=== PATIENT | female | born 1935 | race Caucasian/White ===

== ENCOUNTER 2017-09-09 07:21 | Day surgery (SDC) | payer MEDICARE, OTHER, SELFPAY ==
[2017-09-09 07:50] VITALS: BP 144/60; PULSE 67; RESP 18; TEMP 36; O2SAT 98; BMI 23.3
--- NOTE | 2017-09-09 09:18 | PCM.OPRPT ---
Problem List (1) Family hx of colon cancer Status: Acute Report of Operation Date of Procedure: 09/09/17 Pre-Operative Diagnosis: Family history of colon cancer Post-Operative Diagnosis: Extensive sigmoid and descending diverticulosis. Extraordinarily tortuous colon Surgery/Procedure Performed:: Colonoscopy Description of Surgical Findings:: .Informed consent was obtained. 82-year-old female was taken to the endoscopy suite. She was placed in a left lateral decubitus position. Throughout the procedure 100 mg of Demerol 3 mg of Versed were given as intravenous sedation. Digital rectal exam performed demonstrating external hemorrhoids soft nonthrombosed. Normal anal tone. No mass lesions. Flexible colonoscope inserted the rectum advanced through a very tortuous sigmoid colon. The scope was then slowly advanced through the transverse colon. The patient had to be placed supine in order to get the scope to go to the cecum. Transabdominal pressure was utilized. The cecum ileocecal valve area was achieved. Bowel prep was good with some liquid stool located throughout the colon. The scope was carefully withdrawn from the cecum ascending colon transverse colon descending colon and sigmoid colon. Laxity and tortuosity noted throughout. Extensive sigmoid and descending diverticulosis. The scope was retroflexed within the rectum the anorectal verge inspected hemorrhoidal changes noted. Excess fluid and air was aspirated free the procedure was completed with the patient tolerating it well. Impression Sigmoid and descending colon diverticulosis. Tortuous elongated colon. Patient is age 82. Next screening colonoscopy could be considered at age 87 pending her general health at that time. Medications were given at 0852. Scope inserted at 0853. The cecum was reached at 0909. This procedure was completed at 0916. Cc: Dr. Abbi Palafox M.D., F.A.C.S. Type of Anesthesia:: IV Sedation
[2017-09-09 09:23] VITALS: BP 114/42; BP 144/60; PULSE 66; RESP 18; TEMP 36.1; O2SAT 100
[2017-09-09 09:28] VITALS: BP 112/42; BP 144/60; PULSE 61; RESP 18; O2SAT 100
[2017-09-09 09:34] VITALS: BP 118/40; BP 144/60; PULSE 57; RESP 18; TEMP 36.6; O2SAT 99
[2017-09-09 09:49] VITALS: BP 144/60
== END 2017-09-09 10:33 | disposition home or self-care (01) ==
LOC: EN 07:22 → AC 07:25
PROVIDERS: Family Provider Internal Medicine; PCP Internal Medicine; Visit Provider Surgery
PROC: 0DJD8ZZ Inspection of Lower Intestinal Tract, Via Natural or Artificial Opening Endoscopic (ICD-10-PCS; CPT 45378; principal; 2017-09-09 08:40)
DX: K57.30 Diverticulosis of large intestine without perforation or abscess without bleeding (principal); K56.2 Volvulus; K64.4 Residual hemorrhoidal skin tags; D12.6 Benign neoplasm of colon, unspecified; Z80.0 Family history of malignant neoplasm of digestive organs; K21.9 Gastro-esophageal reflux disease without esophagitis; I10 Essential (primary) hypertension; E78.00 Pure hypercholesterolemia, unspecified; M17.0 Bilateral primary osteoarthritis of knee; Z79.82 Long term (current) use of aspirin; Z79.899 Other long term (current) drug therapy
CPT/HCPCS: 45378; 99152; 99153; J7120

== ENCOUNTER 2018-03-14 21:12 | Emergency (ER) | payer MEDICARE, OTHER, SELFPAY ==
[2018-03-14 21:13] VITALS: BP 192/86; PULSE 81; RESP 16; TEMP 36.9; O2SAT 99; BMI 23.5
--- NOTE | 2018-03-14 22:23 | ED.VISSUMM ---
- ER Visit Summary Date of Service: 03/14/18 Chief Complaint: Facial laceration History of Present Illness: The patient is a 82 F who was at the [place] airport today when she hit her toe on her luggage and she fell to the ground. After she got to the ground the post that holds the security line fell and struck her in the face just lateral to the right eye. No loss of conscious. That happened 7 hours prior to examination. No nausea vomiting. No headache. She otherwise appear well. Tetanus is up-to-date. Physical Examination: Afebrile vital signs are stable Gen: Well-nourished well-developed Head: Normocephalic is a horizontally orientated linear laceration just lateral to the right periorbital tissue. Edges are well approximated. There is no active bleeding. Neurovascularly intact. Able to wrinkle forehead. Eyes: Perrl EOMI ENT: TMs clear no rhinorrhea moist mucous membranes Neck: Supple no lymphadenopathy no JVD nontender CVS: Regular rate rhythm no murmurs normal S1-S2 Respiratory: No distress clear to auscultation bilaterally chest nontender Abdomen: Soft nontender nondistended normal bowel sounds no masses Back: Nontender Extremity: Nontender no edema Skin: Normal color no rash Neuro: alert orientated ?3 CN II-XII intact normal strength sensation reflexes gait cerebellar Psych: Normal affect normal mood Emergency Department Course and Treatment: Wound was locally anesthetized using 1% lidocaine. It was washed with Shur-Clens and explored. It was closed using 2 simple interrupted 5-0 repeat stitches. Wound care discussed with patient. We discussed whether or not a CT is warranted and I do not feel it is strongly that it is in the patient does not either. She will return if worsening or concerns. Impression: 1. 1 cm right facial laceration with repair This note was generated with [employer] dictation software. It may contain incorrect words, spelling, and punctuation that were not noted in review of the chart prior to signing ED Disposition - Plan for ED Patient: Disposition: Home or Assisted Living Chief Complaint: Laceration Instructions: ED Laceration Facial Sutr Tape Referrals: Abbi Cruz MD [Primary Care Provider] - As Needed
[2018-03-14 22:33] VITALS: RESP 18
--- OUTSIDE RECORDS SUMMARY | 2018-05-10 10:32 | XMS RPT_ITS ---
:1935 Author Organization OH[facility] Care Team Providers Name Role Phone KENA SIERRA Attending Unavailable KENA SIERRA Referring Unavailable TALAMPAS, MICHELLE Jj Referring Unavailable TALAMPAS, MICHELLE D Attending Unavailable ADIE OLEARY (IT DISASTER RECOVERY MANAGER) Attending Unavailable AIDE OLEARY (IT DISASTER RECOVERY MANAGER) Attending Unavailable TALAMPAS, MICHELLE D Referring Unavailable TALAMPAS, MICHELLE D Attending Unavailable Kris Palafox Attending Unavailable Kris Palafox Attending Unavailable Vivienne Kris Referring Unavailable Talampas, Michelle Primary Care Unavailable Kris Palafox Attending Unavailable Vivienne Kris Referring Unavailable Talampas, Michelle Primary Care Unavailable Vivienne Kris Consulting Unavailable Talampas, Michelle Primary Care Unavailable Brown Wilson Attending Unavailable PROBLEMS PROBLEMS DATE TYPE CONDITION / CODE ATTENDING STATUS SOURCE 03/16/2018 Unknown S01.81XA - Brown Wilson Active [facility] Laceration without Community foreign body of Hospital other part of head, Repository initial encounter / S01.81XA(ICD-10) 08/27/2017 Unknown Z80.0 - Family Kris Palafox Active [facility] history of malignant Community neoplasm of Hospital digestive organs / Repository Z80.0(ICD-10) 08/27/2017 Unknown D12.6 - Benign CebuKris phelan Active [facility] neoplasm of colon, Community unspecified / Hospital D12.6(ICD-10) Repository 09/26/2015 Active Essential (primary) NA Active [facility] hypertension / Clinic Main I10(ICD-10) [place] Repository 05/02/2017 Active Mixed hyperlipidemia NA Active [facility] / E78.2(ICD-10) Clinic Main [place] Repository 05/02/2017 Active 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 [facility] (current) drug Clinic Main therapy / [place] Z79.899(ICD-10) Repository 04/28/2017 Active Encounter for NA Active [facility] screening mammogram [facility] Main for malignant [place] neoplasm of breast / Repository Z12.31(ICD-10) 04/28/2017 Active Unknown / [place] Active [facility] UNK(Unknown) [facility]IZ[facility], Clinic Main KENA [place] Repository PROCEDURES PROCEDURES No Procedure Records FoundRESULTS RESULTS EMERGENCY DEPARTMENT Observed: 03/16/2018 Status: F Source: [place] SUMMARY 8:16 AM [facility] REPOSITORY [facility] Medical Records Department [address] [place] [address] Emergency Department Summary 03/14/18 2223 MR#: [id number] Acct: [id number] Name: JERALD VERMA Rep #: [id number] : 1935 82 From: Brown Wilson DO PCP: Michelle Cruz MD Status: DEP ER - ER Visit Summary Date of Service: 03/14/18 Chief Complaint: Facial laceration History of Present Illness: The patient is a 82 F who was [place] the [place] today when she hit her toe on her luggage and she fell to the ground. After she got to the ground the post that holds the security line fell and struck her in the face just lateral to the right eye. No loss of conscious. That happened 7 hours prior to examination. No nausea vomiting. No headache. She otherwise appear well. Tetanus is up-to-date. Physical Examination: Afebrile vital signs are stable Gen: Well-nourished well-developed Head: Normocephalic is a horizontally orientated linear laceration just lateral to the right periorbital tissue. Edges are well approximated. There is no active bleeding. Neurovascularly intact. Able to wrinkle forehead. Eyes: Perrl EOMI ENT: TMs clear no rhinorrhea moist mucous membranes Neck: Supple no lymphadenopathy no JVD nontender CVS: Regular rate rhythm no murmurs normal S1-S2 Respiratory: No distress clear to auscultation bilaterally chest nontender Abdomen: Soft nontender nondistended normal bowel sounds no masses Back: Nontender Extremity: Nontender no edema Skin: Normal color no rash Neuro: alert orientated 3 CN II-XII intact normal strength sensation reflexes gait cerebellar Psych: Normal affect normal mood Emergency Department Course and Treatment: Wound was locally anesthetized using 1% lidocaine. It was washed with Shur-Clens and explored. It was closed using 2 simple interrupted 5-0 repeat stitches. Wound care discussed with patient. We discussed whether or not a CT is warranted and I do not feel it is strongly that it is in the patient does not either. She will return if worsening or concerns. Impression: 1. 1 cm right facial laceration with repair This note was generated with Storytree dictation software. It may contain incorrect words, spelling, and punctuation that were not noted in review of the chart prior to signing ED Disposition - Plan for ED Patient: Disposition: Home or Assisted Living Chief Complaint: Laceration Instructions: ED Laceration Facial Sutr Tape Referrals: Michelle Cruz MD [Primary Care Provider] - As Needed What to do if you have Problems For any increased pain, shortness of breath, bleeding, nausea or vomiting, chest pain, or any unexpected problems, contact your Primary Care Provider. Call [facility] ([phone]) or report to the closest Emergency Room. Call 911 if necessary. 03/16/18 0816 <Electronically signed by Brown Wilson DO> Date Brown Wilson DO Cosigner Signature (If Indicated): Date CC: Michelle Cruz MD PROGRESS Observed: 11/11/2017 Status: COMPLETED Source: [place] 9:15 AM [facility] REPOSITORY HNO ID: [id number] Author: Michelle Cruz Service: (none) Author Type: Physician Type: Progress Notes Filed: 11/30/2017 3:21 AM Note Text: Patient presents with: Recheck: 6 month follow up SUBJECTIVE: Jerald Verma is a 82 year old year old lady here today for 6 month follow up appointment for review of medical conditions. 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 Complicated issues with getting things taken care of. Started with back pain yesterday. Picked up box while leaning forward. Better today. Aleve yesterday. PAST MEDICAL HISTORY Diagnosis Date - Benign microscopic hematuria Follows with Dr. Lee - Benign neoplasm of colon - Carpal tunnel syndrome 11/01/2006 - Disorder of bone and cartilage, unspecified - Diverticulitis of colon (without mention of hemorrhage)(562.11) - Diverticulosis of colon (without mention of hemorrhage) - Esophageal reflux - Essential hypertension, benign - Family history of malignant neoplasm of gastrointestinal tract - Foot injury torn tendon right great toe (lateral) causing medial toe deviation - Osteoarthrosis, unspecified whether generalized or localized, unspecified site - Painful tongue Tongu sensitivity--evaluated by ENT (Kami) and dentist - Pure hypercholesterolemia - Tinnitus Current Outpatient Prescriptions: hydroCHLOROthiazide (HYDRODIURIL, ESIDRIX) 25 mg tablet Take 0.5 tablets by mouth once daily. simvastatin (ZOCOR) 20 mg tablet Take 1 tablet by mouth daily at bedtime. lisinopril (ZESTRIL, PRINIVIL) 10 mg tablet Take 1 tablet by mouth once daily. budesonide (RHINOCORT AQUA) 32 mcg/actuation nasal spray Use 1-2 Sprays in each nostril once daily. as needed metoprolol succinate ER (TOPROL XL) 50 mg 24 hr tablet Take 1 tablet by mouth once daily. calcium carbonate 600 mg-cholecalciferol 200 units 600 mg(1,500mg) -200 unit tab Take 1 tablet by mouth twice daily. Cholecalciferol, Vitamin D3, 2,000 unit cap Take 1 tablet by mouth once daily. (after finished the 1000 IU capsules taking 2 daily) naproxen sodium (ALEVE) 220 mg tablet Take 1 tablet by mouth once daily as needed. (rarely takes; knows not to take if is going to try nabumetone) Aspirin 81 mg tab Take 1 tablet by mouth once daily. Take with food. desonide 0.05 % ointment Apply to affected rash area selectively (eg., right corner of the mouth) as directed and tolerated two to four times per day until cleared up and then can stop or taper off as able. AVOID eyes//eyelids. TYLENOL EXTRA STRENGTH 500 MG ORAL TAB as necessary TUMS ULTRA 1,000 MG ORAL CHEW as necessary CENTRUM SILVER ORAL TAB Take one(1) tablet daily. VITAMIN C 500 MG ORAL TAB Take one(1) tablet daily. ALLERGY RELIEF, LORATADINE, 10 mg tablet Take 1 tablet by mouth once daily. (Patient not taking: Reported on 11/11/2017 ) No current facility-administered medications for this visit. OBJECTIVE: BP 150/60 Pulse 64 Resp 12 Wt 62.6 kg (138 lb) BMI 23.50 kg/m? Patient is alert, oriented times 3, no apparent distress, affect is bright, reactive. Last 5 Encounter BP Readings: Date: BP: 11/11/2017 150/60 08/22/2017 130/78 07/21/2017 144/64 05/09/2017 142/68 04/28/2017 138/68 Last 5 Encounter Wt Readings: Date: Wt: 11/11/2017 62.6 kg (138 lb) 08/22/2017 63 kg (139 lb) 07/21/2017 62.1 kg (137 lb) 05/09/2017 62.6 kg (138 lb) 04/28/2017 63 kg (139 lb) 11/11/17 0836 11/11/17 0930 BP: 150/60 136/60 Pulse: 64 Resp: 12 Weight: 62.6 kg (138 lb) Heart: Regular rate, rhythm, no murmurs, gallops, rubs. Lungs: Clear to auscultation, bilaterally, breathing non labored. Ext: No cyanosis, clubbing, or edema. Back: left SI area tenderness. Neuro: no gross focal deficits Component Latest Ref Rng AND Units 10/06/2016 11/23/2016 05/02/2017 11/05/2017 Protein, Total 6.3 - 8.0 g/dL 6.9 6.7 6.7 6.3 Albumin 3.9 - 4.9 g/dL 3.7 (L) 3.9 3.9 3.9 Calcium 8.5 - 10.2 mg/dL 9.6 10.1 9.8 9.0 Bilirubin, Total 0.2 - 1.3 mg/dL 0.4 0.4 0.4 0.4 Alkaline Phosphatase 32 - 117 U/L 102 60 56 55 AST 13 - 35 U/L 44 (H) 22 20 23 Glucose 74 - 99 mg/dL 73 (L) 75 66 (L) 83 BUN 7 - 21 mg/dL 23 (H) 20 22 (H) 18 Creatinine 0.58 - 0.96 mg/dL 0.77 0.72 0.76 0.68 Sodium 136 - 144 mmol/L 141 141 142 141 Potassium 3.7 - 5.1 mmol/L 4.6 4.9 4.1 4.0 Chloride 97 - 105 mmol/L 100 101 99 101 CO2 22 - 30 mmol/L 28 25 31 (H) 28 Anion Gap 9 - 18 mmol/L 13 15 12 12 ALT 7 - 38 U/L 64 (H) 17 16 17 eGFR- >60 >60 >60 >60 eGFR-All Other Races . >60 >60 >60 >60 WBC 3.70 - 11.00 k/uL 8.50 4.74 4.05 RBC 3.90 - 5.20 m/uL 3.75 (L) 3.83 (L) 3.85 (L) Hemoglobin 11.5 - 15.5 g/dL 12.9 12.9 13.2 Hematocrit 36.0 - 46.0 % 40.2 40.3 40.7 MCV 80.0 - 100.0 fL 107.2 (H) 105.2 (H) 105.7 (H) MCH 26.0 - 34.0 pG 34.4 (H) 33.7 34.3 (H) MCHC 30.5 - 36.0 g/dL 32.1 32.0 32.4 RDW-CV 11.5 - 15.0 % 12.6 12.7 12.2 Platelet Count 150 - 400 k/uL 363 346 320 MPV 9.0 - 12.7 fL 9.4 9.4 9.3 Absolute nRBC <0.01 k/uL 0.00 <0.01 <0.01 Cholesterol, Total <200 mg/dL 162 Triglyceride <150 mg/dL 57 HDL Cholesterol >39 mg/dL 82 LDL Cholesterol <100 mg/dL 69 Non HDL Cholesterol <130 mg/dL 80 Fasting Time hrs 0 VLDL Cholesterol <30 mg/dL 11 TC:HDL Ratio <5.10 1.98 LDL:HDL Ratio <2.54 0.84 ASSESSMENT AND PLAN: Encounter Diagnosis ICD-10-CM 1. Hypertension goal BP (blood pressure) < 140/90 I10 hydroCHLOROthiazide (HYDRODIURIL, ESIDRIX) 25 mg tablet URINALYSIS WITH MICROSCOPIC COMP METABOLIC PANEL CBC 2. Back strain, initial encounter S39.012A LS spine on left side 3. Mixed hyperlipidemia E78.2 LIPID PANEL BASIC 4. Gastroesophageal reflux disease without esophagitis K21.9 5. Numbness of right foot R20.0 ball of foot, sometime to ankle--since surgery with toe sleeve 6. Encounter for long-term current use of medication Z79.899 COMP METABOLIC PANEL CBC MAGNESIUM BLD Above issues addressed with patient. Patient involved in shared decision making for management of her medical issues. History and medications reviewed. Epic updated as needed Refills taken care of and meds adjusted as indicated after reviewed history, exam and labs. Health Maintenance reviewed. Updated record and/or ordered tests as recorded. Further evaluation and treatment as indicated. Encouraged on efforts at healthy diet and regular exercise and adequate sleep. The majority of the visit was spent counseling and/or coordinating care for the patient. Zxdb-jt-ouuc time was at least 25 minutes. Michelle Curz MD CNOV Observed: 11/11/2017 Status: COMPLETED Source: [place] 8:20 AM [facility] Visit (INTMWS) JERALD VERMA ([id number]) 1935 F Date Time Provider Department 11/11/17 8:20 AM MICHELLE CRUZ During your visit today, we recorded the following information about you: Pulse Respiration Blood pressure Weight 64/minute 12/minute 136/60 62.6 kg Michelle Cruz MD 11/30/2017 3:21 AM Signed Patient presents with: Recheck: 6 month follow up SUBJECTIVE: Jerald Verma is a 82 year old year old lady here today for 6 month follow up appointment for review of medical conditions. Back hurting after working on cleaning up basement for the [employer]. Complicated issues with getting things taken care of. Started with back pain yesterday. Picked up box while leaning forward. Better today. Aleve yesterday. PAST MEDICAL HISTORY Diagnosis Date - Benign microscopic hematuria Follows with Dr. Lee - Benign neoplasm of colon - Carpal tunnel syndrome 11/01/2006 - Disorder of bone and cartilage, unspecified - Diverticulitis of colon (without mention of hemorrhage)(562.11) - Diverticulosis of colon (without mention of hemorrhage) - Esophageal reflux - Essential hypertension, benign - Family history of malignant neoplasm of gastrointestinal tract - Foot injury torn tendon right great toe (lateral) causing medial toe deviation - Osteoarthrosis, unspecified whether generalized or localized, unspecified site - Painful tongue Tongu sensitivity--evaluated by ENT (Kami) and dentist - Pure hypercholesterolemia - Tinnitus Current Outpatient Prescriptions: hydroCHLOROthiazide (HYDRODIURIL, ESIDRIX) 25 mg tablet Take 0.5 tablets by mouth once daily. simvastatin (ZOCOR) 20 mg tablet Take 1 tablet by mouth daily at bedtime. lisinopril (ZESTRIL, PRINIVIL) 10 mg tablet Take 1 tablet by mouth once daily. budesonide (RHINOCORT AQUA) 32 mcg/actuation nasal spray Use 1-2 Sprays in each nostril once daily. as needed metoprolol succinate ER (TOPROL XL) 50 mg 24 hr tablet Take 1 tablet by mouth once daily. calcium carbonate 600 mg-cholecalciferol 200 units 600 mg(1,500mg) -200 unit tab Take 1 tablet by mouth twice daily. Cholecalciferol, Vitamin D3, 2,000 unit cap Take 1 tablet by mouth once daily. (after finished the 1000 IU capsules taking 2 daily) naproxen sodium (ALEVE) 220 mg tablet Take 1 tablet by mouth once daily as needed. (rarely takes; knows not to take if is going to try nabumetone) Aspirin 81 mg tab Take 1 tablet by mouth once daily. Take with food. desonide 0.05 % ointment Apply to affected rash area selectively (eg., right corner of the mouth) as directed and tolerated two to four times per day until cleared up and then can stop or taper off as able. AVOID eyes//eyelids. TYLENOL EXTRA STRENGTH 500 MG ORAL TAB as necessary TUMS ULTRA 1,000 MG ORAL CHEW as necessary CENTRUM SILVER ORAL TAB Take one(1) tablet daily. VITAMIN C 500 MG ORAL TAB Take one(1) tablet daily. ALLERGY RELIEF, LORATADINE, 10 mg tablet Take 1 tablet by mouth once daily. (Patient not taking: Reported on 11/11/2017 ) No current facility-administered medications for this visit. OBJECTIVE: BP 150/60 Pulse 64 Resp 12 Wt 62.6 kg (138 lb) BMI 23.50 kg/m? Patient is alert, oriented times 3, no apparent distress, affect is bright, reactive. Last 5 Encounter BP Readings: Date: BP: 11/11/2017 150/60 08/22/2017 130/78 07/21/2017 144/64 05/09/2017 142/68 04/28/2017 138/68 Last 5 Encounter Wt Readings: Date: Wt: 11/11/2017 62.6 kg (138 lb) 08/22/2017 63 kg (139 lb) 07/21/2017 62.1 kg (137 lb) 05/09/2017 62.6 kg (138 lb) 04/28/2017 63 kg (139 lb) 11/11/17 0836 11/11/17 0930 BP: 150/60 136/60 Pulse: 64 Resp: 12 Weight: 62.6 kg (138 lb) Heart: Regular rate, rhythm, no murmurs, gallops, rubs. Lungs: Clear to auscultation, bilaterally, breathing non labored. Ext: No cyanosis, clubbing, or edema. Back: left SI area tenderness. Neuro: no gross focal deficits Component Latest Ref Rng AND Units 10/06/2016 11/23/2016 05/02/2017 11/05/2017 Protein, Total 6.3 - 8.0 g/dL 6.9 6.7 6.7 6.3 Albumin 3.9 - 4.9 g/dL 3.7 (L) 3.9 3.9 3.9 Calcium 8.5 - 10.2 mg/dL 9.6 10.1 9.8 9.0 Bilirubin, Total 0.2 - 1.3 mg/dL 0.4 0.4 0.4 0.4 Alkaline Phosphatase 32 - 117 U/L 102 60 56 55 AST 13 - 35 U/L 44 (H) 22 20 23 Glucose 74 - 99 mg/dL 73 (L) 75 66 (L) 83 BUN 7 - 21 mg/dL 23 (H) 20 22 (H) 18 Creatinine 0.58 - 0.96 mg/dL 0.77 0.72 0.76 0.68 Sodium 136 - 144 mmol/L 141 141 142 141 Potassium 3.7 - 5.1 mmol/L 4.6 4.9 4.1 4.0 Chloride 97 - 105 mmol/L 100 101 99 101 CO2 22 - 30 mmol/L 28 25 31 (H) 28 Anion Gap 9 - 18 mmol/L 13 15 12 12 ALT 7 - 38 U/L 64 (H) 17 16 17 eGFR- >60 >60 >60 >60 eGFR-All Other Races . >60 >60 >60 >60 WBC 3.70 - 11.00 k/uL 8.50 4.74 4.05 RBC 3.90 - 5.20 m/uL 3.75 (L) 3.83 (L) 3.85 (L) Hemoglobin 11.5 - 15.5 g/dL 12.9 12.9 13.2 Hematocrit 36.0 - 46.0 % 40.2 40.3 40.7 MCV 80.0 - 100.0 fL 107.2 (H) 105.2 (H) 105.7 (H) MCH 26.0 - 34.0 pG 34.4 (H) 33.7 34.3 (H) MCHC 30.5 - 36.0 g/dL 32.1 32.0 32.4 RDW-CV 11.5 - 15.0 % 12.6 12.7 12.2 Platelet Count 150 - 400 k/uL 363 346 320 MPV 9.0 - 12.7 fL 9.4 9.4 9.3 Absolute nRBC <0.01 k/uL 0.00 <0.01 <0.01 Cholesterol, Total <200 mg/dL 162 Triglyceride <150 mg/dL 57 HDL Cholesterol >39 mg/dL 82 LDL Cholesterol <100 mg/dL 69 Non HDL Cholesterol <130 mg/dL 80 Fasting Time hrs 0 VLDL Cholesterol <30 mg/dL 11 TC:HDL Ratio <5.10 1.98 LDL:HDL Ratio <2.54 0.84 ASSESSMENT AND PLAN: Encounter Diagnosis ICD-10-CM 1. Hypertension goal BP (blood pressure) < 140/90 I10 hydroCHLOROthiazide (HYDRODIURIL, ESIDRIX) 25 mg tablet URINALYSIS WITH MICROSCOPIC COMP METABOLIC PANEL CBC 2. Back strain, initial encounter S39.012A LS spine on left side 3. Mixed hyperlipidemia E78.2 LIPID PANEL BASIC 4. Gastroesophageal reflux disease without esophagitis K21.9 5. Numbness of right foot R20.0 ball of foot, sometime to ankle--since surgery with toe sleeve 6. Encounter for long-term current use of medication Z79.899 COMP METABOLIC PANEL CBC MAGNESIUM BLD Above issues addressed with patient. Patient involved in shared decision making for management of her medical issues. History and medications reviewed. Epic updated as needed Refills taken care of and meds adjusted as indicated after reviewed history, exam and labs. Health Maintenance reviewed. Updated record and/or ordered tests as recorded. Further evaluation and treatment as indicated. Encouraged on efforts at healthy diet and regular exercise and adequate sleep. The majority of the visit was spent counseling and/or coordinating care for the patient. Njaf-be-yzdx time was at least 25 minutes. Michelle Cruz MD Referring Provider: SELF [200] Allergies As of Date: 11/11/2017 Noted Allergy Reaction AMOXICILLIN 12/31/2004 6 - Diarrhea KETEK (TELITHROMYCIN) 12/31/2004 6 - Diarrhea NEOMYCIN 04/24/2010 2 - Rash Comments: Reaction on arm when treated with neosporin and bandaid; resolved after stopped Neosporin and used bacitracin instead Date Reviewed: 11/11/2017 Reviewed by: Edyta Garcia LPN - Fully Assessed Reason for Visit: Recheck [92] Cmt: 6 month follow up Primary Visit Diagnosis:Hypertension goal BP (blood pressure) < 140/90 [I10] Other Visit Diagnoses:Back strain, initial encounter [S39.012A] Comment:LS spine on left side Mixed hyperlipidemia [E78.2] Gastroesophageal reflux disease without esophagitis [K21.9] Numbness of right foot [R20.0] Comment:ball of foot, sometime to ankle--since surgery with toe sleeve Encounter for long-term current use of medication [Z98.244] Order(s):hydroCHLOROthiazide (HYDRODIURIL, ESIDRIX) 25 mg tabletTake 0.5 tablets by mouth once daily.Disp: 45 tabletRfl: 3 URINALYSIS WITH MICROSCOPIC [SQUAWMIC] Order #: [id number] FUTURE COMP METABOLIC PANEL [SQCMP] Order #: [id number] FUTURE CBC [SQCBC] Order #: [id number] FUTURE LIPID PANEL BASIC [SQLIPB] Order #: [id number] FUTURE MAGNESIUM BLD [SQMG1] Order #: [id number] FUTURE Prescriptions as of 11/11/2017 Sig: HYDROCHLOROTHIAZIDE 25 MG TAB* Take 0.5 tablets by mouth onc* SIMVASTATIN 20 MG TABLET Take 1 tablet by mouth daily * LISINOPRIL 10 MG TABLET Take 1 tablet by mouth once d* BUDESONIDE 32 MCG/ACTUATION N* Use 1-2 Sprays in each nostri* METOPROLOL SUCCINATE ER 50 MG* Take 1 tablet by mouth once d* CALCIUM CARBONATE 600 MG (1,5* Take 1 tablet by mouth twice * CHOLECALCIFEROL (VITAMIN D3) * Take 1 tablet by mouth once d* NAPROXEN SODIUM 220 MG TABLET Take 1 tablet by mouth once d* ASPIRIN 81 MG TABLET Take 1 tablet by mouth once d* DESONIDE 0.05 % TOPICAL OINTM* Apply to affected rash area s* TYLENOL EXTRA STRENGTH 500 MG* as necessary TUMS ULTRA 400 MG CALCIUM (1,* as necessary CENTRUM SILVER TABLET Take one(1) tablet daily. VITAMIN C 500 MG TABLET Take one(1) tablet daily. ALLERGY RELIEF (LORATADINE) 1* Take 1 tablet by mouth once d* Patient not taking: Reported on 11/11/2017 Problem List As Of Date 11/11/2017 Noted Resolved ESOPHAGEAL REFLUX [K21.9] PERS HX COLONIC POLYPS [Z86.010] INVALID FOR* More... 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 Bladder wall thickening [N32.89] INVALID FOR* Contact dermatitis and other eczema, corners of*INVALID FOR*02/05/2014 More... 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 Ocular migraine [G43.109] INVALID FOR* Prescriptions ordered this encounter Disp Refills Start End HYDROCHLOROTHIAZIDE 25 MG TABLET 45 t* 3 11/11/2017 Cmt: Please put on file; patient will request when needs Route: ORAL Sig: Take 0.5 tablets by mouth once daily. Medications Discontinued During This Encounter hydroCHLOROthiazide (HYDRODIURIL, ES* 45 t* 3 10/13/2016 11/11/2017 Cmt: Put on file--does not need yet Route: ORAL Sig: Take 0.5 tablets by mouth once daily. Disc: Reason for discontinue is not on file. nabumetone (RELAFEN) 750 mg tablet 06/30/2015 11/11/2017 Class: Med Update Route: ORAL Sig: Take 1 tablet by mouth twice daily as needed. (has not needed to take yet) Disc: Reason for discontinue is not on file. Disposition: Return in about 6 months (around 05/14/2018) for 6 months follow up, With labs prior. Follow-up and Disposition History Recorded Encounter Status:Closed by MICHELLE CRUZ MD on 11/30/17 CBC Collected: 11/05/2017 Status: F Source: [place] 11:09 AM [facility] [place] REPOSITORY TYPE CODE TESTS RESULT OUT OF REFERENCE UNITS RANGE LAB WBC 3.70-11.00 k/uL WBC 4.05 LAB RBC 3.90-5.20 m/uL Low RBC 3.85 LAB HGB 11.5-15.5 g/dL Hemoglobin 13.2 LAB HCT 36.0-46.0 % Hematocrit 40.7 LAB MCV 80.0-100.0 fL MCV High 105.7 LAB MCH 26.0-34.0 pG MCH High 34.3 LAB MCHC 30.5-36.0 g/dL MCHC 32.4 LAB RDWCV 11.5-15.0 % RDW-CV 12.2 LAB PLTCT 150-400 k/uL Platelet Count 320 LAB MPV 9.0-12.7 fL MPV 9.3 LAB ABSNUC <0.01 k/uL Absolute nRBC <0.01 Performed By: #### CBC, CMP #### [facility] [address] [place], [place] [address] COMP METABOLIC PANEL Collected: 11/05/2017 Status: F Source: [place] 11:09 AM [facility] REPOSITORY TYPE CODE TESTS RESULT OUT OF REFERENCE UNITS RANGE LAB TP 6.3-8.0 g/dL Protein, Total 6.3 LAB ALB 3.9-4.9 g/dL Albumin 3.9 LAB CA 8.5-10.2 mg/dL Calcium, Total 9.0 LAB TBIL 0.2-1.3 mg/dL Bilirubin, Total 0.4 LAB ALKP 32-117 U/L Alkaline Phosphatase 55 LAB AST 13-35 U/L AST 23 LAB GLU 74-99 mg/dL Glucose 83 Result Comment: The [place] [employer] (ADA) provides guidance for cutoff values for fasting glucose and random glucose. The ADA defines fasting as no caloric intake for at least 8 hours. Fas ting plasma glucose results between 100 to 125 mg/dL indicate increased risk for diabetes (prediabetes). Fasting plasma glucose results greater than or equal to 126 mg/dL meet the criteria for diagnosis of diabetes. In the absence of unequivocal hyperglycemia, results should be confirmed by repeat testing. In a patient with classic symptoms of hyperglycemia or hyperglycemic crisis, random plasma glucose results greater than or equal to 200 mg/dL meet the criteria for diagnosis of diabetes. Reference: Standards of Medical Care in Diabetes 2016, [place] [employer]. Diabetes Care. 2016.39(Suppl 1). LAB BUN 7-21 mg/dL BUN 18 LAB CRET 0.58-0.96 mg/dL Creatinine 0.68 LAB NA 136-144 mmol/L Sodium 141 LAB K 3.7-5.1 mmol/L Potassium 4.0 LAB CL 97-105 mmol/L Chloride 101 LAB CO2 22-30 mmol/L CO2 28 LAB AGAP 9-18 mmol/L Anion Gap 12 LAB ALT 7-38 U/L ALT 17 LAB GFRAA eGFR- Amer. >60 LAB GFRNAA . eGFR-All Other Races >60 Result Comment: eGFR (Estimated GFR) Units of measure: mL/min/1.73 meters squared eGFR is derived from the reexpressed MDRD Study equation using the following parameters: serum creatinine, age, gender and race. The creatinine assay has been calibrated to be traceable to IDMS. An eGFR <60 mL/min/1.73m2 for >3 months is consistent with chronic kidney disease. Refer to KDOQI guidelines for clinical interpretation. In patients with unstable renal function, e.g. those with acute kidney injury, the eGFR may not accurately reflect actual GFR. Performed By: #### CBC, CMP #### [facility] [address] [place], [place] [address] OPERATIVE REPORT Observed: 09/09/2017 Status: F Source: [place] 9:22 AM [facility] REPOSITORY [facility] Medical Records Department [address] [place] [address] Operative Report 09/09/17917 MR#: [id number] Acct: [id number] Name: JERALD VERMA Rep #: [id number] : 1935 82 From: Kris Palafox MD PCP: Michelle Cruz MD Status: [place] [facility] [place] Location: [place] [address] Problem List (1) Family hx of colon cancer Status: Acute Report of Operation Date of Procedure: 09/09/17 Pre-Operative Diagnosis: Family history of colon cancer Post-Operative Diagnosis: Extensive sigmoid and descending diverticulosis. Extraordinarily tortuous colon Surgery/Procedure Performed:: Colonoscopy Description of Surgical Findings:: .Informed consent was obtained. 82-year-old female was taken to the endoscopy suite. She was placed in a left lateral decubitus position. Throughout the procedure 100 mg of Demerol 3 mg of Versed were given as intravenous sedation. Digital rectal exam performed demonstrating external hemorrhoids soft nonthrombosed. Normal anal tone. No mass lesions. Flexible colonoscope inserted the rectum advanced through a very tortuous sigmoid colon. The scope was then slowly advanced through the transverse colon. The patient had to be placed supine in order to get the scope to go to the cecum. Transabdominal pressure was utilized. The cecum ileocecal valve area was achieved. Bowel prep was good with some liquid stool located throughout the colon. The scope was carefully withdrawn from the cecum ascending colon transverse colon descending colon and sigmoid colon. Laxity and tortuosity noted throughout. Extensive sigmoid and descending diverticulosis. The scope was retroflexed within the rectum the anorectal verge inspected hemorrhoidal changes noted. Excess fluid and air was aspirated free the procedure was completed with the patient tolerating it well. Impression Sigmoid and descending colon diverticulosis. Tortuous elongated colon. Patient is age 82. Next screening colonoscopy could be considered at age 87 pending her general health at that time. Medications were given at 0852. Scope inserted at 0853. The cecum was reached at 0909. This procedure was completed at 0916. Cc: Dr. Michelle Palafox M.D., F.A.C.S. Type of Anesthesia:: IV Sedation 09/09/17 09 <Electronically signed by Kris Palafox MD> Date Kris Palafox MD CC: Michelle Cruz MD; Kris Palafox MD Signed PROGRESS Observed: 08/22/2017 Status: COMPLETED Source: [place] 9:02 AM [facility] HNO ID: [id number] Author: Aide Oleary (Plan Checker) Service: (none) Author Type: Nurse Specialist Type: Progress Notes Filed: 08/22/2017 10:18 AM Note Text: OUTPATIENT VISIT DATE August 22, 2017 OUTPATIENT VISIT TYPE ESTABLISHED PRIMARY CARE PHYSICIAN: Michelle Cruz CHIEF COMPLAINT: Patient presents with: Recheck: URU july 21 given claritin still cough yellow sputum /wheezing on and off History of Present Illness: Jerald Verma is a 82 year old female who was last seen 07/21/2017 in . She has been seen in the past for ACTIVE PROBLEM LIST Esophageal Reflux Personal History of Colonic Polyps Hypertension Goal Bp (Blood Pressure) < 140/90 Disorder of Bone and Cartilage Hyperlipidemia Chronic Rhinitis FAMILY HX COLON CANCER Generalized Osteoarthrosis, Unspecified Site Hematuria Bladder Wall Thickening Painful Tongue Ocular Migraine Presents today for follow up, reports productive cough at times, overall improved. She reports using Rhinocort and loratadine as advised. Did feel improvement with nasal congestion and headache resolving with this. Did continue to note productive cough intermittently so took azithromycin on August 12, 2017. She finished this on August 16. Today she notes just small amounts of yellow tinged sputum at times. Notices wheezing when breathing at times. No shortness of breath on exertion. Currently no sore throat, facial pain/pressure, swollen glands, headache, body aches, ear pain,, rash, fatigue, fever. Reports stopping loratadine in the last few days. Afebrile, nasal drainage and ear fullness off of loratadine. The ROS is otherwise negative. Also reports breast fullness sensation. No pain or abnormality. Has had generalized weight gain ~5 lbs recently. Trying to limit salty foods, but does consume some. The patient's pmh, medications, allergies, and past visits are reviewed. PHYSICAL EXAM: BP 130/78 Pulse 72 Temp 36.6 ?C (97.8 ?F) Resp 16 Wt 63 kg (139 lb) SpO2 98% BMI 23.67 kg/m? General appearance: healthy, alert, cooperative, pleasant Head: Normocephalic Eyes: conjunctiva/corneas normal Ears: R TM - clear with good landmarks, L TM - clear with good landmarks Nose: clear Oropharynx: moist without lesions Neck: supple and no adenopathy Heart: regular rate and rhythm, without murmur Lungs: clear to auscultation, without rales or wheeze, good air exchange Chest: No abnormalities on palpation of breasts, no lesions, tenderness, skin changes No recent hospital or ED visits. No new medical problems or medications. Able to obtain medications. No problems with taking medications or note side effects. PAST MEDICAL HISTORY Diagnosis Date - Benign microscopic hematuria Follows with Dr. Lee - Benign neoplasm of colon - Carpal tunnel syndrome 11/01/2006 - Disorder of bone and cartilage, unspecified - Diverticulitis of colon (without mention of hemorrhage)(562.11) - Diverticulosis of colon (without mention of hemorrhage) - Esophageal reflux - Essential hypertension, benign - Family history of malignant neoplasm of gastrointestinal tract - Foot injury torn tendon right great toe (lateral) causing medial toe deviation - Osteoarthrosis, unspecified whether generalized or localized, unspecified site - Painful tongue Tongu sensitivity--evaluated by ENT (Kami) and dentist - Pure hypercholesterolemia - Tinnitus PAST SURGICAL HISTORY Procedure Laterality Date - COLONOSCOP W/ OR W/O [facility] SPEC , , 09/16, 08/18 Colonoscopy - COLONOSCOP W/ OR W/O [facility] SPEC 10/12/07 - COLONOSCOP W/ OR W/O [facility] SPEC 10/16/2012 Colonoscopy - LIGATE FALLOPIAN TUBE 12/11/1975 - PAST SURGICAL HISTORY OF 1995 LEFT FOOT SURGERY, ORIF (plate and 6 screws) - PAST SURGICAL HISTORY OF 05/26/12 surgery right ankle (2 screw and 4 katrin) - PAST SURGICAL HISTORY OF 04/30/2012 right foot great toe - PAST SURGICAL HISTORY OF 03/28/2017 basil cell skin graft off nose - REMOVE TONSILS/ADENOIDS,<12 Y/O FAMILY HISTORY Problem Relation Age of Onset - Colon Cancer Father FROM THIS. - Hypertension Mother - Heart Mother CONGESTIVE HEART FAILURE Social History Substance Use Topics - Smoking status: Never Smoker - Smokeless tobacco: Never Used - Alcohol use Yes Comment: occasional ALLERGIES: ALLERGIES Allergen Reactions - Amoxicillin Diarrhea - Ketek [Telithromyci* Diarrhea - Neomycin Rash Reaction on arm when treated with neosporin and bandaid; resolved after stopped Neosporin and used bacitracin instead MEDICATIONS simvastatin (ZOCOR) 20 mg tablet Take 1 tablet by mouth daily at bedtime. lisinopril (ZESTRIL, PRINIVIL) 10 mg tablet Take 1 tablet by mouth once daily. budesonide (RHINOCORT AQUA) 32 mcg/actuation nasal spray Use 1-2 Sprays in each nostril once daily. as needed metoprolol succinate ER (TOPROL XL) 50 mg 24 hr tablet Take 1 tablet by mouth once daily. hydroCHLOROthiazide (HYDRODIURIL, ESIDRIX) 25 mg tablet Take 0.5 tablets by mouth once daily. calcium carbonate 600 mg-cholecalciferol 200 units 600 mg(1,500mg) -200 unit tab Take 1 tablet by mouth twice daily. Cholecalciferol, Vitamin D3, 2,000 unit cap Take 1 tablet by mouth once daily. (after finished the 1000 IU capsules taking 2 daily) nabumetone (RELAFEN) 750 mg tablet Take 1 tablet by mouth twice daily as needed. (has not needed to take yet) naproxen sodium (ALEVE) 220 mg tablet Take 1 tablet by mouth once daily as needed. (rarely takes; knows not to take if is going to try nabumetone) Aspirin 81 mg tab Take 1 tablet by mouth once daily. Take with food. desonide 0.05 % ointment Apply to affected rash area selectively (eg., right corner of the mouth) as directed and tolerated two to four times per day until cleared up and then can stop or taper off as able. AVOID eyes//eyelids. TYLENOL EXTRA STRENGTH 500 MG ORAL TAB as necessary TUMS ULTRA 1,000 MG ORAL CHEW as necessary CENTRUM SILVER ORAL TAB Take one(1) tablet daily. VITAMIN C 500 MG ORAL TAB Take one(1) tablet daily. loratadine (CLARITIN) 10 mg tablet Take 1 tablet by mouth once daily. I personally interviewed, confirmed and edited the above information if obtained by others. TESTING: Glucose (mg/dL) Date Value 05/02/2017 66 Potassium (mmol/L) Date Value 05/02/2017 4.1 Sodium (mmol/L) Date Value 05/02/2017 142 Chloride (mmol/L) Date Value 05/02/2017 99 CO2 (mmol/L) Date Value 05/02/2017 31 Creatinine (mg/dL) Date Value 05/02/2017 0.76 BUN (mg/dL) Date Value 05/02/2017 22 Anion Gap (mmol/L) Date Value 05/02/2017 12 Calcium (mg/dL) Date Value 05/02/2017 9.8 Glucose (mg/dL) Date Value 05/02/2017 66 Potassium (mmol/L) Date Value 05/02/2017 4.1 Sodium (mmol/L) Date Value 05/02/2017 142 Chloride (mmol/L) Date Value 05/02/2017 99 CO2 (mmol/L) Date Value 05/02/2017 31 Creatinine (mg/dL) Date Value 05/02/2017 0.76 BUN (mg/dL) Date Value 05/02/2017 22 Anion Gap (mmol/L) Date Value 05/02/2017 12 Calcium (mg/dL) Date Value 05/02/2017 9.8 Protein, Total (g/dL) Date Value 05/02/2017 6.7 Albumin (g/dL) Date Value 05/02/2017 3.9 Bilirubin, Total (mg/dL) Date Value 05/02/2017 0.4 Alkaline Phosphatase (U/L) Date Value 05/02/2017 56 AST (U/L) Date Value 05/02/2017 20 ALT (U/L) Date Value 05/02/2017 16 Hemoglobin (g/dL) Date Value 05/02/2017 12.9 Hematocrit (%) Date Value 05/02/2017 40.3 WBC (k/uL) Date Value 05/02/2017 4.74 Cholesterol, Total (mg/dL) Date Value 05/02/2017 162 HDL Cholesterol (mg/dL) Date Value 05/02/2017 82 LDL Cholesterol (mg/dL) Date Value 05/02/2017 69 Triglyceride (mg/dL) Date Value 05/02/2017 57 No results found for: HBA1C Ejection Fraction: No results found IMPRESSION: Ms. Verma is a 82 year old woman presents for follow up or upper respiratory symptoms. After my examination and review of data, I make the following recommendations. PLAN AND RECOMMENDATIONS: 1. Cough - ICD9: 786.2, ICD10: R05 (primary diagnosis) 2. PND (post-nasal drip) - ICD9: 784.91, ICD10: R09.82 Resume allergy treatments previously prescribed. Continue with loratidine and rhinocort 3. Fullness of breast - ICD9: 611.89, ICD10: N64.89 Avoiding caffeine, recommend she cut sodium intake. Declines mammogram today. Advised to go to ER if develops chest pain, shortness of breath, or severe worsening of symptoms. Discussed risks, benefits, alternatives, and potential side effects of medications. Ms. Verma expressed understanding and agreed with the plan. Aide Oleary APRN.IT DISASTER RECOVERY MANAGER CNOV Observed: 08/22/2017 Status: COMPLETED Source: [place] 9:00 AM [facility] Office Visit (INTMWS) JERALD VERMA ([id number]) 1935 F Date Time Provider Department 08/22/17 9:00 AM AIDE OLEARY ([facility]) INTMWS During your visit today, we recorded the following information about you: Temperature Pulse Respiration Blood pressure 97.8 degrees 72/minute 16/minute 130/78 Weight 63 kg Aide Oleary (Plan Checker) 08/22/2017 10:18 AM Signed OUTPATIENT VISIT DATE August 22, 2017 OUTPATIENT VISIT TYPE ESTABLISHED PRIMARY CARE PHYSICIAN: Michelle Cruz CHIEF COMPLAINT: Patient presents with: Recheck: URU july 21 given claritin still cough yellow sputum /wheezing on and off History of Present Illness: Jerald Verma is a 82 year old female who was last seen 07/21/2017 in . She has been seen in the past for ACTIVE PROBLEM LIST Esophageal Reflux Personal History of Colonic Polyps Hypertension Goal Bp (Blood Pressure) < 140/90 Disorder of Bone and Cartilage Hyperlipidemia Chronic Rhinitis FAMILY HX COLON CANCER Generalized Osteoarthrosis, Unspecified Site Hematuria Bladder Wall Thickening Painful Tongue Ocular Migraine Presents today for follow up, reports productive cough at times, overall improved. She reports using Rhinocort and loratadine as advised. Did feel improvement with nasal congestion and headache resolving with this. Did continue to note productive cough intermittently so took azithromycin on August 12, 2017. She finished this on August 16. Today she notes just small amounts of yellow tinged sputum at times. Notices wheezing when breathing at times. No shortness of breath on exertion. Currently no sore throat, facial pain/pressure, swollen glands, headache, body aches, ear pain,, rash, fatigue, fever. Reports stopping loratadine in the last few days. Afebrile, nasal drainage and ear fullness off of loratadine. The ROS is otherwise negative. Also reports breast fullness sensation. No pain or abnormality. Has had generalized weight gain ~5 lbs recently. Trying to limit salty foods, but does consume some. The patient's pmh, medications, allergies, and past visits are reviewed. PHYSICAL EXAM: BP 130/78 Pulse 72 Temp 36.6 ?C (97.8 ?F) Resp 16 Wt 63 kg (139 lb) SpO2 98% BMI 23.67 kg/m? General appearance: healthy, alert, cooperative, pleasant Head: Normocephalic Eyes: conjunctiva/corneas normal Ears: R TM - clear with good landmarks, L TM - clear with good landmarks Nose: clear Oropharynx: moist without lesions Neck: supple and no adenopathy Heart: regular rate and rhythm, without murmur Lungs: clear to auscultation, without rales or wheeze, good air exchange Chest: No abnormalities on palpation of breasts, no lesions, tenderness, skin changes No recent hospital or ED visits. No new medical problems or medications. Able to obtain medications. No problems with taking medications or note side effects. PAST MEDICAL HISTORY Diagnosis Date - Benign microscopic hematuria Follows with Dr. Lee - Benign neoplasm of colon - Carpal tunnel syndrome 11/01/2006 - Disorder of bone and cartilage, unspecified - Diverticulitis of colon (without mention of hemorrhage)(562.11) - Diverticulosis of colon (without mention of hemorrhage) - Esophageal reflux - Essential hypertension, benign - Family history of malignant neoplasm of gastrointestinal tract - Foot injury torn tendon right great toe (lateral) causing medial toe deviation - Osteoarthrosis, unspecified whether generalized or localized, unspecified site - Painful tongue Tongu sensitivity--evaluated by ENT (Kami) and dentist - Pure hypercholesterolemia - Tinnitus PAST SURGICAL HISTORY Procedure Laterality Date - COLONOSCOP W/ OR W/O [facility] SPEC , , 09/16, 08/18 Colonoscopy - COLONOSCOP W/ OR W/O [facility] SPEC 10/12/07 - COLONOSCOP W/ OR W/O [facility] SPEC 10/16/2012 Colonoscopy - LIGATE FALLOPIAN TUBE 12/11/1975 - PAST SURGICAL HISTORY OF 1995 LEFT FOOT SURGERY, ORIF (plate and 6 screws) - PAST SURGICAL HISTORY OF 05/26/12 surgery right ankle (2 screw and 4 katrin) - PAST SURGICAL HISTORY OF 04/30/2012 right foot great toe - PAST SURGICAL HISTORY OF 03/28/2017 basil cell skin graft off nose - REMOVE TONSILS/ADENOIDS,<12 Y/O FAMILY HISTORY Problem Relation Age of Onset - Colon Cancer Father FROM THIS. - Hypertension Mother - Heart Mother CONGESTIVE HEART FAILURE Social History Substance Use Topics - Smoking status: Never Smoker - Smokeless tobacco: Never Used - Alcohol use Yes Comment: occasional ALLERGIES: ALLERGIES Allergen Reactions - Amoxicillin Diarrhea - Ketek [Telithromyci* Diarrhea - Neomycin Rash Reaction on arm when treated with neosporin and bandaid; resolved after stopped Neosporin and used bacitracin instead MEDICATIONS simvastatin (ZOCOR) 20 mg tablet Take 1 tablet by mouth daily at bedtime. lisinopril (ZESTRIL, PRINIVIL) 10 mg tablet Take 1 tablet by mouth once daily. budesonide (RHINOCORT AQUA) 32 mcg/actuation nasal spray Use 1-2 Sprays in each nostril once daily. as needed metoprolol succinate ER (TOPROL XL) 50 mg 24 hr tablet Take 1 tablet by mouth once daily. hydroCHLOROthiazide (HYDRODIURIL, ESIDRIX) 25 mg tablet Take 0.5 tablets by mouth once daily. calcium carbonate 600 mg-cholecalciferol 200 units 600 mg(1,500mg) -200 unit tab Take 1 tablet by mouth twice daily. Cholecalciferol, Vitamin D3, 2,000 unit cap Take 1 tablet by mouth once daily. (after finished the 1000 IU capsules taking 2 daily) nabumetone (RELAFEN) 750 mg tablet Take 1 tablet by mouth twice daily as needed. (has not needed to take yet) naproxen sodium (ALEVE) 220 mg tablet Take 1 tablet by mouth once daily as needed. (rarely takes; knows not to take if is going to try nabumetone) Aspirin 81 mg tab Take 1 tablet by mouth once daily. Take with food. desonide 0.05 % ointment Apply to affected rash area selectively (eg., right corner of the mouth) as directed and tolerated two to four times per day until cleared up and then can stop or taper off as able. AVOID eyes//eyelids. TYLENOL EXTRA STRENGTH 500 MG ORAL TAB as necessary TUMS ULTRA 1,000 MG ORAL CHEW as necessary CENTRUM SILVER ORAL TAB Take one(1) tablet daily. VITAMIN C 500 MG ORAL TAB Take one(1) tablet daily. loratadine (CLARITIN) 10 mg tablet Take 1 tablet by mouth once daily. I personally interviewed, confirmed and edited the above information if obtained by others. TESTING: Glucose (mg/dL) Date Value 05/02/2017 66 Potassium (mmol/L) Date Value 05/02/2017 4.1 Sodium (mmol/L) Date Value 05/02/2017 142 Chloride (mmol/L) Date Value 05/02/2017 99 CO2 (mmol/L) Date Value 05/02/2017 31 Creatinine (mg/dL) Date Value 05/02/2017 0.76 BUN (mg/dL) Date Value 05/02/2017 22 Anion Gap (mmol/L) Date Value 05/02/2017 12 Calcium (mg/dL) Date Value 05/02/2017 9.8 Glucose (mg/dL) Date Value 05/02/2017 66 Potassium (mmol/L) Date Value 05/02/2017 4.1 Sodium (mmol/L) Date Value 05/02/2017 142 Chloride (mmol/L) Date Value 05/02/2017 99 CO2 (mmol/L) Date Value 05/02/2017 31 Creatinine (mg/dL) Date Value 05/02/2017 0.76 BUN (mg/dL) Date Value 05/02/2017 22 Anion Gap (mmol/L) Date Value 05/02/2017 12 Calcium (mg/dL) Date Value 05/02/2017 9.8 Protein, Total (g/dL) Date Value 05/02/2017 6.7 Albumin (g/dL) Date Value 05/02/2017 3.9 Bilirubin, Total (mg/dL) Date Value 05/02/2017 0.4 Alkaline Phosphatase (U/L) Date Value 05/02/2017 56 AST (U/L) Date Value 05/02/2017 20 ALT (U/L) Date Value 05/02/2017 16 Hemoglobin (g/dL) Date Value 05/02/2017 12.9 Hematocrit (%) Date Value 05/02/2017 40.3 WBC (k/uL) Date Value 05/02/2017 4.74 Cholesterol, Total (mg/dL) Date Value 05/02/2017 162 HDL Cholesterol (mg/dL) Date Value 05/02/2017 82 LDL Cholesterol (mg/dL) Date Value 05/02/2017 69 Triglyceride (mg/dL) Date Value 05/02/2017 57 No results found for: HBA1C Ejection Fraction: No results found IMPRESSION: Ms. Verma is a 82 year old woman presents for follow up or upper respiratory symptoms. After my examination and review of data, I make the following recommendations. PLAN AND RECOMMENDATIONS: 1. Cough - ICD9: 786.2, ICD10: R05 (primary diagnosis) 2. PND (post-nasal drip) - ICD9: 784.91, ICD10: R09.82 Resume allergy treatments previously prescribed. Continue with loratidine and rhinocort 3. Fullness of breast - ICD9: 611.89, ICD10: N64.89 Avoiding caffeine, recommend she cut sodium intake. Declines mammogram today. Advised to go to ER if develops chest pain, shortness of breath, or severe worsening of symptoms. Discussed risks, benefits, alternatives, and potential side effects of medications. Ms. Verma expressed understanding and agreed with the plan. Aide Oleary APRN.IT DISASTER RECOVERY MANAGER Aide Oleary (Plan Checker) 08/22/2017 10:18 AM Addendum Mammogram if concerns Referring Provider: SELF [200] Allergies As of Date: 08/22/2017 Noted Allergy Reaction AMOXICILLIN 12/31/2004 6 - Diarrhea KETEK (TELITHROMYCIN) 12/31/2004 6 - Diarrhea NEOMYCIN 04/24/2010 2 - Rash Comments: Reaction on arm when treated with neosporin and bandaid; resolved after stopped Neosporin and used bacitracin instead Date Reviewed: 08/22/2017 Reviewed by: Karon Pérez (Damion), DAMION - Fully Assessed Reason for Visit: Recheck [92] Cmt: URU july 21 given claritin still cough yellow sputum /wheezing on and off Reason For Visit History Recorded Primary Visit Diagnosis:Cough [R05] Other Visit Diagnoses:PND (post-nasal drip) [R09.82] Fullness of breast [N64.89] Order(s):[facility] [[id number]] Order #: [id number] FUTURE Prescriptions as of 08/22/2017 Sig: SIMVASTATIN 20 MG TABLET Take 1 tablet by mouth daily * LISINOPRIL 10 MG TABLET Take 1 tablet by mouth once d* BUDESONIDE 32 MCG/ACTUATION N* Use 1-2 Sprays in each nostri* METOPROLOL SUCCINATE ER 50 MG* Take 1 tablet by mouth once d* HYDROCHLOROTHIAZIDE 25 MG TAB* Take 0.5 tablets by mouth onc* CALCIUM CARBONATE 600 MG (1,5* Take 1 tablet by mouth twice * CHOLECALCIFEROL (VITAMIN D3) * Take 1 tablet by mouth once d* NABUMETONE 750 MG TABLET Take 1 tablet by mouth twice * NAPROXEN SODIUM 220 MG TABLET Take 1 tablet by mouth once d* ASPIRIN 81 MG TABLET Take 1 tablet by mouth once d* DESONIDE 0.05 % TOPICAL OINTM* Apply to affected rash area s* TYLENOL EXTRA STRENGTH 500 MG* as necessary TUMS ULTRA 400 MG CALCIUM (1,* as necessary CENTRUM SILVER TABLET Take one(1) tablet daily. VITAMIN C 500 MG TABLET Take one(1) tablet daily. LORATADINE 10 MG TABLET Take 1 tablet by mouth once d* Problem List As Of Date 08/22/2017 Noted Resolved ESOPHAGEAL REFLUX [K21.9] PERS HX COLONIC POLYPS [Z86.010] INVALID FOR* More... 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 Bladder wall thickening [N32.89] INVALID FOR* Contact dermatitis and other eczema, corners of*INVALID FOR*02/05/2014 More... 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 Ocular migraine [G43.109] INVALID FOR* Other instructions from your clinician: Mammogram if concerns Encounter Status:Closed by AIDE SMITH on 08/22/17 SURGERY VISIT REPORT Observed: 08/18/2017 Status: F Source: [place] 9:08 AM [facility] [address] [place] [address] [address] [place] [address] OFFICE VISIT Date of Service: 08/18/17 MR#: [id number] Acct: [id number] Name: JERALD VERMA Rep #: [id number] : 1935 Provider: Kris Palafox MD Age/Sex: 82/F Location: [facility] Status: Signed Intake Vital Signs08/18/17 Height 5 ft 4 in 08/18/17 Weight: 140 lb Intake Visit Reasons: Schedule Cscope Solution Director Required: No Is patient in pain?: No Allergies amoxicillin Allergy (Mild, Verified 08/18/17 08:49) GI Upset neomycin Allergy (Mild, Verified 08/18/17 08:49) Rash telithromycin [From Ketek] Allergy (Mild, Verified 08/18/17 08:49) GI Upset Medications acetaminophen 500 mg capsule PO 08/18/17 [History Confirmed 08/18/17] ascorbic acid (vitamin C) 500 mg capsule PO 08/18/17 [History Confirmed 08/18/17] aspirin 81 mg tablet,delayed release 81 mg PO QDAY 08/18/17 [History Confirmed 08/18/17] budesonide 32 mcg/actuation nasal spray INTRANASAL 08/18/17 [History Confirmed 08/18/17] calcium carbonate 300 mg (750 mg) chewable tablet 300 mg PO QDAY tab 08/18/17 [History Confirmed 08/18/17] calcium carbonate 600 mg(1,500 mg)-vitamin D3 800 unit chewable tablet PO 08/18/17 [History Confirmed 08/18/17] desonide 0.05 % topical ointment TOPICAL 08/18/17 [History Confirmed 08/18/17] hydrochlorothiazide 25 mg tablet 12.5 mg PO QDAY tab 08/18/17 [History Confirmed 08/18/17] lisinopril 10 mg tablet 10 mg PO QDAY 08/18/17 [History Confirmed 08/18/17] metoprolol succinate ER 50 mg tablet,extended release 24 hr 50 mg PO QDAY 08/18/17 [History Confirmed 08/18/17] multivitamin tablet 1 tab PO QDAY 08/18/17 [History Confirmed 08/18/17] nabumetone 750 mg tablet PO 08/18/17 [History Confirmed 08/18/17] ranitidine 75 mg tablet 75 mg PO QD-BID PRN 08/18/17 [History Confirmed 08/18/17] simvastatin 20 mg tablet 20 mg PO QPM 08/18/17 [History Confirmed 08/18/17] PFSH Medical History Pure hypercholesterolemia (Acute) Painful tongue (Acute) Osteoarthritis (Acute) Family hx of colon cancer (Acute) Hypertension (Chronic) Esophageal reflux (Acute) Diverticulosis of colon (Acute) Diverticulitis of colon (Acute) Disorder of bone and cartilage, unspecified (Acute) Carpal tunnel syndrome (Acute) Benign neoplasm of colon (Acute) Benign microscopic hematuria (Acute) Surgical History S/P surgical manipulation of ankle joint (Acute) Family History Father Colon cancer Cancer Skin cancer Mother Hypertension Social History Smoking Status: Never smoker second hand exposure: No alcohol intake: never substance use type: does not use caffeine: No what type of physical activity do you participate in: walking, aerobics frequency: 1-2 times per week seatbelt use: always HPI HPI HPI: JERALD VERMA, is a 82 F who presents to the office today for surgical consultation regarding a family history of colon cancer in her father who was in his late 60s as well as a remote personal history of colon polyps. Patient is enjoying an extraordinarily high quality of life. At age 82 she is very active. She denies bright red blood per rectum or melena. No abdominal pain. No change of bowel habits. No unexpected weight loss. Her most recent colonoscopy was performed by Dr. Sebastien Parra. That was performed on October 16, 2012. Diverticulosis was identified. She well tolerated that with mod anesthesia. Her most recent laboratory of May 02, 2017 demonstrates a stable hemoglobin of 12.9 and hematocrit 40.3. Otherwise she is enjoying good health. 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 ROS General General: Yes weight change; no appetite, fatigue, colon cancer, breast cancer or weakness HEENT HEENT: No difficulty swallowing, eye injury, eye surgery, swollen glands or hoarseness Endo Endocrine: No thyroid disease, diabetes mellitus, thyroid cancer, Hair loss, heat intolerance or cold intolerance Skin Skin: No rash or changing moles Breast Breast: No left breast lump, right breast lump, nipple discharge, breast pain, abnormal mammogram, abnormal US or breast enlargement Musc Musculoskeletal: Yes arthritis; no back problems, rheumatoid arthritis, gout or joint pain Cardio Cardiovascular: Yes high blood pressure; no murmur, pacemaker, heart disease, atrial fibrillation, heart attack, heart stent, palpitations, shortness of breat with exertion or chest pain Psych Psychiatric: No depression, anxiety or hearing voices Resp Respiratory: No shortness of breath, No sleep apnea, No cough, No COPD, No asthma, No emphysema, No wheezing Gastro Gastrointestinal: No abdominal pain, No nausea or vomiting, No diarrhea, Yes constipation, No blood in stool, No acid reflux, Yes hemorrhoids, No ulcers, No gallbladder problem, No black,tarry stools Lew Hematologic: No blood thinners, No blood disorders, No bleeding, No anemia, No blood clots Neuro Neurologic: No system reviewed and no additional complaints, except as docu, No as per HPI, No abnormal walking, No abnormal hearing, No abnormal movements, No abnormal speech, No behavioral changes, No burning sensations, No confusion, No seizure-like activity, No unsteadiness, No dizziness, No localized weakness, No frequent falls, No headache(s), No lack of coordination, No loss of vision, No memory loss, No numbness, No other visual disturbances, No radiating pain, No restless legs, No sensory deficit, No fainting, No tingling, No tremor(s), No weakness, No other Exam Const General: cooperative, healthy appearing, comfortable, well developed Nutritional Appearance: overweight Orientation: alert, awake, oriented x3 HENMT Head: normal to inspection Eyes General: appearance normal, both eyes and all related structures Neck Neck: normal visual inspection Chest Chest palpation AND inspection: normal inspection of the chest Breast Palpation: No nipple discharge Resp Effort AND Inspection: normal respiratory effort Auscultation: clear to auscultation bilaterally Cardio Rate: regular rate Rhythm: regular rhythm Heart Sounds: no murmurs GI Palpation: soft, no hepatosplenomegaly Auscultation: normal bowel sounds Musc Cervical Spine: normal cervical lordosis Skin General: no rashes or lesions noted Neuro Cranial Nerves: CN's II-XI intact bilaterally Extrem General: no clubbing, cyanosis or edema Psych Affect: normal affect Assessment AND Plan Problems 1. Family hx of colon cancer Z80.0 2. Benign neoplasm of colon, unspecified part of colon D12.6 Plan Based upon the family history of colon cancer in her father and a personal history of colon polyp I recommended the patient a colonoscopy with possible biopsy or polypectomy is indicated. She is aware of the technique, benefits, risks, alternatives. She has had an opportunity to ask and have questions answered. She is otherwise enjoying a very high quality of life. I very much appreciate the opportunity of assisting with her surgical care. Cc: Dr. Nancy Palafox M.D., F.A.C.S. Coding Level of Care Code Off vis,new,level 2 Diagnoses Family hx of colon cancer Z80.0 Benign neoplasm of colon, unspecified part of colon D12.6 Colon location: unspecified part of colon 08/18/17 0908 <Electronically signed by Kris Palafox MD> Date Kris Palafox MD Cosigner Signature: Date (if applicable) CC: Michelle Cruz MD GROUP A STREP BY Collected: 07/21/2017 Status: F Source: [facility] 11[facility] TYPE CODE TESTS RESULT OUT OF REFERENCE UNITS RANGE LAB GASSRC Throat Swab GAS Specimen Source LAB PCRGAS Negative for Group A Strep Group A PCR Streptococcus by PCR. Result Comment: This test was developed and its performance characteristics determined by [facility] [place] [facility] It has not been cleared or approved by the FDA. -[facility] is regulated under CLIA as qualified to perform high-complexity testing. This test is used for clinical purposes. It should not be regarded as inv estigational or for research. Performed By: #### GASPCR #### [facility] [address] [place], [place] [address] CNOV Observed: 07/21/2017 Status: COMPLETED Source: [place] 11:00 AM [facility] Office Visit (INTMWS) JERALD VERMA ([id number]) 1935 F Date Time Provider Department 07/21/17 11:00 AM AIDE OLEARY (ALVIN) INTMWS During your visit today, we recorded the following information about you: Temperature Pulse Respiration Blood pressure 97.4 degrees 71/minute 16/minute 144/64 Weight 62.1 kg Aide Oleary APRN.CNS 07/26/2017 3:29 PM Signed OUTPATIENT VISIT DATE July 21, 2017 OUTPATIENT VISIT TYPE ESTABLISHED PRIMARY CARE PHYSICIAN: Michelle Cruz MD CHIEF COMPLAINT: Patient presents with: Sore Throat: cough History of Present Illness: Jerald Verma is a 82 year old female who was last seen 04/2017 by Michelle Cruz MD. She has been seen in the past for ACTIVE PROBLEM LIST Esophageal Reflux Personal History of Colonic Polyps Hypertension Goal Bp (Blood Pressure) ANDlt; 140/90 Disorder of Bone and Cartilage Hyperlipidemia Chronic Rhinitis FAMILY HX COLON CANCER Generalized Osteoarthrosis, Unspecified Site Hematuria Bladder Wall Thickening Painful Tongue Ocular Migraine Since the last visit, she states thatshe hs had a sore throat,cough and white patches in throat. The ROS is otherwise negative. The patient's pmh, medications, allergies, and past visits are reviewed. PHYSICAL EXAM: BP 144/64 (BP Site: Left Arm, BP Position: Sitting, BP Cuff Size: Regular Adult) Pulse 71 Temp 36.3 ?C (97.4 ?F) (Tympanic) Resp 16 Wt 62.1 kg (137 lb) SpO2 99% BMI 23.33 kg/m2 General appearance: alert, cooperative, pleasant Head: Normocephalic Eyes: conjunctiva/corneas normal, EOMI Ears: R TM - clear with good landmarks, L TM - clear with good landmarks Nose: clear Oropharynx: moist without lesions, mild erythema oropharynx teeth in good repair Neck: supple and no adenopathy Heart: regular rate and rhythm, without murmur Lungs: clear to auscultation, without rales or wheeze, good air exchange No recent hospital or ED visits. No new medical problems or medications. Able to obtain medications. No problems with taking medications or note side effects. PAST MEDICAL HISTORY Diagnosis Date - Benign microscopic hematuria Follows with Dr. Lee - Benign neoplasm of colon - Carpal tunnel syndrome 11/01/2006 - Disorder of bone and cartilage, unspecified - Diverticulitis of colon (without mention of hemorrhage)(562.11) - Diverticulosis of colon (without mention of hemorrhage) - Esophageal reflux - Essential hypertension, benign - Family history of malignant neoplasm of gastrointestinal tract - Foot injury torn tendon right great toe (lateral) causing medial toe deviation - Osteoarthrosis, unspecified whether generalized or localized, unspecified site - Painful tongue Tongu sensitivity--evaluated by ENT (Kami) and dentist - Pure hypercholesterolemia - Tinnitus PAST SURGICAL HISTORY Procedure Laterality Date - COLONOSCOP W/ OR W/O [facility] SPEC , , 09/16, 08/18 Colonoscopy - COLONOSCOP W/ OR W/O [facility] SPEC 10/12/07 - COLONOSCOP W/ OR W/O [facility] SPEC 10/16/2012 Colonoscopy - LIGATE FALLOPIAN TUBE 12/11/1975 - PAST SURGICAL HISTORY OF 1995 LEFT FOOT SURGERY, ORIF (plate and 6 screws) - PAST SURGICAL HISTORY OF 05/26/12 surgery right ankle (2 screw and 4 katrin) - PAST SURGICAL HISTORY OF 04/30/2012 right foot great toe - PAST SURGICAL HISTORY OF 03/28/2017 basil cell skin graft off nose - REMOVE TONSILS/ADENOIDS,ANDlt;14 Y/O FAMILY HISTORY Problem Relation Age of Onset - Colon Cancer Father FROM THIS. - Hypertension Mother - Heart Mother CONGESTIVE HEART FAILURE Social History Substance Use Topics - Smoking status: Never Smoker - Smokeless tobacco: Never Used - Alcohol use Yes Comment: occasional ALLERGIES: ALLERGIES Allergen Reactions - Amoxicillin Diarrhea - Ketek [Telithromyci* Diarrhea - Neomycin Rash Reaction on arm when treated with neosporin and bandaid; resolved after stopped Neosporin and used bacitracin instead MEDICATIONS simvastatin (ZOCOR) 20 mg tablet Take 1 tablet by mouth daily at bedtime. lisinopril (ZESTRIL, PRINIVIL) 10 mg tablet Take 1 tablet by mouth once daily. budesonide (RHINOCORT AQUA) 32 mcg/actuation nasal spray Use 1-2 Sprays in each nostril once daily. as needed metoprolol succinate ER (TOPROL XL) 50 mg 24 hr tablet Take 1 tablet by mouth once daily. hydroCHLOROthiazide (HYDRODIURIL, ESIDRIX) 25 mg tablet Take 0.5 tablets by mouth once daily. calcium carbonate 600 mg-cholecalciferol 200 units 600 mg(1,500mg) -200 unit tab Take 1 tablet by mouth twice daily. Cholecalciferol, Vitamin D3, 2,000 unit cap Take 1 tablet by mouth once daily. (after finished the 1000 IU capsules taking 2 daily) nabumetone (RELAFEN) 750 mg tablet Take 1 tablet by mouth twice daily as needed. (has not needed to take yet) naproxen sodium (ALEVE) 220 mg tablet Take 1 tablet by mouth once daily as needed. (rarely takes; knows not to take if is going to try nabumetone) Aspirin 81 mg tab Take 1 tablet by mouth once daily. Take with food. desonide 0.05 % ointment Apply to affected rash area selectively (eg., right corner of the mouth) as directed and tolerated two to four times per day until cleared up and then can stop or taper off as able. AVOID eyes//eyelids. TYLENOL EXTRA STRENGTH 500 MG ORAL TAB as necessary TUMS ULTRA 1,000 MG ORAL CHEW as necessary CENTRUM SILVER ORAL TAB Take one(1) tablet daily. VITAMIN C 500 MG ORAL TAB Take one(1) tablet daily. I personally interviewed, confirmed and edited the above information if obtained by others. TESTING: Glucose (mg/dL) Date Value 05/02/2017 66 Potassium (mmol/L) Date Value 05/02/2017 4.1 Sodium (mmol/L) Date Value 05/02/2017 142 Chloride (mmol/L) Date Value 05/02/2017 99 CO2 (mmol/L) Date Value 05/02/2017 31 Creatinine (mg/dL) Date Value 05/02/2017 0.76 BUN (mg/dL) Date Value 05/02/2017 22 Anion Gap (mmol/L) Date Value 05/02/2017 12 Calcium (mg/dL) Date Value 05/02/2017 9.8 Glucose (mg/dL) Date Value 05/02/2017 66 Potassium (mmol/L) Date Value 05/02/2017 4.1 Sodium (mmol/L) Date Value 05/02/2017 142 Chloride (mmol/L) Date Value 05/02/2017 99 CO2 (mmol/L) Date Value 05/02/2017 31 Creatinine (mg/dL) Date Value 05/02/2017 0.76 BUN (mg/dL) Date Value 05/02/2017 22 Anion Gap (mmol/L) Date Value 05/02/2017 12 Calcium (mg/dL) Date Value 05/02/2017 9.8 Protein, Total (g/dL) Date Value 05/02/2017 6.7 Albumin (g/dL) Date Value 05/02/2017 3.9 Bilirubin, Total (mg/dL) Date Value 05/02/2017 0.4 Alkaline Phosphatase (U/L) Date Value 05/02/2017 56 AST (U/L) Date Value 05/02/2017 20 ALT (U/L) Date Value 05/02/2017 16 Hemoglobin (g/dL) Date Value 05/02/2017 12.9 Hematocrit (%) Date Value 05/02/2017 40.3 WBC (k/uL) Date Value 05/02/2017 4.74 Cholesterol, Total (mg/dL) Date Value 05/02/2017 162 HDL Cholesterol (mg/dL) Date Value 05/02/2017 82 LDL Cholesterol (mg/dL) Date Value 05/02/2017 69 Triglyceride (mg/dL) Date Value 05/02/2017 57 No results found for: HBA1C Ejection Fraction: No results found IMPRESSION: Ms. Verma is a 82 year old woman presents with URI symptoms. After my examination and review of data, I make the following recommendations. PLAN AND RECOMMENDATIONS: 1. Sore throat - ICD9: 462, ICD10: J02.9 - RAPID STREP TEST B/O - GROUP A STREPTOCOCCUS BY PCR - LORATADINE 10 MG TABLET - AZITHROMYCIN 250 MG TABLET Advised to go to ER if develops chest pain, shortness of breath, or severe worsening of symptoms. Discussed risks, benefits, alternatives, and potential side effects of medications. Ms. Verma expressed understanding and agreed with the plan. Aide Oleary APRN.IT DISASTER RECOVERY MANAGER Referring Provider: SELF [200] Allergies As of Date: 07/21/2017 Noted Allergy Reaction AMOXICILLIN 12/31/2004 6 - Diarrhea KETEK (TELITHROMYCIN) 12/31/2004 6 - Diarrhea NEOMYCIN 04/24/2010 2 - Rash Comments: Reaction on arm when treated with neosporin and bandaid; resolved after stopped Neosporin and used bacitracin instead Date Reviewed: 07/21/2017 Reviewed by: Aleksandra Torres Ma - Fully Assessed Reason for Visit: Sore Throat [200] Cmt: cough Primary Visit Diagnosis:Sore throat [J02.9] Order(s):RAPID STREP TEST B/O [[id number]] Order #: [id number] GROUP A STREPTOCOCCUS BY PCR [SQGASPCR] Order #: [id number]. #:[id number] loratadine (CLARITIN) 10 mg tabletTake 1 tablet by mouth once daily.Disp: 30 tabletRfl: 2 azithromycin (ZITHROMAX Z-TITO) 250 mg tabletTake 2 tablets day one, then, 1 tablet daily until gone.Disp: 1 PackageRfl: 0 Prescriptions as of 07/21/2017 Sig: SIMVASTATIN 20 MG TABLET Take 1 tablet by mouth daily * LISINOPRIL 10 MG TABLET Take 1 tablet by mouth once d* BUDESONIDE 32 MCG/ACTUATION N* Use 1-2 Sprays in each nostri* METOPROLOL SUCCINATE ER 50 MG* Take 1 tablet by mouth once d* HYDROCHLOROTHIAZIDE 25 MG TAB* Take 0.5 tablets by mouth onc* CALCIUM CARBONATE 600 MG (1,5* Take 1 tablet by mouth twice * CHOLECALCIFEROL (VITAMIN D3) * Take 1 tablet by mouth once d* NABUMETONE 750 MG TABLET Take 1 tablet by mouth twice * NAPROXEN SODIUM 220 MG TABLET Take 1 tablet by mouth once d* ASPIRIN 81 MG TABLET Take 1 tablet by mouth once d* DESONIDE 0.05 % TOPICAL OINTM* Apply to affected rash area s* TYLENOL EXTRA STRENGTH 500 MG* as necessary TUMS ULTRA 400 MG CALCIUM (1,* as necessary CENTRUM SILVER TABLET Take one(1) tablet daily. VITAMIN C 500 MG TABLET Take one(1) tablet daily. LORATADINE 10 MG TABLET Take 1 tablet by mouth once d* AZITHROMYCIN 250 MG TABLET Take 2 tablets day one, then,* Problem List As Of Date 07/21/2017 Noted Resolved ESOPHAGEAL REFLUX [K21.9] PERS HX COLONIC POLYPS [Z86.010] INVALID FOR* More... 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 Bladder wall thickening [N32.89] INVALID FOR* Contact dermatitis and other eczema, corners of*INVALID FOR*02/05/2014 More... 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 Ocular migraine [G43.109] INVALID FOR* Prescriptions ordered this encounter Disp Refills Start End LORATADINE 10 MG TABLET 30 t* 2 07/21/2017 Route: ORAL Sig: Take 1 tablet by mouth once daily. AZITHROMYCIN 250 MG TABLET 1 Pa* 0 07/21/2017 07/26/2017 Class: Print RX Sig: Take 2 tablets day one, then, 1 tablet daily until gone. Encounter Status:Closed by AIDE SMITH on 07/26/17 PROGRESS Observed: 07/21/2017 Status: COMPLETED Source: [facility] 9:58 AM [facility] HNO ID: [id number] Author: Aide Oleary (Cns) Service: (none) Author Type: Nurse Specialist Type: Progress Notes Filed: 07/26/2017 3:29 PM Note Text: OUTPATIENT VISIT DATE July 21, 2017 OUTPATIENT VISIT TYPE ESTABLISHED PRIMARY CARE PHYSICIAN: Michelle Curz MD CHIEF COMPLAINT: Patient presents with: Sore Throat: cough History of Present Illness: Jerald Verma is a 82 year old female who was last seen 04/2017 by Michelle Cruz MD. She has been seen in the past for ACTIVE PROBLEM LIST Esophageal Reflux Personal History of Colonic Polyps Hypertension Goal Bp (Blood Pressure) < 140/90 Disorder of Bone and Cartilage Hyperlipidemia Chronic Rhinitis FAMILY HX COLON CANCER Generalized Osteoarthrosis, Unspecified Site Hematuria Bladder Wall Thickening Painful Tongue Ocular Migraine Since the last visit, she states thatshe hs had a sore throat,cough and white patches in throat. The ROS is otherwise negative. The patient's pmh, medications, allergies, and past visits are reviewed. PHYSICAL EXAM: BP 144/64 (BP Site: Left Arm, BP Position: Sitting, BP Cuff Size: Regular Adult) Pulse 71 Temp 36.3 ?C (97.4 ?F) (Tympanic) Resp 16 Wt 62.1 kg (137 lb) SpO2 99% BMI 23.33 kg/m2 General appearance: alert, cooperative, pleasant Head: Normocephalic Eyes: conjunctiva/corneas normal, EOMI Ears: R TM - clear with good landmarks, L TM - clear with good landmarks Nose: clear Oropharynx: moist without lesions, mild erythema oropharynx teeth in good repair Neck: supple and no adenopathy Heart: regular rate and rhythm, without murmur Lungs: clear to auscultation, without rales or wheeze, good air exchange No recent hospital or ED visits. No new medical problems or medications. Able to obtain medications. No problems with taking medications or note side effects. PAST MEDICAL HISTORY Diagnosis Date - Benign microscopic hematuria Follows with Dr. Lee - Benign neoplasm of colon - Carpal tunnel syndrome 11/01/2006 - Disorder of bone and cartilage, unspecified - Diverticulitis of colon (without mention of hemorrhage)(562.11) - Diverticulosis of colon (without mention of hemorrhage) - Esophageal reflux - Essential hypertension, benign - Family history of malignant neoplasm of gastrointestinal tract - Foot injury torn tendon right great toe (lateral) causing medial toe deviation - Osteoarthrosis, unspecified whether generalized or localized, unspecified site - Painful tongue Tongu sensitivity--evaluated by ENT (Kami) and dentist - Pure hypercholesterolemia - Tinnitus PAST SURGICAL HISTORY Procedure Laterality Date - COLONOSCOP W/ OR W/O [facility] SPEC , , 09/16, 08/18 Colonoscopy - COLONOSCOP W/ OR W/O [facility] SPEC 10/12/07 - COLONOSCOP W/ OR W/O [facility] SPEC 10/16/2012 Colonoscopy - LIGATE FALLOPIAN TUBE 12/11/1975 - PAST SURGICAL HISTORY OF 1995 LEFT FOOT SURGERY, ORIF (plate and 6 screws) - PAST SURGICAL HISTORY OF 05/26/12 surgery right ankle (2 screw and 4 katrin) - PAST SURGICAL HISTORY OF 04/30/2012 right foot great toe - PAST SURGICAL HISTORY OF 03/28/2017 basil cell skin graft off nose - REMOVE TONSILS/ADENOIDS,<12 Y/O FAMILY HISTORY Problem Relation Age of Onset - Colon Cancer Father FROM THIS. - Hypertension Mother - Heart Mother CONGESTIVE HEART FAILURE Social History Substance Use Topics - Smoking status: Never Smoker - Smokeless tobacco: Never Used - Alcohol use Yes Comment: occasional ALLERGIES: ALLERGIES Allergen Reactions - Amoxicillin Diarrhea - Ketek [Telithromyci* Diarrhea - Neomycin Rash Reaction on arm when treated with neosporin and bandaid; resolved after stopped Neosporin and used bacitracin instead MEDICATIONS simvastatin (ZOCOR) 20 mg tablet Take 1 tablet by mouth daily at bedtime. lisinopril (ZESTRIL, PRINIVIL) 10 mg tablet Take 1 tablet by mouth once daily. budesonide (RHINOCORT AQUA) 32 mcg/actuation nasal spray Use 1-2 Sprays in each nostril once daily. as needed metoprolol succinate ER (TOPROL XL) 50 mg 24 hr tablet Take 1 tablet by mouth once daily. hydroCHLOROthiazide (HYDRODIURIL, ESIDRIX) 25 mg tablet Take 0.5 tablets by mouth once daily. calcium carbonate 600 mg-cholecalciferol 200 units 600 mg(1,500mg) -200 unit tab Take 1 tablet by mouth twice daily. Cholecalciferol, Vitamin D3, 2,000 unit cap Take 1 tablet by mouth once daily. (after finished the 1000 IU capsules taking 2 daily) nabumetone (RELAFEN) 750 mg tablet Take 1 tablet by mouth twice daily as needed. (has not needed to take yet) naproxen sodium (ALEVE) 220 mg tablet Take 1 tablet by mouth once daily as needed. (rarely takes; knows not to take if is going to try nabumetone) Aspirin 81 mg tab Take 1 tablet by mouth once daily. Take with food. desonide 0.05 % ointment Apply to affected rash area selectively (eg., right corner of the mouth) as directed and tolerated two to four times per day until cleared up and then can stop or taper off as able. AVOID eyes//eyelids. TYLENOL EXTRA STRENGTH 500 MG ORAL TAB as necessary TUMS ULTRA 1,000 MG ORAL CHEW as necessary CENTRUM SILVER ORAL TAB Take one(1) tablet daily. VITAMIN C 500 MG ORAL TAB Take one(1) tablet daily. I personally interviewed, confirmed and edited the above information if obtained by others. TESTING: Glucose (mg/dL) Date Value 05/02/2017 66 Potassium (mmol/L) Date Value 05/02/2017 4.1 Sodium (mmol/L) Date Value 05/02/2017 142 Chloride (mmol/L) Date Value 05/02/2017 99 CO2 (mmol/L) Date Value 05/02/2017 31 Creatinine (mg/dL) Date Value 05/02/2017 0.76 BUN (mg/dL) Date Value 05/02/2017 22 Anion Gap (mmol/L) Date Value 05/02/2017 12 Calcium (mg/dL) Date Value 05/02/2017 9.8 Glucose (mg/dL) Date Value 05/02/2017 66 Potassium (mmol/L) Date Value 05/02/2017 4.1 Sodium (mmol/L) Date Value 05/02/2017 142 Chloride (mmol/L) Date Value 05/02/2017 99 CO2 (mmol/L) Date Value 05/02/2017 31 Creatinine (mg/dL) Date Value 05/02/2017 0.76 BUN (mg/dL) Date Value 05/02/2017 22 Anion Gap (mmol/L) Date Value 05/02/2017 12 Calcium (mg/dL) Date Value 05/02/2017 9.8 Protein, Total (g/dL) Date Value 05/02/2017 6.7 Albumin (g/dL) Date Value 05/02/2017 3.9 Bilirubin, Total (mg/dL) Date Value 05/02/2017 0.4 Alkaline Phosphatase (U/L) Date Value 05/02/2017 56 AST (U/L) Date Value 05/02/2017 20 ALT (U/L) Date Value 05/02/2017 16 Hemoglobin (g/dL) Date Value 05/02/2017 12.9 Hematocrit (%) Date Value 05/02/2017 40.3 WBC (k/uL) Date Value 05/02/2017 4.74 Cholesterol, Total (mg/dL) Date Value 05/02/2017 162 HDL Cholesterol (mg/dL) Date Value 05/02/2017 82 LDL Cholesterol (mg/dL) Date Value 05/02/2017 69 Triglyceride (mg/dL) Date Value 05/02/2017 57 No results found for: HBA1C Ejection Fraction: No results found IMPRESSION: Ms. Verma is a 82 year old woman presents with URI symptoms. After my examination and review of data, I make the following recommendations. PLAN AND RECOMMENDATIONS: 1. Sore throat - ICD9: 462, ICD10: J02.9 - RAPID STREP TEST B/O - GROUP A STREPTOCOCCUS BY PCR - LORATADINE 10 MG TABLET - AZITHROMYCIN 250 MG TABLET Advised to go to ER if develops chest pain, shortness of breath, or severe worsening of symptoms. Discussed risks, benefits, alternatives, and potential side effects of medications. Ms. Verma expressed understanding and agreed with the plan. Aide Oleary APRN.IT DISASTER RECOVERY MANAGER PROGRESS Observed: 05/09/2017 Status: COMPLETED Source: [place] 9:22 AM [facility] [place] REPOSITORY O ID: [id number] Author: Michelle Curz Service: (none) Author Type: Physician Type: Progress Notes Filed: 05/25/2017 7:44 PM Note Text: Patient presents with: Recheck SUBJECTIVE: Jerald Verma is a 82 year old year old lady here today for 6 month follow up appointment for review of medical conditions. 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 Still an area of irritation noted--has follow up with surgeon. Since 2012 sleeve on big toe placed, tissue paper feel in ball of foot. Now whole foot. has feeling. No loss of feeling. Been a while since saw special education superintendent. Sometimes gets shudder episode in middle of the night when has nocturia. Trigger finger right middle finger more often. Noted some knitting more but not that often. Saw DYEING MACHINE FEEDER 2 weeks ago. PAST MEDICAL HISTORY Diagnosis Date - Benign microscopic hematuria Follows with Dr. Lee - Benign neoplasm of colon - Carpal tunnel syndrome 11/01/2006 - Disorder of bone and cartilage, unspecified - Diverticulitis of colon (without mention of hemorrhage)(562.11) - Diverticulosis of colon (without mention of hemorrhage) - Esophageal reflux - Essential hypertension, benign - Family history of malignant neoplasm of gastrointestinal tract - Foot injury torn tendon right great toe (lateral) causing medial toe deviation - Osteoarthrosis, unspecified whether generalized or localized, unspecified site - Painful tongue Tongu sensitivity--evaluated by ENT (Kami) and dentist - Pure hypercholesterolemia - Tinnitus Current Outpatient Prescriptions: budesonide (RHINOCORT AQUA) 32 mcg/actuation nasal spray Use 1-2 Sprays in each nostril once daily. as needed metoprolol succinate ER (TOPROL XL) 50 mg 24 hr tablet Take 1 tablet by mouth once daily. hydroCHLOROthiazide (HYDRODIURIL, ESIDRIX) 25 mg tablet Take 0.5 tablets by mouth once daily. lisinopril (ZESTRIL, PRINIVIL) 10 mg tablet Take 1 tablet by mouth once daily. simvastatin (ZOCOR) 20 mg tablet Take 1 tablet by mouth daily at bedtime. calcium carbonate 600 mg-cholecalciferol 200 units 600 mg(1,500mg) -200 unit tab Take 1 tablet by mouth twice daily. Cholecalciferol, Vitamin D3, 2,000 unit cap Take 1 tablet by mouth once daily. (after finished the 1000 IU capsules taking 2 daily) nabumetone (RELAFEN) 750 mg tablet Take 1 tablet by mouth twice daily as needed. (has not needed to take yet) naproxen sodium (ALEVE) 220 mg tablet Take 1 tablet by mouth once daily as needed. (rarely takes; knows not to take if is going to try nabumetone) Aspirin 81 mg tab Take 1 tablet by mouth once daily. Take with food. desonide 0.05 % ointment Apply to affected rash area selectively (eg., right corner of the mouth) as directed and tolerated two to four times per day until cleared up and then can stop or taper off as able. AVOID eyes//eyelids. TYLENOL EXTRA STRENGTH 500 MG ORAL TAB as necessary TUMS ULTRA 1,000 MG ORAL CHEW as necessary CENTRUM SILVER ORAL TAB Take one(1) tablet daily. VITAMIN C 500 MG ORAL TAB Take one(1) tablet daily. No current facility-administered medications for this visit. OBJECTIVE: BP 142/68 Pulse 78 Resp 16 Wt 62.6 kg (138 lb) BMI 23.5 kg/m2 Patient is alert, oriented times 3, no apparent distress, affect is bright, reactive. Last 5 Encounter BP Readings: Date: BP: 05/09/2017 142/68 04/28/2017 138/68 03/01/2017 138/72 10/13/2016 144/70 04/27/2016 134/70 Last 5 Encounter Wt Readings: Date: Wt: 05/09/2017 62.6 kg (138 lb) 04/28/2017 63 kg (139 lb) 03/01/2017 61.2 kg (135 lb) 10/13/2016 60.8 kg (134 lb) 04/27/2016 60.3 kg (133 lb) Heart: Regular rate, rhythm, no murmurs, gallops, rubs. Lungs: Clear to auscultation, bilaterally, breathing non labored. Ext: No cyanosis, clubbing, or edema. Component Latest Ref Rng AND Units 06/24/2015 09/23/2015 04/21/2016 10/06/2016 11/23/2016 05/02/2017 WBC 3.70 - 11.00 k/uL 4.20 4.57 8.50 4.74 RBC 3.90 - 5.20 m/uL 3.73 (L) 3.95 3.75 (L) 3.83 (L) Hemoglobin 11.5 - 15.5 g/dL 12.9 13.3 12.9 12.9 Hematocrit 36.0 - 46.0 % 39.2 41.9 40.2 40.3 MCV 80.0 - 100.0 fL 105.1 (H) 106.1 (H) 107.2 (H) 105.2 (H) MCH 26.0 - 34.0 pG 34.6 (H) 33.7 34.4 (H) 33.7 MCHC 30.5 - 36.0 g/dL 32.9 31.7 32.1 32.0 RDW-CV 11.5 - 15.0 % 13.1 12.8 12.6 12.7 Platelet Count 150 - 400 k/uL 347 343 363 346 MPV 9.0 - 12.7 fL 9.1 9.2 9.4 9.4 Neut% % 56.8 Abs Neut (ANC) 1.45 - 7.50 k/uL 2.60 Lymph% % 32.2 Abs Lymph 1.00 - 4.00 k/uL 1.47 Warrick% % 9.2 Abs Warrick 0.00 - 0.86 k/uL 0.42 Eosin% % 1.1 Abs Eosin 0.00 - 0.45 k/uL 0.05 Baso% % 0.7 Abs Baso 0.00 - 0.10 k/uL 0.03 Diff Type Auto Diff Protein, Total 6.3 - 8.0 g/dL 6.9 6.7 6.7 Albumin 3.9 - 4.9 g/dL 3.7 (L) 3.9 3.9 Calcium 8.5 - 10.2 mg/dL 9.2 9.2 9.6 10.1 9.8 Bilirubin, Total 0.2 - 1.3 mg/dL 0.4 0.4 0.4 Alkaline Phosphatase 32 - 117 U/L 102 60 56 AST 13 - 35 U/L 44 (H) 22 20 Glucose 74 - 99 mg/dL 59 (L) 80 73 (L) 75 66 (L) BUN 7 - 21 mg/dL 22 19 23 (H) 20 22 (H) Creatinine 0.58 - 0.96 mg/dL 0.62 (L) 0.71 0.77 0.72 0.76 Sodium 136 - 144 mmol/L 142 138 141 141 142 Potassium 3.7 - 5.1 mmol/L 5.0 4.0 4.6 4.9 4.1 Chloride 97 - 105 mmol/L 104 98 100 101 99 CO2 22 - 30 mmol/L 24 27 28 25 31 (H) Anion Gap 9 - 18 mmol/L 14 13 13 15 12 ALT 7 - 38 U/L 64 (H) 17 16 eGFR- >60 >60 >60 >60 >60 eGFR-All Other Races . >60 >60 >60 >60 >60 Absolute nRBC <0.01 k/uL 0.00 <0.01 Triglyceride <150 mg/dL 49 57 Cholesterol, Total <200 mg/dL 170 162 HDL Cholesterol >39 mg/dL 86 82 VLDL Cholesterol <30 mg/dL 10 11 LDL Cholesterol <100 mg/dL 74 69 Fasting Time hrs 14 0 TC:HDL Ratio <5.10 1.98 1.98 LDL:HDL Ratio <2.54 0.86 0.84 Non HDL Cholesterol <130 mg/dL 84 (L) 80 Vitamin B12 211 - 946 pg/mL 414 Folate >4.7 ng/mL >20.0 ASSESSMENT AND PLAN: Encounter Diagnosis ICD-10-CM 1. Hypertension goal BP (blood pressure) < 140/90 I10 2. Mixed hyperlipidemia E78.2 3. Trigger middle finger of right hand M65.331 4. Abnormal sensation of lower extremity--foot R20.[address] Palafox for colonoscopy through [facility]. Above issues addressed with patient. Patient involved in shared decision making for management of her medical issues. History and medications reviewed. Epic updated as needed Refills taken care of and meds adjusted as indicated after reviewed history, exam and labs. Further evaluation and treatment as indicated. Health Maintenance reviewed. Updated record and/or ordered tests as recorded. Encouraged on efforts at healthy diet and regular exercise and adequate sleep. The majority of the visit was spent counseling and/or coordinating care for the patient. Qvxs-of-syfz time was at least 25 minutes. Michelle Cruz MD CBC Collected: 05/02/2017 Status: F Source: [place] 10:52 AM [facility] RE[facility] TYPE CODE TESTS RESULT OUT OF REFERENCE UNITS RANGE LAB WBC 3.70-11.00 k/uL WBC 4.74 LAB RBC 3.90-5.20 m/uL Low RBC 3.83 LAB HGB 11.5-15.5 g/dL Hemoglobin 12.9 LAB HCT 36.0-46.0 % Hematocrit 40.3 LAB MCV 80.0-100.0 fL MCV High 105.2 LAB MCH 26.0-34.0 pG MCH 33.7 LAB MCHC 30.5-36.0 g/dL MCHC 32.0 LAB RDWCV 11.5-15.0 % RDW-CV 12.7 LAB PLTCT 150-400 k/uL Platelet Count 346 LAB MPV 9.0-12.7 fL MPV 9.4 LAB ABSNUC <0.01 k/uL Absolute nRBC <0.01 Performed By: #### CBC, CMP, LIPB #### [facility] [address] [place], [place] [address] COMP METABOLIC PANEL Collected: 05/02/2017 Status: F Source: [place] 10:52 AM [facility] REPOSITORY TYPE CODE TESTS RESULT OUT OF REFERENCE UNITS RANGE LAB TP 6.3-8.0 g/dL Protein, Total 6.7 LAB ALB 3.9-4.9 g/dL Albumin 3.9 LAB CA 8.5-10.2 mg/dL Calcium, Total 9.8 LAB TBIL 0.2-1.3 mg/dL Bilirubin, Total 0.4 LAB ALKP 32-117 U/L Alkaline Phosphatase 56 LAB AST 13-35 U/L AST 20 LAB GLU 74-99 mg/dL Low Glucose 66 Result Comment: The [place] Diabetes Association (ADA) provides guidance for cutoff values for fasting glucose and random glucose. The ADA defines fasting as no caloric intake for at least 8 hours. Fas ting plasma glucose results between 100 to 125 mg/dL indicate increased risk for diabetes (prediabetes). Fasting plasma glucose results greater than or equal to 126 mg/dL meet the criteria for diagnosis of diabetes. In the absence of unequivocal hyperglycemia, results should be confirmed by repeat testing. In a patient with classic symptoms of hyperglycemia or hyperglycemic crisis, random plasma glucose results greater than or equal to 200 mg/dL meet the criteria for diagnosis of diabetes. Reference: Standards of Medical Care in Diabetes 2016, [place] [employer] Association. Diabetes Care. 2016.39(Suppl 1). LAB BUN 7-21 mg/dL BUN High 22 LAB CRET 0.58-0.96 mg/dL Creatinine 0.76 LAB NA 136-144 mmol/L Sodium 142 LAB K 3.7-5.1 mmol/L Potassium 4.1 LAB CL 97-105 mmol/L Chloride 99 LAB CO2 22-30 mmol/L CO2 High 31 LAB AGAP 9-18 mmol/L Anion Gap 12 LAB ALT 7-38 U/L ALT 16 LAB GFRAA eGFR- Amer. >60 LAB GFRNAA . eGFR-All Other Races >60 Result Comment: eGFR (Estimated GFR) Units of measure: mL/min/1.73 meters squared eGFR is derived from the reexpressed MDRD Study equation using the following parameters: serum creatinine, age, gender and race. The creatinine assay has been calibrated to be traceable to IDMS. An eGFR <60 mL/min/1.73m2 for >3 months is consistent with chronic kidney disease. Refer to KDOQI guidelines for clinical interpretation. In patients with unstable renal function, e.g. those with acute kidney injury, the eGFR may not accurately reflect actual GFR. Performed By: #### CBC, CMP, LIPB #### [facility] [address] [place], [place] [address] LIPID PANEL, BASIC Collected: 05/02/2017 Status: F Source: [place] 10:52 AM [facility] REPOSITORY TYPE CODE TESTS RESULT OUT OF REFERENCE UNITS RANGE LAB CHOL <200 mg/dL Cholesterol 162 Result Comment: <200 mg/dL, Desirable 200-239 mg/dL, Borderline high >239 mg/dL, High LAB TRIGLY <150 mg/dL Triglyceride 57 Result Comment: <150 mg/dL, Normal 150-199 mg/dL, Borderline high 200-499 mg/dL, High >499 mg/dL, Very high LAB HDL >39 mg/dL HDL-Cholesterol 82 Result Comment: 40-59 mg/dL, Acceptable >59 mg/dL, High: Negative risk factor for coronary heart disease <40 mg/dL, Low: Positive risk factor for coronary heart disease LAB LDL <100 mg/dL LDL-Cholesterol 69 Result Comment: <100 mg/dL, Optimal 100-129 mg/dL, Near optimal/above optimal 130-159 mg/dL, Borderline high 160-189 mg/dL, High >189 mg/dL, Very high Secondary prevention optimal LDL Cholesterol levels are recommended to be < 70 mg/dL LAB NONHDL <130 mg/dL Non HDL Cholesterol 80 Result Comment: <130 mg/dL, Optimal 130-159 mg/dL, Near optimal/above optimal 160-189 mg/dL, Borderline high 190-219 mg/dL, High >219 mg/dL, Very high Secondary prevention optimal non HDL Cholesterol levels are recommended to be < 100 mg/dL LAB FT hrs Fasting Time 0 LAB VLDL <30 mg/dL VLDL Cholesterol 11 LAB TCHDL <5.10 TC:HDL Ratio 1.98 LAB LDLHDL <2.54 LDL:HDL Ratio 0.84 Result Comment: Reference: 1. National Cholesterol Education Program ATP III Guideline At-A-Glance Quick Desk Reference: National Heart, Lung, and Blood [place]. National Institutes of Health. 2001: NIH Publication No. 01-3305. 2. An International Atherosclerosis Society position paper: global recommendations for the management of dyslipidemia: executive summary, Atherosclerosis. 2014: 232(2):410-413. Performed By: #### CBC, CMP, LIPB #### [facility] [address] [place], [place] [address] CNCO Observed: 04/28/2017 Status: COMPLETED Source: [place] 11[facility] HNO ID: [id number] Author: Mammography Coordinator Service: (none) Author Type: Physician Type: Letter Filed: 05/02/2017 11:31 PM Note Text: April 28, 2017 PID: [id number] Jerald Verma [address] [place] [address] Dear Ms. Verma, We are pleased to inform you that the results of your recent breast imaging exam on 04/28/2017 are normal. Early detection of cancer is very important. We also understand recommendations regarding breast cancer screening are controversial. Please discuss with your primary care provider which strategy is best for you and whether a mammogram is right for you. Your imaging studies and report will be kept on file at [facility] as part of your permanent medical record and are available for your continuing care. Thank you for allowing us to help in meeting your health care needs. Sincerely, Dr. Celis Interpreting Radiologist [facility] (Normal over 40) [facility] SCREENING Observed: 04/28/2017 Status: F Source: [place] 10:37 AM [facility] [place] REPOSITORY * * *Final Report* * * DATE OF EXAM: Apr 28 2017 10:37AM PRASAN[facility] [id number] - [facility] SCREENING / PROCEDURE REASON: Encounter for screening mammogram for malignant neoplasm of breast * * * * Physician Interpretation * * * * RESULT: #[id number] - [facility] SCREENING BILATERAL DIGITAL SCREENING MAMMOGRAM WITH CAD: 04/28/2017 HISTORY: Screening Mammogram - patient reports NO breast symptoms /priors available for comparison. RESULT: TECHNIQUE: The study was acquired using full field digital technology and interpreted from soft copy. Current study was also evaluated with a Computer Aided Detection (CAD). Comparison is made to exams dated: 04/27/2016 mammogram, 03/31/2015 mammogram, and 03/25/2014 mammogram - [facility]. There are scattered fibroglandular elements in both breasts. No significant masses, calcifications, or other findings are seen in either breast. There has been no significant interval change. IMPRESSION: NEGATIVE There is no mammographic evidence of malignancy.A 1 year screening mammogram is recommended. Norris simpson/kareem:04/28/2017 11:05:51 Student Ministries Director: Alejandra SHAH(Mony)(Marco), [facility] letter sent: Normal over 40 Mammogram BI-RADS: 1 Negative Hydraulic Repairer: Kareem Transcribe Date/Time: Apr 28 2017 9:58A Dictated by: NORRIS CELIS MD This examination was interpreted and the report reviewed and electronically signed by: NORRIS CELIS MD on Apr 28 2017 11:05AM EST [id number] PROGRESS Observed: 04/28/2017 Status: COMPLETED Source: [place] 9:56 AM [facility] HNO ID: [id number] Author: Marium Shah Service: (none) Author Type: (none) Type: Progress Notes Filed: 04/28/2017 9:56 AM Note Text: Radiology Service Progress Note PATIENT NAME: Jerald Verma DATE OF SERVICE: April 28, 2017 TIME: 9:56 AM PATIENT IDENTITY VERIFICATION COMPLETED USING TWO (2) METHODS: Patient confirmed name verbally and Date of . PATIENT GENDER DATA: Female. status: : No status: NO. PATIENT RELEVANT IMPLANT DATA REVIEWED: Not Applicable RADIOLOGY DEPARTMENT: [facility] DATA: Not applicable SIGNED BY: Marium Shah April 28, 2017 9:56 AM PROGRESS Observed: 04/28/2017 Status: COMPLETED Source: [place] 9:06 AM [facility] [place] REPOSITORY HNO ID: [id number] Author: Kena Rizzo Service: (none) Author Type: Physician Type: Progress Notes Filed: 04/28/2017 9:58 AM Note Text: Jerald Verma is a 82 year old who presents for her annual gynecologic exam without complaints. Lost to pancreatic cancer July 2015. Two children one in [place] one in [place]. 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 History of abnormal pap: No Last mammogram: 2016 normal History of abnormal mammogram: No Sexually active: No History of STDS: None Patient concerns for STD exposure: No. Hot flashes: No Night sweats: No Vaginal dryness: No Exercise: routine Diet: Balanced Obstetric History T2 L2 SAB0 TAB0 Ectopic0 Multiple0 Live Births0 Comment: May have had a miscarriage before her firstborn. PAST MEDICAL HISTORY Diagnosis Date - Benign microscopic hematuria Follows with Dr. Lee - Benign neoplasm of colon - Carpal tunnel syndrome 11/01/2006 - Disorder of bone and cartilage, unspecified - Diverticulitis of colon (without mention of hemorrhage)(562.11) - Diverticulosis of colon (without mention of hemorrhage) - Esophageal reflux - Essential hypertension, benign - Family history of malignant neoplasm of gastrointestinal tract - Foot injury torn tendon right great toe (lateral) causing medial toe deviation - Osteoarthrosis, unspecified whether generalized or localized, unspecified site - Painful tongue Tongu sensitivity--evaluated by ENT (Kami) and dentist - Pure hypercholesterolemia - Tinnitus PAST SURGICAL HISTORY Procedure Laterality Date - COLONOSCOP W/ OR W/O [facility] SPEC , , 09/16, 08/18 Colonoscopy - COLONOSCOP W/ OR W/O [facility] SPEC 10/12/07 - COLONOSCOP W/ OR W/O [facility] SPEC 10/16/2012 Colonoscopy - LIGATE FALLOPIAN TUBE 12/11/1975 - PAST SURGICAL HISTORY OF 1995 LEFT FOOT SURGERY, ORIF (plate and 6 screws) - PAST SURGICAL HISTORY OF 05/26/12 surgery right ankle (2 screw and 4 katrin) - PAST SURGICAL HISTORY OF 04/30/2012 right foot great toe - PAST SURGICAL HISTORY OF 03/28/2017 basil cell skin graft off nose - REMOVE TONSILS/ADENOIDS,<12 Y/O FAMILY HISTORY Problem Relation Age of Onset - Colon Cancer Father FROM THIS. - Hypertension Mother - Heart Mother CONGESTIVE HEART FAILURE SOCIAL HISTORY Social History Substance Use Topics - Smoking status: Never Smoker - Smokeless tobacco: Never Used - Alcohol use Yes Comment: occasional REVIEW OF SYSTEMS Abdomen: No bloating, early satiety, indigestion, or increased flatulence. + constipation- normal for patient Bladder: No dysuria. Some urgency and leaking at times. Breast: No breast lumps, nipple d/c, overlying skin changes, redness or skin retraction Allergies and current medication updated:Yes EXAM: Ht 5' 4.25 (1.63m) Wt 139 lb (63.1kg) BMI 23.67 kg/(m2). GENERAL: pleasant, female in no apparent distress HEENT: Normocephalic, atraumatic, mucus membranes moist and no lesions NECK: Supple, full range of motion, no adenopathy and thyroid normal DERMATOLOGY: Normal, without lesions, non-icteric and non-hirsute BREAST: soft, non-tender, symmetric, no dominant mass, normal nipple-areolar complex, no lymphadenopathy and no nipple discharge ABDOMEN: soft, non-tender and no masses PELVIC: external genitalia normal, normal Bartholin's glands, urethra, [place] Ple[place]'s glands, no vulvar lesions, no cervical lesions, 1st degree uterine prolapse. Grade 1 cystocele. physiologic discharge present, normal appearing perineal body and perianal region, atrophic changes BIMANUAL: uterus normal size, shape and consistency, no adnexal masses and non-tender RECTOVAGINAL: rectovaginal exam negative for any masses or nodularity. NEURO: alert and oriented x3,exam grossly non-focal EXTREMITIES: normal ASSESSMENT/PLAN: 1) Health maintenance: Pap/HPV screening no longer needed Mammogram ordered Nutrition, exercise and routine health maintenance exams reviewed. Calcium/Vitamin D supplementation information provided. Colon cancer screening: patient to discuss with PCP BMD: up to date- will repeat 2018. 2) Follow up one year or sooner as needed Kena Bowman MD CNOV Observed: 04/28/2017 Status: COMPLETED Source: [place] 9[facility] AM [facility] Office Visit (WOOB) JERALD VERMA ([id number]) 1935 F Date Time Provider Department 04/28/17 9:00 AM KENA SIERRA During your visit today, we recorded the following information about you: Blood pressure Weight Height 138/68 63 kg 1.632 m Kena Bowman MD 04/28/2017 9:58 AM Signed Jerald Verma is a 82 year old who presents for her annual gynecologic exam without complaints. Lost to pancreatic cancer July 2015. Two children one in [place] one in [place]. 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 History of abnormal pap: No Last mammogram: 2016 normal History of abnormal mammogram: No Sexually active: No History of STDS: None Patient concerns for STD exposure: No. Hot flashes: No Night sweats: No Vaginal dryness: No Exercise: routine Diet: Balanced Obstetric History T2 L2 SAB0 TAB0 Ectopic0 Multiple0 Live Births0 Comment: May have had a miscarriage before her firstborn. PAST MEDICAL HISTORY Diagnosis Date - Benign microscopic hematuria Follows with Dr. Lee - Benign neoplasm of colon - Carpal tunnel syndrome 11/01/2006 - Disorder of bone and cartilage, unspecified - Diverticulitis of colon (without mention of hemorrhage)(562.11) - Diverticulosis of colon (without mention of hemorrhage) - Esophageal reflux - Essential hypertension, benign - Family history of malignant neoplasm of gastrointestinal tract - Foot injury torn tendon right great toe (lateral) causing medial toe deviation - Osteoarthrosis, unspecified whether generalized or localized, unspecified site - Painful tongue Tongu sensitivity--evaluated by ENT (Kami) and dentist - Pure hypercholesterolemia - Tinnitus PAST SURGICAL HISTORY Procedure Laterality Date - COLONOSCOP W/ OR W/O [facility] SPEC , , 09/16, 08/18 Colonoscopy - COLONOSCOP W/ OR W/O [facility] SPEC 10/12/07 - COLONOSCOP W/ OR W/O [facility] SPEC 10/16/2012 Colonoscopy - LIGATE FALLOPIAN TUBE 12/11/1975 - PAST SURGICAL HISTORY OF 1995 LEFT FOOT SURGERY, ORIF (plate and 6 screws) - PAST SURGICAL HISTORY OF 05/26/12 surgery right ankle (2 screw and 4 katrin) - PAST SURGICAL HISTORY OF 04/30/2012 right foot great toe - PAST SURGICAL HISTORY OF 03/28/2017 basil cell skin graft off nose - REMOVE TONSILS/ADENOIDS,ANDlt;14 Y/O FAMILY HISTORY Problem Relation Age of Onset - Colon Cancer Father FROM THIS. - Hypertension Mother - Heart Mother CONGESTIVE HEART FAILURE SOCIAL HISTORY Social History Substance Use Topics - Smoking status: Never Smoker - Smokeless tobacco: Never Used - Alcohol use Yes Comment: occasional REVIEW OF SYSTEMS Abdomen: No bloating, early satiety, indigestion, or increased flatulence. + constipation- normal for patient Bladder: No dysuria. Some urgency and leaking at times. Breast: No breast lumps, nipple d/c, overlying skin changes, redness or skin retraction Allergies and current medication updated:Yes EXAM: Ht 5' 4.25ANDquot; (1.63m) Wt 139 lb (63.1kg) BMI 23.67 kg/(m2). GENERAL: pleasant, female in no apparent distress HEENT: Normocephalic, atraumatic, mucus membranes moist and no lesions NECK: Supple, full range of motion, no adenopathy and thyroid normal DERMATOLOGY: Normal, without lesions, non-icteric and non-hirsute BREAST: soft, non-tender, symmetric, no dominant mass, normal nipple-areolar complex, no lymphadenopathy and no nipple discharge ABDOMEN: soft, non-tender and no masses PELVIC: external genitalia normal, normal Bartholin's glands, urethra, Se[place] Pleasant's glands, no vulvar lesions, no cervical lesions, 1st degree uterine prolapse. Grade 1 cystocele. physiologic discharge present, normal appearing perineal body and perianal region, atrophic changes BIMANUAL: uterus normal size, shape and consistency, no adnexal masses and non-tender RECTOVAGINAL: rectovaginal exam negative for any masses or nodularity. NEURO: alert and oriented x3,exam grossly non-focal EXTREMITIES: normal ASSESSMENT/PLAN: 1) Health maintenance: Pap/HPV screening no longer needed Mammogram ordered Nutrition, exercise and routine health maintenance exams reviewed. Calcium/Vitamin D supplementation information provided. Colon cancer screening: patient to discuss with PCP BMD: up to date- will repeat 2018. 2) Follow up one year or sooner as needed Kena Bowman MD Referring Provider: SELF [200] Allergies As of Date: 04/28/2017 Noted Allergy Reaction AMOXICILLIN 12/31/2004 6 - Diarrhea KETEK (TELITHROMYCIN) 12/31/2004 6 - Diarrhea NEOMYCIN 04/24/2010 2 - Rash Comments: Reaction on arm when treated with neosporin and bandaid; resolved after stopped Neosporin and used bacitracin instead Date Reviewed: 04/28/2017 Reviewed by: Brittanie Sierra Ma - Fully Assessed Reason for Visit: Yearly Exam [187] Visit Diagnoses:Encounter for gynecological examination (general) (routine) without abnormal findings [Z01.419] Encounter for screening mammogram for breast cancer [Z12.31] Order(s):[facility] SCREENING [7412210] Order #: [id number] FUTURE Prescriptions as of 04/28/2017 Sig: BUDESONIDE 32 MCG/ACTUATION N* Use 1-2 Sprays in each nostri* METOPROLOL SUCCINATE ER 50 MG* Take 1 tablet by mouth once d* HYDROCHLOROTHIAZIDE 25 MG TAB* Take 0.5 tablets by mouth onc* LISINOPRIL 10 MG TABLET Take 1 tablet by mouth once d* SIMVASTATIN 20 MG TABLET Take 1 tablet by mouth daily * CALCIUM CARBONATE 600 MG (1,5* Take 1 tablet by mouth twice * CHOLECALCIFEROL (VITAMIN D3) * Take 1 tablet by mouth once d* NABUMETONE 750 MG TABLET Take 1 tablet by mouth twice * NAPROXEN SODIUM 220 MG TABLET Take 1 tablet by mouth once d* ASPIRIN 81 MG TABLET Take 1 tablet by mouth once d* DESONIDE 0.05 % TOPICAL OINTM* Apply to affected rash area s* TYLENOL EXTRA STRENGTH 500 MG* as necessary TUMS ULTRA 400 MG CALCIUM (1,* as necessary CENTRUM SILVER TABLET Take one(1) tablet daily. VITAMIN C 500 MG TABLET Take one(1) tablet daily. Problem List As Of Date 04/28/2017 Noted Resolved ESOPHAGEAL REFLUX [K21.9] PERS HX COLONIC POLYPS [Z86.010] INVALID FOR* More... 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 Bladder wall thickening [N32.89] INVALID FOR* Contact dermatitis and other eczema, corners of*INVALID FOR*02/05/2014 More... 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 Ocular migraine [G43.109] INVALID FOR* Disposition: Return in 1 year (on 04/28/2018) for Annual Exam. Follow-up and Disposition History Recorded Encounter Status:Closed by KENA RIZZO MD on 04/28/17 ALLERGIES ALLERGIES DATE TYPE / CODE NAME / CODE REACTION SEVERITY SOURCE 03/14/2018 Drug neomycin/[id number] Rash [place] [facility]/416 (RXNORM) Community 323585([facility] ED [facility]) Repository 03/14/2018 Drug amoxicillin/I851819 gi upset [place] Allergy/416 675(RXNORM) [facility] 142384([facility] ED [facility]) Repository 03/14/2018 Drug telithromycin/F0060 gi upset [place] [facility]/416 27066(RXNORM) [facility] 790987([facility] ED [facility]) Repository 04/24/2010 DRUG NEOMYCIN RASH [facility]/[address] [place] [address] 664256(SNOM Repository ED CT) 12/31/2004 DRUG AMOXICILLIN DI[place] [address] 742888(SNOM Repository ED CT) 12/31/2004 DRUG TELITHROMYCIN DIARRHEA [address] 141374(SNOM Repository ED CT) ENCOUNTERS ENCOUNTERS ADMIT/DISCHARGE ACCOUNT ADMITTING ENCOUNTER LOCATION SOURCE NUMBER CLASS 03/14/2018/03/14/20 [id number] Emergency [address] ing:ED Repository 11/11/2017/11/12/19 [id number] Ambulatory [address] Repository 11/05/2017/11/06/19 [id number] Ambulatory [address] Repository 09/09/2017/09/10/19 [id number] Ambulatory [address] ing:EN Repository 09/09/2017 [id number] Ambulatory BMSBuilding:Thuan Velasquez MS.CF.[facility] Repository 08/22/2017/08/24/19 [id number] Ambulatory [address] Repository 08/18/2017/08/19/19 [id number] Ambulatory BMSBuilding:Thuan Velasquez 20 MS.[facility] Repository 07/21/2017/07/28/19 [id number] Ambulatory [address] Repository 05/09/2017/05/09/19 [id number] Ambulatory [address] Repository 05/02/2017/05/02/[id number] Repository 04/28/2017/04/28/19 [id number] Ambulatory [address] Repository 04/28/2017/05/03/[id number] Repository PAYERS PAYERS ENCOUNTER GUARANTOR PAYER SUBSCRIBER SOURCE 03/14/2018 Rodriguez Cheema Primary JERALD Valverde LUCIDOB: [place] Mc Insurance:MEDICARE [id number] [facility] [id number]: [phone]) Number: Repository [phone] () [id number] Date:2018-03-14 03/14/2018 Secondary JERALD Valverde LUCIDOB: [place] Insurance:CIGNAPolicy [id number] Community Number: Hospital [id number] Repository Date:[id number], [place] [address]BQ: 03/14/2018 Tertiary NOT GIVENUNK [place] Insurance:SELF PAY [facility] Number: Effective Repository Date:2018-03-14 09/09/2017 Rodriguez Cheema Primary JERALD Valverde LUCIDOB: [place] Mc Insurance:MEDICARE [id number] [facility] [id number]: [phone]) Number: Repository [phone] () [id number] Date:2017-08-18 09/09/2017 Secondary JERALD Nicolle RANDALLB: [place] Insurance:CIGNAPolicy [id number] Community Number: Hospital [id number] Repository Date:0795-71-63ND [address], [place] [address]HC: 09/09/2017 Tertiary NOT GIVENUNK [place] Insurance:SELF PAY [facility] Number: Effective Repository Date:2017-08-18 09/09/2017 Rodriguez Cheema Primary JERALD Nicolle KNORRDOB: [place] Mc Insurance:MEDICARE [id number] [place] [facility] [address]31Hfr: [phone]) Number: Repository [phone] () [id number] Date:2017-08-18 09/09/2017 Secondary JERALD VERMAB: [place] Insurance:CIGNAPolicy [id number] Community Number: Hospital [id number] Repository Date:[id number], [place] [address]LP: 09/09/2017 Tertiary NOT GIVENUNK [place] Insurance:SELF PAY [facility] Effective Repository Date:2017-09-09 08/18/2017 Rodriguez Cheema Primary JERALD Valverde LUCIDOB: [place] Mc Insurance:MEDICARE [id number] [place] PART [place] [facility] [id number]: [phone]) Number: Repository [phone] () [id number] Date:2017-08-09 08/18/2017 Secondary JERALD Valverde RANDALLB: [place] Insurance:CIGNAPolicy [id number] Community Number: Hospital [id number] Repository Date:[id number] [address], [place] [address]AI: 08/18/2017 Tertiary NOT GIVENUNK [place] Insurance:SELF PAY [facility] Number: Effective Repository Date:2017-08-18
== END 2018-03-14 22:34 | disposition home or self-care (01) ==
PROVIDERS: Emergency Provider Emergency Medicine; Family Provider Internal Medicine; PCP Internal Medicine
DX: S01.81XA Laceration without foreign body of other part of head, initial encounter (principal); W17.89XA Other fall from one level to another, initial encounter; W22.8XXA Striking against or struck by other objects, initial encounter; Y93.89 Activity, other specified; Y92.520 Airport as the place of occurrence of the external cause; I10 Essential (primary) hypertension; K21.9 Gastro-esophageal reflux disease without esophagitis; Z79.82 Long term (current) use of aspirin; Z79.899 Other long term (current) drug therapy
CPT/HCPCS: 12011; 99282

== ENCOUNTER 2018-08-24 09:00 | Outpatient (RCR) | payer MEDICARE, OTHER, SELFPAY ==
--- NOTE | 2018-06-08 09:00 | SOAP_ITS ---
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 The Patient reports initial issues with vocal quality in the 1979?s associated with vocal nodules (treated by Dr. Pate) that forced her to stop singing. 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 She reports issues with production of lower and mid-range vs. higher registers, with accompanying dysphonic / cacophonic qualities and occasionally leading to temporary aphonia. The above stated issues are noted to have greater impact more so while singing, though she clearly endorses and reports dysphonia at the conversational level. She reports prior speech-language intervention targeting vocal abilities were unsuccessful, stating increased discomfort and symptomology, with efforts reportedly focusing on vocal intensity. The Patient reports that she returned to signing in her restoration choir approximately 2 years prior, stating that she can no longer ?count on her voice?, which has gradually deteriorated in a similar manner as described above. She reports that she practices approximately 3 times per week, though will sing almost every day if the week includes a concert / performance. She suspects an element of vocal abuse, as she states that she has never been ?classically? trained, and believes that her breathing (from the upper airway / neck vs. diaphragm) may additionally attribute to her persistent vocal issues. The Patient reports frequent heartburn and associated throat clearing, though this has improved with dietary adjustments and gradual intended weight loss (RSI: 10); denies globus sensation, though does report occasional substernal discomfort with reflux; denies persistent nausea or bouts of emesis. She denies any odynophagia, persistent sore throat, or pain / discomfort accompanying vocal deterioration. She reports mild xerostomia that is easily managed with liquid ingestion; denies diurnal sialorrhea; denies any dysgeusia / hypogeusia / ageusia or hyposmia. She denies any signs / symptoms of dysphagia. She reports intermittent habitual throat clearing that is more prominent during allergy season with concomitant negative effect on vocal symptomology. She does report she may have been intubated for prior orthopedic surgical interventions, though this did not significantly impact her vocal abilities. She denies poor / suboptimal dietary selections with the exception of ?potato chips at lunch?, denies frequent ingestion of caffeinated beverages, though does report suboptimal hydration. The Patient is fully ambulatory, appears cognitively intact, appears well nourished, and is independent for all ADLs and IADLs. 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 MEDICAL HISTORY: Esophageal reflux, benign neoplasm of colon, osteoarthritis, hypertension, pure hypercholesterolemia, benign microscopic hematuria, diverticulosis and diverticulitis of colon, carpal tunnel syndrome, status post-surgical manipulation of ankle joint, status post tonsillectomy. CURRENT MEDICATIONS: Hydrochlorothiazide (25mg) Lisinopril (10mg) Metoprolol succinate (50mg) Multivitamin Ranitidine HCL (75mg) Rhinocort Allergy (32mcg/actuation spray) ADDITIONAL OBJECTIVE ASSESSMENT RESULTS: Information provided from the Patients 05/11/2018 session with [facility] / Dr. Pate provided and reviewed. Objective visualization of the Larynx revealed overall normal appearance, with normal epiglottis and false vocal folds; continued mild bowing of the true vocal folds as with age related changes, no specific pathology; good glottic closure; normal arytenoids; normal interarytenoid space; normal subglottic space and anterior tracheal wall; normal ventricles. CLINICAL ASSESSMENT OF VOCAL FUNCTIONING (QUANTITATIVE): Reflux Symptom Index (RSI): 10 (>13 may be indicative of significant reflux) Voice Handicap Index ? 10 (VHI-10): 6 (slight alteration) S/Z Ratio: 1.33 (1.40 suggests vibratory dysfunction of the vocal folds) Maximum Phonation Time (MPT): 19.95 seconds Average Maximum Intensity of Sustained Vowel Phonation: 76.1 dBSPL Average Vocal Intensity During Reading of Passage: 65.68 dBSPL CLINICAL ASSESSMENT OF VOCAL FUNCTIONING (QUALITATIVE): PHONATORY DISORDERS: persistent dysphonia that appeared more intense with increasing vocal intensity, with a more mild dysphonia with a slight glottal chapman during conversational speech and trace cacophony towards the latter portions of longer / sustained production efforts; occasional pitch breaks during sustained phonation with vocal deterioration and increased dysphonia leading to cacophonia; no vocal tremor; no strained-strangled vocal quality or undue tension; no glottal attack. RESONANCE DISORDERS: no hypernasality / hyperrhinolalia or hyponasality appreciated. RESPIRATORY FACTORS: appropriate breathing rate and quality without claviclular breathing or open mouth breathing; no stridor. STRUCTURAL / NEUROLOGICAL: no aphasia, apraxia, dysarthria, or atypical disfluent patterns noted. NON-VERBAL VOCAL RANGE AND FLEXIBILITY: mild reduction in vocal intensity not necessarily clinically significant; acceptable pitch range for lower registers; limited higher range and flexibility with rather marked dysphonia (improved with moisture / pre-task drink). NON-PHONATORY BEHAVIORS: occasional throat clearing (x3) throughout the session with no clear trigger; No claviclular breathing noted; no stridor. 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 RECOMMENDATIONS: Will recommend continued skilled speech-language intervention targeting vocal functioning / dysphonia via structured therapeutic exercises targeting improved breath support, medial glottal closure, pitch control, and vocal flexibility; development of a home based exercise and vocal hygiene program to promote continued carryover post intervention cycle; and Patient education regarding strategies to reduce the effects of presbyphonia associated with presbylarynx. FUNCTIONAL OUTCOMES: OUTCOME 1: the Patient will demonstrate and utilize recommended therapeutic exercises targeting improved breath support, medial glottal closure, pitch control, and vocal flexibility to reduce the effects of dysphonia and improve communicative effectiveness, across 3 consecutive sessions OUTCOME 2: the Patient will participate in a home based vocal exercise and vocal hygiene program to promote improved and preserved communication effectiveness by reducing the effects of dysphonia, across 3 consecutive sessions. OUTCOME 3: goal adjustment as needed Tavo Toscano M.A., CCC-ASSOCIATE OF SCIENCE IN NURSING MBSImP Certified, LSVT Certified [facility] Speech-Language Pathology Department [email or web address]
--- NOTE | 2018-08-31 17:33 | HP.SP.DC ---
ST Discharge Summary - Discharged: Discharge: The Patient is an 83 year old female who attended 7 skilled speech-language intervention sessions spanning from 06/08/2018 to 08/24/2018 targeting cognitive communication abilities secondary to mild dysphonia (R49.0) secondary to presbyphonia associated with presbylarynx. The Patient has participated in intervention sessions consisting of training and implementation of the Voice Resonance Training (VRT) protocol, with the Patient demonstrating excellent performance and comprehension of VRT program, with all therapeutic goals met. Continued to encourage completion of relaxation techniques prior to choir sessions, discussed utilizing lowered intensity levels during singing. Encouraged completion of the VRT program (steps 1-5) as carryover. Will discharge from the skilled speech-language pathology caseload at this time, though would gladly re-initiate intervention as needed moving forward.
== END 2018-08-24 19:00 | disposition home or self-care (01) ==
LOC: SP 09:00
PROVIDERS: Family Provider Internal Medicine; PCP Internal Medicine; Referring Provider Otolaryngology Otolaryngology/Facial Plastic Surgery; Visit Provider Otolaryngology Otolaryngology/Facial Plastic Surgery
DX: R49.0 Dysphonia (principal)
CPT/HCPCS: 92507; 92524

== ENCOUNTER 2021-09-20 08:54 | Emergency (ER) | payer MEDICARE, OTHER, SELFPAY ==
[2021-09-20 08:56] VITALS: BP 152/60; PULSE 88; RESP 14; TEMP 36.7; O2SAT 98; BMI 25.9
[2021-09-20 09:13] VITALS: BP 152/60; PULSE 88; RESP 14; TEMP 36.7; O2SAT 98
[2021-09-20 09:26] LABS: Absolute Lymphocyte Count 0.41 X10^3/uL (0.83-4.51); Absolute Neutrophil Count 13.3 X10^3/uL (2.0-7.7); Basophil# 0.04 X10^3/uL; Basophil% 0.3 % (0-1); Hematocrit 42.7 % (37-47); Hemoglobin 13.9 g/dL (12.0-15.0); Lymphocyte # 0.41 X10^3/ul (0.83-4.51); Lymphocyte % 2.9 % (19-41); Mean Corp Hgb Conc 32.6 g/dL (32-36); Mean Corpuscular Hgb 33.9 pg (27.0-32.0); Mean Corpuscular Volume 104.1 fL (81-99); Mean Platelet Vol. 9.5 fl (6.2-12.0); Monocyte# 0.49 X10^3/uL; Monocyte% 3.4 % (0-10); NRBC Flagged by Analyzer 0 % (0-5); Neutrophil # 13.26 X10^3/uL (2.7-7.7); Neutrophil % 92.9 % (47-70); POSITIVE DIFFERENTIAL YES; Platelet Count 271 K/mm3 (150-450); RBC Distribution Width CV 12.6 % (11.6-14.6); RBC Distribution Width SD 48.8 fl (35.1-43.9); White Blood Count 14.3 K/mm3 (4.4-11.0)
[2021-09-20 09:27] LABS: Differential Indicated SCAN CRITERIA MET
[2021-09-20 09:38] LABS: Anion Gap 5 (5-15); BUN 18 mg/dL (7-18); BUN/Creat Ratio 24.1 RATIO (10-20); Calcium,Total 8.6 mg/dL (8.5-10.1); Chloride 102 mmol/L (98-107); Creatinine, Serum 0.75 mg/dL (0.55-1.02); EST Glomerular Filtration Rate 78 mL/min (>60); Est Glom Filt Rate - Afr Amer 95 mL/min (>60); Glucose 99 mg/dL (74-106); Potassium 3.1 mmol/L (3.5-5.1); Sodium Level 138 mmol/L (136-145)
--- NOTE | 2021-09-20 10:21 | EDS_ITS ---
HPI HPI - GI History of Present Illness Chief Complaint: Diarrhea Narrative Narrative: 86-year-old female presenting with diarrhea. She states has had this since about . 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 She states that she has been on vancomycin before and this goes away but then does return. She states that this morning she was having diarrhea and she felt cold chills and a little bit clammy. She did not faint. Patient denies black or bloody stools. She denies urinary symptoms. She has not had any fever. She states she did make an plenty of fluids and Gatorade. She states that her abdomen does not hurt and that she is actively having diarrhea. She states currently she feels okay and is pain-free. She does express to me she is a little bit nauseous with the symptoms. She was seen by Dr. Skip Olivares on Tuesday which is yesterday and was given a test kit for C. difficile although she has been waiting to do this until tonight because there is a 24-hour time limit on it. She states that her grandson just graduated medical school and was able to send an email to a [facility] doctor who is going to see her in follow-up tomorrow to discuss her case. She believes this is at [facility]. [facility] Medical History Benign microscopic hematuria Benign neoplasm of colon Carpal tunnel syndrome Disorder of bone and cartilage, unspecified Diverticulitis of colon Diverticulosis of colon Esophageal reflux Family hx of colon cancer Hypertension Osteoarthritis Painful tongue Pure hypercholesterolemia Home Medications acetaminophen 500 mg capsule 500 mg PO PRN PRN 08/18/17 [History Last Taken Unknown] ascorbic acid (vitamin C) 500 mg capsule 500 mg PO DAILY 08/18/17 [History Last Taken Unknown] hydrochlorothiazide 25 mg tablet 12.5 mg PO QDAY tab 08/18/17 [History Last Taken Unknown] lisinopril 10 mg tablet 10 mg PO QDAY 08/18/17 [History Last Taken Unknown] metoprolol succinate 50 mg tablet,extended release 24 hr 50 mg PO QDAY 08/18/17 [History Last Taken Unknown] multivitamin 1 tab PO QDAY 08/18/17 [History Last Taken Unknown] simvastatin 20 mg tablet 20 mg PO QPM 08/18/17 [History Last Taken Unknown] Allergy/AdvReac Type Severity Reaction Status Date / Time amoxicillin Allergy Mild GI Upset Verified 09/20/21 08:56 neomycin Allergy Mild Rash Verified 09/20/21 08:56 telithromycin [From Ketek] Allergy Mild GI Upset Verified 09/20/21 08:56 Family History Father Colon cancer Cancer Skin cancer Mother Hypertension Surgical History S/P surgical manipulation of ankle joint Social History Smoking Status: Never smoker second hand exposure: No alcohol intake: never substance use type: does not use caffeine: No what type of physical activity do you participate in: walking and aerobics frequency: 1-2 times per week seatbelt use: always ROS ROS ED Constitutional Constitutional ED: Reports chills and sweats; Denies fever(s) ENT ENT ED: Denies rhinorrhea or sore throat Cardiovascular Cardiovascular: Denies chest pain or palpitations Respiratory/Chest Respiratory/Chest: Denies cough or dyspnea Gastrointestinal Gastrointestinal: Reports abdominal pain, diarrhea and nausea; Denies constipation Genitourinary Genitourinary ED: Denies dysuria or hematuria Musculoskeletal Musculoskeletal: Denies back pain, myalgias or neck pain Integumentary Denies rash Neurologic Neurologic: Denies headache(s) or weakness Psychiatric Psychiatric: Denies anxiety or depression Endocrine Endocrinology: Denies polydipsia or polyuria EXAM Physical Exam Const Vital Signs: 09/20/21 08:56 09/20/21 09:13 09/20/21 12:23 Temperature 98.1 F 98.1 F Temperature Source Temporal Temporal Pulse Rate 88 88 97 Respiratory Rate 14 14 14 Blood Pressure 152/60 H 152/60 H 124/65 H Blood Pressure Mean 90 90 84 Pulse Ox 98 98 95 Oxygen Delivery Method Room Air Room Air Room Air Positive well nourished General Appearance ED: NAD; Negative for pallor HEENT Reports moist mucous membranes normocephalic and atraumatic Eyes PERRL and EOMs intact bilaterally General Eye ED: Negative for pale conjunctiva or scleral icterus Resp normal respiratory effort and clear to auscultation bilaterally Cardio regular rate and regular rhythm GI non-tender and non-distended Palpation: soft Back/Spine no CVA tenderness Neuro CN's II-XII intact bilaterally Sensorium / Orientation: alert, oriented to person, oriented to place and oriented to time Psych mental status grossly normal Skin General Skin Exam: Negative for jaundice or pallor Lesions: no lesions Rashes: no rashes MDM MDM MDM Narrative Medical decision making narrative: Obtained CBC and this shows a slight leukocytosis of 14.3. Hemoglobin stable at 13.9. Platelets 271. Creatinine is 0.75. Potassium slightly low at 3.1. This will be repleted orally. I did order stool studies for her although she is unsure if she had Mobic bowel movement currently. I do not believe she is a CAT scan because she does not have any active pain currently. She has no pain or nausea at this point. Her abdominal exam is benign. The patient has been here for 4 hours and she has been unable to produce a stool sample. I counseled her that I could not make a diagnosis without a stool sample as there is other sources of diarrhea. She does have a test kit at home that she can give to her GI doctor she is post follow-up tomorrow. I recommended that she do this. I did discuss with her that her leukocytosis is only mildly elevated and her abdominal exam is benign. I would expect that if she had very bad C. difficile colitis that her CBC which showed greater leukocytosis. Her potassium was repleted. She will be given nausea for home. Patient discharged home in stable condition. Impression: 1. Diarrhea 2. Leukocytosis 3. Hypokalemia Lab Data Attestation: I reviewed the patient's lab results. Labs: Laboratory Results - last 24 hr 09/20/21 09/20/21 09:16 09:16 WBC 14.3 H RBC 4.10 L Hgb 13.9 Hct 42.7 MCV 104.1 H MCH 33.9 H MCHC 32.6 RDW Std Deviation 48.8 H RDW Coeff of Jose 12.6 Plt Count 271 MPV 9.5 Immature Gran % (Auto) 0.500 Neut % (Auto) 92.9 H Lymph % (Auto) 2.9 L Finney % (Auto) 3.4 Eos % (Auto) 0.0 Baso % (Auto) 0.3 Absolute Neuts (auto) 13.3 H Absolute Lymphs (auto) 0.41 L Nucleated RBC % 0 Sodium 138 Potassium 3.1 L Chloride 102 Carbon Dioxide 31.0 Anion Gap 5 BUN 18 Creatinine 0.75 Estim Creat Clear Calc 31.60 Est GFR (MDRD) Af Amer 95 Est GFR (MDRD) Non-Af 78 BUN/Creatinine Ratio 24.1 H Glucose 99 Calcium 8.6 Discharge Plan Triage Chief Complaint: Diarrhea ED Provider: Prakash Alarcon Dx/Rx/DC Orders Instructions: ED Diarrhea, Unknown Cause Prescriptions: No Action simvastatin 20 mg tablet 20 mg PO QPM RF: 0 metoprolol succinate 50 mg tablet extended release 24 hr 50 mg PO QDAY RF: 0 lisinopril 10 mg tablet 10 mg PO QDAY RF: 0 hydrochlorothiazide 25 mg tablet 12.5 mg PO QDAY RF: 0 multivitamin tablet 1 tab PO QDAY RF: 0 acetaminophen 500 mg capsule 500 mg PO PRN PRN (Reason: Pain) RF: 0 ascorbic acid (vitamin C) 500 mg capsule 500 mg PO DAILY RF: 0 Primary Care Provider: Abbi Cruz Referrals: Abbi Cruz MD [Primary Care Provider] - Disposition Disposition: Home, Self Care
[2021-09-20] MEDS: Potassium Chloride Oral Tablet 20 MEQ 40 MEQ PO (10:22)
[2021-09-20 12:23] VITALS: BP 124/65; PULSE 97; RESP 14; O2SAT 95
== END 2021-09-20 12:39 | disposition home or self-care (01) ==
PROVIDERS: Emergency Provider Student in an Organized Health Care Education/Training Program; PCP Internal Medicine; Visit Provider Student in an Organized Health Care Education/Training Program
DX: R19.7 Diarrhea, unspecified (principal); D72.829 Elevated white blood cell count, unspecified; E87.6 Hypokalemia; I10 Essential (primary) hypertension; E78.00 Pure hypercholesterolemia, unspecified; Z79.899 Other long term (current) drug therapy
CPT/HCPCS: 80048; 85025; 99284

== ENCOUNTER → 2023-06-02 | Outpatient (CLI) | payer MEDICARE, OTHER, SELFPAY ==
--- OUTSIDE RECORDS SUMMARY | 2023-06-02 08:02 | XMS RPT_ITS | CCD ---
Author Name Unknown Address [address] [place] [address] Organization [facility] Care Team Providers Care Physical Sciences Instructor Name Role Phone Michelle Goldman MD Primary Care Provider Shankar Wilcox MD Unavailable Unavailable Marisabel Caban PT Unavailable Grater TEST ENGINEERING TECHNICIAN.JAY Sherif Unavailable TALAMPAS, MICHELLE D Primary Care Unavailable EDITA PLATT Attending Unavailable TALAMPAS, MICHELLE D Primary Care Unavailable SHELDON REINOSO Attending Unavailable SHELDON REINOSO Attending Unavailable TALAMPAS, MICHELLE D Primary Care Unavailable Michelle Goldman MD Primary Care Provider Shankar Wilcox MD Unavailable Unavailable Marisabel Caban PT Unavailable Grater TEST ENGINEERING TECHNICIAN.JAY Sherif Unavailable JAVI ANGELES Attending Unavailable TALAMPAS, MICHELLE D Primary Care Unavailable TALAMPAS, MICHELLE D Primary Care Unavailable PETRA SIERRA Referring Unavail able TALAMPAS, MICHELLE D Primary Care Unavailable PETRA SIERRA Attending Unavail able JAVI ANGELES Attending Unavailable TALAMPAS, MICHELLE D Primary Care Unavailable JAVI ANGELES Attending Unavailable TALAMPAS, MICHELLE D Primary Care Unavailable PETRA SIERRA Attending Unavail able TALAMPAS, MICHELLE D Primary Care Unavailable JAVI ANGELES Attending Unavailable TALAMPAS, MICHELLE D Primary Care Unavailable TALAMPAS, MICHELLE D Primary Care Unavailable ROBERT OLEARY Attending Unavailable NEPETRA NAVARRO Attending Unavail able TALAMPAS, MICHELLE D Primary Care Unavailable TALAMPAS, MICHELLE D Primary Care Unavailable NEYSIDT RIZZO, PETRA Attending Unavail able KARTHIKJAVI Attending Unavailable TALAMPAS, MICHELLE D Primary Care Unavailable KARTHIKJAVI Referring Unavailable TALAMPAS, MICHELLE D Primary Care Unavailable TALAMPAS, MICHELLE D Attending Unavailable TALAMPAS, MICHELLE D Primary Care Unavailable TALAMPAS, MICHELLE D Primary Care Unavailable NEYHART RIZZO, PETRA Attending Unavail able TALAMPAS, MICHELLE D Primary Care Unavailable NEYHART RIZZO, PETRA Attending Unavail able TALAMPAS, MICHELLE D Primary Care Unavailable NEYHART RIZZO, PETRA Attending Unavail able TALAMPAS, MICHELLE D Primary Care Unavailable NEYHART RIZZO, PETRA Attending Unavail able TALAMPAS, MICHELLE D Primary Care Unavailable TALAMPAS, MICHELLE D Primary Care Unavailable TALAMPAS, MICHELLE D Referring Unavailable Allergies Allergy Classification Reported Allergen(s) Allergy Type Date of Onset Reaction(s) Facility (20 sources) Amoxicillin; Translations: [AMOXICILLIN] Drug Allergy 12-31-2004 Diarrhea, GI Upset [facility] Work Phone: (20 sources) Neomycin; Translations: [NEOMYCIN] Drug Allergy 04-24-2010 Rash [facility] Work Phone: (20 sources) telithromycin; Translations: [TELITHROMYCIN] Drug Allergy 12-31-2004 Diarrhea, GI Upset [facility] Work Phone: (20 sources) Bacitracin / Neomycin / Polymyxin B / pramoxine; Translations: [[id number] YMYX-PRAMOXINE] Drug Allergy 11-26-2021 Diarrhea [facility] Work Phone: (16 sources) Estradiol; Translations: [ESTRADIOL] Drug Allergy 08-30-2022 Rash, Itching [facility] Work Phone: Medications Current Medications Medication Drug Class(es) Dates Sig (Normalized) Sig (Original) BORIC ACID 600 MG VAGINAL SUPPOSITORY (1 source) Start: 11-02-2022 End: 11-16-2022 BORIC ACID 600 MG VAGINAL SUPPOSITORY Use 1 Suppository vaginally once daily for 14 days. Unwrap and insert as directed. 14 Suppository 0 11/02/2022 11/16/2022 Active Completed/Discontinued Medications Medication Drug Class(es) Dates Sig (Normalized) Sig (Original) acetaminophen 500 mg oral tablet (20 sources) Start: 01-01-2005 TYLENOL EXTRA STRENGTH 500 MG ORAL TAB every 8 hours as needed for pain 0 01/01/2005 Active Problems Active Problems Problem Classification Problem Date Documented Date Episodic/Chronic Bacterial infection; unspecified site (1 source) Clostridioides difficile infection; Translations: [Other bacterial infections of unspecified site] Episodic Complication of device; implant or graft (2 sources) Vaginitis; Translations: [Infection and inflammatory reaction due to other prosthetic device, implant and graft in genital tract, subsequent encounter] 11-23-2022 Episodic Deficiency and other anemia (1 source) Macrocytic anemia; Translations: [Nutritional anemia, unspecified] 09-24-2022 Episodic Deficiency and other anemia (1 source) Nutritional anemia, unspecified; Translations: [Anemia, macrocytic] Onset: 3 Episodic Diseases of mouth; excluding dental (20 sources) Glossodynia; Translations: [Glossodynia] 04-13-2021 Episodic Disorders of lipid metabolism (20 sources) Hyperlipidemia; Translations: [Hyperlipidemia, unspecified] Onset: 6 03-22-2015 Chronic Essential hypertension (20 sources) Essential hypertension; Translations: [Essential (primary) hypertension] Onset: 5 Chronic Genitourinary symptoms and ill-defined conditions (2 sources) Urge incontinence of urine; Translations: [Urge incontinence] Onset: 3 Chronic Headache; including migraine (20 sources) Ophthalmic migraine; Translations: [Migraine with aura, not intractable, without status migrainosus] Onset: 7 03-19-2017 Chronic Intestinal infection (3 sources) Clostridium difficile diarrhea; Translations: [Enterocolitis due to Clostridium difficile, not specified as recurrent] Episodic Malaise and fatigue (1 source) Fatigue; Translations: [Chronic fatigue, unspecified] 09-24-2022 Chronic Menopausal disorders (4 sources) Atrophy of vagina; Translations: [Postmenopausal atrophic vaginitis] Onset: 3 Chronic Mycoses (4 sources) Onychomycosis of toenails; Translations: [Tinea unguium] 09-24-2022 Episodic Nutritional deficiencies (20 sources) Vitamin D deficiency; Translations: [Vitamin D deficiency, unspecified] Onset: 2 Chronic Occlusion or stenosis of precerebral arteries (20 sources) Bilateral stenosis of carotid arteries; Translations: [Occlusion and stenosis of bilateral carotid arteries] Onset: 0 12-03-2019 Chronic Osteoarthritis (20 sources) Degenerative joint disease involving multiple joints; Translations: [Polyosteoarthritis, unspecified] Onset: 9 07-23-2008 Chronic Osteoporosis (20 sources) Senile osteoporosis; Translations: [Age-related osteoporosis without current pathological fracture] Onset: 2 Chronic Other aftercare (6 sources) Patient encounter status; Translations: [Other long term care phlebotomist (current) drug therapy] Episodic Other circulatory disease (1 source) Low blood pressure; Translations: [Hypotension, unspecified] Episodic Other connective tissue disease (1 source) History of right total knee replacement; Translations: [Presence of right artificial knee joint] Chronic Other connective tissue disease (20 sources) History of total knee arthroplasty; Translations: [Presence of right artificial knee joint] Onset: 1 10-09-2020 Chronic Other connective tissue disease (1 source) Pain in both feet; Translations: [Pain in right foot] Episodic Other diseases of bladder and urethra (12 sources) Hypertrophy of bladder; Translations: [Other specified disorders of bladder] Onset: 2 04-20-2011 Chronic Other diseases of bladder and urethra (1 source) Urethral caruncle; Translations: [Urethral caruncle] Episodic Other ear and sense organ disorders (1 source) Hearing loss of right ear; Translations: [Unspecified hearing loss, right ear] 03-28-2023 Chronic Other endocrine disorders (20 sources) Secondary hyperparathyroidism of nonrenal origin; Translations: [Secondary hyperparathyroidism, not elsewhere classified] Onset: 2 Chronic Other endocrine disorders (1 source) Disorder of parathyroid gland; Translations: [Disorder of parathyroid gland, unspecified] Chronic Other endocrine disorders (1 source) Secondary hyperparathyroidism, not elsewhere classified; Translations: [Secondary hyperparathyroidism, non-renal (HCC)] Onset: 2 Chronic Other endocrine disorders (1 source) Disorder of parathyroid gland, unspecified; Translations: [Parathyroid disorder (HCC)] Onset: 3 Chronic Other gastrointestinal disorders (1 source) Constipation; Translations: [Constipation, unspecified] Episodic Other gastrointestinal disorders (1 source) Diarrhea; Translations: [Diarrhea, unspecified] Episodic Other infections; including parasitic (1 source) History of Clostridium difficile intestinal infection; Translations: [Personal history of other infectious and parasitic diseases] Episodic Other inflammatory condition of skin (20 sources) Rosacea; Translations: [Rosacea, unspecified] Onset: 2 06-04-2021 Chronic Other non-traumatic joint disorders (2 sources) Pain in right knee; Translations: [Pain in joint, lower leg] Episodic Other non-traumatic joint disorders (1 source) Ankle edema; Translations: [Effusion, right ankle] Episodic Other nutritional; endocrine; and metabolic disorders (1 source) Unintentional weight gain; Translations: [Abnormal weight gain] Episodic Other nutritional; endocrine; and metabolic disorders (1 source) Weight gain; Translations: [Abnormal weight gain] 03-28-2023 Episodic Other upper respiratory disease (20 sources) Chronic rhinitis; Translations: [Chronic rhinitis] Onset: 6 01-11-2006 Chronic Prolapse of female genital organs (20 sources) Cystocele; Translations: [Uterovaginal prolapse, unspecified] Onset: 2 Chronic Rehabilitation care; fitting of prostheses; and adjustment of devices (6 sources) Patient encounter status; Translations: [Encounter for fitting and adjustment of other specified devices] Onset: 3 Chronic Residual codes; unclassified (1 source) Insomnia; Translations: [Insomnia, unspecified] Episodic Residual codes; unclassified (1 source) Persistent insomnia; Translations: [Insomnia, unspecified] 09-24-2022 Episodic Spondylosis; intervertebral disc disorders; other back problems (1 source) Chronic low back pain; Translations: [Chronic midline low back pain, unspecified whether sciatica present] Episodic Past or Other Problems Problem Classification Problem Date Documented Date Episodic/Chronic Genitourinary symptoms and ill-defined conditions (20 sources) Blood in urine; Translations: [Hematuria, unspecified] Onset: 04-20-2011 04-13-2021 Episodic Other aftercare (1 source) Encounter for therapeutic drug level monitoring; Translations: [Encounter for therapeutic drug monitoring] Onset: 08-30-2022 Episodic Other and unspecified benign neoplasm (20 sources) History of polyp of colon; Translations: [Personal history of colonic polyps] Onset: 01-01-2005 12-27-2007 Episodic Other bone disease and musculoskeletal deformities (20 sources) Disorder of skeletal system; Translations: [Disorder of bone, unspecified] Onset: 07-06-2005 02-12-2015 Episodic Other bone disease and musculoskeletal deformities (20 sources) Osteopenia; Translations: [Other specified disorders of bone density and structure, unspecified site] Onset: 06-04-2021 06-04-2021 Episodic Other diseases of bladder and urethra (1 source) Urethral caruncle; Translations: [Urethral caruncle] Onset: 07-19-2022 Episodic Other nervous system disorders (12 sources) Other acute postprocedural pain; Translations: [Other acute postoperative pain] Onset: 01-07-2020 10-09-2020 Episodic Other non-epithelial cancer of skin (20 sources) Squamous cell carcinoma of skin; Translations: [Squamous cell carcinoma of skin, unspecified] Onset: 12-03-2019 12-03-2019 Episodic Other nutritional; endocrine; and metabolic disorders (1 source) Abnormal weight gain; Translations: [Unintended weight gain] Onset: 08-30-2022 Episodic Other screening for suspected conditions (not mental disorders or infectious disease) (2 sources) Encounter for screening for other suspected endocrine disorder; Translations: [Encounter for screening mammogram for malignant neoplasm of breast] Onset: 05-20-2022 Episodic Residual codes; unclassified (20 sources) Family history of malignant neoplasm of gastrointestinal tract; Translations: [Family history of malignant neoplasm of digestive organs] Onset: 01-11-2006 01-11-2006 Episodic Results Test Name Value Interpretation Reference Range Facil ity Vital Signs Date Time Vital Sign Value Performing Clinician Jamel vee 04-07-2023 09:28-0500 Diastolic blood pressure 66 mm[Hg] Robert Oleary APRN.CAMPGROUND CLEANING ATTENDANT Work Phone: [facility] 04-07-2023 09:28-0500 Heart rate 56 /min Robert Oleary APRN.CAMPGROUND CLEANING ATTENDANT Work Phone: [facility] 04-07-2023 09:28-0500 Systolic blood pressure 151 mm[Hg] Robert Oleary TEST ENGINEERING TECHNICIAN.CAMPGROUND CLEANING ATTENDANT Work Phone: [facility] 04-07-2023 09:20-0500 Body weight 66.68 kg Robertchester Islass TEST ENGINEERING TECHNICIAN.CAMPGROUND CLEANING ATTENDANT Work Phone: [facility] 04-07-2023 09:20-0500 Respiratory rate 16 /min Robert Oleary TEST ENGINEERING TECHNICIAN.CAMPGROUND CLEANING ATTENDANT Work Phone: [facility] 03-28-2023 09:03-0500 Body weight 66.68 kg Javi Karthik TEST ENGINEERING TECHNICIAN.DRIP BOX TENDER Work Phone: [facility] 03-28-2023 09:03-0500 Diastolic blood pressure 60 mm[Hg] Javi Karthik TEST ENGINEERING TECHNICIAN.DRIP BOX TENDER Work Phone: [facility] 03-28-2023 09:03-0500 Heart rate 69 /min Javi Karthik TEST ENGINEERING TECHNICIAN.DRIP BOX TENDER Work Phone: [facility] 03-28-2023 09:03-0500 SaO2% (BldA) [Mass fraction] 98 % Javi Karthik TEST ENGINEERING TECHNICIAN.DRIP BOX TENDER Work Phone: [facility] 03-28-2023 09:03-0500 Systolic blood pressure 130 mm[Hg] Javi Karthik TEST ENGINEERING TECHNICIAN.DRIP BOX TENDER Work Phone: [facility] 12-13-2022 08:08-0400 Body weight 66.95 kg Petra Rizzo MD Work Phone: [facility] 12-13-2022 08:08-0400 Diastolic blood pressure 70 mm[Hg] Petra Rizzo MD Work Phone: [facility] 12-13-2022 08:08-0400 Systolic blood pressure 128 mm[Hg] Petra Rizzo MD Work Phone: [facility] 11-23-2022 08:09-0400 Body weight 66.22 kg Petra Rizzo MD Work Phone: [facility] 11-23-2022 08:09-0400 Diastolic blood pressure 60 mm[Hg] Petra Rizzo MD Work Phone: [facility] 11-23-2022 08:09-0400 Systolic blood pressure 126 mm[Hg] Petra Rizzo MD Work Phone: [facility] 09-24-2022 10:52-0400 Body temperature 96.3 [degF] Michelle Goldman MD Work Phone: [facility] 09-24-2022 10:52-0400 Body weight 66.04 kg Michelle Goldman MD Work Phone: [facility] 09-24-2022 10:52-0400 Diastolic blood pressure 68 mm[Hg] Michelle Goldman MD Work Phone: [facility] 09-24-2022 10:52-0400 Heart rate 60 /min Michelle Goldman MD Work Phone: [facility] 09-24-2022 10:52-0400 Respiratory rate 18 /min Michelle Goldman MD Work Phone: [facility] 09-24-2022 10:52-0400 SaO2% (BldA) [Mass fraction] 100 % Michelle Goldman MD Work Phone: [facility] 09-24-2022 10:52-0400 Systolic blood pressure 134 mm[Hg] Michelle Goldman MD Work Phone: [facility] 08-30-2022 08:56-0400 Body weight 66.22 kg Javi Karthik TEST ENGINEERING TECHNICIAN.DRIP BOX TENDER Work Phone: [facility] 08-30-2022 08:56-0400 Diastolic blood pressure 58 mm[Hg] Javi Karthik TEST ENGINEERING TECHNICIAN.DRIP BOX TENDER Work Phone: [facility] 08-30-2022 08:56-0400 Heart rate 64 /min Javi Karthik TEST ENGINEERING TECHNICIAN.DRIP BOX TENDER Work Phone: [facility] 08-30-2022 08:56-0400 SaO2% (BldA) [Mass fraction] 98 % Javi Karthik TEST ENGINEERING TECHNICIAN.DRIP BOX TENDER Work Phone: [facility] 08-30-2022 08:56-0400 Systolic blood pressure 132 mm[Hg] Javi Karthik TEST ENGINEERING TECHNICIAN.DRIP BOX TENDER Work Phone: [facility] 08-02-2022 09:22-0400 Diastolic blood pressure 60 mm[Hg] Javi Karthik TEST ENGINEERING TECHNICIAN.DRIP BOX TENDER Work Phone: [facility] 08-02-2022 09:22-0400 Systolic blood pressure 144 mm[Hg] Javi Karthik TEST ENGINEERING TECHNICIAN.DRIP BOX TENDER Work Phone: [facility] 08-02-2022 09:21-0400 Body weight 64.86 kg Javi Karthik TEST ENGINEERING TECHNICIAN.DRIP BOX TENDER Work Phone: [facility] 08-02-2022 09:21-0400 Heart rate 71 /min Javi Karthik TEST ENGINEERING TECHNICIAN.DRIP BOX TENDER Work Phone: [facility] 08-02-2022 09:21-0400 SaO2% (BldA) [Mass fraction] 98 % Javi Karthik TEST ENGINEERING TECHNICIAN.DRIP BOX TENDER Work Phone: [facility] 07-19-2022 10:24-0400 Body height 162.6 cm Sheldon Reinoso TEST ENGINEERING TECHNICIAN.DRIP BOX TENDER Work Phone: [facility] 07-19-2022 10:24-0400 Body weight 64.41 kg Sheldon Reinoso TEST ENGINEERING TECHNICIAN.DRIP BOX TENDER Work Phone: [facility] 07-19-2022 10:24-0400 Diastolic blood pressure 82 mm[Hg] Sheldon Renioso TEST ENGINEERING TECHNICIAN.DRIP BOX TENDER Work Phone: [facility] 07-19-2022 10:24-0400 Systolic blood pressure 152 mm[Hg] Sheldon Reinoso TEST ENGINEERING TECHNICIAN.DRIP BOX TENDER Work Phone: [facility] 07-02-2022 11:03-0400 Body height 162.6 cm Edita Platt MD Work Phone: [facility] 07-02-2022 11:03-0400 Body weight 64.86 kg Edita Platt MD Work Phone: [facility] 07-02-2022 11:03-0400 Diastolic blood pressure 80 mm[Hg] Edita Platt MD Work Phone: [facility] 07-02-2022 11:03-0400 Systolic blood pressure 140 mm[Hg] Edita Platt MD Work Phone: [facility] 07-01-2022 10:51-0400 Body weight 65.23 kg Petra Rizzo MD Work Phone: [facility] 07-01-2022 10:51-0400 Diastolic blood pressure 76 mm[Hg] Petra Rizzo MD Work Phone: [facility] 07-01-2022 10:51-0400 Systolic blood pressure 160 mm[Hg] Petra Rizzo MD Work Phone: [facility] 06-07-2022 11:42-0500 Diastolic blood pressure 62 mm[Hg] Javi Karthik TEST ENGINEERING TECHNICIAN.DRIP BOX TENDER Work Phone: [facility] 06-07-2022 11:42-0500 Systolic blood pressure 144 mm[Hg] Javi Karthik TEST ENGINEERING TECHNICIAN.DRIP BOX TENDER Work Phone: [facility] 06-07-2022 11:39-0500 Body weight 63.5 kg Javi Karthik TEST ENGINEERING TECHNICIAN.DRIP BOX TENDER Work Phone: [facility] 06-07-2022 11:39-0500 Heart rate 76 /min Javi Karthik TEST ENGINEERING TECHNICIAN.DRIP BOX TENDER Work Phone: [facility] 06-07-2022 11:39-0500 SaO2% (BldA) [Mass fraction] 98 % Javi Karthik TEST ENGINEERING TECHNICIAN.DRIP BOX TENDER Work Phone: [facility] 06-03-2022 08:56-0500 Body weight 64.41 kg Petra Rizzo MD Work Phone: [facility] 06-03-2022 08:56-0500 Diastolic blood pressure 76 mm[Hg] Petra Rizzo MD Work Phone: [facility] 06-03-2022 08:56-0500 Systolic blood pressure 136 mm[Hg] Petra Rizzo MD Work Phone: [facility] 05-20-2022 11:26-0500 Body height 161 cm Petra Rizzo MD Work Phone: [facility] 05-20-2022 11:26-0500 Body weight 63.96 kg Petra Rizzo MD Work Phone: [facility] 05-20-2022 11:26-0500 Diastolic blood pressure 80 mm[Hg] Petra Rizzo MD Work Phone: [facility] 05-20-2022 11:26-0500 Systolic blood pressure 170 mm[Hg] Petra Rizzo MD Work Phone: [facility] 05-05-2022 10:31-0500 Diastolic blood pressure 70 mm[Hg] Javi Karthik TEST ENGINEERING TECHNICIAN.DRIP BOX TENDER Work Phone: [facility] 05-05-2022 10:31-0500 Systolic blood pressure 180 mm[Hg] Javi Karthik TEST ENGINEERING TECHNICIAN.DRIP BOX TENDER Work Phone: [facility] 05-05-2022 10:30-0500 Body weight 63.96 kg Javi Karthik TEST ENGINEERING TECHNICIAN.DRIP BOX TENDER Work Phone: [facility] 05-05-2022 10:30-0500 Heart rate 68 /min Javi Karthik TEST ENGINEERING TECHNICIAN.DRIP BOX TENDER Work Phone: [facility] 05-05-2022 10:30-0500 SaO2% (BldA) [Mass fraction] 98 % Javi Karthik TEST ENGINEERING TECHNICIAN.DRIP BOX TENDER Work Phone: [facility] 04-05-2022 11:59-0500 Diastolic blood pressure 70 mm[Hg] Michelle Goldman MD Work Phone: [facility] 04-05-2022 11:59-0500 Systolic blood pressure 168 mm[Hg] Michelle Goldman MD Work Phone: [facility] 04-05-2022 11:18-0500 Body weight 63.5 kg Michelle Goldman MD Work Phone: [facility] 04-05-2022 11:18-0500 Heart rate 65 /min Michelle Goldman MD Work Phone: [facility] 04-05-2022 11:18-0500 SaO2% (BldA) [Mass fraction] 98 % Michelle Goldman MD Work Phone: [facility] 03-23-2022 08:48-0500 Diastolic blood pressure 76 mm[Hg] Robert Oleary TEST ENGINEERING TECHNICIAN.CAMPGROUND CLEANING ATTENDANT Work Phone: [facility] 03-23-2022 08:48-0500 Heart rate 82 /min Robert Oleary TEST ENGINEERING TECHNICIAN.CAMPGROUND CLEANING ATTENDANT Work Phone: [facility] 03-23-2022 08:48-0500 Systolic blood pressure 150 mm[Hg] Robert Oleary TEST ENGINEERING TECHNICIAN.CAMPGROUND CLEANING ATTENDANT Work Phone: [facility] 02-03-2022 10:43-0400 Body weight 63.05 kg Michelle Goldman MD Work Phone: [facility] 02-03-2022 10:43-0400 Diastolic blood pressure 78 mm[Hg] Michelle Goldman MD Work Phone: [facility] 02-03-2022 10:43-0400 Heart rate 65 /min Michelle Goldman MD Work Phone: [facility] 02-03-2022 10:43-0400 SaO2% (BldA) [Mass fraction] 99 % Michelle Goldman MD Work Phone: [facility] 02-03-2022 10:43-0400 Systolic blood pressure 156 mm[Hg] Michelle Goldman MD Work Phone: [facility] 11-26-2021 10:57-0400 Diastolic blood pressure 63 mm[Hg] Robert Oleary TEST ENGINEERING TECHNICIAN.CAMPGROUND CLEANING ATTENDANT Work Phone: [facility] 11-26-2021 10:57-0400 Heart rate 56 /min Robert Oleary TEST ENGINEERING TECHNICIAN.CAMPGROUND CLEANING ATTENDANT Work Phone: [facility] 11-26-2021 10:57-0400 Systolic blood pressure 171 mm[Hg] Robert Oleary TEST ENGINEERING TECHNICIAN.CAMPGROUND CLEANING ATTENDANT Work Phone: [facility] 11-26-2021 10:49-0400 Body weight 62.14 kg Robert Oleary TEST ENGINEERING TECHNICIAN.CAMPGROUND CLEANING ATTENDANT Work Phone: [facility] 11-26-2021 10:49-0400 Respiratory rate 16 /min Robert Oleary TEST ENGINEERING TECHNICIAN.CAMPGROUND CLEANING ATTENDANT Work Phone: [facility] 11-26-2021 10:49-0400 SaO2% (BldA) [Mass fraction] 100 % Robert Oleary TEST ENGINEERING TECHNICIAN.CAMPGROUND CLEANING ATTENDANT Work Phone: [facility] 09-25-2021 10:06-0400 Body height 160 cm Oliver Abdi MD Work Phone: [facility] 09-25-2021 10:06-0400 Body temperature 96.69 [degF] Oliver Abdi MD Work Phone: [facility] 09-25-2021 10:06-0400 Body weight 60.6 kg Olvier Abdi MD Work Phone: [facility] 09-25-2021 10:06-0400 Diastolic blood pressure 53 mm[Hg] Oliver Abdi MD Work Phone: [facility] 09-25-2021 10:06-0400 Heart rate 68 /min Oliver Abdi MD Work Phone: [facility] 09-25-2021 10:06-0400 SaO2% (BldA) [Mass fraction] 95 % Oliver Abdi MD Work Phone: [facility] 09-25-2021 10:06-0400 Systolic blood pressure 153 mm[Hg] Oliver Abdi MD Work Phone: [facility] 08-10-2021 14:15-0400 Body height 160 cm Mya Miguel MD Work Phone: [facility] 08-10-2021 14:15-0400 Body temperature 97 [degF] Mya Miguel MD Work Phone: [facility] 08-10-2021 14:15-0400 Body weight 61.24 kg Mya Miguel MD Work Phone: [facility] 08-10-2021 14:15-0400 Diastolic blood pressure 62 mm[Hg] Mya Miguel MD Work Phone: [facility] 08-10-2021 14:15-0400 Heart rate 66 /min Mya Miguel MD Work Phone: [facility] 08-10-2021 14:15-0400 Respiratory rate 12 /min Mya Miguel MD Work Phone: [facility] 08-10-2021 14:15-0400 SaO2% (BldA) [Mass fraction] 97 % Mya Miguel MD Work Phone: [facility] 08-10-2021 14:15-0400 Systolic blood pressure 122 mm[Hg] Mya Miguel MD Work Phone: [facility] 07-29-2021 10:35-0400 Body weight 62.14 kg Michelle Goldman MD Work Phone: [facility] 07-29-2021 10:35-0400 Diastolic blood pressure 62 mm[Hg] Michelle Goldman MD Work Phone: [facility] 07-29-2021 10:35-0400 Heart rate 62 /min Michelle Goldman MD Work Phone: [facility] 07-29-2021 10:35-0400 SaO2% (BldA) [Mass fraction] 97 % Michelle Goldman MD Work Phone: [facility] 07-29-2021 10:35-0400 Systolic blood pressure 136 mm[Hg] Michelle Goldman MD Work Phone: [facility] Encounters Encounter Date Encounter Type Care Provider Facility Start: 04-07-2023 End: 04-07-2023 ambulatory MICHELLE JOSEPHKATYA Facility:[facility] Start: 04-07-2023 End: 04-07-2023 Office outpatient visit 25 minutes Robert Oleary TEST ENGINEERING TECHNICIAN.CAMPGROUND CLEANING ATTENDANT Work Phone: [facility] [place] Procedures Date Procedure Procedure Detail Performing Clinician Start: 07-19-2022 Urnls dip stick/tabl et rgnt auto w/o microscopy Sheldon Reinoso TEST ENGINEERING TECHNICIAN.DRIP BOX TENDER Work Phone: Start: 07-02-2022 End: 07-02-2022 Jamal post-voiding residual urine&/bladder cap Edita Platt MD Work Phone: Start: 05-20-2022 KIARA SCREENING W AIDAN Teran MD Work Phone: Start: 09-28-2021 Radex foot complete minimum 3 views Christopher Ray Work Phone: Start: 09-07-2021 Radiologic examinati on knee 3 views Lashaun Esparza PA-C Work Phone: Plan of Treatment Date Care Activity Detail Author Start: 09-25-2025 Urine microalbumin profile [facility] Start: 08-30-2025 DIABETES SCREEN DIABETES SCREEN [facility] Start: 08-30-2025 Diabetes Screening Diabetes Screenin g [facility] Start: 01-29-2025 DIABETES SCREEN DIABETES SCREEN [facility] Start: 07-25-2024 DIABETES SCREEN DIABETES SCREEN [facility] Start: 08-27-2023 End: 11-26-2023 25-hydroxyvitamin D3 [Mass/volume] in Serum or Plasma VITAMIN D 25 HYDROXY Lab Routine Vitamin D deficiency Expected: 08/27/2023, Expires: 11/26/2023 [facility] Work Phone: Immunizations Immunization Date Immunization Notes Care Provider Gui gray 01-21-2023 respiratory syncytia l virus (RSV) vaccine, bivalent (ABRYSVO) Javi Angeles TEST ENGINEERING TECHNICIAN.DRIP BOX TENDER Work Phone: [facility] Work Phone: 01-10-2023 COVID-19 vaccine, ag e 12+ yr, season (PFIZER-BIONTECH) Maryjo Singh MA [facility] 01-10-2023 influenza (aIIV4) vaccine, age 65+ yr, quadrivalent, PF (FLUAD QUAD) Maryjo Singh MA [facility] 01-01-2022 COVID-19 booster vaccine, age 12+ yr, bivalent (PFIZER-BIONTECH) Oliver Abdi MD Work Phone: [facility] Work Phone: 01-01-2022 influenza, high-dose , quadrivalent vaccine (FLUZONE HIGH DOSE QUADRIVALENT) Oliver Abdi MD Work Phone: [facility] Work Phone: 07-20-2021 COVID-19 original vaccine, age 12+ yr, monovalent (PFIZER-BIONTECH - RAVI TOP) Edita Platt MD Work Phone: [facility] 07-20-2021 COVID-19 vaccine, ag e 12+ yr (PFIZER-BIONTECH - PURPLE TOP) Michelle Goldman MD Work Phone: [facility] Work Phone: 01-31-2021 influenza (aIIV4) vaccine, age 65+ yr, quadrivalent, PF (FLUAD QUAD) Edita Platt MD Work Phone: [facility] 01-31-2021 influenza, high dose seasonal, preservative-free Michelle Goldman MD Work Phone: [facility] 01-19-2021 COVID-19 vaccine, ag e 12+ yr (PFIZER-BIONTECH - PURPLE TOP) Michelle Goldman MD Work Phone: [facility] 06-01-2020 COVID-19 vaccine, ag e 12+ yr (PFIZER-BIONTECH - PURPLE TOP) Michelle Goldman MD Work Phone: [facility] 05-13-2020 COVID-19 vaccine, ag e 12+ yr (PFIZER-BIONTECH - PURPLE TOP) Michelle Goldman MD Work Phone: [facility] 03-21-2020 zoster vaccine recombinant Michelle Goldman MD Work Phone: [facility] Work Phone: 01-21-2020 zoster vaccine recombinant Michelle Goldman MD Work Phone: [facility] 12-28-2019 influenza, high-dose , quadrivalent vaccine (FLUZONE HIGH DOSE QUADRIVALENT) Michelle Goldman MD Work Phone: [facility] 01-16-2018 influenza, high dose seasonal, preservative-free Michelle Goldman MD Work Phone: [facility] Work Phone: 01-23-2016 influenza, high dose seasonal, preservative-free Michelle Goldman MD Work Phone: [facility] 09-26-2015 tetanus toxoid, redu abelino diphtheria toxoid, and acellular pertussis vaccine, adsorbed Michelle Goldman MD Work Phone: [facility] 02-26-2015 pneumococcal polysaccharide vaccine, 23 valent Michelle Goldman MD Work Phone: [facility] 03-05-2014 pneumococcal conjuga te vaccine, 13 valent Michelle Goldman MD Work Phone: [facility] 12-14-2013 tetanus and diphther ia toxoids, adsorbed, preservative free, for adult use (5 Lf of tetanus toxoid and 2 Lf of diphtheria toxoid) Michelle Goldman MD Work Phone: [facility] Work Phone: 01-26-2012 influenza virus vacc ine, unspecified formulation Michelle Goldman MD Work Phone: [facility] 11-17-2011 zoster vaccine, live Michelle levin MD Work Phone: [facility] 01-17-2009 influenza virus vacc ine, unspecified formulation Michelle Goldman MD Work Phone: [facility] Work Phone: 03-18-2001 pneumococcal polysaccharide vaccine, 23 valent Michelle Goldman MD Work Phone: [facility] Work Phone: 09-30-2000 tetanus and diphther ia toxoids, adsorbed, preservative free, for adult use (2 Lf of tetanus toxoid and 2 Lf of diphtheria toxoid) Michelle Goldman MD Work Phone: [facility] Work Phone: Payers Date Payer Category Payer Private Health Insurance [facility] SUPPLE[facility] [id number] 2021-Present [phone] [address] [place] [address] Indemnity [id number] 2021 Private Health Insurance [facility] SUPPLEMENT [id number] 2021-Present [phone] [address] [place] [address] Indemnity [id number] 2021 Private Health Insurance [id number] 2004 Medicare MEDICARE MEDICAR E A AND B [id number] 2004-Present [phone] [address] [address] [place] [address] Medicare [id number] 2004 Medicare MEDICARE MEDICAR E A AND B [id number] 2004-Present [phone] [place] [address] Medicare [id number] 2004 Medicare [id number] Social History Date Type Detail Facility Start: 11-26-2021 [facility] tobacco [facility] Start: 06-22-2021 End: 04-07-2023 Alcohol intake Current drinker of alcohol (finding) [facility] Start: 12-04-2019 History SDOH Financial 5 [facility] Start: 12-04-2019 History SDOH Food Worry 1 [facility] Start: 12-04-2019 History SDOH Transpo rt Med 2 [facility] Start: 1935 Sex Assigned At Not on file [facility] Start: 07-19-2021 End: 02-03-2022 Exposure to SARS-CoV-2 (event) Not sure [facility] Start: 11-26-2021 Tobacco use and exposure Smokeless tobacco non-user [facility] Work Phone: Start: 08-30-2022 End: 09-26-2022 History of Social function [facility] Work Phone: Start: 08-30-2022 End: 09-26-2022 Tobacco use panel [facility] Work Phone: Adult Depression Screening Assessment 0 [facility] Work Phone: (I/We) worried wheth er (my/our) food would run out before (I/we) got money to buy more. Never true [facility] Medical Equipment Procedure Code Equipment Code Equipment Origin al Text Equipment Identifier Dates Cement Simplex P Bone Radiopaque Full Dose Sterile - [id number] Start: 12-03-2019 Cement Simplex P Bone Radiopaque Full Dose Sterile - [id number] Start: 09-08-2020 Imp Knee Tib Ins Tri Sz4 9mm [id number] Start: 12-03-2019 Component Triath yvette 4 Femoral Cruciate Retain Cemented Knee Right - [id number] Start: 09-08-2020 Insert Triathlon 4 9mm Tibial Bearing Cruciate Retain Sterile Knee - [id number] Start: 09-08-2020 Component Triath yvette 32mm 10mm Patellar Asymmetric Knee - [id number] Start: 12-03-2019 Component Triath yvetet 32mm 10mm Patellar Asymmetric Knee - [id number] Start: 09-08-2020 Component Triath yvette 3 Femoral Cemented Posterior Stabilize Knee Left - [id number] Start: 12-03-2019 Baseplate Triath yvette 4 Tibial Primary Cement Knee - [id number] Start: 12-03-2019 Baseplate Triath yvette 4 Tibial Primary Cement Knee - [id number] Start: 09-08-2020 Clinical Notes 03-21-2013 to 04-07-2023 Patient InstructionsBroRobert truong APRN.CAMPGROUND CLEANING ATTENDANT - 04/07/2023 9:20 AM Javi Tena APRN.DRIP BOX TENDER - 03/28/2023 9:05 AM ESTTelephone Encounter - Michelle Goldman MD - 03/02/2023 2:43 PM EST Note Date & Type Note Facility 04-07-2023 Note HNO ID: [id number] Author: Robert Oleary APRN.CAMPGROUND CLEANING ATTENDANT Service: ? Author Type: Nurse Specialist Type: Progress Notes Filed: 04/07/2023 10:07 AM Note Text: SUBJECTIVE: There are no preventive care reminders to display for this patient. HPI Jerald Pan is a 87 year old female. 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 Review of outside records indicate she was treated with methylprednisolone Dosepak by ear nose and throat provider request for [place] for decreased hearing 03/30/2023, reports no URI at that time. Returns to clinic today for follow up blood pressure,reported elevated home BP readings. She notes increased blood pressure yesterday, home readings of 170/60 with heart rate of 59-1 89/65 heart rate 72 bpm. Checked 4 times yesterday. No associated symptoms. Does note dry cough, chronic nasal drainage/PND unchanged from baseline. Without report of headache, chest pain, palpitations, dyspnea, peripheral edema, orthopnea, fatigue, and PND.No noted AEs. Last 14 Encounter BP Readings: Date: BP: 04/07/2023 151/66[bp average[ 03/28/2023 130/60 03/15/2023 150/74 01/17/2023 146/76 12/13/2022 128/70 11/23/2022 126/60 11/05/2022 124/76 11/01/2022 134/68 09/26/2022 130/62 09/24/2022 134/68 08/30/2022 132/58 08/02/2022 144/60 07/19/2022 152/82 07/02/2022 140/80 Review of Systems Constitutional: Negative. Respiratory: Positive for cough. Negative for chest tightness, shortness of breath and wheezing. Cardiovascular: Negative. Objective BP 151/66 Pulse (!) 56 Resp 16 Wt 66.7 kg (147 lb) BMI 25.23 kg/m? Physical Exam Vitals and nursing note reviewed. Constitutional: Appearance: Normal appearance. HENT: Head: Normocephalic and atraumatic. Eyes: Conjunctiva/sclera: Conjunctivae normal. Cardiovascular: Rate and Rhythm: Normal rate and regular rhythm. Heart sounds: Normal heart sounds. Pulmonary: Breath sounds: Normal breath sounds. Abdominal: General: Bowel sounds are normal. There is no distension. Palpations: Abdomen is soft. Tenderness: There is no abdominal tenderness. Musculoskeletal: Right lower leg: No edema. Left lower leg: No edema. Skin: General: Skin is warm and dry. Neurological: General: No focal deficit present. Mental Status: She is alert and oriented to person, place, and time. Declines HEENT exam ALLERGIES Allergen Reactions Antibiotic [Neomy-B* Diarrhea unable to take antibiotics due to bout of c-diff Estrace [Estradiol] Rash, Itching vaginal cream Amoxicillin Diarrhea, GI Upset Neomycin Rash Reaction on arm when treated with neosporin and bandaid; resolved after stopped Neosporin and used bacitracin instead Telithromycin Diarrhea, GI Upset Medications methylPREDNISolone (MEDROL DOSE-PACK) 4 mg Dose-Pack use as directed FOLLOW DIRECTIONS ON BACK OF FOIL PACK alendronate (FOSAMAX) 70 mg tablet Take 1 tablet by mouth one time a week. Take with a full glass of water, on an empty stomach; do NOT lie down for 30minutes. vancomycin (VANCOCIN HCL) 125 mg capsule Take 1 capsule by mouth two times a day. Increase as dircted for recurrence of C. Diff infection simvastatin (ZOCOR) 20 mg tablet Take 1 tablet by mouth daily at bedtime. amLODIPine (NORVASC) 5 mg tablet take 1 tablet by mouth once daily metoprolol succinate ER (TOPROL XL) 25 mg 24 hr tablet Take 3 tablets by mouth once daily. lisinopril (ZESTRIL) 40 mg tablet Take 1 tablet by mouth once daily. hydroCHLOROthiazide (HYDRODIURIL, ESIDRIX) 25 mg tablet Take 1 tablet by mouth once daily. Pt states she is taking 1/2 a tab of the 25 mg Cholecalciferol, Vitamin D3, 50 mcg (2,000 unit) cap Take 2 capsules by mouth once daily. (after finished the 1000 IU capsules taking 2 daily) clindamycin (CLEOCIN) 300 mg capsule Take two capsules by mouth one hour prior to dental appointment. TUMS ULTRA 1,000 MG ORAL CHEW NEEDED FOR HEARTBURN/INDIGESTION VITAMIN C 500 MG ORAL TAB Take one(1) tablet daily. TYLENOL EXTRA STRENGTH 500 MG ORAL TAB every 8 hours as needed for pain PAST MEDICAL HISTORY Diagnosis Date Benign microscopic hematuria Follows with Dr. Lee Benign neoplasm of colon Carpal tunnel syndrome 11/01/2006 Clostrid (more content not included)... [facility] 04-07-2023 Instructions Robert Oleary APRN.CNS - 04/07/2023 9:50 AM EST Check your blood pressure once daily in the morning for the next couple weeks. If less than 150/80 continue on with current medications unchanged. If greater than 150/80 take an additional one half HCTZ 25 mg tablet for total of 25 mg HCTZ per day documented in this encounter [facility] 04-07-2023 History of Present illness Narrative SUBJECTIVE: There are no preventive care reminders to display for this patient. HPI Jerald Pan is a 87 year old female. 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 Review of outside records indicate she was treated with methylprednisolone Dosepak by ear nose and throat provider request for [place] for decreased hearing 03/30/2023, reports no URI at that time. Returns to clinic today for follow up blood pressure,reported elevated home BP readings. She notes increased blood pressure yesterday, home readings of 170/60 with heart rate of 59-1 89/65 heart rate 72 bpm. Checked 4 times yesterday. No associated symptoms. Does note dry cough, chronic nasal drainage/PND unchanged from baseline. Without report of headache, chest pain, palpitations, dyspnea, peripheral edema, orthopnea, fatigue, and PND.No noted AEs. Last 14 Encounter BP Readings: Date: BP: 04/07/2023 151/66[bp average[ 03/28/2023 130/60 03/15/2023 150/74 01/17/2023 146/76 12/13/2022 128/70 11/23/2022 126/60 11/05/2022 124/76 11/01/2022 134/68 09/26/2022 130/62 09/24/2022 134/68 08/30/2022 132/58 08/02/2022 144/60 07/19/2022 152/82 07/02/2022 140/80 Review of Systems Constitutional: Negative. Respiratory: Positive for cough. Negative for chest tightness, shortness of breath and wheezing. Cardiovascular: Negative. Objective BP 151/66 Pulse (!) 56 Resp 16 Wt 66.7 kg (147 lb) BMI 25.23 kg/m Physical Exam Vitals and nursing note reviewed. Constitutional: Appearance: Normal appearance. HENT: Head: Normocephalic and atraumatic. Eyes: Conjunctiva/sclera: Conjunctivae normal. Cardiovascular: Rate and Rhythm: Normal rate and regular rhythm. Heart sounds: Normal heart sounds. Pulmonary: Breath sounds: Normal breath sounds. Abdominal: General: Bowel sounds are normal. There is no distension. Palpations: Abdomen is soft. Tenderness: There is no abdominal tenderness. Musculoskeletal: Right lower leg: No edema. Left lower leg: No edema. Skin: General: Skin is warm and dry. Neurological: General: No focal deficit present. Mental Status: She is alert and oriented to person, place, and time. Declines HEENT exam ALLERGIES Allergen Reactions Antibiotic [Neomy-B* Diarrhea unable to take antibiotics due to bout of c-diff Estrace [Estradiol] Rash, Itching vaginal cream Amoxicillin Diarrhea, GI Upset Neomycin Rash Reaction on arm when treated with neosporin and bandaid; resolved after stopped Neosporin and used bacitracin instead Telithromycin Diarrhea, GI Upset Medications methylPREDNISolone (MEDROL DOSE-PACK) 4 mg Dose-Pack use as directed FOLLOW DIRECTIONS ON BACK OF FOIL PACK alendronate (FOSAMAX) 70 mg tablet Take 1 tablet by mouth one time a week. Take with a full glass of water, on an empty stomach; do NOT lie down for 30minutes. vancomycin (VANCOCIN HCL) 125 mg capsule Take 1 capsule by mouth two times a day. Increase as dircted for recurrence of C. Diff infection simvastatin (ZOCOR) 20 mg tablet Take 1 tablet by mouth daily at bedtime. amLODIPine (NORVASC) 5 mg tablet take 1 tablet by mouth once daily metoprolol succinate ER (TOPROL XL) 25 mg 24 hr tablet Take 3 tablets by mouth once daily. lisinopril (ZESTRIL) 40 mg tablet Take 1 tablet by mouth once daily. hydroCHLOROthiazide (HYDRODIURIL, ESIDRIX) 25 mg tablet Take 1 tablet by mouth once daily. Pt states she is taking 1/2 a tab of the 25 mg Cholecalciferol, Vitamin D3, 50 mcg (2,000 unit) cap Take 2 capsules by mouth once daily. (after finished the 1000 IU capsules taking 2 daily) clindamycin (CLEOCIN) 300 mg capsule Take two capsules by mouth one hour prior to dental appointment. TUMS ULTRA 1,000 MG ORAL CHEW NEEDED FOR HEARTBURN/INDIGESTION VITAMIN C 500 MG ORAL TAB Take one(1) tablet daily. TYLENOL EXTRA STRENGTH 500 MG ORAL TAB every 8 hours as needed for pain PAST MEDICAL HISTORY Diagnosis Date Benign microscopic hematuria Follows with Dr. Lee Benign neoplasm of colon Carpal tunnel syndrome 11/01/2006 Clostridium difficile diarrhea 09/21/2020 Disorder of bone and cartilage, unspecified Diverticulitis of colon (without mention of hemorrhage)(562.11) Diverticulosis of colon (without mention of hemorrhage) Esophageal reflux Essential hypertension, benign Family history of malignant neoplasm of gastrointestinal tract Foot injury torn tendon right great toe (lateral) causing medial toe deviation Osteoarthrosis, unspecified whether generalized or localized, unspecified site Painful tongue Tongu sensitivity--evaluated by ENT (Kami) and dentist Pure hypercholesterolemia Tinnitus Social History Tobacco Use Smoking status: Never Smokeless tobacco: Never Vaping Use Vaping Use: Never used Substance Use Topics Alcohol use: Yes Comment: occasional Drug use: No Component Latest Ref Rng & Units 07/25/2021 WBC 3.70 - 11.00 k/uL 6.70 RBC 3.90 - 5.20 m/uL 3.98 Hemoglobin 11.5 - 15.5 g/dL 13.4 Hematocrit 36.0 - 46.0 % 41.7 MCV 80.0 - 100.0 fL 104.8 (H) MCH 26.0 - 34.0 pg 33.7 MCHC 30.5 - 36.0 g/dL 32.1 RDW-CV 11.5 - 15.0 % 12.3 Platelet Count 150 - 400 k/uL 340 MPV 9.0 - 12.7 fL 9.0 Neut% % 64.2 Abs Neut (ANC) 1.45 - 7.50 k/uL 4.30 Lymph% % 23.9 Abs Lymph 1.00 - 4.00 k/uL 1.60 [place]% % 9.4 Abs [place] <0.87 k/uL 0.63 Eosin% % 1.8 Abs Eosin <0.46 k/uL 0.12 Baso% % 0.6 Abs Baso <0.11 k/uL 0.04 Immature Gran % % 0.1 IMMATURE GRANS (ABS) <0.10 k/uL <0.03 NRBC /100 WBC 0.0 Absolute nRBC <0.01 k/uL <0.01 DTYPE Auto Protein, Total 6.3 - 8.0 g/dL 7.1 Albumin 3.9 - 4.9 g/dL 4.1 Calcium 8.5 - 10.2 mg/dL 9.4 Bilirubin, Total 0.2 - 1.3 mg/dL 0.2 Alkaline Phosphatase 34 - 123 U/L 77 AST 13 - 35 U/L 24 ALT 7 - 38 U/L 22 Glucose 74 - 99 mg/dL 77 BUN 7 - 21 mg/dL 19 Creatinine 0.58 - 0.96 mg/dL 0.68 Sodium 136 - 144 mmol/L 142 Potassium 3.7 - 5.1 mmol/L 3.6 (L) Chloride 97 - 105 mmol/L 102 CO2 22 - 30 mmol/L 32 (H) Anion Gap 9 - 18 mmol/L 8 (L) eGFR >=60 mL/min/1.73m 86 Cholesterol, Total <200 mg/dL 160 Triglyceride <150 mg/dL 105 HDL Cholesterol >39 mg/dL 59 Non HDL Cholesterol <130 mg/dL 101 Fasting Time hrs 12 VLDL Cholesterol <30 mg/dL 21 TC:HDL Ratio <5.10 2.71 LDL Cholesterol <100 mg/dL 80 LDL:HDL Ratio <2.54 1.36 ASSESSMENT/PLAN: 1. Primary hypertension - ICD9: 401.9, ICD10: I10 She noted elevated blood pressure at home yesterday and came into the office for recheck. Review of outside records show recently treated with methylprednisolone for decreased hearing by ENT. Suspect blood pressure elevation related to this medication. Recommend she check blood pressure daily for the next 1 to 2 weeks. If blood pressure greater than 150/80 recommend to take an additional 12.5 HCTZ daily for total of 25 mg daily in addition to all of her usual blood pressure medications. She reports a dry cough otherwise asymptomatic. She will return to clinic if any continued symptoms or concerns or if blood pressure is not returning to good control. -Endorse dietary sodium restriction/DASH diet -Endorse regular aerobic exercise - 6 hours per week at the gym feels well with this Robert Oleary APRN.CNS Medical Decision Making: Problems: Moderate: 1+ chronic illnesses with change Risk: Moderate: Drug management Medical Decision Making Level: 4 - Moderate documented in this encounter [facility] 03-28-2023 Note HNO ID: [id number] Author: Javi Angeles APRN.CNP Service: ? Author Type: Nurse Practitioner Type: Progress Notes Filed: 03/28/2023 10:25 AM Note Text: SUBJECTIVE Jerald Pan is a 87 year old female here today for a check up on her medical problems. Chief Complaint Patient presents with: F/U 6 months HPI Jerald Pan is a 87 year old female. She is here today for routine follow up, established patient of Michelle Goldman MD. Last seen 09/24. Discussed HLD, vitamin d def, hyperparathyroid, anemia, sleep issues. Has seen corrective therapy aide teacher since her last visit. She had labs done prior to her visit today. Overall feeling pretty well. Before [place] she did have a moment where in her right ear she had a sensation of the ear pop and could not hear as well. She did talk with ENT. Noticing ocular migraines come and go. Stress seems to be a trigger. Most are short in length. Her medications were reviewed today and her list is now up to date. Medications Current Outpatient Medications Medication Sig alendronate (FOSAMAX) 70 mg tablet Take 1 tablet by mouth one time a week. Take with a full glass of water, on an empty stomach; do NOT lie down for 30minutes. vancomycin (VANCOCIN HCL) 125 mg capsule Take 1 capsule by mouth two times a day. Increase as dircted for recurrence of C. Diff infection simvastatin (ZOCOR) 20 mg tablet Take 1 tablet by mouth daily at bedtime. amLODIPine (NORVASC) 5 mg tablet take 1 tablet by mouth once daily metoprolol succinate ER (TOPROL XL) 25 mg 24 hr tablet Take 3 tablets by mouth once daily. lisinopril (ZESTRIL) 40 mg tablet Take 1 tablet by mouth once daily. hydroCHLOROthiazide (HYDRODIURIL, ESIDRIX) 25 mg tablet Take 1 tablet by mouth once daily. Pt states she is taking 1/2 a tab of the 25 mg Cholecalciferol, Vitamin D3, 50 mcg (2,000 unit) cap Take 2 capsules by mouth once daily. (after finished the 1000 IU capsules taking 2 daily) clindamycin (CLEOCIN) 300 mg capsule Take two capsules by mouth one hour prior to dental appointment. TYLENOL EXTRA STRENGTH 500 MG ORAL TAB every 8 hours as needed for pain TUMS ULTRA 1,000 MG ORAL CHEW NEEDED FOR HEARTBURN/INDIGESTION VITAMIN C 500 MG ORAL TAB Take one(1) tablet daily. No current facility-administered medications for this visit. ALLERGIES Allergen Reactions Antibiotic [Neomy-B* Diarrhea unable to take antibiotics due to bout of c-diff Estrace [Estradiol] Rash, Itching vaginal cream Amoxicillin Diarrhea, GI Upset Neomycin Rash Reaction on arm when treated with neosporin and bandaid; resolved after stopped Neosporin and used bacitracin instead Telithromycin Diarrhea, GI Upset ACTIVE PROBLEM LIST Secondary Hyperparathyroidism, Non-Renal (Hcc) - 02/03/2022 Vitamin D Deficiency - 02/03/2022 Age-Related Osteoporosis Without Current Pathological Fracture - 02/03/2022 Cystocele With Prolapse - 02/03/2022 Nocturia - 06/04/2021 Rosacea - 06/04/2021 Osteopenia - 06/04/2021 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/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 - 09/01/2020 Scc (Squamous Cell Carcinoma) - 12/03/2019 Bilateral Carotid Artery Stenosis - 12/03/2019 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/2019 Ocular Migraine - 03/19/2017 Painful Tongue Comment: Tongu sensitivity--evaluated by ENT (Kami) and dentist Generalized Osteoarthrosis, Unspecified Site - 04/23/2008 Chronic Rhinitis - 01/11/2006 FAMILY HX COLON CANCER - 01/11/2006 Disorder of Bone and Cartilage - 07/06/2005 Hyperlipidemia - 07/06/2005 Hypertension Goal Bp (Blood Pressure) < 140/90 - 04/02/2005 Personal History of Colonic Polyps - 01/01/2005 Comment: Colonoscopy 12 October 2007 Repeat in five years Social History Tobacco Use Smoking status: Never Smokeless tobacco: Never Vaping Use Vaping Use: Never used Substance Use Topics Alcohol use: Yes Comment: occasional Drug use: No Review of Systems Constitutional: Negative. Respiratory: Negative. Cardiovascular: Negative. OBJECTIVE BP 130/60 Pulse 69 Wt 147 lb (66.7kg) SpO2 98% Physical Exam Vitals and nursing note reviewed. Constitutional: General: She is awake. She is not in acute distress. Appearance: Normal appearance. She is well-developed and well-groomed. She is not ill-appearing, toxic-appearing or diaphoretic. HENT: Head: Normocephalic. Right Ear: External ear normal. Left Ear: External ear normal. Nose: Nose normal. Eyes: General: Vision grossly intact. Conjunctiva/sclera: Conjunctivae normal. Pupils: Pupils are equal, round, and reactive to light. Neck: Vascular: No JVD. Trachea: Trachea normal. Cardiovascular: Rate and Rhythm: Normal rate and regular rhythm. Pulses: Normal pulses. Heart sounds: Normal heart sounds. No murmur heard. Pulmonary: Effort: Pulmonary effort is normal. No accessory muscle usage, prolonged expiration or respiratory distress. Breath sounds: Normal breat (more content not included)... [facility] 03-28-2023 History of Present illness Narrative SUBJECTIVE Jerald Pan is a 87 year old female here today for a check up on her medical problems. Chief Complaint Patient presents with: F/U 6 months HPI Jerald Pan is a 87 year old female. She is here today for routine follow up, established patient of Michelle Goldman MD. Last seen 09/24. Discussed HLD, vitamin d def, hyperparathyroid, anemia, sleep issues. Has seen corrective therapy aide teacher since her last visit. She had labs done prior to her visit today. Overall feeling pretty well. Before Thanksgiving she did have a moment where in her right ear she had a sensation of the ear pop and could not hear as well. She did talk with ENT. Noticing ocular migraines come and go. Stress seems to be a trigger. Most are short in length. Her medications were reviewed today and her list is now up to date. Medications Current Outpatient Medications Medication Sig alendronate (FOSAMAX) 70 mg tablet Take 1 tablet by mouth one time a week. Take with a full glass of water, on an empty stomach; do NOT lie down for 30minutes. vancomycin (VANCOCIN HCL) 125 mg capsule Take 1 capsule by mouth two times a day. Increase as dircted for recurrence of C. Diff infection simvastatin (ZOCOR) 20 mg tablet Take 1 tablet by mouth daily at bedtime. amLODIPine (NORVASC) 5 mg tablet take 1 tablet by mouth once daily metoprolol succinate ER (TOPROL XL) 25 mg 24 hr tablet Take 3 tablets by mouth once daily. lisinopril (ZESTRIL) 40 mg tablet Take 1 tablet by mouth once daily. hydroCHLOROthiazide (HYDRODIURIL, ESIDRIX) 25 mg tablet Take 1 tablet by mouth once daily. Pt states she is taking 1/2 a tab of the 25 mg Cholecalciferol, Vitamin D3, 50 mcg (2,000 unit) cap Take 2 capsules by mouth once daily. (after finished the 1000 IU capsules taking 2 daily) clindamycin (CLEOCIN) 300 mg capsule Take two capsules by mouth one hour prior to dental appointment. TYLENOL EXTRA STRENGTH 500 MG ORAL TAB every 8 hours as needed for pain TUMS ULTRA 1,000 MG ORAL CHEW NEEDED FOR HEARTBURN/INDIGESTION VITAMIN C 500 MG ORAL TAB Take one(1) tablet daily. No current facility-administered medications for this visit. ALLERGIES Allergen Reactions Antibiotic [Neomy-B* Diarrhea unable to take antibiotics due to bout of c-diff Estrace [Estradiol] Rash, Itching vaginal cream Amoxicillin Diarrhea, GI Upset Neomycin Rash Reaction on arm when treated with neosporin and bandaid; resolved after stopped Neosporin and used bacitracin instead Telithromycin Diarrhea, GI Upset ACTIVE PROBLEM LIST Secondary Hyperparathyroidism, Non-Renal (Hcc) - 02/03/2022 Vitamin D Deficiency - 02/03/2022 Age-Related Osteoporosis Without Current Pathological Fracture - 02/03/2022 Cystocele With Prolapse - 02/03/2022 Nocturia - 06/04/2021 Rosacea - 06/04/2021 Osteopenia - 06/04/2021 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/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 - 09/01/2020 Scc (Squamous Cell Carcinoma) - 12/03/2019 Bilateral Carotid Artery Stenosis - 12/03/2019 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/2019 Ocular Migraine - 03/19/2017 Painful Tongue Comment: Phillipu sensitivity--evaluated by ENT (Kami) and dentist Generalized Osteoarthrosis, Unspecified Site - 04/23/2008 Chronic Rhinitis - 01/11/2006 FAMILY HX COLON CANCER - 01/11/2006 Disorder of Bone and Cartilage - 07/06/2005 Hyperlipidemia - 07/06/2005 Hypertension Goal Bp (Blood Pressure) < 140/90 - 04/02/2005 Personal History of Colonic Polyps - 01/01/2005 Comment: Colonoscopy 12 October 2007 Repeat in five years Social History Tobacco Use Smoking status: Never Smokeless tobacco: Never Vaping Use Vaping Use: Never used Substance Use Topics Alcohol use: Yes Comment: occasional Drug use: No Review of Systems Constitutional: Negative. Respiratory: Negative. Cardiovascular: Negative. OBJECTIVE BP 130/60 Pulse 69 Wt 147 lb (66.7kg) SpO2 98% Physical Exam Vitals and nursing note reviewed. Constitutional: General: She is awake. She is not in acute distress. Appearance: Normal appearance. She is well-developed and well-groomed. She is not ill-appearing, toxic-appearing or diaphoretic. HENT: Head: Normocephalic. Right Ear: External ear normal. Left Ear: External ear normal. Nose: Nose normal. Eyes: General: Vision grossly intact. Conjunctiva/sclera: Conjunctivae normal. Pupils: Pupils are equal, round, and reactive to light. Neck: Vascular: No JVD. Trachea: Trachea normal. Cardiovascular: Rate and Rhythm: Normal rate and regular rhythm. Pulses: Normal pulses. Heart sounds: Normal heart sounds. No murmur heard. Pulmonary: Effort: Pulmonary effort is normal. No accessory muscle usage, prolonged expiration or respiratory distress. Breath sounds: Normal breath sounds. Musculoskeletal: Cervical back: Neck supple. Skin: General: Skin is warm and dry. Capillary Refill: Capillary refill takes less than 2 seconds. Neurological: General: No focal deficit present. Mental Status: She is alert and oriented to person, place, and time. Mental status is at baseline. Psychiatric: Attention and Perception: Attention and perception normal. Mood and Affect: Mood and affect normal. Speech: Speech normal. Behavior: Behavior normal. Behavior is cooperative. Thought Content: Thought content normal. Cognition and Memory: Cognition and memory normal. Judgment: Judgment normal. ASSESSMENT/PLAN: 1. Hypertension goal BP (blood pressure) < 140/90 - ICD9: 401.9, ICD10: I10 (primary diagnosis) - Controlled - Continue current medications - Recommend home blood pressure monitoring, to bring results to next visit - Encouraged sodium restriction, DASH or Mediterranean diet - Recommend regular aerobic exercise 2. Mixed hyperlipidemia - ICD9: 272.2, ICD10: E78.2 - Controlled - Continue current medications - Counseled on healthy diet and regular exercise - LIPID PANEL BASIC 3. Secondary hyperparathyroidism, non-renal (HCC) - ICD9: 252.02, ICD10: E21.1 - TSH BLD - PTH INTACT BLD 4. Age-related osteoporosis without current pathological fracture - ICD9: 733.01, ICD10: M81.0 - Reviewed the need for Calcium and Vitamin D supplements and weight bearing exercise as tolerated 5. Vitamin D deficiency - ICD9: 268.9, ICD10: E55.9 - VITAMIN D 25 HYDROXY 6. Decreased hearing of right ear - ICD9: 389.9, ICD10: H91.91 Follow up with ENT 7. Onychomycosis of toenail - ICD9: 110.1, ICD10: B35.1 Planning to try VICKS 8. Ocular migraine - ICD9: 346.80, ICD10: G43.109 Keep a log of triggers 9. Encounter for therapeutic drug monitoring - ICD9: V58.83, ICD10: Z51.81 - CBC + DIFF - COMP METABOLIC PANEL 10. Weight increase - ICD9: 783.1, ICD10: R63.5 - TSH BLD Javi Angeles APRN.CNP Portions of this note have been entered by ancillary staff. I have reviewed and when necessary edited, so that they are an adequate record of my encounter with this patient Please note that parts of this document were created using voice recognition software and therefore may contain grammatical errors. Patient verbalizes understanding of instructions from today's visit and in agreement with treatment plan. Questions answered. Agrees to call the office if questions, concerns of issues with acute symptoms not improving or if they worsen. See diagnoses and orders for additional plan(s). Allergies and medications were reviewed, list was updated, and refills given if needed. Past medical, surgical, social, and family history reviewed and updated as appropriate. Encouraged proper diet & exercise as well as compliance with taking medications. Age-appropriate health preventative measures were discussed. Return in about 6 months (around 09/27/2023) for Keep next scheduled appointment.. Javi Angeles APRN-JAY documented in this encounter [facility] 03-15-2023 Note HNO ID: [id number] Author: Petra Sierra MD Service: ? Author Type: Physician Type: Progress Notes Filed: 03/15/2023 11:35 AM Note Text: Textile Stylist offered: Patient declines. Jerald Pan is a 87 year old who presents today for pessary insertion/cleaning. She wears a ring with support pessary. She returns today with no complaints. She has not had problems with the pessary. She has had some occasional yellow/green vaginal discharge but no odor, itching or burning. She has not had vaginal bleeding. EXAM: pleasant, well developed, well nourished, in no apparent distress Pelvic: Bartholin's, urethra and Courtdale's glands were normal. The ring with support pessary was removed. Vaginal exam indicated no erythema, no ulcerations, and scant discharge. The pessary was cleaned a ring with support was inserted without difficulty The pessary was inserted, patient tolerated the procedure well and the device is comfortable. (N81.3) Complete uterovaginal prolapse (primary encounter diagnosis) (Z46.89) Pessary maintenance RTO 3 mo or sooner if needed I spent a total of 20 minutes on the date of the service which included preparing to see the patient, [id number] patient care, completing clinical documentation, obtaining and/or reviewing separately obtained history, performing a medically appropriate examination, counseling and educating the patient/family/caregiver, and ordering medications, tests, or procedures. Petra Bowman MD [facility] 03-02-2023 Miscellaneous Notes Okayed Patient has been identified by name and date of : Yes, Provider Dr. Goldman Date 03/02/23 Time 9:52 am Patient phones for refill(s): Requested Prescriptions Pending Prescriptions Disp Refills alendronate (FOSAMAX) 70 mg tablet 12 tablet 3 Sig: Take 1 tablet by mouth one time a week. Take with a full glass of water, on an empty stomach; do NOT lie down for 30minutes. Date of last office visit in primary care: 09/24/2022 Date of next office visit in primary care: 03/28/23 Last 2 Encounter Wt Readings: Date: Wt: 12/13/2022 67 kg (147 lb 9.6 oz) 11/23/2022 66.2 kg (146 lb) Previous labs/tests for medication: Not applicable Thank you. Jaylin Cronin LPN. documented in this encounter [facility] 03-01-2023 Miscellaneous Notes Pt notified that Dr. Abdi does want pt to stay on her Vancomycin daily. Pt notified to continue with medication as directed and given Dr. Goldman' recommendations. Pt states she understands but the gentlemen who said he was a physician made her think that maybe she should double check. Again told pt what Dr. Goldman said-pt verbalizes understanding. She will go to the pharmacy this evening and lemon picker the medication and take it. Pt told that we will only call her if Dr. Abdi says she can stop the medication. Otherwise continue the medication as directed. Pt verbalizes understanding. Below noted Let patient know that I don't think it was right for a random physician (who was listening in on a conversation between the patient and the pharmacist) to be giving someone medical advice when they do not know the patient's full history. I forward this telephone encounter to Dr. Abdi to verify he still wants her to stay on vancomycin indefinitely. In the meanwhile, I sent in the refills since that was the plan since the appointment last September 2021. The following approved medication requests have been transmitted electronically. Requested Prescriptions Signed Prescriptions Disp Refills vancomycin (VANCOCIN HCL) 125 mg capsule 360 capsule 3 Sig: Take 1 capsule by mouth two times a day. Increase as dircted for recurrence of C. Diff infection Authorizing Provider: MICHELLE GOLDMAN MD Called and spoke with pt. She states when she was at the pharmacy asking about refills on this Vancomycin, a man overheard her conversation. He told her he was a physician and that she shouldn't be taking this anymore. Pt is wondering whether she should be or not. She states Dr. Oliver Abdi a stationary engineer apprentice told her she was to take this for life. She is wondering if we can follow up and see if he would still recommend for her to be taking it. Per Dr. Abdi's office note on 09/25/21, it says the following: Impression & Plan: Recurrent C difficile - will rec: 1. Complete current vanco therapy 2. Stay on vanco 125mg po bid indefinitely 3. Continue florastor 4. For next antibiotic use will rec she increase vanco to qid 2 days before and throughout the antibiotic course. 5. Will put her on the waiting list for Rebiotix study. Patient has been identified by name and date of : Yes Requested Prescriptions Pending Prescriptions Disp Refills vancomycin (VANCOCIN HCL) 125 mg capsule 360 capsule 3 Sig: Take 1 capsule by mouth two times a day. Increase as dircted for recurrence of C. Diff infection RX INSTRUCTIONS: please fill this RX patient is out of medication Patient aware RX will be sent to pharmacy. No need to notify patient. Abida Rivera documented in this encounter [facility] 02-08-2023 Note HNO ID: [id number] Author: Maryjo Singh MA Service: ? Author Type: Straw Boss Type: Progress Notes Filed: 02/08/2023 2:23 PM Note Text: POPULATION HEALTH NAVIGATION OUTREACH Action/FYI NOT AVAILABLE [employer] MESSAGE SENT ANNUAL MEDICARE WELLNESS Patient Identified by Name and : NO Outreach Outcome/Action Unable to reach patient: Phone number not valid / voicemail full iTiffint message sent Did you use a PCP flex slot to schedule this appointment? No Reason for Outreach Care Gap or Scheduling/Wellness visits Payer: Payor: MEDICARE / Plan: MEDICARE A AND B / Product Type: Medicare / Care Gap Reviewed:: Annual Wellness visit Reminder: Reminder note to check Health Maintenance for items below Health Maintenance items due: RSV Vaccine(1 - 1-dose 60+ series) Never done Advance Directive Discussion due on 04/18/2022 Navigation Signature: Maryjo Singh MA February 08, 2023 9:26 AM [facility] 02-08-2023 History of Present illness Narrative POPULATION HEALTH NAVIGATION OUTREACH Action/FYI NOT AVAILABLE [employer] MESSAGE SENT ANNUAL MEDICARE WELLNESS Patient Identified by Name and : NO Outreach Outcome/Action Unable to reach patient: Phone number not valid / voicemail full iTiffint message sent Did you use a PCP flex slot to schedule this appointment? No Reason for Outreach Care Gap or Scheduling/Wellness visits Payer: Payor: MEDICARE / Plan: MEDICARE A AND B / Product Type: Medicare / Care Gap Reviewed:: Annual Wellness visit Reminder: Reminder note to check Health Maintenance for items below Health Maintenance items due: RSV Vaccine(1 - 1-dose 60+ series) Never done Advance Directive Discussion due on 04/18/2022 Navigation Signature: Maryjo Singh MA February 08, 2023 9:26 AM documented in this encounter [facility] 02-08-2023 Note Patient Outreach (NE TNAV) JERALD PAN ([id number]) 1935 F Date Time Provider Department 02/08/23 MARYJO SINGH During your visit today, we recorded the following information about you: Maryjo Singh MA 02/08/2023 2:23 PM Signed Maryjo Singh MA 02/08/2023 2:23 PM Signed POPULATION HEALTH NAVIGATION OUTREACH Action/FYI NOT AVAILABLE [employer]CHART MESSAGE SENT ANNUAL MEDICARE WELLNESS Patient Identified by Name and : NO Outreach Outcome/Action Unable to reach patient: Phone number not valid / voicemail full iTiffint message sent Did you use a PCP flex slot to schedule this appointment? No Reason for Outreach Care Gap or Scheduling/Wellness visits Payer: Payor: MEDICARE / Plan: MEDICARE A AND B / Product Type: Medicare / Care Gap Reviewed:: Annual Wellness visit Reminder: Reminder note to check Health Maintenance for items below Health Maintenance items due: RSV Vaccine(1 - 1-dose 60+ series) Never done Advance Directive Discussion due on 04/18/2022 Navigation Signature: Maryjo Singh MA February 08, 2023 9:26 AM Allergies As of Date: 02/08/2023 Noted Allergy Reaction ANTIBIOTIC ([id number]*11/26/2021 6 - Diarrhea Comments: unable to take antibiotics due to bout of c-diff ESTRACE (ESTRADIOL) 08/30/2022 2 - Rash 9 - Itching Comments: vaginal cream AMOXICILLIN 12/31/2004 6 - Diarrhea 8 - GI Upset NEOMYCIN 04/24/2010 2 - Rash Comments: Reaction on arm when treated with neosporin and bandaid; resolved after stopped Neosporin and used bacitracin instead TELITHROMYCIN 12/31/2004 6 - Diarrhea 8 - GI Upset Date Reviewed: 01/17/2023 Reviewed by: Mami Wiley MA - Fully Assessed Reason for Visit: Population Health Navigation Outreach [3910] Cmt: ACO CARE GAP Prescriptions as of 02/08/2023 - simvastatin (ZOCOR) 20 mg tablet Take 1 tablet by mouth daily at bedtime. - amLODIPine (NORVASC) 5 mg tablet take 1 tablet by mouth once daily - metoprolol succinate ER (TOPROL XL) 25 mg 24 hr tablet Take 3 tablets by mouth once daily. - lisinopril (ZESTRIL) 40 mg tablet Take 1 tablet by mouth once daily. - estradiol (ESTRACE) 0.01 % (0.1 mg/gram) vaginal cream Use 0.5 g vaginally three times a week. - hydroCHLOROthiazide (HYDRODIURIL, ESIDRIX) 25 mg tablet Take 1 tablet by mouth once daily. Pt states she is taking 1/2 a tab of the 25 mg - alendronate (FOSAMAX) 70 mg tablet Take 1 tablet by mouth one time a week. Take with a full glass of water, on an empty stomach; do NOT lie down for 30minutes. - vancomycin (VANCOCIN HCL) 125 mg capsule Take 1 capsule by mouth twice daily. Increase as dircted for recurrence of C. Diff infection - Cholecalciferol, Vitamin D3, 50 mcg (2,000 unit) cap Take 2 capsules by mouth once daily. (after finished the 1000 IU capsules taking 2 daily) - clindamycin (CLEOCIN) 300 mg capsule Take two capsules by mouth one hour prior to dental appointment. - TYLENOL EXTRA STRENGTH 500 MG ORAL TAB every 8 hours as needed for pain - TUMS ULTRA 1,000 MG ORAL CHEW NEEDED FOR HEARTBURN/INDIGESTION - VITAMIN C 500 MG ORAL TAB Take one(1) tablet daily. Problem List As Of Date 02/08/2023 Noted Resolved Esophageal reflux [K21.9] 12/03/2019 PERS HX COLONIC POLYPS [Z86.010] 01/01/2005 Hypertension goal BP (blood pressure) < 140/90 *04/02/2005 Disorder of bone and cartilage [M89.9, M94.9] 07/06/2005 Hyperlipidemia [E78.5] 07/06/2005 CHRONIC RHINITIS [J31.0] 01/11/2006 FAMILY HX COLON CANCER [Z80.0] 01/11/2006 ACTINIC KERATOSES (Premalignant AK's) [L57.0] 12/19/2007 09/16/2011 Other seborrheic keratosis [L82.1] 12/19/2007 09/16/2011 SOLAR LENTIGINES///DYSCHROMIA OTHER [L81.9] 12/19/2007 09/16/2011 Other chronic dermatitis due to solar radiation*12/19/2007 09/16/2011 HILLS ANGIOMA///NEVUS, NON-NEOPLASTIC [I78.1] 12/19/2007 09/16/2011 Unspecified tinnitus [H93.19] 04/23/2008 02/05/2014 GENERAL OSTEOARTHROSIS [M15.9] 04/23/2008 Encounter for long-term (current) use of medica*10/22/2010 02/05/2014 Hematuria [R31.9] 04/20/2011 09/19/2021 Bladder wall thickening [N32.89] 04/20/2011 09/19/2021 Contact dermatitis and other eczema, corners of*06/11/2011 02/05/2014 Angular cheilitis [K13.0] 09/16/2011 02/05/2014 Solar Lentigines [L81.4] 09/16/2011 02/05/2014 Actinic skin damage [L57.8] 09/16/2011 02/05/2014 Hills angiomas [D18.01] 09/16/2011 02/05/2014 ACTINIC KERATOSES (Premalignant AK's) [L57.0] 09/16/2011 02/05/2014 Cracked skin [R23.4] 11/07/2011 02/05/2014 Fissure in skin [R23.4] 11/07/2011 02/05/2014 Tinnitus [H93.19] 02/05/2014 Cheilitis [K13.0] 03/02/2012 02/05/2014 Irritant contact dermatitis [L24.9] 03/02/2012 02/05/2014 Capillary angioma [I78.1] 03/02/2012 02/05/2014 Seborrheic Keratoses [L82.1] 03/21/2013 02/05/2014 Melanocytic nevus of face [D22.30] 03/21/2013 02/05/2014 Herminia (more content not included)... [facility] 02-08-2023 Note HNO ID: [id number] Author: Maryjo Singh MA Service: ? Author Type: Straw Boss Type: Progress Notes Filed: 02/08/2023 2:23 PM Note Text: [facility] 01-17-2023 Note HNO ID: [id number] Author: Sheldon Reinoso APRN.DRIP BOX TENDER Service: ? Author Type: Nurse Practitioner Type: Progress Notes Filed: 01/17/2023 11:42 AM Note Text: Female Pelvic Medicine AND Reconstructive Surgery Follow-Up Jerald Pan is a 87 year old female, who presents for a pessary check. History since last visit: Recently used boric acid for harrison glabrata per general KETTLE FRY COOK OPERATOR. States sometimes pessary slips down if she bears down hard with a BM. Not using vaginal estrogen cream. Urinary Incontinence: yes, on rare occ. Voiding Dysfunction: no Urinary Frequency: no Urinary Urgency: no Prolapse Symptoms: yes Defecatory Dysfunction: no Fecal Incontinence: no Abnormal Bleeding: no Pain: no Abnormal Vaginal Discharge: no I have confirmed and edited as necessary, the PFSH obtained by others. Sheldon Reinoso APRN.DRIP BOX TENDER Textile Stylist offered: Patient declines. OBJECTIVE: BP 146/76 Pulse 65 SpO2 97% General: Well appearing, alert, in no acute distress, well-hydrated, well nourished. Abdomen: Deferred Pelvic: Ext. Genitalia: No lesions or other abnormalities Vagina: atrophic epithelium Cervix: Normal Urethra: Caruncle #4 ring with support removed, cleansed and reinserted. Speculum exam, no erosions. Impression: Jerald Pan is a 87 year old female with POP and vaginal atrophy. Plan: 1. Pessary maintenance - Pessary removed, cleansed and reinserted. 2. Cystocele, midline - As above #1. 3. Vaginal atrophy - Restart vaginal estrogen cream twice weekly. I spent a total of 15 minutes on the date of the service which included preparing to see the patient, [id number] patient care, completing clinical documentation, performing a medically appropriate examination, and counseling and educating the patient/family/caregiver. Sheldon Reinoso APRN.DRIP BOX TENDER [facility] 12-13-2022 Note HNO ID: [id number] Author: Petra Sierra MD Service: ? Author Type: Physician Type: Progress Notes Filed: 12/13/2022 1:30 PM Note Text: Textile Stylist offered: Patient declines. 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 Patient reports did well with the boric acid suppositories. She reports that vaginal discharge is less. She had no complications. OB History T2 L2 SAB0 IAB0 Ectopic0 Multiple0 Live Births0 Comment: May have had a miscarriage before her firstborn. 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 Picklow Benign neoplasm of colon Carpal tunnel syndrome 11/01/2006 Clostridium difficile diarrhea 09/21/2020 Disorder of bone and cartilage, unspecified Diverticulitis of colon (without mention of hemorrhage)(562.11) Diverticulosis of colon (without mention of hemorrhage) Esophageal reflux Essential hypertension, benign Family history of malignant neoplasm of gastrointestinal tract Foot injury torn tendon right great toe (lateral) causing medial toe deviation Osteoarthrosis, unspecified whether generalized or localized, unspecified site Painful tongue Tongu sensitivity--evaluated by ENT (Kami) and dentist Pure hypercholesterolemia Tinnitus PAST SURGICAL HISTORY Procedure Laterality Date ARTHRP KNE CONDYLEANDPLATU MEDIALANDLAT COMPARTMENTS Left 12/03/2019 Knee replacement, total COLONOSCOPY FLX DX W/COLLJ SPEC WHEN PFRMD , , 09/16, 08/18 Colonoscopy COLONOSCOPY FLX DX W/COLLJ SPEC WHEN PFRMD 10/12/2007 COLONOSCOPY FLX DX W/COLLJ SPEC WHEN PFRMD 10/16/2012 Colonoscopy LIG/TRNSXJ FLP TUBE ABDL/VAG APPR UNI/BI 12/11/1975 PAST SURGICAL HISTORY OF 1995 LEFT FOOT SURGERY, ORIF (plate and 6 screws) PAST SURGICAL HISTORY OF 05/26/2012 surgery right ankle (2 screw and 4 katrin) PAST SURGICAL HISTORY OF 04/30/2012 right foot great toe PAST SURGICAL HISTORY OF 03/28/2017 basil cell skin graft off nose REMV CATARACT EXTRACAP,INSERT LENS Right 04/22/2020 REMV CATARACT EXTRACAP,INSERT LENS Left 05/2020 TONSILLECTOMY AND ADENOIDECTOMY TOTAL KNEE REPLACEMENT Right 09/09/2020 FAMILY HISTORY Problem Relation Age of Onset Colon Cancer Father FROM THIS. Hypertension Mother Heart Mother CONGESTIVE HEART FAILURE Social History Tobacco Use Smoking status: Never Smokeless tobacco: Never Vaping Use Vaping Use: Never used Substance Use Topics Alcohol use: Yes Comment: occasional Drug use: No Current Outpatient Medications Medication Sig amLODIPine (NORVASC) 5 mg tablet take 1 tablet by mouth once daily metoprolol succinate ER (TOPROL XL) 25 mg 24 hr tablet Take 3 tablets by mouth once daily. lisinopril (ZESTRIL) 40 mg tablet Take 1 tablet by mouth once daily. hydroCHLOROthiazide (HYDRODIURIL, ESIDRIX) 25 mg tablet Take 1 tablet by mouth once daily. Pt states she is taking 1/2 a tab of the 25 mg alendronate (FOSAMAX) 70 mg tablet Take 1 tablet by mouth one time a week. Take with a full glass of water, on an empty stomach; do NOT lie down for 30minutes. simvastatin (ZOCOR) 20 mg tablet Take 1 tablet by mouth daily at bedtime. vancomycin (VANCOCIN HCL) 125 mg capsule Take 1 capsule by mouth twice daily. 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 (after finished the 1000 IU capsules taking 2 daily) clindamycin (CLEOCIN) 300 mg capsule Take two capsules by mouth one hour prior to dental appointment. TYLENOL EXTRA STRENGTH 500 MG ORAL TAB every 8 hours as needed for pain TUMS ULTRA 1,000 MG ORAL CHEW NEEDED FOR HEARTBURN/INDIGESTION VITAMIN C 500 MG ORAL TAB Take one(1) tablet daily. estradiol (ESTRACE) 0.01 % (0.1 mg/gram) vaginal cream Use 0.5 g vaginally three times a week. (Patient not taking: Reported on 09/26/2022) No current facility-administered medications for this visit. Allergies As of Date: 12/13/2022 Allergen Noted Reaction ANTIBIOTIC [[id number]*11/26/2021 Diarrhea ESTRACE [ESTRADIOL] 08/30/2022 Rash and Itching AMOXICILLIN 12/31/2004 Diarrhea and GI Upset NEOMYCIN 04/24/2010 Rash TELITHROMYCIN 12/31/2004 Diarrhea and GI Upset Fully Assessed 12/13/2022 REVIEW OF SYSTEMS Abdomen: no pain Allergies and current medication updated:Yes EXAM: BP 128/70 Wt 147 lb 9.6 oz (67.0kg) GENERAL: pleasant, female in no apparent distress HEENT: Normocephalic, atraumatic, mucus membranes moist, and no lesions NECK: full range of motion PELVIC: Pessary was coated with Trimo-Khan and replaced without difficulty. Patient tolerated well. NEURO: aler (more content not included)... [facility] 12-13-2022 History of Present illness Narrative Textile Stylist offered: Patient declines. 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 Patient reports did well with the boric acid suppositories. She reports that vaginal discharge is less. She had no complications. OB History T2 L2 SAB0 IAB0 Ectopic0 Multiple0 Live Births0 Comment: May have had a miscarriage before her firstborn. 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 Lee Benign neoplasm of colon Carpal tunnel syndrome 11/01/2006 Clostridium difficile diarrhea 09/21/2020 Disorder of bone and cartilage, unspecified Diverticulitis of colon (without mention of hemorrhage)(562.11) Diverticulosis of colon (without mention of hemorrhage) Esophageal reflux Essential hypertension, benign Family history of malignant neoplasm of gastrointestinal tract Foot injury torn tendon right great toe (lateral) causing medial toe deviation Osteoarthrosis, unspecified whether generalized or localized, unspecified site Painful tongue Tongu sensitivity--evaluated by ENT (Kami) and dentist Pure hypercholesterolemia Tinnitus PAST SURGICAL HISTORY Procedure Laterality Date ARTHRP KNE CONDYLE&PLATU MEDIAL&LAT COMPARTMENTS Left 12/03/2019 Knee replacement, total COLONOSCOPY FLX DX W/COLLJ SPEC WHEN PFRMD , , 09/16, 08/18 Colonoscopy COLONOSCOPY FLX DX W/COLLJ SPEC WHEN PFRMD 10/12/2007 COLONOSCOPY FLX DX W/COLLJ SPEC WHEN PFRMD 10/16/2012 Colonoscopy LIG/TRNSXJ FLP TUBE ABDL/VAG APPR UNI/BI 12/11/1975 PAST SURGICAL HISTORY OF 1995 LEFT FOOT SURGERY, ORIF (plate and 6 screws) PAST SURGICAL HISTORY OF 05/26/2012 surgery right ankle (2 screw and 4 katrin) PAST SURGICAL HISTORY OF 04/30/2012 right foot great toe PAST SURGICAL HISTORY OF 03/28/2017 basil cell skin graft off nose REMV CATARACT EXTRACAP,INSERT LENS Right 04/22/2020 REMV CATARACT EXTRACAP,INSERT LENS Left 05/2020 TONSILLECTOMY & ADENOIDECTOMY <AGE 14 TOTAL KNEE REPLACEMENT Right 09/09/2020 FAMILY HISTORY Problem Relation Age of Onset Colon Cancer Father FROM THIS. Hypertension Mother Heart Mother CONGESTIVE HEART FAILURE Social History Tobacco Use Smoking status: Never Smokeless tobacco: Never Vaping Use Vaping Use: Never used Substance Use Topics Alcohol use: Yes Comment: occasional Drug use: No Current Outpatient Medications Medication Sig amLODIPine (NORVASC) 5 mg tablet take 1 tablet by mouth once daily metoprolol succinate ER (TOPROL XL) 25 mg 24 hr tablet Take 3 tablets by mouth once daily. lisinopril (ZESTRIL) 40 mg tablet Take 1 tablet by mouth once daily. hydroCHLOROthiazide (HYDRODIURIL, ESIDRIX) 25 mg tablet Take 1 tablet by mouth once daily. Pt states she is taking 1/2 a tab of the 25 mg alendronate (FOSAMAX) 70 mg tablet Take 1 tablet by mouth one time a week. Take with a full glass of water, on an empty stomach; do NOT lie down for 30minutes. simvastatin (ZOCOR) 20 mg tablet Take 1 tablet by mouth daily at bedtime. vancomycin (VANCOCIN HCL) 125 mg capsule Take 1 capsule by mouth twice daily. 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 (after finished the 1000 IU capsules taking 2 daily) clindamycin (CLEOCIN) 300 mg capsule Take two capsules by mouth one hour prior to dental appointment. TYLENOL EXTRA STRENGTH 500 MG ORAL TAB every 8 hours as needed for pain TUMS ULTRA 1,000 MG ORAL CHEW NEEDED FOR HEARTBURN/INDIGESTION VITAMIN C 500 MG ORAL TAB Take one(1) tablet daily. estradiol (ESTRACE) 0.01 % (0.1 mg/gram) vaginal cream Use 0.5 g vaginally three times a week. (Patient not taking: Reported on 09/26/2022) No current facility-administered medications for this visit. Allergies As of Date: 12/13/2022 Allergen Noted Reaction ANTIBIOTIC [[id number]*11/26/2021 Diarrhea ESTRACE [ESTRADIOL] 08/30/2022 Rash and Itching AMOXICILLIN 12/31/2004 Diarrhea and GI Upset NEOMYCIN 04/24/2010 Rash TELITHROMYCIN 12/31/2004 Diarrhea and GI Upset Fully Assessed 12/13/2022 REVIEW OF SYSTEMS Abdomen: no pain Allergies and current medication updated:Yes EXAM: BP 128/70 Wt 147 lb 9.6 oz (67.0kg) GENERAL: pleasant, female in no apparent distress HEENT: Normocephalic, atraumatic, mucus membranes moist, and no lesions NECK: full range of motion PELVIC: Pessary was coated with Trimo-Khan and replaced without difficulty. Patient tolerated well. NEURO: alert and oriented x3,exam grossly non-focal ASSESSMENT AND PLAN: Encounter Diagnosis ICD-10-CM 1. Pessary maintenance Z46.89 2. 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 F/u 3 mo for routine pessary maintenance I spent a total of 11 minutes on the date of the service which included preparing to see the patient, [id number] patient care, completing clinical documentation, obtaining and/or reviewing separately obtained history, and performing a medically appropriate examination. Petra Bowman MD documented in this encounter [facility] 11-30-2022 Miscellaneous Notes Patient notified. She states dysuria has improved today and declines needing urine lab orders for now. Will call back with any worsening symptoms. Ruby Helm RN Ok to use some lubricating gel or Coconut oil to help with insertion. If she feels it's UTI ok to order Urine culture and analysis . Patient having difficulty inserting the boric acid capsules due to vaginal dryness. No issues Tuesday or Tuesday. Tuesday the capsule was stuck about half way in the vagina due to dryness. Now her vagina is sore. Unsure if she scratched it with her fingernail. Also having dysuria that began today. Dysuria is mild. Ok to use a little water or lubricating jelly to help with insertion? Do you want to order a UA or culture to rule out UTI? Thank you. Jody Painter RN documented in this encounter [facility] 11-25-2022 Miscellaneous Notes Patient calling regarding boric acid rx that was prescribed 11/02 because it was not at pharmacy. Rx states it was printed and not escripted. She was out of town until now and never picked it up. The 11/02/22 boric acid prescription has been called to [facility] 11/25/2022 at 11:20AM by Ruby Helm RN. I spoke left voicemail in the pharmacy. Ruby Helm RN documented in this encounter [facility] 11-23-2022 Note HNO ID: [id number] Author: Petra Sierra MD Service: ? Author Type: Physician Type: Progress Notes Filed: 11/23/2022 9:37 AM Note Text: Textile Stylist offered: Patient declines. Jerald Pan is a 87 year old female who presents for problem visit - here for pessary removal and treatment of Harrison Glabrata. Pt just back from trip to [place]. Pt reports still has discharge that is about about 50 cent piece size. OB History T2 L2 SAB0 IAB0 Ectopic0 Multiple0 Live Births0 Comment: May have had a miscarriage before her firstborn. 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 Lee Benign neoplasm of colon Carpal tunnel syndrome 11/01/2006 Clostridium difficile diarrhea 09/21/2020 Disorder of bone and cartilage, unspecified Diverticulitis of colon (without mention of hemorrhage)(562.11) Diverticulosis of colon (without mention of hemorrhage) Esophageal reflux Essential hypertension, benign Family history of malignant neoplasm of gastrointestinal tract Foot injury torn tendon right great toe (lateral) causing medial toe deviation Osteoarthrosis, unspecified whether generalized or localized, unspecified site Painful tongue Tongu sensitivity--evaluated by ENT (Kami) and dentist Pure hypercholesterolemia Tinnitus PAST SURGICAL HISTORY Procedure Laterality Date ARTHRP KNE CONDYLEANDPLATU MEDIALANDLAT COMPARTMENTS Left 12/03/2019 Knee replacement, total COLONOSCOPY FLX DX W/COLLJ SPEC WHEN PFRMD , , 09/16, 08/18 Colonoscopy COLONOSCOPY FLX DX W/COLLJ SPEC WHEN PFRMD 10/12/2007 COLONOSCOPY FLX DX W/COLLJ SPEC WHEN PFRMD 10/16/2012 Colonoscopy LIG/TRNSXJ FLP TUBE ABDL/VAG APPR UNI/BI 12/11/1975 PAST SURGICAL HISTORY OF 1995 LEFT FOOT SURGERY, ORIF (plate and 6 screws) PAST SURGICAL HISTORY OF 05/26/2012 surgery right ankle (2 screw and 4 katrin) PAST SURGICAL HISTORY OF 04/30/2012 right foot great toe PAST SURGICAL HISTORY OF 03/28/2017 basil cell skin graft off nose REMV CATARACT EXTRACAP,INSERT LENS Right 04/22/2020 REMV CATARACT EXTRACAP,INSERT LENS Left 05/2020 TONSILLECTOMY AND ADENOIDECTOMY TOTAL KNEE REPLACEMENT Right 09/09/2020 FAMILY HISTORY Problem Relation Age of Onset Colon Cancer Father FROM THIS. Hypertension Mother Heart Mother CONGESTIVE HEART FAILURE Social History Tobacco Use Smoking status: Never Smokeless tobacco: Never Vaping Use Vaping Use: Never used Substance Use Topics Alcohol use: Yes Comment: occasional Drug use: No Current Outpatient Medications Medication Sig amLODIPine (NORVASC) 5 mg tablet take 1 tablet by mouth once daily metoprolol succinate ER (TOPROL XL) 25 mg 24 hr tablet Take 3 tablets by mouth once daily. lisinopril (ZESTRIL) 40 mg tablet Take 1 tablet by mouth once daily. estradiol (ESTRACE) 0.01 % (0.1 mg/gram) vaginal cream Use 0.5 g vaginally three times a week. (Patient not taking: Reported on 09/26/2022) hydroCHLOROthiazide (HYDRODIURIL, ESIDRIX) 25 mg tablet Take 1 tablet by mouth once daily. Pt states she is taking 1/2 a tab of the 25 mg alendronate (FOSAMAX) 70 mg tablet Take 1 tablet by mouth one time a week. Take with a full glass of water, on an empty stomach; do NOT lie down for 30minutes. simvastatin (ZOCOR) 20 mg tablet Take 1 tablet by mouth daily at bedtime. vancomycin (VANCOCIN HCL) 125 mg capsule Take 1 capsule by mouth twice daily. 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 (after finished the 1000 IU capsules taking 2 daily) clindamycin (CLEOCIN) 300 mg capsule Take two capsules by mouth one hour prior to dental appointment. TYLENOL EXTRA STRENGTH 500 MG ORAL TAB every 8 hours as needed for pain TUMS ULTRA 1,000 MG ORAL CHEW NEEDED FOR HEARTBURN/INDIGESTION VITAMIN C 500 MG ORAL TAB Take one(1) tablet daily. No current facility-administered medications for this visit. Allergies As of Date: 11/23/2022 Allergen Noted Reaction ANTIBIOTIC [[id number]*11/26/2021 Diarrhea ESTRACE [ESTRADIOL] 08/30/2022 Rash and Itching AMOXICILLIN 12/31/2004 Diarrhea and GI Upset NEOMYCIN 04/24/2010 Rash TELITHROMYCIN 12/31/2004 Diarrhea and GI Upset Fully Assessed 11/05/2022 REVIEW OF SYSTEMS Bladder: no dysuria. Expanded ROS: no fever Allergies and current medication updated:Yes EXAM: BP 126/60 Wt 146 lb (66.2kg) GENERAL: pleasant, female in no apparent distress HEENT: Normocephalic and atraumatic NECK: full range of motion PELVIC: Difficulty. Speculum exam revealed minimal scant thin discharge. No lesions. No ulcerations. No blood in the vault. Pessary re (more content not included)... [facility] 11-23-2022 History of Present illness Narrative Textile Stylist offered: Patient declines. Jerald Pan is a 87 year old female who presents for problem visit - here for pessary removal and treatment of Harrison Glabrata. Pt just back from trip to [place]. Pt reports still has discharge that is about about 50 cent piece size. OB History T2 L2 SAB0 IAB0 Ectopic0 Multiple0 Live Births0 Comment: May have had a miscarriage before her firstborn. 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 Lee Benign neoplasm of colon Carpal tunnel syndrome 11/01/2006 Clostridium difficile diarrhea 09/21/2020 Disorder of bone and cartilage, unspecified Diverticulitis of colon (without mention of hemorrhage)(562.11) Diverticulosis of colon (without mention of hemorrhage) Esophageal reflux Essential hypertension, benign Family history of malignant neoplasm of gastrointestinal tract Foot injury torn tendon right great toe (lateral) causing medial toe deviation Osteoarthrosis, unspecified whether generalized or localized, unspecified site Painful tongue Tongu sensitivity--evaluated by ENT (Kami) and dentist Pure hypercholesterolemia Tinnitus PAST SURGICAL HISTORY Procedure Laterality Date ARTHRP KNE CONDYLE&PLATU MEDIAL&LAT COMPARTMENTS Left 12/03/2019 Knee replacement, total COLONOSCOPY FLX DX W/COLLJ SPEC WHEN PFRMD , , 09/16, 08/18 Colonoscopy COLONOSCOPY FLX DX W/COLLJ SPEC WHEN PFRMD 10/12/2007 COLONOSCOPY FLX DX W/COLLJ SPEC WHEN PFRMD 10/16/2012 Colonoscopy LIG/TRNSXJ FLP TUBE ABDL/VAG APPR UNI/BI 12/11/1975 PAST SURGICAL HISTORY OF 1995 LEFT FOOT SURGERY, ORIF (plate and 6 screws) PAST SURGICAL HISTORY OF 05/26/2012 surgery right ankle (2 screw and 4 katrin) PAST SURGICAL HISTORY OF 04/30/2012 right foot great toe PAST SURGICAL HISTORY OF 03/28/2017 basil cell skin graft off nose REMV CATARACT EXTRACAP,INSERT LENS Right 04/22/2020 REMV CATARACT EXTRACAP,INSERT LENS Left 05/2020 TONSILLECTOMY & ADENOIDECTOMY <AGE 14 TOTAL KNEE REPLACEMENT Right 09/09/2020 FAMILY HISTORY Problem Relation Age of Onset Colon Cancer Father FROM THIS. Hypertension Mother Heart Mother CONGESTIVE HEART FAILURE Social History Tobacco Use Smoking status: Never Smokeless tobacco: Never Vaping Use Vaping Use: Never used Substance Use Topics Alcohol use: Yes Comment: occasional Drug use: No Current Outpatient Medications Medication Sig amLODIPine (NORVASC) 5 mg tablet take 1 tablet by mouth once daily metoprolol succinate ER (TOPROL XL) 25 mg 24 hr tablet Take 3 tablets by mouth once daily. lisinopril (ZESTRIL) 40 mg tablet Take 1 tablet by mouth once daily. estradiol (ESTRACE) 0.01 % (0.1 mg/gram) vaginal cream Use 0.5 g vaginally three times a week. (Patient not taking: Reported on 09/26/2022) hydroCHLOROthiazide (HYDRODIURIL, ESIDRIX) 25 mg tablet Take 1 tablet by mouth once daily. Pt states she is taking 1/2 a tab of the 25 mg alendronate (FOSAMAX) 70 mg tablet Take 1 tablet by mouth one time a week. Take with a full glass of water, on an empty stomach; do NOT lie down for 30minutes. simvastatin (ZOCOR) 20 mg tablet Take 1 tablet by mouth daily at bedtime. vancomycin (VANCOCIN HCL) 125 mg capsule Take 1 capsule by mouth twice daily. 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 (after finished the 1000 IU capsules taking 2 daily) clindamycin (CLEOCIN) 300 mg capsule Take two capsules by mouth one hour prior to dental appointment. TYLENOL EXTRA STRENGTH 500 MG ORAL TAB every 8 hours as needed for pain TUMS ULTRA 1,000 MG ORAL CHEW NEEDED FOR HEARTBURN/INDIGESTION VITAMIN C 500 MG ORAL TAB Take one(1) tablet daily. No current facility-administered medications for this visit. Allergies As of Date: 11/23/2022 Allergen Noted Reaction ANTIBIOTIC [[id number]*11/26/2021 Diarrhea ESTRACE [ESTRADIOL] 08/30/2022 Rash and Itching AMOXICILLIN 12/31/2004 Diarrhea and GI Upset NEOMYCIN 04/24/2010 Rash TELITHROMYCIN 12/31/2004 Diarrhea and GI Upset Fully Assessed 11/05/2022 REVIEW OF SYSTEMS Bladder: no dysuria. Expanded ROS: no fever Allergies and current medication updated:Yes EXAM: BP 126/60 Wt 146 lb (66.2kg) GENERAL: pleasant, female in no apparent distress HEENT: Normocephalic and atraumatic NECK: full range of motion PELVIC: Difficulty. Speculum exam revealed minimal scant thin discharge. No lesions. No ulcerations. No blood in the vault. Pessary remained out. 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 Vaginal inflammation from pessary, subsequent encounter T83.69XD N76.0 3. Reviewed leaving out pessary x 2 weeks during treatment with Boric Acid treatments. Then will replace pessary in 2 weeks. Pt aware of how to use suppositories. 4. Boric acid suppositories sent previously. I spent a total of 20 minutes on the date of the service which included preparing to see the patient, [id number] patient care, completing clinical documentation, obtaining and/or reviewing separately obtained history, performing a medically appropriate examination, counseling and educating the patient/family/caregiver, Petra Bowman MD documented in this encounter [facility] 11-05-2022 Note HNO ID: [id number] Author: Brittanie Waters Ma Service: ? Author Type: ? Type: Progress Notes Filed: 11/08/2022 8:32 AM Note Text: Appointment cancelled and rescheduled [facility] 11-03-2022 Miscellaneous Notes Prescription faxed to pharmacy. Ann Etienne LPN Rx signed. Images from the original note were not included. Dr Rizzo, the prescription has been printed and is on your desk for a signature. She would like it faxed into [facility]. Patient was notified and she would like to have pessary removed. She is unable to come in until Tuesday-I did offer her several other appointments before then but she has guests and does not want to leave them. No Need to call her and notify her when RX is called in-she wont be able to pick it up until Tuesday Petra Sierra MD P [facility] Ob-Vacuum Evaporation Operator Pool Notify patient that she is positive for harrison glabrata. Will need to use Boric acid suppositories daily for 14 days. Would recommend taking out pessary during that time. Rx printed- please bring to office- and I will sign and fax to her pharmacy of choice. If she needs help getting pessary out someone in office can remove quickly for her at her convenience. ----- Message from Petra Rizzo MD sent at 11/02/2022 12:23 PM EDT ----- Notify patient that she is positive for harrison glabrata. Will need to use Boric acid suppositories daily for 14 days. Would recommend taking out pessary during that time. Rx printed- please bring to office- and I will sign and fax to her pharmacy of choice. If she needs help getting pessary out someone in office can remove quickly for her at her convenience. documented in this encounter [facility] 11-01-2022 Note HNO ID: [id number] Author: Petra Rizzo MD Service: ? Author Type: Physician Type: Progress Notes Filed: 11/01/2022 12:26 PM Note Text: Textile Stylist offered: Patient declines. Jerald Pan is a 87 year old female who presents for pessary maintenance. Patient saw urogynecology and had a pessary fitting for removal of the Gellhorn and placement of a ring with support. She states that overall she feels comfort with that she states that she has had to push it up 1 time. Patient reports she started using the vaginal estrogen cream but she had a reaction to it and has not used it since. She states she still does have some yellowish-green discharge but does not notice an odor and is not irritated with it. Patient denies any urinary concerns and no vaginal bleeding. Patient also has concerns regarding right breast pain. She states that she has a dull aching pain. She denies any trauma to the right breast. She denies any skin changes or nipple discharge. She states she is doing more resistance band training and wonders if that has something to do with it. No other concerns at this time. OB History T2 L2 SAB0 IAB0 Ectopic0 Multiple0 Live Births0 Comment: May have had a miscarriage before her firstborn. 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 Lee Benign neoplasm of colon Carpal tunnel syndrome 11/01/2006 Clostridium difficile diarrhea 09/21/2020 Disorder of bone and cartilage, unspecified Diverticulitis of colon (without mention of hemorrhage)(562.11) Diverticulosis of colon (without mention of hemorrhage) Esophageal reflux Essential hypertension, benign Family history of malignant neoplasm of gastrointestinal tract Foot injury torn tendon right great toe (lateral) causing medial toe deviation Osteoarthrosis, unspecified whether generalized or localized, unspecified site Painful tongue Tongu sensitivity--evaluated by ENT (Kami) and dentist Pure hypercholesterolemia Tinnitus PAST SURGICAL HISTORY Procedure Laterality Date ARTHRP KNE CONDYLEANDPLATU MEDIALANDLAT COMPARTMENTS Left 12/03/2019 Knee replacement, total COLONOSCOPY FLX DX W/COLLJ SPEC WHEN PFRMD , , 09/16, 08/18 Colonoscopy COLONOSCOPY FLX DX W/COLLJ SPEC WHEN PFRMD 10/12/2007 COLONOSCOPY FLX DX W/COLLJ SPEC WHEN PFRMD 10/16/2012 Colonoscopy LIG/TRNSXJ FLP TUBE ABDL/VAG APPR UNI/BI 12/11/1975 PAST SURGICAL HISTORY OF 1995 LEFT FOOT SURGERY, ORIF (plate and 6 screws) PAST SURGICAL HISTORY OF 05/26/2012 surgery right ankle (2 screw and 4 katrin) PAST SURGICAL HISTORY OF 04/30/2012 right foot great toe PAST SURGICAL HISTORY OF 03/28/2017 basil cell skin graft off nose REMV CATARACT EXTRACAP,INSERT LENS Right 04/22/2020 REMV CATARACT EXTRACAP,INSERT LENS Left 05/2020 TONSILLECTOMY AND ADENOIDECTOMY TOTAL KNEE REPLACEMENT Right 09/09/2020 FAMILY HISTORY Problem Relation Age of Onset Colon Cancer Father FROM THIS. Hypertension Mother Heart Mother CONGESTIVE HEART FAILURE Social History Tobacco Use Smoking status: Never Smokeless tobacco: Never Vaping Use Vaping Use: Never used Substance Use Topics Alcohol use: Yes Comment: occasional Drug use: No Current Outpatient Medications Medication Sig amLODIPine (NORVASC) 5 mg tablet take 1 tablet by mouth once daily metoprolol succinate ER (TOPROL XL) 25 mg 24 hr tablet Take 3 tablets by mouth once daily. lisinopril (ZESTRIL) 40 mg tablet Take 1 tablet by mouth once daily. estradiol (ESTRACE) 0.01 % (0.1 mg/gram) vaginal cream Use 0.5 g vaginally three times a week. (Patient not taking: Reported on 09/26/2022) hydroCHLOROthiazide (HYDRODIURIL, ESIDRIX) 25 mg tablet Take 1 tablet by mouth once daily. Pt states she is taking 1/2 a tab of the 25 mg alendronate (FOSAMAX) 70 mg tablet Take 1 tablet by mouth one time a week. Take with a full glass of water, on an empty stomach; do NOT lie down for 30minutes. simvastatin (ZOCOR) 20 mg tablet Take 1 tablet by mouth daily at bedtime. vancomycin (VANCOCIN HCL) 125 mg capsule Take 1 capsule by mouth twice daily. 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 (after finished the 1000 IU capsules taking 2 daily) clindamycin (CLEOCIN) 300 mg capsule Take two capsules by mouth one hour prior to dental appointment. TYLENOL EXTRA STRENGTH 500 MG ORAL TAB every 8 hours as needed for pain TUMS ULTRA 1,000 MG ORAL CHEW NEEDED FOR HEARTBURN/INDIGESTION VITAMIN C 500 MG ORAL TAB Take one(1) tablet daily. No current facility-administered medications for this visit. Allergies As of Date: 11/01/2022 (more content not included)... [facility] 10-13-2022 Miscellaneous Notes Refill request from pharmacy. Per chart, pt is allergic to estrace cream. Advising pt should contract office if she needs medication. Eulalia Bunch RN October 13, 2022 1:44 PM documented in this encounter [facility] 09-26-2022 Note HNO ID: [id number] Author: Diann Mccarthy APRN.DRIP BOX TENDER Service: ? Author Type: Nurse Practitioner Type: Progress Notes Filed: 09/26/2022 3:33 PM Note Text: Subjective The history is provided by the patient. No chief general pediatric clinic was used. HPI Jerald Pan is a 87 year old female who presents today for CC of upper back pain that started this morning, it has gotten better as the day goes. She has used 2 ES tylenol with short term relief. She denies any numbness or tingling. No bony tenderness BP 130/62 Pulse 85 Temp 36.4 ?C (97.6 ?F) (Tympanic) Resp 16 Wt 67 kg (147 lb 9.6 oz) SpO2 97% BMI 25.34 kg/m? Social History Tobacco Use Smoking status: Never Smokeless tobacco: Never Vaping Use Vaping Use: Never used Substance Use Topics Alcohol use: Yes Comment: occasional Drug use: No PAST MEDICAL HISTORY Diagnosis Date Benign microscopic hematuria Follows with Dr. Lee Benign neoplasm of colon Carpal tunnel syndrome 11/01/2006 Clostridium difficile diarrhea 09/21/2020 Disorder of bone and cartilage, unspecified Diverticulitis of colon (without mention of hemorrhage)(562.11) Diverticulosis of colon (without mention of hemorrhage) Esophageal reflux Essential hypertension, benign Family history of malignant neoplasm of gastrointestinal tract Foot injury torn tendon right great toe (lateral) causing medial toe deviation Osteoarthrosis, unspecified whether generalized or localized, unspecified site Painful tongue Tongu sensitivity--evaluated by ENT (Kami) and dentist Pure hypercholesterolemia Tinnitus I have confirmed and edited as necessary, the [facility] Review of Systems Constitutional: Negative for chills and fever. Musculoskeletal: Positive for back pain (upper). Negative for joint pain and myalgias. Skin: Negative for itching and rash. All other systems reviewed and are negative. Objective Physical Exam Vitals and nursing note reviewed. Cardiovascular: Pulses: Radial pulses are 2+ on the right side and 2+ on the left side. Dorsalis pedis pulses are 2+ on the right side and 2+ on the left side. Posterior tibial pulses are 2+ on the right side and 2+ on the left side. Pulmonary: Effort: Pulmonary effort is normal. Musculoskeletal: Cervical back: Normal. Thoracic back: Tenderness present. No swelling, deformity, signs of trauma, lacerations, spasms or bony tenderness. Normal range of motion. No scoliosis. Lumbar back: Normal. Back: Comments: Marked area of tenderness noted. Skin: General: Skin is warm and dry. Neurological: Mental Status: She is alert and oriented to person, place, and time. Psychiatric: Mood and Affect: Affect normal. ASSESSMENT/PLAN: 1. Upper back pain - ICD9: 724.5, ICD10: M54.9 Muscle strain - Ice for localized tenderness - Warm moist heat for 20 min three times a day - NSAIDS- see orders - Patient given instructions use of medications as ordered, intermittent rest, back care exercise program, and avoiding sleeping on a heating pad Diagnosis and treatment plan were discussed and questions were answered to the patient's satisfaction. Pt acknowledged understanding of concepts and follow up plan. Specific signs and symptoms that would indicate the need for higher level of care were discussed in detail warranting prompt ER evaluation. Diann Mccarthy APRN.[facility] 09-24-2022 Note HNO ID: [id number] Author: Michelle Goldman MD Service: ? Author Type: Physician Type: Progress Notes Filed: 10/24/2022 11:30 PM Note Text: This note was created using [employer]. Subjective Jerald Pan is a 87 year old female. Patient presents with: F/U 6 months SUBJECTIVE: Jerald Pan is a 87 year old year old lady here today for 6 month follow up appointment for review of medical conditions. Toe fungus with the thickened nails. Too hard to cut nails. Has not been sleeping well. No trouble falling asleep but will wake up after about 4 hours plus broken sleep with 2 to 3 times nocturia from being on water pill (12.5 mg HCTZ in AM). Intermittent issues with memory problems. Planning on COVID 19 bivalent booster around January. Discussed can call to schedule here with nurse if wants. PAST MEDICAL HISTORY Diagnosis Date Benign microscopic hematuria Follows with Dr. Lee Benign neoplasm of colon Carpal tunnel syndrome 11/01/2006 Clostridium difficile diarrhea 09/21/2020 Disorder of bone and cartilage, unspecified Diverticulitis of colon (without mention of hemorrhage)(562.11) Diverticulosis of colon (without mention of hemorrhage) Esophageal reflux Essential hypertension, benign Family history of malignant neoplasm of gastrointestinal tract Foot injury torn tendon right great toe (lateral) causing medial toe deviation Osteoarthrosis, unspecified whether generalized or localized, unspecified site Painful tongue Tongu sensitivity--evaluated by ENT (Kami) and dentist Pure hypercholesterolemia Tinnitus Current Outpatient Medications Medication Sig amLODIPine (NORVASC) 5 mg tablet Take 1 tablet by mouth once daily. hydroCHLOROthiazide (HYDRODIURIL, ESIDRIX) 25 mg tablet Take 1 tablet by mouth once daily. Pt states she is taking 1/2 a tab of the 25 mg alendronate (FOSAMAX) 70 mg tablet Take 1 tablet by mouth one time a week. Take with a full glass of water, on an empty stomach; do NOT lie down for 30minutes. simvastatin (ZOCOR) 20 mg tablet Take 1 tablet by mouth daily at bedtime. vancomycin (VANCOCIN HCL) 125 mg capsule Take 1 capsule by mouth twice daily. 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 (after finished the 1000 IU capsules taking 2 daily) clindamycin (CLEOCIN) 300 mg capsule Take two capsules by mouth one hour prior to dental appointment. TYLENOL EXTRA STRENGTH 500 MG ORAL TAB every 8 hours as needed for pain TUMS ULTRA 1,000 MG ORAL CHEW NEEDED FOR HEARTBURN/INDIGESTION VITAMIN C 500 MG ORAL TAB Take one(1) tablet daily. metoprolol succinate ER (TOPROL XL) 25 mg 24 hr tablet Take 3 tablets by mouth once daily. lisinopril (ZESTRIL) 40 mg tablet Take 1 tablet by mouth once daily. estradiol (ESTRACE) 0.01 % (0.1 mg/gram) vaginal cream Use 0.5 g vaginally three times a week. (Patient not taking: Reported on 09/24/2022) No current facility-administered medications for this visit. Review of Systems Objective BP 134/68 Pulse 60 Temp (!) 35.7 ?C (96.3 ?F) Resp 18 Wt 66 kg (145 lb 9.6 oz) SpO2 100% BMI 24.99 kg/m? Last 5 Encounter Wt Readings: Date: Wt: 09/24/2022 66 kg (145 lb 9.6 oz) 08/30/2022 66.2 kg (146 lb) 08/02/2022 64.9 kg (143 lb) 07/19/2022 64.4 kg (142 lb) 07/02/2022 64.9 kg (143 lb) No waist measurement recorded Estimated body mass index is 24.99 kg/m? as calculated from the following: Height as of 07/19/22: 162.6 cm (5' 4 ). Weight as of this encounter: 66 kg (145 lb 9.6 oz). Last 5 Encounter BP Readings: Date: BP: 09/24/2022 134/68 08/30/2022 132/58 08/02/2022 144/60 07/19/2022 152/82 07/02/2022 140/80 Physical Exam Constitutional: Appearance: Normal appearance. HENT: Head: Normocephalic. Eyes: Conjunctiva/sclera: Conjunctivae normal. Cardiovascular: Rate and Rhythm: Normal rate and regular rhythm. Heart sounds: Normal heart sounds. Pulmonary: Effort: Pulmonary effort is normal. Breath sounds: Normal breath sounds. Musculoskeletal: Right lower le+ Pitting Edema present. Left lower le+ Pitting Edema present. Skin: General: Skin is warm and dry. Comments: Nails thickened and yellow with some onycholysis of great toenaisl Neurological: General: No focal deficit present. Mental Status: She is alert and oriented to person, place, and time. Psychiatric: Mood and Affect: Mood normal. Behavior: Behavior normal. Thought Content: Thought content normal. Judgment: Judgment normal. Assessment and Plan Encounter Diagnosis ICD-10-CM 1. Mixed hyperlipidemia E78.2 2. Onychomycosis of toenail B35.1 Presumed--consider podiatrists 3. Vitamin D deficiency E55.9 VITAMIN D 25 HYDROXY 4. Secondary hyperparathyroidism, non-renal (HCC) E21.1 VITAMIN D 25 HYDROXY 5. Anemia, macrocytic D53.9 CBC VITAMIN B12 BLOOD FOLATE SERUM 6. Chronic fatigue (more content not included)... [facility] 09-24-2022 History of Present illness Narrative This note was created using [employer]. Subjective Jerald Pan is a 87 year old female. Patient presents with: F/U 6 months SUBJECTIVE: Jerald Pan is a 87 year old year old lady here today for 6 month follow up appointment for review of medical conditions. Toe fungus with the thickened nails. Too hard to cut nails. Has not been sleeping well. No trouble falling asleep but will wake up after about 4 hours plus broken sleep with 2 to 3 times nocturia from being on water pill (12.5 mg HCTZ in AM). Intermittent issues with memory problems. Planning on COVID 19 bivalent booster around January. Discussed can call to schedule here with nurse if wants. PAST MEDICAL HISTORY Diagnosis Date Benign microscopic hematuria Follows with Dr. Lee Benign neoplasm of colon Carpal tunnel syndrome 11/01/2006 Clostridium difficile diarrhea 09/21/2020 Disorder of bone and cartilage, unspecified Diverticulitis of colon (without mention of hemorrhage)(562.11) Diverticulosis of colon (without mention of hemorrhage) Esophageal reflux Essential hypertension, benign Family history of malignant neoplasm of gastrointestinal tract Foot injury torn tendon right great toe (lateral) causing medial toe deviation Osteoarthrosis, unspecified whether generalized or localized, unspecified site Painful tongue Tongu sensitivity--evaluated by ENT (Kami) and dentist Pure hypercholesterolemia Tinnitus Current Outpatient Medications Medication Sig amLODIPine (NORVASC) 5 mg tablet Take 1 tablet by mouth once daily. hydroCHLOROthiazide (HYDRODIURIL, ESIDRIX) 25 mg tablet Take 1 tablet by mouth once daily. Pt states she is taking 1/2 a tab of the 25 mg alendronate (FOSAMAX) 70 mg tablet Take 1 tablet by mouth one time a week. Take with a full glass of water, on an empty stomach; do NOT lie down for 30minutes. simvastatin (ZOCOR) 20 mg tablet Take 1 tablet by mouth daily at bedtime. vancomycin (VANCOCIN HCL) 125 mg capsule Take 1 capsule by mouth twice daily. 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 (after finished the 1000 IU capsules taking 2 daily) clindamycin (CLEOCIN) 300 mg capsule Take two capsules by mouth one hour prior to dental appointment. TYLENOL EXTRA STRENGTH 500 MG ORAL TAB every 8 hours as needed for pain TUMS ULTRA 1,000 MG ORAL CHEW NEEDED FOR HEARTBURN/INDIGESTION VITAMIN C 500 MG ORAL TAB Take one(1) tablet daily. metoprolol succinate ER (TOPROL XL) 25 mg 24 hr tablet Take 3 tablets by mouth once daily. lisinopril (ZESTRIL) 40 mg tablet Take 1 tablet by mouth once daily. estradiol (ESTRACE) 0.01 % (0.1 mg/gram) vaginal cream Use 0.5 g vaginally three times a week. (Patient not taking: Reported on 09/24/2022) No current facility-administered medications for this visit. Review of Systems Objective BP 134/68 Pulse 60 Temp (!) 35.7 C (96.3 F) Resp 18 Wt 66 kg (145 lb 9.6 oz) SpO2 100% BMI 24.99 kg/m Last 5 Encounter Wt Readings: Date: Wt: 09/24/2022 66 kg (145 lb 9.6 oz) 08/30/2022 66.2 kg (146 lb) 08/02/2022 64.9 kg (143 lb) 07/19/2022 64.4 kg (142 lb) 07/02/2022 64.9 kg (143 lb) No waist measurement recorded Estimated body mass index is 24.99 kg/m as calculated from the following: Height as of 07/19/22: 162.6 cm (5' 4 ). Weight as of this encounter: 66 kg (145 lb 9.6 oz). Last 5 Encounter BP Readings: Date: BP: 09/24/2022 134/68 08/30/2022 132/58 08/02/2022 144/60 07/19/2022 152/82 07/02/2022 140/80 Physical Exam Constitutional: Appearance: Normal appearance. HENT: Head: Normocephalic. Eyes: Conjunctiva/sclera: Conjunctivae normal. Cardiovascular: Rate and Rhythm: Normal rate and regular rhythm. Heart sounds: Normal heart sounds. Pulmonary: Effort: Pulmonary effort is normal. Breath sounds: Normal breath sounds. Musculoskeletal: Right lower le+ Pitting Edema present. Left lower le+ Pitting Edema present. Skin: General: Skin is warm and dry. Comments: Nails thickened and yellow with some onycholysis of great toenaisl Neurological: General: No focal deficit present. Mental Status: She is alert and oriented to person, place, and time. Psychiatric: Mood and Affect: Mood normal. Behavior: Behavior normal. Thought Content: Thought content normal. Judgment: Judgment normal. Assessment and Plan Encounter Diagnosis ICD-10-CM 1. Mixed hyperlipidemia E78.2 2. Onychomycosis of toenail B35.1 Presumed--consider podiatrists 3. Vitamin D deficiency E55.9 VITAMIN D 25 HYDROXY 4. Secondary hyperparathyroidism, non-renal (HCC) E21.1 VITAMIN D 25 HYDROXY 5. Anemia, macrocytic D53.9 CBC VITAMIN B12 BLOOD FOLATE SERUM 6. Chronic fatigue R53.82 7. 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 Nocturia R35.1 Above issues addressed with patient. Patient involved in shared decision making for management of medical issues. History and medications reviewed. Epic updated as needed Refills and/or prescriptions taken care of and meds adjusted as indicated after reviewed history, exam and labs. Health Maintenance reviewed. Updated record and/or ordered tests as recorded. Encouraged on efforts at healthy diet and regular exercise and adequate sleep. I spent a total of at least 42 minutes on the date of the service which included [id number] patient care, completing clinical documentation, obtaining and/or reviewing separately obtained history, performing a medically appropriate examination, counseling and educating the patient/family/caregiver, and ordering medications, tests, or procedures. Michelle Goldman MD documented in this encounter [facility] 09-24-2022 Instructions Michelle Goldman MD - 09/24/2022 11:21 AM EDT L57--ybx for getting about 1000mcg once daily Folate or Folic acid-400 to 800mcg per day for most over the counter doses (1000 mcg is okay) Sleep Hygiene and Good Sleep Habits Establish a regular routine that includes going to bed and getting up at the same time every day, even on weekends. Maintaining a consistent sleep-wake cycle is the masters to better health overall. Get an adequate amount of sleep every night. Determine the amount of sleep you need by keeping track of how long you sleep without using an alarm clock for a week. Maintain this personal sleep requirement. Go to bed when you are sleepy. If you have difficulty falling asleep or wake up shortly after going to sleep, leave the bedroom and read quietly or do some other relaxing activity. Avoid bright lights as this can cue your wake cycle. Develop sleep rituals before going to bed. Do the same things in the same order before going to bed to cue your body to slow down and relax. Avoid stress and worries at bedtime. Address tomorrow's activities, concerns, or distractions earlier in the day. Certain activities, such as listening to soft music, reading, or taking a warm bath, can help you wind down. Use your bed for sleeping and sex only. Often, doing other activities in bed like watching TV, paying bills, or working only serve to initiate worries and concerns. Let your mind associate the bed with sleeping, relaxing, and pleasure. Avoid heavy meals late in the evening; similarly, avoid going to bed hungry. A light snack, especially dairy foods, can help you sleep. Reduce your intake of caffeine and nicotine 4-6 hours before going to sleep. Stimulants interfere with your ability to fall asleep and progress into deep sleep. 200mg caffeine (a large [employer] coffee) taken at 8 AM will impair the sleep architecture that night. Avoid alcohol 4-6 hours before bedtime. As a depressant that slows brain activity, alcohol may initially make you tired, but you will end up having fragmented sleep. In addition, being tired intensifies the effects of alcohol. Alcohol also aggravates snoring and sleep apnea particularly in men. Exercise regularly. Regular exercise, even for 20 minutes, 3 times a week, promotes deep sleep. Don't nap for more than 30 minutes or after 3 PM. Avoiding naps all together will ensure that you are tired at night. Longer naps disrupt the body's ability to stay asleep. Maintain a dark, quiet room to sleep in at a temperature with which you are comfortable. Use sleeping aids conservatively, and avoid using them for more than one or two nights per month. Avoid sleeping pills altogether if you have obstructive sleep apnea because it can be a deadly combination. TIPS FOR A BETTER NIGHT OF SLEEP BEFORE GETTING INTO BED: -Establish a regular routine for bedtime. -Create a positive sleep environment. -Relax before getting into bed. -Avoid alcohol, smoking, caffeine for at least a few hours before bedtime. -Do not go to bed unless you are sleepy. WHILE IN BED: -Turn your clock around (or cover it) and use your alarm if needed. - If you can't fall asleep in 20 minutes (based on your internal sense of time), get out of bed and do something relaxing or boring (reading, listening to music, etc). Return to bed only when sleepy. -Use your bed only for sleep and sex. IN THE MORNING AND DURING THE DAYTIME: -Wake up at the same time every morning, even on weekends. -Avoid naps during the day. -Avoid caffeinated beverages and food in the evening. -Exercise regularly but not within 4 hours of bedtime. documented in this encounter [facility] 08-30-2022 Note HNO ID: [id number] Author: Javi Angeles APRN.JAY Service: ? Author Type: Nurse Practitioner Type: Progress Notes Filed: 08/30/2022 10:08 AM Note Text: SUBJECTIVE Jerald Pan is a 87 year old female here today for a check up on her medical problems. Chief Complaint Patient presents with: Blood Pressure HPI Jerald is a 87 year old female who presents for follow-up for hypertension. They are here today for a recheck of blood pressure. Blood pressure appears to be improved. Denies any symptoms referable to elevated blood pressure. Specifically denies headache, chest pain, palpitations, dyspnea. Since starting the amlodipine she has noticed some ankle swelling on days she is on her feet for long periods. Otherwise she is tolerating medications well. She does have concerns of recent weight gain over the last several months. She has not really changed her diet intake, has not changed her activity much, no medication changes other than what our office has done. Her medications were reviewed today and her list is now up to date. Medications Current Outpatient Medications Medication Sig amLODIPine (NORVASC) 5 mg tablet Take 1 tablet by mouth once daily. metoprolol succinate ER (TOPROL XL) 25 mg 24 hr tablet Take 3 tablets by mouth once daily. lisinopril (ZESTRIL) 40 mg tablet Take 1 tablet by mouth once daily. estradiol (ESTRACE) 0.01 % (0.1 mg/gram) vaginal cream Use 0.5 g vaginally three times a week. hydroCHLOROthiazide (HYDRODIURIL, ESIDRIX) 25 mg tablet Take 1 tablet by mouth once daily. Pt states she is taking 1/2 a tab of the 25 mg alendronate (FOSAMAX) 70 mg tablet Take 1 tablet by mouth one time a week. Take with a full glass of water, on an empty stomach; do NOT lie down for 30minutes. simvastatin (ZOCOR) 20 mg tablet Take 1 tablet by mouth daily at bedtime. vancomycin (VANCOCIN HCL) 125 mg capsule Take 1 capsule by mouth twice daily. 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 (after finished the 1000 IU capsules taking 2 daily) clindamycin (CLEOCIN) 300 mg capsule Take two capsules by mouth one hour prior to dental appointment. TYLENOL EXTRA STRENGTH 500 MG ORAL TAB every 8 hours as needed for pain TUMS ULTRA 1,000 MG ORAL CHEW NEEDED FOR HEARTBURN/INDIGESTION VITAMIN C 500 MG ORAL TAB Take one(1) tablet daily. No current facility-administered medications for this visit. ALLERGIES Allergen Reactions Antibiotic [Neomy-B* Diarrhea unable to take antibiotics due to bout of c-diff Estrace [Estradiol] Rash, Itching vaginal cream Amoxicillin Diarrhea, GI Upset Neomycin Rash Reaction on arm when treated with neosporin and bandaid; resolved after stopped Neosporin and used bacitracin instead Telithromycin Diarrhea, GI Upset ACTIVE PROBLEM LIST Secondary Hyperparathyroidism, Non-Renal (Hcc) - 02/03/2022 Vitamin D Deficiency - 02/03/2022 Age-Related Osteoporosis Without Current Pathological Fracture - 02/03/2022 Cystocele With Prolapse - 02/03/2022 Nocturia - 06/04/2021 Rosacea - 06/04/2021 Osteopenia - 06/04/2021 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/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 - 09/01/2020 Scc (Squamous Cell Carcinoma) - 12/03/2019 Bilateral Carotid Artery Stenosis - 12/03/2019 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/2019 Ocular Migraine - 03/19/2017 Painful Tongue Comment: Angie parada--evaluated by ENT (Kami) and dentist Generalized Osteoarthrosis, Unspecified Site - 04/23/2008 Chronic Rhinitis - 01/11/2006 FAMILY HX COLON CANCER - 01/11/2006 Disorder of Bone and Cartilage - 07/06/2005 Hyperlipidemia - 07/06/2005 Hypertension Goal Bp (Blood Pressure) < 140/90 - 04/02/2005 Personal History of Colonic Polyps - 01/01/2005 Comment: Colonoscopy 12 October 2007 Repeat in five years Social History Tobacco Use Smoking status: Never Smokeless tobacco: Never Vaping Use Vaping Use: Never used Substance Use Topics Alcohol use: Yes Comment: occasional Drug use: No Review of Systems Constitutional: Positive for unexpected weight change. Negative for activity change, appetite change, chills, diaphoresis, fatigue and fever. Respiratory: Negative. Cardiovascular: Positive for leg swelling. Negative for chest pain and palpitations. OBJECTIVE BP 132/58 Pulse 64 Wt 146 lb (66.2kg) SpO2 98% Physical Exam Vitals and nursing note reviewed. Constitutional: General: She is awake. She is not in acute distress. Appearance: Normal appearance. She is well-developed and well-groomed. She is not ill-appearing, toxic-appearing or diaphoretic. HENT: Head: Normocephalic. Right Ear: External ear normal. Left Ear: External ear normal. Nose: Nose normal. Eyes: General: Vision grossly intact. Conjunctiva/sclera: Conjunctivae normal. Pupils: Pupils are equal, round, and rehan (more content not included)... [facility] 08-30-2022 History of Present illness Narrative SUBJECTIVE Jerald Pan is a 87 year old female here today for a check up on her medical problems. Chief Complaint Patient presents with: Blood Pressure PRIMITIVO Marques is a 87 year old female who presents for follow-up for hypertension. They are here today for a recheck of blood pressure. Blood pressure appears to be improved. Denies any symptoms referable to elevated blood pressure. Specifically denies headache, chest pain, palpitations, dyspnea. Since starting the amlodipine she has noticed some ankle swelling on days she is on her feet for long periods. Otherwise she is tolerating medications well. She does have concerns of recent weight gain over the last several months. She has not really changed her diet intake, has not changed her activity much, no medication changes other than what our office has done. Her medications were reviewed today and her list is now up to date. Medications Current Outpatient Medications Medication Sig amLODIPine (NORVASC) 5 mg tablet Take 1 tablet by mouth once daily. metoprolol succinate ER (TOPROL XL) 25 mg 24 hr tablet Take 3 tablets by mouth once daily. lisinopril (ZESTRIL) 40 mg tablet Take 1 tablet by mouth once daily. estradiol (ESTRACE) 0.01 % (0.1 mg/gram) vaginal cream Use 0.5 g vaginally three times a week. hydroCHLOROthiazide (HYDRODIURIL, ESIDRIX) 25 mg tablet Take 1 tablet by mouth once daily. Pt states she is taking 1/2 a tab of the 25 mg alendronate (FOSAMAX) 70 mg tablet Take 1 tablet by mouth one time a week. Take with a full glass of water, on an empty stomach; do NOT lie down for 30minutes. simvastatin (ZOCOR) 20 mg tablet Take 1 tablet by mouth daily at bedtime. vancomycin (VANCOCIN HCL) 125 mg capsule Take 1 capsule by mouth twice daily. 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 (after finished the 1000 IU capsules taking 2 daily) clindamycin (CLEOCIN) 300 mg capsule Take two capsules by mouth one hour prior to dental appointment. TYLENOL EXTRA STRENGTH 500 MG ORAL TAB every 8 hours as needed for pain TUMS ULTRA 1,000 MG ORAL CHEW NEEDED FOR HEARTBURN/INDIGESTION VITAMIN C 500 MG ORAL TAB Take one(1) tablet daily. No current facility-administered medications for this visit. ALLERGIES Allergen Reactions Antibiotic [Neomy-B* Diarrhea unable to take antibiotics due to bout of c-diff Estrace [Estradiol] Rash, Itching vaginal cream Amoxicillin Diarrhea, GI Upset Neomycin Rash Reaction on arm when treated with neosporin and bandaid; resolved after stopped Neosporin and used bacitracin instead Telithromycin Diarrhea, GI Upset ACTIVE PROBLEM LIST Secondary Hyperparathyroidism, Non-Renal (Hcc) - 02/03/2022 Vitamin D Deficiency - 02/03/2022 Age-Related Osteoporosis Without Current Pathological Fracture - 02/03/2022 Cystocele With Prolapse - 02/03/2022 Nocturia - 06/04/2021 Rosacea - 06/04/2021 Osteopenia - 06/04/2021 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/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 - 09/01/2020 Scc (Squamous Cell Carcinoma) - 12/03/2019 Bilateral Carotid Artery Stenosis - 12/03/2019 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/2019 Ocular Migraine - 03/19/2017 Painful Tongue Comment: Angie sensitivity--evaluated by ENT (Kami) and dentist Generalized Osteoarthrosis, Unspecified Site - 04/23/2008 Chronic Rhinitis - 01/11/2006 FAMILY HX COLON CANCER - 01/11/2006 Disorder of Bone and Cartilage - 07/06/2005 Hyperlipidemia - 07/06/2005 Hypertension Goal Bp (Blood Pressure) < 140/90 - 04/02/2005 Personal History of Colonic Polyps - 01/01/2005 Comment: Colonoscopy 12 October 2007 Repeat in five years Social History Tobacco Use Smoking status: Never Smokeless tobacco: Never Vaping Use Vaping Use: Never used Substance Use Topics Alcohol use: Yes Comment: occasional Drug use: No Review of Systems Constitutional: Positive for unexpected weight change. Negative for activity change, appetite change, chills, diaphoresis, fatigue and fever. Respiratory: Negative. Cardiovascular: Positive for leg swelling. Negative for chest pain and palpitations. OBJECTIVE BP 132/58 Pulse 64 Wt 146 lb (66.2kg) SpO2 98% Physical Exam Vitals and nursing note reviewed. Constitutional: General: She is awake. She is not in acute distress. Appearance: Normal appearance. She is well-developed and well-groomed. She is not ill-appearing, toxic-appearing or diaphoretic. HENT: Head: Normocephalic. Right Ear: External ear normal. Left Ear: External ear normal. Nose: Nose normal. Eyes: General: Vision grossly intact. Conjunctiva/sclera: Conjunctivae normal. Pupils: Pupils are equal, round, and reactive to light. Neck: Vascular: No JVD. Trachea: Trachea normal. Cardiovascular: Rate and Rhythm: Normal rate and regular rhythm. Pulses: Normal pulses. Heart sounds: Normal heart sounds. No murmur heard. Pulmonary: Effort: Pulmonary effort is normal. No accessory muscle usage, prolonged expiration or respiratory distress. Breath sounds: Normal breath sounds. Musculoskeletal: Cervical back: Neck supple. Right lower leg: No edema. Left lower leg: No edema. Skin: General: Skin is warm and dry. Capillary Refill: Capillary refill takes less than 2 seconds. Neurological: General: No focal deficit present. Mental Status: She is alert and oriented to person, place, and time. Mental status is at baseline. Psychiatric: Attention and Perception: Attention and perception normal. Mood and Affect: Mood and affect normal. Speech: Speech normal. Behavior: Behavior normal. Behavior is cooperative. Thought Content: Thought content normal. Cognition and Memory: Cognition and memory normal. Judgment: Judgment normal. ASSESSMENT/PLAN: 1. Hypertension goal BP (blood pressure) < 140/90 - ICD9: 401.9, ICD10: I10 (primary diagnosis) - good control - Continue current medication(s) - Encouraged dietary sodium restriction/DASH diet - Recommended regular aerobic exercise. - Recommend home blood pressure monitoring, to bring results in on next visit - Reviewed risks of HTN and principles of treatment - Goal of BP <140/90 2. Ankle edema, bilateral - ICD9: 719.07, ICD10: M25.471, M25.472 Intermittent, none on exam today, discussed side effects of amlodipine, will continue the medication unless this becomes more frequent. Also advised limit salt, use compression socks/hose. 3. Unintended weight gain - ICD9: 783.1, ICD10: R63.5 Discussed diet, changes she can make such as replacing her daily fruits at lunch with vegetables, changing her exercise routine. Can check labs for anything metabolic that might be contributing. - CBC - COMP METABOLIC PANEL - TSH BLD - T3 FREE BLD - T4 FREE/FREE THYROX 4. Parathyroid disorder (HCC) - ICD9: 252.9, ICD10: E21.5 - PTH INTACT BLD 5. Screening for thyroid disorder - ICD9: V77.0, ICD10: Z13.29 - TSH BLD - T3 FREE BLD - T4 FREE/FREE THYROX 6. Encounter for therapeutic drug monitoring - ICD9: V58.83, ICD10: Z51.81 - CBC - COMP METABOLIC PANEL Portions of this note have been entered by ancillary staff. I have reviewed and when necessary edited, so that they are an adequate record of my encounter with this patient Please note that parts of this document were created using voice recognition software and therefore may contain grammatical errors. Patient verbalizes understanding of instructions from today's visit and in agreement with treatment plan. Questions answered. Agrees to call the office if questions, concerns of issues with acute symptoms not improving or if they worsen. See diagnoses and orders for additional plan(s). Allergies and medications were reviewed, list was updated, and refills given if needed. Past medical, surgical, social, and family history reviewed and updated as appropriate. Encouraged proper diet & exercise as well as compliance with taking medications. Age-appropriate health preventative measures were discussed. Return if symptoms worsen or fail to improve, for Keep next scheduled appointment.. SARAH Merlos documented in this encounter [facility] 08-02-2022 Note HNO ID: [id number] Author: Javi Angeles APRN.CNP Service: ? Author Type: Nurse Practitioner Type: Progress Notes Filed: 08/02/2022 9:47 AM Note Text: SUBJECTIVE Jerald Pan is a 87 year old female here today for a check up on her medical problems. Chief Complaint Patient presents with: Blood Pressure HPI Jerald is a 87 year old female who presents for follow-up for hypertension. They are here today for a recheck of blood pressure. Blood pressure appears to be elevated but improved. At last visit we increased her Toprol dose. Denies any symptoms referable to elevated blood pressure. Specifically denies headache, chest pain, palpitations, dyspnea and peripheral edema. Tolerating medications well. does check BP's away from this office with average BP's in the 150's/70's range. she watches her diet for sodium, low fat and low cholesterol. all of the time. Her medications were reviewed today and her list is now up to date. She is compliant on taking her medications: Yes She is tolerating her medication(s) without side effects: Yes She is following an appropriate diet for her medical problems: Yes She is getting some exercise in? Yes She has visited another health care provider since being seen last? :Yes She has had a visit to the emergency department or hospital since being seen last? No Medications Current Outpatient Medications Medication Sig metoprolol succinate ER (TOPROL XL) 25 mg 24 hr tablet Take 3 tablets by mouth once daily. lisinopril (ZESTRIL) 40 mg tablet Take 1 tablet by mouth once daily. estradiol (ESTRACE) 0.01 % (0.1 mg/gram) vaginal cream Use 0.5 g vaginally three times a week. hydroCHLOROthiazide (HYDRODIURIL, ESIDRIX) 25 mg tablet Take 1 tablet by mouth once daily. Pt states she is taking 1/2 a tab of the 25 mg alendronate (FOSAMAX) 70 mg tablet Take 1 tablet by mouth one time a week. Take with a full glass of water, on an empty stomach; do NOT lie down for 30minutes. simvastatin (ZOCOR) 20 mg tablet Take 1 tablet by mouth daily at bedtime. vancomycin (VANCOCIN HCL) 125 mg capsule Take 1 capsule by mouth twice daily. 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 (after finished the 1000 IU capsules taking 2 daily) clindamycin (CLEOCIN) 300 mg capsule Take two capsules by mouth one hour prior to dental appointment. TYLENOL EXTRA STRENGTH 500 MG ORAL TAB every 8 hours as needed for pain TUMS ULTRA 1,000 MG ORAL CHEW NEEDED FOR HEARTBURN/INDIGESTION VITAMIN C 500 MG ORAL TAB Take one(1) tablet daily. amLODIPine (NORVASC) 5 mg tablet Take 1 tablet by mouth once daily. No current facility-administered medications for this visit. ALLERGIES Allergen Reactions Antibiotic [Neomy-B* Diarrhea unable to take antibiotics due to bout of c-diff Amoxicillin Diarrhea, GI Upset Neomycin Rash Reaction on arm when treated with neosporin and bandaid; resolved after stopped Neosporin and used bacitracin instead Telithromycin Diarrhea, GI Upset ACTIVE PROBLEM LIST Secondary Hyperparathyroidism, Non-Renal (Hcc) - 02/03/2022 Vitamin D Deficiency - 02/03/2022 Age-Related Osteoporosis Without Current Pathological Fracture - 02/03/2022 Cystocele With Prolapse - 02/03/2022 Nocturia - 06/04/2021 Rosacea - 06/04/2021 Osteopenia - 06/04/2021 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/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 - 09/01/2020 Scc (Squamous Cell Carcinoma) - 12/03/2019 Bilateral Carotid Artery Stenosis - 12/03/2019 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/2019 Ocular Migraine - 03/19/2017 Painful Tongue Comment: Angie parada--evaluated by ENT (Kami) and dentist Generalized Osteoarthrosis, Unspecified Site - 04/23/2008 Chronic Rhinitis - 01/11/2006 FAMILY HX COLON CANCER - 01/11/2006 Disorder of Bone and Cartilage - 07/06/2005 Hyperlipidemia - 07/06/2005 Hypertension Goal Bp (Blood Pressure) < 140/90 - 04/02/2005 Personal History of Colonic Polyps - 01/01/2005 Comment: Colonoscopy 12 October 2007 Repeat in five years Social History Tobacco Use Smoking status: Never Smokeless tobacco: Never Vaping Use Vaping Use: Never used Substance Use Topics Alcohol use: Yes Comment: occasional Drug use: No Review of Systems Respiratory: Negative. Cardiovascular: Negative. OBJECTIVE BP 144/60 Pulse 71 Wt 143 lb (64.9kg) SpO2 98% Physical Exam Vitals and nursing note reviewed. Constitutional: General: She is awake. She is not in acute distress. Appearance: Normal appearance. She is well-developed and well-groomed. She is not ill-appearing, toxic-appearing or diaphoretic. HENT: Head: Normocephalic. Right Ear: External ear normal. Left Ear: External ear normal. Nose: Nose normal. Eyes: General: Vision grossly intact. Conjunctiva/sclera: Conjunctivae normal. Pupils: Pupils are e (more content not included)... [facility] 08-02-2022 History of Present illness Narrative SUBJECTIVE Jerald Pan is a 87 year old female here today for a check up on her medical problems. Chief Complaint Patient presents with: Blood Pressure HPI Jerald is a 87 year old female who presents for follow-up for hypertension. They are here today for a recheck of blood pressure. Blood pressure appears to be elevated but improved. At last visit we increased her Toprol dose. Denies any symptoms referable to elevated blood pressure. Specifically denies headache, chest pain, palpitations, dyspnea and peripheral edema. Tolerating medications well. does check BP's away from this office with average BP's in the 150's/70's range. she watches her diet for sodium, low fat and low cholesterol. all of the time. Her medications were reviewed today and her list is now up to date. She is compliant on taking her medications: Yes She is tolerating her medication(s) without side effects: Yes She is following an appropriate diet for her medical problems: Yes She is getting some exercise in? Yes She has visited another health care provider since being seen last? :Yes She has had a visit to the emergency department or hospital since being seen last? No Medications Current Outpatient Medications Medication Sig metoprolol succinate ER (TOPROL XL) 25 mg 24 hr tablet Take 3 tablets by mouth once daily. lisinopril (ZESTRIL) 40 mg tablet Take 1 tablet by mouth once daily. estradiol (ESTRACE) 0.01 % (0.1 mg/gram) vaginal cream Use 0.5 g vaginally three times a week. hydroCHLOROthiazide (HYDRODIURIL, ESIDRIX) 25 mg tablet Take 1 tablet by mouth once daily. Pt states she is taking 1/2 a tab of the 25 mg alendronate (FOSAMAX) 70 mg tablet Take 1 tablet by mouth one time a week. Take with a full glass of water, on an empty stomach; do NOT lie down for 30minutes. simvastatin (ZOCOR) 20 mg tablet Take 1 tablet by mouth daily at bedtime. vancomycin (VANCOCIN HCL) 125 mg capsule Take 1 capsule by mouth twice daily. 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 (after finished the 1000 IU capsules taking 2 daily) clindamycin (CLEOCIN) 300 mg capsule Take two capsules by mouth one hour prior to dental appointment. TYLENOL EXTRA STRENGTH 500 MG ORAL TAB every 8 hours as needed for pain TUMS ULTRA 1,000 MG ORAL CHEW NEEDED FOR HEARTBURN/INDIGESTION VITAMIN C 500 MG ORAL TAB Take one(1) tablet daily. amLODIPine (NORVASC) 5 mg tablet Take 1 tablet by mouth once daily. No current facility-administered medications for this visit. ALLERGIES Allergen Reactions Antibiotic [Neomy-B* Diarrhea unable to take antibiotics due to bout of c-diff Amoxicillin Diarrhea, GI Upset Neomycin Rash Reaction on arm when treated with neosporin and bandaid; resolved after stopped Neosporin and used bacitracin instead Telithromycin Diarrhea, GI Upset ACTIVE PROBLEM LIST Secondary Hyperparathyroidism, Non-Renal (Hcc) - 02/03/2022 Vitamin D Deficiency - 02/03/2022 Age-Related Osteoporosis Without Current Pathological Fracture - 02/03/2022 Cystocele With Prolapse - 02/03/2022 Nocturia - 06/04/2021 Rosacea - 06/04/2021 Osteopenia - 06/04/2021 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/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 - 09/01/2020 Scc (Squamous Cell Carcinoma) - 12/03/2019 Bilateral Carotid Artery Stenosis - 12/03/2019 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/2019 Ocular Migraine - 03/19/2017 Painful Tongue Comment: Phillipu sensitivity--evaluated by ENT (Kami) and dentist Generalized Osteoarthrosis, Unspecified Site - 04/23/2008 Chronic Rhinitis - 01/11/2006 FAMILY HX COLON CANCER - 01/11/2006 Disorder of Bone and Cartilage - 07/06/2005 Hyperlipidemia - 07/06/2005 Hypertension Goal Bp (Blood Pressure) < 140/90 - 04/02/2005 Personal History of Colonic Polyps - 01/01/2005 Comment: Colonoscopy 12 October 2007 Repeat in five years Social History Tobacco Use Smoking status: Never Smokeless tobacco: Never Vaping Use Vaping Use: Never used Substance Use Topics Alcohol use: Yes Comment: occasional Drug use: No Review of Systems Respiratory: Negative. Cardiovascular: Negative. OBJECTIVE BP 144/60 Pulse 71 Wt 143 lb (64.9kg) SpO2 98% Physical Exam Vitals and nursing note reviewed. Constitutional: General: She is awake. She is not in acute distress. Appearance: Normal appearance. She is well-developed and well-groomed. She is not ill-appearing, toxic-appearing or diaphoretic. HENT: Head: Normocephalic. Right Ear: External ear normal. Left Ear: External ear normal. Nose: Nose normal. Eyes: General: Vision grossly intact. Conjunctiva/sclera: Conjunctivae normal. Pupils: Pupils are equal, round, and reactive to light. Neck: Vascular: No JVD. Trachea: Trachea normal. Cardiovascular: Rate and Rhythm: Normal rate and regular rhythm. Pulses: Normal pulses. Heart sounds: Normal heart sounds. No murmur heard. Pulmonary: Effort: Pulmonary effort is normal. No accessory muscle usage, prolonged expiration or respiratory distress. Breath sounds: Normal breath sounds. Musculoskeletal: Cervical back: Neck supple. Skin: General: Skin is warm and dry. Capillary Refill: Capillary refill takes less than 2 seconds. Neurological: General: No focal deficit present. Mental Status: She is alert and oriented to person, place, and time. Mental status is at baseline. Psychiatric: Attention and Perception: Attention and perception normal. Mood and Affect: Mood and affect normal. Speech: Speech normal. Behavior: Behavior normal. Behavior is cooperative. Thought Content: Thought content normal. Cognition and Memory: Cognition and memory normal. Judgment: Judgment normal. ASSESSMENT/PLAN: 1. Hypertension goal BP (blood pressure) < 140/90 - ICD9: 401.9, ICD10: I10 - suboptimal control - Continue current medication(s) - Add amlodipine (Norvasc) - Encouraged dietary sodium restriction/DASH diet - Recommended regular aerobic exercise. - Recommend home blood pressure monitoring, to bring results in on next visit - Follow up in 1 month for BP recheck. - Reviewed risks of HTN and principles of treatment - Goal of BP <140/90 - Recommended no refined sugar, low refined starch, healthy oil intake (olive oil), healthy protein (fish) along the lines of the Mediterranean diet. - AMLODIPINE 5 MG TABLET Portions of this note have been entered by ancillary staff. I have reviewed and when necessary edited, so that they are an adequate record of my encounter with this patient Please note that parts of this document were created using voice recognition software and therefore may contain grammatical errors. Patient verbalizes understanding of instructions from today's visit and in agreement with treatment plan. Questions answered. Agrees to call the office if questions, concerns of issues with acute symptoms not improving or if they worsen. Return in about 4 weeks (around 08/30/2022), or if symptoms worsen or fail to improve, for recheck on new medication.. Javi Angeles APRN-JAY documented in this encounter [facility] 07-30-2022 Miscellaneous Notes Last seen [facility] [employer] 06/07/22. Next appt is 08/02/22 Patient has been identified by name and date of : Yes Requested Prescriptions Pending Prescriptions Disp Refills metoprolol succinate ER (TOPROL XL) 25 mg 24 hr tablet 90 tablet 1 Sig: Take 3 tablets by mouth once daily. lisinopril (ZESTRIL) 40 mg tablet 30 tablet 2 Sig: Take 1 tablet by mouth once daily. RX INSTRUCTIONS: Patient aware RX will be sent to pharmacy. Please call patient when complete. Zaida Cruz documented in this encounter [facility] 07-19-2022 Note HNO ID: [id number] Author: Sheldon Reinoso APRN.DRIP BOX TENDER Service: ? Author Type: Nurse Practitioner Type: Progress Notes Filed: 07/19/2022 10:51 AM Note Text: Female Pelvic Medicine AND Reconstructive Surgery Follow-Up Jerald Pan is a 87 year old female, who presents for a pessary check. History since last visit: Recently evaluated by Dr. Platt for POP. Gellhorn pessary removed at that visit and #4 ring with support pessary placed. States this pessary is helping with incontinence. C/o yellow/green vaginal discharge, no odor. States she had this discharge prior to pessary use. Using vaginal estrogen cream 3 x per week. Urinary Incontinence: yes, pessary helping Voiding Dysfunction: no Urinary Frequency: yes, every 2-3 hours Urinary Urgency: yes Prolapse Symptoms: yes Defecatory Dysfunction: no Fecal Incontinence: no Abnormal Bleeding: no Pain: no Abnormal Vaginal Discharge: yes, yellow/greenish colored discharge I have confirmed and edited as necessary, the PFSH obtained by others. Sheldon Reinoso APRN.DRIP BOX TENDER Textile Stylist offered: Patient declines. OBJECTIVE: BP 152/82 Ht 5' 4 (1.63m) Wt 142 lb (64.4kg) BMI 24.36 kg/(m2). General: Well appearing, alert, in no acute distress, well-hydrated, well nourished. Abdomen: Deferred Pelvic: Ext. Genitalia: No lesions or other abnormalities Vagina: atrophic epithelium Cervix: Normal Urethra: Caruncle #4 ring with support pessary removed, cleansed and reinserted. Speculum exam, no erosions, no abnormal discharge. 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 Plan: 1. Pessary maintenance - Discussed care and maintenance of pessary. Advised patient she does not have to learn how to insert and remove the pessary. She would prefer not to remove it. Recommend pessary cleaning every 3 months. She would like to do this with general DISTRICT LOSS PREVENTION MANAGER in [place] as the drive to see me is long. Recommend 3 month pessary check with general DISTRICT LOSS PREVENTION MANAGER, then see me in 6 months. 2. Cystocele, midline - As above #1. 3. Vaginal atrophy - Continue vaginal estrogen cream 3 x per week. 4. Urethral caruncle I spent a total of 20 minutes on the date of the service which included preparing to see the patient, [id number] patient care, completing clinical documentation, performing a medically appropriate examination, and counseling and educating the patient/family/caregiver. Sheldon Reinoso APRN.JAY [facility] 07-19-2022 Instructions Sheldon Reinoso APRN.CNP - 07/19/2022 10:44 AM EDT Follow-up with general DISTRICT LOSS PREVENTION MANAGER in 3 months for a pessary check. Follow-up with Sheldon in 6 months. documented in this encounter [facility] 07-19-2022 History of Present illness Narrative Female Pelvic Medicine & Reconstructive Surgery Follow-Up Jerald Pan is a 87 year old female, who presents for a pessary check. History since last visit: Recently evaluated by Dr. Platt for POP. Gellhorn pessary removed at that visit and #4 ring with support pessary placed. States this pessary is helping with incontinence. C/o yellow/green vaginal discharge, no odor. States she had this discharge prior to pessary use. Using vaginal estrogen cream 3 x per week. Urinary Incontinence: yes, pessary helping Voiding Dysfunction: no Urinary Frequency: yes, every 2-3 hours Urinary Urgency: yes Prolapse Symptoms: yes Defecatory Dysfunction: no Fecal Incontinence: no Abnormal Bleeding: no Pain: no Abnormal Vaginal Discharge: yes, yellow/greenish colored discharge I have confirmed and edited as necessary, the PFSH obtained by others. Sheldon Reinoso APRN.DRIP BOX TENDER Textile Stylist offered: Patient declines. OBJECTIVE: BP 152/82 Ht 5' 4 (1.63m) Wt 142 lb (64.4kg) BMI 24.36 kg/(m^2). General: Well appearing, alert, in no acute distress, well-hydrated, well nourished. Abdomen: Deferred Pelvic: Ext. Genitalia: No lesions or other abnormalities Vagina: atrophic epithelium Cervix: Normal Urethra: Caruncle #4 ring with support pessary removed, cleansed and reinserted. Speculum exam, no erosions, no abnormal discharge. 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 Plan: 1. Pessary maintenance - Discussed care and maintenance of pessary. Advised patient she does not have to learn how to insert and remove the pessary. She would prefer not to remove it. Recommend pessary cleaning every 3 months. She would like to do this with general DISTRICT LOSS PREVENTION MANAGER in [place] as the drive to see me is long. Recommend 3 month pessary check with general DISTRICT LOSS PREVENTION MANAGER, then see me in 6 months. 2. Cystocele, midline - As above #1. 3. Vaginal atrophy - Continue vaginal estrogen cream 3 x per week. 4. Urethral caruncle I spent a total of 20 minutes on the date of the service which included preparing to see the patient, [id number] patient care, completing clinical documentation, performing a medically appropriate examination, and counseling and educating the patient/family/caregiver. Sheldon Reinoso APRN.DRIP BOX TENDER documented in this encounter [facility] 07-02-2022 Note HNO ID: [id number] Author: Edita Platt MD Service: ? Author Type: Physician Type: Progress Notes Filed: 07/02/2022 2:27 PM Note Text: NEW PATIENT CONSULTATION / HISTORY AND PHYSICAL Referred By: Self - New [facility] patient *Consult to Female Urology/Uro Gynecology placed by Petra Rizzo MD on 05/24/2022. ======= == MYRNA with Petra Rizzo MD on 06/03/2022 ASSESSMENT AND PLAN: Encounter Diagnosis ICD-10-CM 1. 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 Encounter for fitting and adjustment of pessary Z46.89 3. Only 1 attempted pessary was made. Patient felt that it was very comfortable. She denies feeling any pressure in the rectum or in the vaginal area. She cannot feel the knob when sitting. She was given the time to really walk around the room ambulate Valsalva and did not report any discomfort. We discussed risks of a pessary including infection and vaginal ulcerations. She understands that she will need to come to the office for removal cleaning and replacement of the pessary. We discussed that given her history of C. difficile and long-term use of vancomycin we will do this at 8-week intervals. But I will see her back in 4 weeks to make sure she is doing well with it. Discussed if she is unable to urinate or have a bowel movement she is to come back again. ======= == HPI Jerald Pan is a 87 year old woman who presents with complaints of vaginal prolapse and urge urinary incontinence. She reports symptoms present for 6 month(s). Symptoms show no change. She has been treated for this condition. Treatment consisted of pessary fitting . She has been fitted for a Gellhorn pessary, reports the pessary slips down daily; but when it does stay in place, the pessary does help with her prolapse. Urinary function: She reports occasional urinary frequency and urgency. She reports incontinence. She denies leak with cough or sneeze. She reports leak with urgency or positional movement (like when she stands up from sitting). She voids 4-6 times per day and 0-1 times per night. She does not use any pads per day. She reports bladder emptying with normal flow and complete emptying most of the time . UTI frequency: She reports 0 UTIs in the past year. Has had 1 UTI in the past. She denies dysuria and hematuria. Prolapse symptoms / Sexual function: She reports vaginal bulging, present since November 2021. She is not sexually and does not plan to be in the future. She does not experience dyspareunia due to lack of intercourse. She does not endorse vaginal dryness. Has not been prescribed vaginal estrogen in the past, but has taken pills for dryness. She is menopausal. No previous hysterectomy. Bowel function: She denies any bowel problem. She has history of C. diff 2-3 times in the past. Other medical history: MEDICATIONS: No vaginal estrogen. PREVIOUS SURGERIES: - No h/o pelvic surgery. - 2020: Right total knee replacement. PAST MEDICAL HISTORY Diagnosis Date Benign microscopic hematuria Follows with Dr. Lee Benign neoplasm of colon Carpal tunnel syndrome 11/01/2006 Clostridium difficile diarrhea 09/21/2020 Disorder of bone and cartilage, unspecified Diverticulitis of colon (without mention of hemorrhage)(562.11) Diverticulosis of colon (without mention of hemorrhage) Esophageal reflux Essential hypertension, benign Family history of malignant neoplasm of gastrointestinal tract Foot injury torn tendon right great toe (lateral) causing medial toe deviation Osteoarthrosis, unspecified whether generalized or localized, unspecified site Painful tongue Tongu sensitivity--evaluated by ENT (Kami) and dentist Pure hypercholesterolemia Tinnitus PAST SURGICAL HISTORY Procedure Laterality Date ARTHRP KNE CONDYLEANDPLATU MEDIALANDLAT COMPARTMENTS Left 12/03/2019 Knee replacement, total COLONOSCOPY FLX DX W/COLLJ SPEC WHEN PFRMD , , 09/16, 08/18 Colonoscopy COLONOSCOPY FLX DX W/COLLJ SPEC WHEN PFRMD 10/12/2007 COLONOSCOPY FLX DX W/COLLJ SPEC WHEN PFRMD 10/16/2012 Colonoscopy LIG/TRNSXJ FLP TUBE ABDL/VAG APPR UNI/BI 12/11/1975 PAST SURGICAL HISTORY OF 1995 LEFT FOOT SURGERY, ORIF (plate and 6 screws) PAST SURGICAL HISTORY OF 05/26/2012 surgery right ankle (2 screw and 4 katrin) PAST SURGICAL HISTORY OF 04/30/2012 right foot great toe PAST SURGICAL HISTORY OF 03/28/2017 basil cell skin graft off nose REMV CATARACT EXTRACAP,INSERT LENS Right 04/22/2020 REMV CATARACT EXTRACAP,INSERT LENS Left 05/2020 TONSILLECTOMY AND ADENOIDECTOMY TOTAL KNEE REPLACEMENT Right 09/09/2020 FAMILY HISTORY Problem Relation Age of Onset Colon Cancer Father FROM THIS. Hypertension Mother Heart Mother CONGESTIVE HEART FAILURE Social History Tobacco Use Smoking status: (more content not included)... [facility] 07-02-2022 History of Present illness Narrative NEW PATIENT CONSULTATION / HISTORY & PHYSICAL Referred By: Self - New [facility] patient *Consult to Female Urology/Uro Gynecology placed by Petra Rizzo MD on 05/24/2022. ========= MYRNA with Petra Rizzo MD on 06/03/2022 ASSESSMENT AND PLAN: Encounter Diagnosis ICD-10-CM 1. 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 Encounter for fitting and adjustment of pessary Z46.89 3. Only 1 attempted pessary was made. Patient felt that it was very comfortable. She denies feeling any pressure in the rectum or in the vaginal area. She cannot feel the knob when sitting. She was given the time to really walk around the room ambulate Valsalva and did not report any discomfort. We discussed risks of a pessary including infection and vaginal ulcerations. She understands that she will need to come to the office for removal cleaning and replacement of the pessary. We discussed that given her history of C. difficile and long-term use of vancomycin we will do this at 8-week intervals. But I will see her back in 4 weeks to make sure she is doing well with it. Discussed if she is unable to urinate or have a bowel movement she is to come back again. ========= HPI Jerald Pan is a 87 year old woman who presents with complaints of vaginal prolapse and urge urinary incontinence. She reports symptoms present for 6 month(s). Symptoms show no change. She has been treated for this condition. Treatment consisted of pessary fitting . She has been fitted for a Gellhorn pessary, reports the pessary slips down daily; but when it does stay in place, the pessary does help with her prolapse. Urinary function: She reports occasional urinary frequency and urgency. She reports incontinence. She denies leak with cough or sneeze. She reports leak with urgency or positional movement (like when she stands up from sitting). She voids 4-6 times per day and 0-1 times per night. She does not use any pads per day. She reports bladder emptying with normal flow and complete emptying most of the time . UTI frequency: She reports 0 UTIs in the past year. Has had 1 UTI in the past. She denies dysuria and hematuria. Prolapse symptoms / Sexual function: She reports vaginal bulging, present since November 2021. She is not sexually and does not plan to be in the future. She does not experience dyspareunia due to lack of intercourse. She does not endorse vaginal dryness. Has not been prescribed vaginal estrogen in the past, but has taken pills for dryness. She is menopausal. No previous hysterectomy. Bowel function: She denies any bowel problem. She has history of C. diff 2-3 times in the past. Other medical history: MEDICATIONS: No vaginal estrogen. PREVIOUS SURGERIES: - No h/o pelvic surgery. - 2020: Right total knee replacement. PAST MEDICAL HISTORY Diagnosis Date Benign microscopic hematuria Follows with Dr. Lee Benign neoplasm of colon Carpal tunnel syndrome 11/01/2006 Clostridium difficile diarrhea 09/21/2020 Disorder of bone and cartilage, unspecified Diverticulitis of colon (without mention of hemorrhage)(562.11) Diverticulosis of colon (without mention of hemorrhage) Esophageal reflux Essential hypertension, benign Family history of malignant neoplasm of gastrointestinal tract Foot injury torn tendon right great toe (lateral) causing medial toe deviation Osteoarthrosis, unspecified whether generalized or localized, unspecified site Painful tongue Tongu sensitivity--evaluated by ENT (Kami) and dentist Pure hypercholesterolemia Tinnitus PAST SURGICAL HISTORY Procedure Laterality Date ARTHRP KNE CONDYLE&PLATU MEDIAL&LAT COMPARTMENTS Left 12/03/2019 Knee replacement, total COLONOSCOPY FLX DX W/COLLJ SPEC WHEN PFRMD , , 09/16, 08/18 Colonoscopy COLONOSCOPY FLX DX W/COLLJ SPEC WHEN PFRMD 10/12/2007 COLONOSCOPY FLX DX W/COLLJ SPEC WHEN PFRMD 10/16/2012 Colonoscopy LIG/TRNSXJ FLP TUBE ABDL/VAG APPR UNI/BI 12/11/1975 PAST SURGICAL HISTORY OF 1995 LEFT FOOT SURGERY, ORIF (plate and 6 screws) PAST SURGICAL HISTORY OF 05/26/2012 surgery right ankle (2 screw and 4 katrin) PAST SURGICAL HISTORY OF 04/30/2012 right foot great toe PAST SURGICAL HISTORY OF 03/28/2017 basil cell skin graft off nose REMV CATARACT EXTRACAP,INSERT LENS Right 04/22/2020 REMV CATARACT EXTRACAP,INSERT LENS Left 05/2020 TONSILLECTOMY & ADENOIDECTOMY <AGE 14 TOTAL KNEE REPLACEMENT Right 09/09/2020 FAMILY HISTORY Problem Relation Age of Onset Colon Cancer Father FROM THIS. Hypertension Mother Heart Mother CONGESTIVE HEART FAILURE Social History Tobacco Use Smoking status: Never Smokeless tobacco: Never Vaping Use Vaping Use: Never used Substance Use Topics Alcohol use: Yes Comment: occasional Drug use: No OB History T2 L2 SAB0 IAB0 Ectopic0 Multiple0 Live Births0 Comment: May have had a miscarriage before her firstborn. Current Outpatient Medications Medication Sig hydroCHLOROthiazide (HYDRODIURIL, ESIDRIX) 25 mg tablet Take 1 tablet by mouth once daily. Pt states she is taking 1/2 a tab of the 25 mg metoprolol succinate ER (TOPROL XL) 25 mg 24 hr tablet Take 3 tablets by mouth once daily. lisinopril (ZESTRIL, PRINIVIL) 40 mg tablet Take 1 tablet by mouth once daily. alendronate (FOSAMAX) 70 mg tablet Take 1 tablet by mouth one time a week. Take with a full glass of water, on an empty stomach; do NOT lie down for 30minutes. simvastatin (ZOCOR) 20 mg tablet Take 1 tablet by mouth daily at bedtime. vancomycin (VANCOCIN HCL) 125 mg capsule Take 1 capsule by mouth twice daily. 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 (after finished the 1000 IU capsules taking 2 daily) clindamycin (CLEOCIN) 300 mg capsule Take two capsules by mouth one hour prior to dental appointment. TYLENOL EXTRA STRENGTH 500 MG ORAL TAB every 8 hours as needed for pain TUMS ULTRA 1,000 MG ORAL CHEW NEEDED FOR HEARTBURN/INDIGESTION VITAMIN C 500 MG ORAL TAB Take one(1) tablet daily. No current facility-administered medications for this visit. ALLERGIES Allergen Reactions Antibiotic [Neomy-B* Diarrhea unable to take antibiotics due to bout of c-diff Amoxicillin Diarrhea, GI Upset Neomycin Rash Reaction on arm when treated with neosporin and bandaid; resolved after stopped Neosporin and used bacitracin instead Telithromycin Diarrhea, GI Upset REVIEW OF SYSTEMS Review of Systems Constitutional: Negative for appetite change, fatigue and fever. HENT: Negative for hearing loss, sore throat and trouble swallowing. Eyes: Negative for visual disturbance. Respiratory: Negative for cough, shortness of breath and wheezing. Cardiovascular: Negative for chest pain, palpitations and leg swelling. Gastrointestinal: Negative for abdominal pain, constipation, diarrhea, nausea and vomiting. Endocrine: Negative for cold intolerance and heat intolerance. Genitourinary: Negative for difficulty urinating, frequency and hematuria. Musculoskeletal: Negative for back pain, joint swelling and neck pain. Skin: Negative for rash. Allergic/Immunologic: Negative for environmental allergies. Neurological: Negative for tremors, syncope, weakness, numbness and headaches. Hematological: Does not bruise/bleed easily. Psychiatric/Behavioral: Negative for dysphoric mood. The patient is not nervous/anxious. PHYSICAL EXAM BP 140/80 Ht 162.6 cm (5' 4 ) Wt 64.9 kg (143 lb) BMI 24.55 kg/m Post Void Residual: Done, by ultrasound yielded 3 ml. COLOR UA (POCT) Date Value Ref Range Status 07/02/2022 Yellow Final CLARITY UA (POCT) Date Value Ref Range Status 07/02/2022 Clear Final GLUCOSE UA (POCT) Date Value Ref Range Status 07/02/2022 Negative Negative mg/dL Final BILIRUBIN UA (POCT) Date Value Ref Range Status 07/02/2022 Negative Negative Final KETONE UA (POCT) Date Value Ref Range Status 07/02/2022 Negative Negative mg/dL Final HEMOGLOBIN/BLOOD UA (POCT) Date Value Ref Range Status 07/02/2022 Trace-lysed (A) Negative Final PH UA (POCT) Date Value Ref Range Status 07/02/2022 7.5 4.5 - 8.0 Final PROTEIN UA (POCT) Date Value Ref Range Status 07/02/2022 Negative Negative mg/dL Final UROBILINOGEN UA (POCT) Date Value Ref Range Status 07/02/2022 0.2 Normal E.U./dL Final NITRITE UA (POCT) Date Value Ref Range Status 07/02/2022 Negative Negative Final LEUKOCYTES UA (POCT) Date Value Ref Range Status 07/02/2022 Large (A) Negative Final Constitutional: Alert, cooperative, no distress, well nourished. She is active and appears younger than her age Abdomen: Soft, NT, ND, +BS Back: No CVAT Extremities: No edema or cyanosis Integumentary: No rashes or lesions Genitourinary: Sensation: S1, S2: normal sensation Sacral reflex: +anal reflex and +bulbocavernosus Vulva: no lesions Urethra: fixed Cough Stress test: negative Cervix: present and non-tender, no CMT Vagina: normal Skenes and Bartholins glands, atrophy moderate, granulation tissue absent Uterus: non-tender, mobile, normal-sized, retroflexed uterus Adnexa: no masses palpable and nontender Pessary Maintenance: Gellhorn pessary is in place. The pessary was taken out and was cleaned. Vagina was examined with a speculum. No lesions or abrasions were noted. A POP-Q Exam was then performed. See exam below. Pessary fitting Gelhorn pessary removed She was fitted with a Pessary ring with support size #4. Noted comfort, fit was good without explusion with squatting and Valsalva POP-Q Exam Date 07/02/2022: 0 Aa +1.5 Ba -4 C 3 gh 3.5 pb 7.5 tvl 0 Ap 0 Bp -5.5 D Assessment and Plan: 1. Cystocele, midline; Prolapse of anterior vaginal wall - Discussed nature and etiology of pelvic organ prolapse. - Gellhorn prolapse is failing to manage symptoms. This was removed today. No lesions or abrasions were noted during today's physical exam. - Pessary ring with support size #4 was fitted and inserted today. Noted comfort, fit was good. - Follow up in 2-3 weeks with Sheldon Reinoso APRN.CNP. - US MSR POST-VOID RESID URINE - UA DIP B/O 2. Urge urinary incontinence - PVR = 3 mL. Today's UA DIP: +leuk (large), hemoglobin (trace-lysed) - Discussed treatment options including: behavioral therapy, bladder retraining with physical therapy, medications, intravesical botox, and neuromodulation. - Patient is interested in PFPT. - CONSULT TO PHYSICAL THERAPY 3. Vaginal atrophy - Moderate atrophy noted during today's exam. - Start vaginal estrogen: Apply 0.5 g (a blueberry sized amount) vaginally, 3x week, at bedtime. - ESTRADIOL 0.01% (0.1 MG/GRAM) VAGINAL CREAM Questions were answered to her satisfaction. She will follow up with Sheldon Reinoso APRN.CNP in 2-4 weeks. Medical Decision Making: Problems: Moderate: 2+ stable chronic illnesses Data: Unique source(s) for external note(s) reviewed: 1 Unique test result(s) reviewed: 2 Unique test(s) ordered: 2 Risk: Low: Low risk from testing/treatment Medical Decision Making Level: 4 - Moderate Consultation requested by Petra Rizzo MD for an opinion regarding complete uterovaginal prolapse. My final recommendations will be communicated back to the requesting physician by way of shared Medical record or letter to requesting physician via US mail. Scribe Attestation: - By signing my name below, I, Lorena Gillespie, attest that this documentation has been prepared under the direction and in the presence of Dr. Edita Platt MD. Electronically signed, Hi Samaniego July 02, 2022 11:41 AM PROVIDER ATTESTATION: I agree with the Chief Complaint, ROS, and Past Histories independently gathered by the clinical therapeutic support staff and the remaining scribed note accurately describes my personal service to the patient. 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 documented in this encounter [facility] 07-01-2022 Note HNO ID: [id number] Author: Petra Rizzo MD Service: ? Author Type: Physician Type: Progress Notes Filed: 07/01/2022 11:48 AM Note Text: Textile Stylist offered: Patient declines. Jerald Pan is a 87 year old female who presents for pessary maintenance. Patient had pessary fitting 1 month ago and a 2-1/4 inch Gellhorn with a longstem was placed. Patient reports that the pessary is comfortable however she does notice that she has to push the knob up several times per day. She states that the pessary just shifts down periodically. Patient denies any foul odors, discharge, itching or burning. She denies any vaginal bleeding. She states she does have an appointment with urogynecology tomorrow for possible surgical intervention. Patient offers no other concerns at this time. OB History T2 L2 SAB0 IAB0 Ectopic0 Multiple0 Live Births0 Comment: May have had a miscarriage before her firstborn. 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 Lee Benign neoplasm of colon Carpal tunnel syndrome 11/01/2006 Clostridium difficile diarrhea 09/21/2020 Disorder of bone and cartilage, unspecified Diverticulitis of colon (without mention of hemorrhage)(562.11) Diverticulosis of colon (without mention of hemorrhage) Esophageal reflux Essential hypertension, benign Family history of malignant neoplasm of gastrointestinal tract Foot injury torn tendon right great toe (lateral) causing medial toe deviation Osteoarthrosis, unspecified whether generalized or localized, unspecified site Painful tongue Tongu sensitivity--evaluated by ENT (Kami) and dentist Pure hypercholesterolemia Tinnitus PAST SURGICAL HISTORY Procedure Laterality Date ARTHRP KNE CONDYLEANDPLATU MEDIALANDLAT COMPARTMENTS Left 12/03/2019 Knee replacement, total COLONOSCOPY FLX DX W/COLLJ SPEC WHEN PFRMD , , 09/16, 08/18 Colonoscopy COLONOSCOPY FLX DX W/COLLJ SPEC WHEN PFRMD 10/12/2007 COLONOSCOPY FLX DX W/COLLJ SPEC WHEN PFRMD 10/16/2012 Colonoscopy LIG/TRNSXJ FLP TUBE ABDL/VAG APPR UNI/BI 12/11/1975 PAST SURGICAL HISTORY OF 1995 LEFT FOOT SURGERY, ORIF (plate and 6 screws) PAST SURGICAL HISTORY OF 05/26/2012 surgery right ankle (2 screw and 4 katrin) PAST SURGICAL HISTORY OF 04/30/2012 right foot great toe PAST SURGICAL HISTORY OF 03/28/2017 basil cell skin graft off nose REMV CATARACT EXTRACAP,INSERT LENS Right 04/22/2020 REMV CATARACT EXTRACAP,INSERT LENS Left 05/2020 TONSILLECTOMY AND ADENOIDECTOMY TOTAL KNEE REPLACEMENT Right 09/09/2020 FAMILY HISTORY Problem Relation Age of Onset Colon Cancer Father FROM THIS. Hypertension Mother Heart Mother CONGESTIVE HEART FAILURE Social History Tobacco Use Smoking status: Never Smokeless tobacco: Never Vaping Use Vaping Use: Never used Substance Use Topics Alcohol use: Yes Comment: occasional Drug use: No Current Outpatient Medications Medication Sig hydroCHLOROthiazide (HYDRODIURIL, ESIDRIX) 25 mg tablet Take 1 tablet by mouth once daily. Pt states she is taking 1/2 a tab of the 25 mg metoprolol succinate ER (TOPROL XL) 25 mg 24 hr tablet Take 3 tablets by mouth once daily. lisinopril (ZESTRIL, PRINIVIL) 40 mg tablet Take 1 tablet by mouth once daily. alendronate (FOSAMAX) 70 mg tablet Take 1 tablet by mouth one time a week. Take with a full glass of water, on an empty stomach; do NOT lie down for 30minutes. simvastatin (ZOCOR) 20 mg tablet Take 1 tablet by mouth daily at bedtime. vancomycin (VANCOCIN HCL) 125 mg capsule Take 1 capsule by mouth twice daily. 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 (after finished the 1000 IU capsules taking 2 daily) clindamycin (CLEOCIN) 300 mg capsule Take two capsules by mouth one hour prior to dental appointment. TYLENOL EXTRA STRENGTH 500 MG ORAL TAB every 8 hours as needed for pain TUMS ULTRA 1,000 MG ORAL CHEW NEEDED FOR HEARTBURN/INDIGESTION VITAMIN C 500 MG ORAL TAB Take one(1) tablet daily. No current facility-administered medications for this visit. Allergies As of Date: 07/01/2022 Allergen Noted Reaction ANTIBIOTIC [[id number]*11/26/2021 Diarrhea AMOXICILLIN 12/31/2004 Diarrhea and GI Upset NEOMYCIN 04/24/2010 Rash TELITHROMYCIN 12/31/2004 Diarrhea and GI Upset Fully Assessed 07/01/2022 REVIEW OF SYSTEMS Abdomen: no pain Bladder: no dysuria . Expanded ROS: GENERAL: Negative for fever Allergies and current medication updated:Yes EXAM: BP 160/76 Wt 143 lb 12.8 oz (65.2kg) GENERAL: pleasant, female in no apparent distress HEENT: Normocephalic and atra (more content not included)... [facility] 07-01-2022 History of Present illness Narrative Textile Stylist offered: Patient declines. Jerald Pan is a 87 year old female who presents for pessary maintenance. Patient had pessary fitting 1 month ago and a 2-1/4 inch Gellhorn with a longstem was placed. Patient reports that the pessary is comfortable however she does notice that she has to push the knob up several times per day. She states that the pessary just shifts down periodically. Patient denies any foul odors, discharge, itching or burning. She denies any vaginal bleeding. She states she does have an appointment with urogynecology tomorrow for possible surgical intervention. Patient offers no other concerns at this time. OB History T2 L2 SAB0 IAB0 Ectopic0 Multiple0 Live Births0 Comment: May have had a miscarriage before her firstborn. 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 Lee Benign neoplasm of colon Carpal tunnel syndrome 11/01/2006 Clostridium difficile diarrhea 09/21/2020 Disorder of bone and cartilage, unspecified Diverticulitis of colon (without mention of hemorrhage)(562.11) Diverticulosis of colon (without mention of hemorrhage) Esophageal reflux Essential hypertension, benign Family history of malignant neoplasm of gastrointestinal tract Foot injury torn tendon right great toe (lateral) causing medial toe deviation Osteoarthrosis, unspecified whether generalized or localized, unspecified site Painful tongue Tongu sensitivity--evaluated by ENT (Kami) and dentist Pure hypercholesterolemia Tinnitus PAST SURGICAL HISTORY Procedure Laterality Date ARTHRP KNE CONDYLE&PLATU MEDIAL&LAT COMPARTMENTS Left 12/03/2019 Knee replacement, total COLONOSCOPY FLX DX W/COLLJ SPEC WHEN PFRMD , , 09/16, 08/18 Colonoscopy COLONOSCOPY FLX DX W/COLLJ SPEC WHEN PFRMD 10/12/2007 COLONOSCOPY FLX DX W/COLLJ SPEC WHEN PFRMD 10/16/2012 Colonoscopy LIG/TRNSXJ FLP TUBE ABDL/VAG APPR UNI/BI 12/11/1975 PAST SURGICAL HISTORY OF 1995 LEFT FOOT SURGERY, ORIF (plate and 6 screws) PAST SURGICAL HISTORY OF 05/26/2012 surgery right ankle (2 screw and 4 katrin) PAST SURGICAL HISTORY OF 04/30/2012 right foot great toe PAST SURGICAL HISTORY OF 03/28/2017 basil cell skin graft off nose REMV CATARACT EXTRACAP,INSERT LENS Right 04/22/2020 REMV CATARACT EXTRACAP,INSERT LENS Left 05/2020 TONSILLECTOMY & ADENOIDECTOMY <AGE 14 TOTAL KNEE REPLACEMENT Right 09/09/2020 FAMILY HISTORY Problem Relation Age of Onset Colon Cancer Father FROM THIS. Hypertension Mother Heart Mother CONGESTIVE HEART FAILURE Social History Tobacco Use Smoking status: Never Smokeless tobacco: Never Vaping Use Vaping Use: Never used Substance Use Topics Alcohol use: Yes Comment: occasional Drug use: No Current Outpatient Medications Medication Sig hydroCHLOROthiazide (HYDRODIURIL, ESIDRIX) 25 mg tablet Take 1 tablet by mouth once daily. Pt states she is taking 1/2 a tab of the 25 mg metoprolol succinate ER (TOPROL XL) 25 mg 24 hr tablet Take 3 tablets by mouth once daily. lisinopril (ZESTRIL, PRINIVIL) 40 mg tablet Take 1 tablet by mouth once daily. alendronate (FOSAMAX) 70 mg tablet Take 1 tablet by mouth one time a week. Take with a full glass of water, on an empty stomach; do NOT lie down for 30minutes. simvastatin (ZOCOR) 20 mg tablet Take 1 tablet by mouth daily at bedtime. vancomycin (VANCOCIN HCL) 125 mg capsule Take 1 capsule by mouth twice daily. 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 (after finished the 1000 IU capsules taking 2 daily) clindamycin (CLEOCIN) 300 mg capsule Take two capsules by mouth one hour prior to dental appointment. TYLENOL EXTRA STRENGTH 500 MG ORAL TAB every 8 hours as needed for pain TUMS ULTRA 1,000 MG ORAL CHEW NEEDED FOR HEARTBURN/INDIGESTION VITAMIN C 500 MG ORAL TAB Take one(1) tablet daily. No current facility-administered medications for this visit. Allergies As of Date: 07/01/2022 Allergen Noted Reaction ANTIBIOTIC [[id number]*11/26/2021 Diarrhea AMOXICILLIN 12/31/2004 Diarrhea and GI Upset NEOMYCIN 04/24/2010 Rash TELITHROMYCIN 12/31/2004 Diarrhea and GI Upset Fully Assessed 07/01/2022 REVIEW OF SYSTEMS Abdomen: no pain Bladder: no dysuria . Expanded ROS: GENERAL: Negative for fever Allergies and current medication updated:Yes EXAM: BP 160/76 Wt 143 lb 12.8 oz (65.2kg) GENERAL: pleasant, female in no apparent distress HEENT: Normocephalic and atraumatic NECK: full range of motion DERMATOLOGY: Normal, without lesions, non-icteric, and non-hirsute PELVIC: Pessary was removed without difficulty. Normal discharge appreciated. The pessary was cleaned and coated with Trimo-Khan. Speculum exam performed there were no lesions, no ulcerations, normal discharge. The pessary was then replaced without difficulty. Patient stated comfort. NEURO: alert and oriented x3,exam grossly non-focal EXTREMITIES: normal ASSESSMENT AND PLAN: Encounter Diagnosis ICD-10-CM 1. Female genital prolapse, unspecified type N81.9 2. Pessary maintenance Z46.89 3. I do not feel that putting a larger pessary would be ideal for this patient as I do feel that the 2-/ is adequate. We may consider switching to a short knob pessary. Patient is seeing urogyn tomorrow so we will wait for final recommendations and if patient decides to proceed with surgical intervention. Patient agrees with plan. She states she is not too bothered with the knob and having to push it up. 4. I will see the patient back in 8 weeks if she decides to maintain the pessary. Otherwise she will follow-up with urogynecology for surgical intervention. I spent a total of 20 minutes on the date of the service which included preparing to see the patient, [id number] patient care, completing clinical documentation, obtaining and/or reviewing separately obtained history, performing a medically appropriate examination, and counseling and educating the patient/family/caregiver Medical Decision Making: Medical Decision Making Level: 1 - N/A Petra Bowman MD documented in this encounter [facility] 06-07-2022 Note HNO ID: [id number] Author: Javi Angeles APRN.DRIP BOX TENDER Service: ? Author Type: Nurse Practitioner Type: Progress Notes Filed: 06/07/2022 1:55 PM Note Text: SUBJECTIVE Jerald Pan is a 87 year old female here today for a check up on her medical problems. Chief Complaint Patient presents with: Blood Pressure HPI Jerald is a 87 year old female who presents for follow-up for hypertension. They are here today for a recheck of blood pressure. Blood pressure appears to still be elevated but improving. Denies any symptoms referable to elevated blood pressure. Specifically denies headache, chest pain, palpitations, dyspnea and peripheral edema. Tolerating medications well. does check BP's away from this office with average BP's in the 140's / 70's range. she watches her diet for sodium, low fat and low cholesterol. most of the time. Her medications were reviewed today and her list is now up to date. Medications Current Outpatient Medications Medication Sig hydroCHLOROthiazide (HYDRODIURIL, ESIDRIX) 25 mg tablet Take 1 tablet by mouth once daily. Pt states she is taking 1/2 a tab of the 25 mg lisinopril (ZESTRIL, PRINIVIL) 40 mg tablet Take 1 tablet by mouth once daily. alendronate (FOSAMAX) 70 mg tablet Take 1 tablet by mouth one time a week. Take with a full glass of water, on an empty stomach; do NOT lie down for 30minutes. simvastatin (ZOCOR) 20 mg tablet Take 1 tablet by mouth daily at bedtime. vancomycin (VANCOCIN HCL) 125 mg capsule Take 1 capsule by mouth twice daily. 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 (after finished the 1000 IU capsules taking 2 daily) clindamycin (CLEOCIN) 300 mg capsule Take two capsules by mouth one hour prior to dental appointment. TYLENOL EXTRA STRENGTH 500 MG ORAL TAB every 8 hours as needed for pain TUMS ULTRA 1,000 MG ORAL CHEW NEEDED FOR HEARTBURN/INDIGESTION VITAMIN C 500 MG ORAL TAB Take one(1) tablet daily. metoprolol succinate ER (TOPROL XL) 25 mg 24 hr tablet Take 3 tablets by mouth once daily. No current facility-administered medications for this visit. ALLERGIES Allergen Reactions Antibiotic [Neomy-B* Diarrhea unable to take antibiotics due to bout of c-diff Amoxicillin Diarrhea, GI Upset Neomycin Rash Reaction on arm when treated with neosporin and bandaid; resolved after stopped Neosporin and used bacitracin instead Telithromycin Diarrhea, GI Upset ACTIVE PROBLEM LIST Secondary Hyperparathyroidism, Non-Renal (Hcc) - 02/03/2022 Vitamin D Deficiency - 02/03/2022 Age-Related Osteoporosis Without Current Pathological Fracture - 02/03/2022 Cystocele With Prolapse - 02/03/2022 Nocturia - 06/04/2021 Rosacea - 06/04/2021 Osteopenia - 06/04/2021 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/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 - 09/01/2020 Scc (Squamous Cell Carcinoma) - 12/03/2019 Bilateral Carotid Artery Stenosis - 12/03/2019 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/2019 Ocular Migraine - 03/19/2017 Painful Tongue Comment: Tongu sensitivity--evaluated by ENT (Kami) and dentist Generalized Osteoarthrosis, Unspecified Site - 04/23/2008 Chronic Rhinitis - 01/11/2006 FAMILY HX COLON CANCER - 01/11/2006 Disorder of Bone and Cartilage - 07/06/2005 Hyperlipidemia - 07/06/2005 Hypertension Goal Bp (Blood Pressure) < 140/90 - 04/02/2005 Personal History of Colonic Polyps - 01/01/2005 Comment: Colonoscopy 12 October 2007 Repeat in five years Social History Tobacco Use Smoking status: Never Smokeless tobacco: Never Vaping Use Vaping Use: Never used Substance Use Topics Alcohol use: Yes Comment: occasional Drug use: No Review of Systems Constitutional: Negative for fatigue. Eyes: Negative for visual disturbance. Respiratory: Negative for cough, chest tightness and shortness of breath. Cardiovascular: Negative for chest pain, palpitations and leg swelling. Musculoskeletal: Negative for back pain. Neurological: Negative for dizziness and headaches. Psychiatric/Behavioral: Negative for confusion. OBJECTIVE BP 144/62 Pulse 76 Wt 140 lb (63.5kg) SpO2 98% Physical Exam Vitals and nursing note reviewed. Constitutional: General: She is not in acute distress. Appearance: She is not ill-appearing, toxic-appearing or diaphoretic. HENT: Head: Normocephalic. Neck: Trachea: Trachea normal. Cardiovascular: Rate and Rhythm: Normal rate and regular rhythm. Heart sounds: Normal heart sounds. No murmur heard. Pulmonary: Effort: Pulmonary effort is normal. Breath sounds: Normal breath sounds. Musculoskeletal: General: Normal range of motion. Skin: General: Skin is warm and dry. Capillary Refill: Capillary refill takes less than 2 seconds. Neurological: General: No focal deficit present. Mental Status: She is alert and oriented to person, place, and (more content not included)... [facility] 06-07-2022 Instructions Javi Angeles APRN.CNP - 06/07/2022 12:03 PM EST Increase metoprolol to 2 tablets at bedtime and continue to take the 1 tablet in the morning (this means you get a total of 75 mg through the day). documented in this encounter [facility] 06-07-2022 History of Present illness Narrative SUBJECTIVE Jerald Pan is a 87 year old female here today for a check up on her medical problems. Chief Complaint Patient presents with: Blood Pressure HPI Jerald is a 87 year old female who presents for follow-up for hypertension. They are here today for a recheck of blood pressure. Blood pressure appears to still be elevated but improving. Denies any symptoms referable to elevated blood pressure. Specifically denies headache, chest pain, palpitations, dyspnea and peripheral edema. Tolerating medications well. does check BP's away from this office with average BP's in the 140's / 70's range. she watches her diet for sodium, low fat and low cholesterol. most of the time. Her medications were reviewed today and her list is now up to date. Medications Current Outpatient Medications Medication Sig hydroCHLOROthiazide (HYDRODIURIL, ESIDRIX) 25 mg tablet Take 1 tablet by mouth once daily. Pt states she is taking 1/2 a tab of the 25 mg lisinopril (ZESTRIL, PRINIVIL) 40 mg tablet Take 1 tablet by mouth once daily. alendronate (FOSAMAX) 70 mg tablet Take 1 tablet by mouth one time a week. Take with a full glass of water, on an empty stomach; do NOT lie down for 30minutes. simvastatin (ZOCOR) 20 mg tablet Take 1 tablet by mouth daily at bedtime. vancomycin (VANCOCIN HCL) 125 mg capsule Take 1 capsule by mouth twice daily. 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 (after finished the 1000 IU capsules taking 2 daily) clindamycin (CLEOCIN) 300 mg capsule Take two capsules by mouth one hour prior to dental appointment. TYLENOL EXTRA STRENGTH 500 MG ORAL TAB every 8 hours as needed for pain TUMS ULTRA 1,000 MG ORAL CHEW NEEDED FOR HEARTBURN/INDIGESTION VITAMIN C 500 MG ORAL TAB Take one(1) tablet daily. metoprolol succinate ER (TOPROL XL) 25 mg 24 hr tablet Take 3 tablets by mouth once daily. No current facility-administered medications for this visit. ALLERGIES Allergen Reactions Antibiotic [Neomy-B* Diarrhea unable to take antibiotics due to bout of c-diff Amoxicillin Diarrhea, GI Upset Neomycin Rash Reaction on arm when treated with neosporin and bandaid; resolved after stopped Neosporin and used bacitracin instead Telithromycin Diarrhea, GI Upset ACTIVE PROBLEM LIST Secondary Hyperparathyroidism, Non-Renal (Hcc) - 02/03/2022 Vitamin D Deficiency - 02/03/2022 Age-Related Osteoporosis Without Current Pathological Fracture - 02/03/2022 Cystocele With Prolapse - 02/03/2022 Nocturia - 06/04/2021 Rosacea - 06/04/2021 Osteopenia - 06/04/2021 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/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 - 09/01/2020 Scc (Squamous Cell Carcinoma) - 12/03/2019 Bilateral Carotid Artery Stenosis - 12/03/2019 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/2019 Ocular Migraine - 03/19/2017 Painful Tongue Comment: Angie sensitivity--evaluated by ENT (Kami) and dentist Generalized Osteoarthrosis, Unspecified Site - 04/23/2008 Chronic Rhinitis - 01/11/2006 FAMILY HX COLON CANCER - 01/11/2006 Disorder of Bone and Cartilage - 07/06/2005 Hyperlipidemia - 07/06/2005 Hypertension Goal Bp (Blood Pressure) < 140/90 - 04/02/2005 Personal History of Colonic Polyps - 01/01/2005 Comment: Colonoscopy 12 October 2007 Repeat in five years Social History Tobacco Use Smoking status: Never Smokeless tobacco: Never Vaping Use Vaping Use: Never used Substance Use Topics Alcohol use: Yes Comment: occasional Drug use: No Review of Systems Constitutional: Negative for fatigue. Eyes: Negative for visual disturbance. Respiratory: Negative for cough, chest tightness and shortness of breath. Cardiovascular: Negative for chest pain, palpitations and leg swelling. Musculoskeletal: Negative for back pain. Neurological: Negative for dizziness and headaches. Psychiatric/Behavioral: Negative for confusion. OBJECTIVE BP 144/62 Pulse 76 Wt 140 lb (63.5kg) SpO2 98% Physical Exam Vitals and nursing note reviewed. Constitutional: General: She is not in acute distress. Appearance: She is not ill-appearing, toxic-appearing or diaphoretic. HENT: Head: Normocephalic. Neck: Trachea: Trachea normal. Cardiovascular: Rate and Rhythm: Normal rate and regular rhythm. Heart sounds: Normal heart sounds. No murmur heard. Pulmonary: Effort: Pulmonary effort is normal. Breath sounds: Normal breath sounds. Musculoskeletal: General: Normal range of motion. Skin: General: Skin is warm and dry. Capillary Refill: Capillary refill takes less than 2 seconds. Neurological: General: No focal deficit present. Mental Status: She is alert and oriented to person, place, and time. Mental status is at baseline. Psychiatric: Mood and Affect: Mood normal. Behavior: Behavior normal. Thought Content: Thought content normal. Judgment: Judgment normal. ASSESSMENT/PLAN: 1. Hypertension goal BP (blood pressure) < 140/90 - ICD9: 401.9, ICD10: I10 - suboptimal control - Continue current medication(s) - Increase metoprolol (Lopressor/Toprol) - Encouraged dietary sodium restriction/DASH diet - Recommended regular aerobic exercise. - Recommend home blood pressure monitoring, to bring results in on next visit - Discussed need and benefit for weight loss. - Reviewed risks of HTN and principles of treatment - Goal of BP <140/90 Medical Decision Making: Problems: Low: Stable chronic illness Risk: Moderate: Drug management Medical Decision Making Level: 3 - Low Portions of this note have been entered by ancillary staff. I have reviewed and when necessary edited, so that they are an adequate record of my encounter with this patient Please note that parts of this document were created using voice recognition software and therefore may contain grammatical errors. Patient verbalizes understanding of instructions from today's visit and in agreement with treatment plan. Questions answered. Agrees to call the office if questions, concerns of issues with acute symptoms not improving or if they worsen. See diagnoses and orders for additional plan(s). Allergies and medications were reviewed, list was updated, and refills given if needed. Past medical, surgical, social, and family history reviewed and updated as appropriate. Encouraged proper diet & exercise as well as compliance with taking medications. Age-appropriate health preventative measures were discussed. Return in about 8 weeks (around 08/02/2022) for recheck blood pressure. Javi Angeles APRN-JAY documented in this encounter [facility] 06-03-2022 Note HNO ID: [id number] Author: Petra Rizzo MD Service: ? Author Type: Physician Type: Progress Notes Filed: 06/03/2022 10:05 AM Note Text: Textile Stylist offered: Patient declines. Jerald Pan is a 87 year old female who presents for pessary fitting. Patient has uterovaginal prolapse that is bothersome on a daily basis. She states she does have to push the tissue back inside at times. Denies any bleeding, discharge, odors. Patient would like to proceed with pessary today and then still consider surgical management. OB History T2 L2 SAB0 IAB0 Ectopic0 Multiple0 Live Births0 Comment: May have had a miscarriage before her firstborn. 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 Lee Benign neoplasm of colon Carpal tunnel syndrome 11/01/2006 Clostridium difficile diarrhea 09/21/2020 Disorder of bone and cartilage, unspecified Diverticulitis of colon (without mention of hemorrhage)(562.11) Diverticulosis of colon (without mention of hemorrhage) Esophageal reflux Essential hypertension, benign Family history of malignant neoplasm of gastrointestinal tract Foot injury torn tendon right great toe (lateral) causing medial toe deviation Osteoarthrosis, unspecified whether generalized or localized, unspecified site Painful tongue Tongu sensitivity--evaluated by ENT (Kami) and dentist Pure hypercholesterolemia Tinnitus PAST SURGICAL HISTORY Procedure Laterality Date ARTHRP KNE CONDYLEANDPLATU MEDIALANDLAT COMPARTMENTS Left 12/03/2019 Knee replacement, total COLONOSCOPY FLX DX W/COLLJ SPEC WHEN PFRMD , , 09/16, 08/18 Colonoscopy COLONOSCOPY FLX DX W/COLLJ SPEC WHEN PFRMD 10/12/2007 COLONOSCOPY FLX DX W/COLLJ SPEC WHEN PFRMD 10/16/2012 Colonoscopy LIG/TRNSXJ FLP TUBE ABDL/VAG APPR UNI/BI 12/11/1975 PAST SURGICAL HISTORY OF 1995 LEFT FOOT SURGERY, ORIF (plate and 6 screws) PAST SURGICAL HISTORY OF 05/26/2012 surgery right ankle (2 screw and 4 katrin) PAST SURGICAL HISTORY OF 04/30/2012 right foot great toe PAST SURGICAL HISTORY OF 03/28/2017 basil cell skin graft off nose REMV CATARACT EXTRACAP,INSERT LENS Right 04/22/2020 REMV CATARACT EXTRACAP,INSERT LENS Left 05/2020 TONSILLECTOMY AND ADENOIDECTOMY TOTAL KNEE REPLACEMENT Right 09/09/2020 FAMILY HISTORY Problem Relation Age of Onset Colon Cancer Father FROM THIS. Hypertension Mother Heart Mother CONGESTIVE HEART FAILURE Social History Tobacco Use Smoking status: Never Smokeless tobacco: Never Vaping Use Vaping Use: Never used Substance Use Topics Alcohol use: Yes Comment: occasional Drug use: No Current Outpatient Medications Medication Sig lisinopril (ZESTRIL, PRINIVIL) 40 mg tablet Take 1 tablet by mouth once daily. metoprolol succinate ER (TOPROL XL) 25 mg 24 hr tablet Take 2 tablets by mouth twice daily. hydroCHLOROthiazide (HYDRODIURIL, ESIDRIX) 25 mg tablet Take 1 tablet by mouth once daily. alendronate (FOSAMAX) 70 mg tablet Take 1 tablet by mouth one time a week. Take with a full glass of water, on an empty stomach; do NOT lie down for 30minutes. simvastatin (ZOCOR) 20 mg tablet Take 1 tablet by mouth daily at bedtime. vancomycin (VANCOCIN HCL) 125 mg capsule Take 1 capsule by mouth twice daily. 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 (after finished the 1000 IU capsules taking 2 daily) clindamycin (CLEOCIN) 300 mg capsule Take two capsules by mouth one hour prior to dental appointment. TYLENOL EXTRA STRENGTH 500 MG ORAL TAB every 8 hours as needed for pain TUMS ULTRA 1,000 MG ORAL CHEW NEEDED FOR HEARTBURN/INDIGESTION VITAMIN C 500 MG ORAL TAB Take one(1) tablet daily. No current facility-administered medications for this visit. Allergies As of Date: 06/03/2022 Allergen Noted Reaction ANTIBIOTIC [[id number]*11/26/2021 Diarrhea AMOXICILLIN 12/31/2004 Diarrhea and GI Upset NEOMYCIN 04/24/2010 Rash TELITHROMYCIN 12/31/2004 Diarrhea and GI Upset Fully Assessed 05/20/2022 REVIEW OF SYSTEMS Abdomen: no pain Bladder: no dysuria . Expanded ROS: GENERAL: Negative for fever Allergies and current medication updated:Yes EXAM: BP 136/76 Wt 142 lb (64.4kg) GENERAL: pleasant, female in no apparent distress HEENT: Normocephalic and atraumatic NECK: full range of motion PELVIC: Gellhorn 2-1/4 inch was placed. Patient was able to to tolerate placement and removal without difficulty. NEURO: alert and oriented x3,exam grossly non-focal EXTREMITIES: normal ASSESSMENT AND PLAN: Encounter Diagnosis ICD-10-CM 1. Complete uterovaginal prolapse (more content not included)... [facility] 06-03-2022 History of Present illness Narrative Textile Stylist offered: Patient declines. Jerald Pan is a 87 year old female who presents for pessary fitting. Patient has uterovaginal prolapse that is bothersome on a daily basis. She states she does have to push the tissue back inside at times. Denies any bleeding, discharge, odors. Patient would like to proceed with pessary today and then still consider surgical management. OB History T2 L2 SAB0 IAB0 Ectopic0 Multiple0 Live Births0 Comment: May have had a miscarriage before her firstborn. 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 Lee Benign neoplasm of colon Carpal tunnel syndrome 11/01/2006 Clostridium difficile diarrhea 09/21/2020 Disorder of bone and cartilage, unspecified Diverticulitis of colon (without mention of hemorrhage)(562.11) Diverticulosis of colon (without mention of hemorrhage) Esophageal reflux Essential hypertension, benign Family history of malignant neoplasm of gastrointestinal tract Foot injury torn tendon right great toe (lateral) causing medial toe deviation Osteoarthrosis, unspecified whether generalized or localized, unspecified site Painful tongue Tongu sensitivity--evaluated by ENT (Kami) and dentist Pure hypercholesterolemia Tinnitus PAST SURGICAL HISTORY Procedure Laterality Date ARTHRP KNE CONDYLE&PLATU MEDIAL&LAT COMPARTMENTS Left 12/03/2019 Knee replacement, total COLONOSCOPY FLX DX W/COLLJ SPEC WHEN PFRMD , , 09/16, 08/18 Colonoscopy COLONOSCOPY FLX DX W/COLLJ SPEC WHEN PFRMD 10/12/2007 COLONOSCOPY FLX DX W/COLLJ SPEC WHEN PFRMD 10/16/2012 Colonoscopy LIG/TRNSXJ FLP TUBE ABDL/VAG APPR UNI/BI 12/11/1975 PAST SURGICAL HISTORY OF 1995 LEFT FOOT SURGERY, ORIF (plate and 6 screws) PAST SURGICAL HISTORY OF 05/26/2012 surgery right ankle (2 screw and 4 katrin) PAST SURGICAL HISTORY OF 04/30/2012 right foot great toe PAST SURGICAL HISTORY OF 03/28/2017 basil cell skin graft off nose REMV CATARACT EXTRACAP,INSERT LENS Right 04/22/2020 REMV CATARACT EXTRACAP,INSERT LENS Left 05/2020 TONSILLECTOMY & ADENOIDECTOMY <AGE 14 TOTAL KNEE REPLACEMENT Right 09/09/2020 FAMILY HISTORY Problem Relation Age of Onset Colon Cancer Father FROM THIS. Hypertension Mother Heart Mother CONGESTIVE HEART FAILURE Social History Tobacco Use Smoking status: Never Smokeless tobacco: Never Vaping Use Vaping Use: Never used Substance Use Topics Alcohol use: Yes Comment: occasional Drug use: No Current Outpatient Medications Medication Sig lisinopril (ZESTRIL, PRINIVIL) 40 mg tablet Take 1 tablet by mouth once daily. metoprolol succinate ER (TOPROL XL) 25 mg 24 hr tablet Take 2 tablets by mouth twice daily. hydroCHLOROthiazide (HYDRODIURIL, ESIDRIX) 25 mg tablet Take 1 tablet by mouth once daily. alendronate (FOSAMAX) 70 mg tablet Take 1 tablet by mouth one time a week. Take with a full glass of water, on an empty stomach; do NOT lie down for 30minutes. simvastatin (ZOCOR) 20 mg tablet Take 1 tablet by mouth daily at bedtime. vancomycin (VANCOCIN HCL) 125 mg capsule Take 1 capsule by mouth twice daily. 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 (after finished the 1000 IU capsules taking 2 daily) clindamycin (CLEOCIN) 300 mg capsule Take two capsules by mouth one hour prior to dental appointment. TYLENOL EXTRA STRENGTH 500 MG ORAL TAB every 8 hours as needed for pain TUMS ULTRA 1,000 MG ORAL CHEW NEEDED FOR HEARTBURN/INDIGESTION VITAMIN C 500 MG ORAL TAB Take one(1) tablet daily. No current facility-administered medications for this visit. Allergies As of Date: 06/03/2022 Allergen Noted Reaction ANTIBIOTIC [[id number]*11/26/2021 Diarrhea AMOXICILLIN 12/31/2004 Diarrhea and GI Upset NEOMYCIN 04/24/2010 Rash TELITHROMYCIN 12/31/2004 Diarrhea and GI Upset Fully Assessed 05/20/2022 REVIEW OF SYSTEMS Abdomen: no pain Bladder: no dysuria . Expanded ROS: GENERAL: Negative for fever Allergies and current medication updated:Yes EXAM: BP 136/76 Wt 142 lb (64.4kg) GENERAL: pleasant, female in no apparent distress HEENT: Normocephalic and atraumatic NECK: full range of motion PELVIC: Gellhorn 2-1/4 inch was placed. Patient was able to to tolerate placement and removal without difficulty. NEURO: alert and oriented x3,exam grossly non-focal EXTREMITIES: normal ASSESSMENT AND PLAN: Encounter Diagnosis ICD-10-CM 1. 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 Encounter for fitting and adjustment of pessary Z46.89 3. Only 1 attempted pessary was made. Patient felt that it was very comfortable. She denies feeling any pressure in the rectum or in the vaginal area. She cannot feel the knob when sitting. She was given the time to really walk around the room ambulate Valsalva and did not report any discomfort. We discussed risks of a pessary including infection and vaginal ulcerations. She understands that she will need to come to the office for removal cleaning and replacement of the pessary. We discussed that given her history of C. difficile and long-term use of vancomycin we will do this at 8-week intervals. But I will see her back in 4 weeks to make sure she is doing well with it. Discussed if she is unable to urinate or have a bowel movement she is to come back again. Medical Decision Making: Medical Decision Making Level: 1 - N/A Petra Bowman MD documented in this encounter [facility] 05-21-2022 Miscellaneous Notes 1st attempt, no answer, left voicemail to R/S for Vargas on for 11:30am. Jody Álvarez documented in this encounter [facility] 05-21-2022 Miscellaneous Notes May 24, 2022 PID: [id number] Jerald Pan [address] [place] [address] Dear Ms. Pan, We are pleased to inform you that the results of your recent breast imaging exam on 05/20/2022 are normal. Early detection of cancer is very important. We also understand recommendations regarding breast cancer screening are controversial. Please discuss with your primary care provider which strategy is best for you and whether a mammogram is right for you. Your imaging studies and report will be kept on file at [facility] as part of your permanent medical record and are available for your continuing care. Thank you for allowing us to help in meeting your health care needs. Sincerely, Dr. Rivera Interpreting Radiologist [facility] (Normal over 40) documented in this encounter [facility] 05-20-2022 Note HNO ID: [id number] Author: RT Katt(R) Service: ? Author Type: Technologist Type: Progress Notes Filed: 05/20/2022 12:39 PM Note Text: Radiology Service Progress Note PATIENT NAME: Jerald Pan DATE OF SERVICE: May 20, 2022 TIME: 12:38 PM PATIENT IDENTITY VERIFICATION COMPLETED USING TWO (2) IDENTIFIERS: Name and Date of confirmed by patient verbally. FALL SCREENING: Has the patient had 2 falls in the last year or 1 fall with injury or currently using an Ambulatory Assistive Device (Walker, Cane, Wheelchair, Crutches, etc.)? No PATIENT GENDER DATA: Female. status: : No status: NO. PATIENT RELEVANT IMPLANT DATA REVIEWED: Not Applicable RADIOLOGY DEPARTMENT: Mammography PERIPHERAL IV DATA: Not applicable SIGNED BY: RT Katt(R) May 20, 2022 12:38 PM [facility] 05-20-2022 Note HNO ID: [id number] Author: Petra Rizzo MD Service: ? Author Type: Physician Type: Progress Notes Filed: 05/20/2022 12:02 PM Note Text: Jerald is a 87 year old who presents for an annual gynecologic exam with complaints, prolapse . Had previously discussed on 12/09/21. Since then has become more bothersome, with some trouble urinating primarily at the end of the day. Becomes more swollen with increased activity. Denies pain and difficulty with bowel movements. Denies bleeding, abnormal discharge, or odor. Postmenopausal: Yes since early 50's HRT use: No Last Pap: 11/22/2008 normal HPV: 10/15/2005 negative History of abnormal pap: No Last mammogram: 2022 Awaiting results History of abnormal mammogram: No Sexually active: No History of STDS: None Hot flashes: No Night sweats: No Vaginal dryness: No OB History T2 L2 SAB0 IAB0 Ectopic0 Multiple0 Live Births0 Comment: May have had a miscarriage before her firstborn. 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 Lee Benign neoplasm of colon Carpal tunnel syndrome 11/01/2006 Clostridium difficile diarrhea 09/21/2020 Disorder of bone and cartilage, unspecified Diverticulitis of colon (without mention of hemorrhage)(562.11) Diverticulosis of colon (without mention of hemorrhage) Esophageal reflux Essential hypertension, benign Family history of malignant neoplasm of gastrointestinal tract Foot injury torn tendon right great toe (lateral) causing medial toe deviation Osteoarthrosis, unspecified whether generalized or localized, unspecified site Painful tongue Tongu sensitivity--evaluated by ENT (Kami) and dentist Pure hypercholesterolemia Tinnitus PAST SURGICAL HISTORY Procedure Laterality Date ARTHRP KNE CONDYLEANDPLATU MEDIALANDLAT COMPARTMENTS Left 12/03/2019 Knee replacement, total COLONOSCOPY FLX DX W/COLLJ SPEC WHEN PFRMD , , 09/16, 08/18 Colonoscopy COLONOSCOPY FLX DX W/COLLJ SPEC WHEN PFRMD 10/12/2007 COLONOSCOPY FLX DX W/COLLJ SPEC WHEN PFRMD 10/16/2012 Colonoscopy LIG/TRNSXJ FLP TUBE ABDL/VAG APPR UNI/BI 12/11/1975 PAST SURGICAL HISTORY OF 1995 LEFT FOOT SURGERY, ORIF (plate and 6 screws) PAST SURGICAL HISTORY OF 05/26/2012 surgery right ankle (2 screw and 4 katrin) PAST SURGICAL HISTORY OF 04/30/2012 right foot great toe PAST SURGICAL HISTORY OF 03/28/2017 basil cell skin graft off nose REMV CATARACT EXTRACAP,INSERT LENS Right 04/22/2020 REMV CATARACT EXTRACAP,INSERT LENS Left 05/2020 TONSILLECTOMY AND ADENOIDECTOMY TOTAL KNEE REPLACEMENT Right 09/09/2020 FAMILY HISTORY Problem Relation Age of Onset Colon Cancer Father FROM THIS. Hypertension Mother Heart Mother CONGESTIVE HEART FAILURE SOCIAL HISTORY Social History Tobacco Use Smoking status: Never Smokeless tobacco: Never Vaping Use Vaping Use: Never used Substance Use Topics Alcohol use: Yes Comment: occasional Drug use: No REVIEW OF SYSTEMS Abdomen: No abdominal pain, nausea, vomiting, diarrhea, or constipation. No bloating, early satiety, indigestion, or increased flatulence. Bladder: No dysuria, gross hematuria, urinary frequency, urinary urgency, or incontinence Breast: No breast lumps, nipple d/c, overlying skin changes, redness or skin retraction Allergies and current medication updated:Yes EXAM: BP 170/80 Ht 5' 3.386 (1.61m) Wt 141 lb (64.0kg) BMI 24.67 kg/(m2). GENERAL: pleasant, female in no apparent distress HEENT: Normocephalic, atraumatic, mucus membranes moist, and no lesions NECK: Supple, full range of motion, no adenopathy, and thyroid normal DERMATOLOGY: Normal, without lesions, non-icteric, and non-hirsute BREAST: soft, non-tender, symmetric, no dominant mass, normal nipple-areolar complex, no lymphadenopathy, and no nipple discharge ABDOMEN: soft, non-tender, and no masses PELVIC: external genitalia normal, normal Bartholin's glands, urethra, Courtdale's glands, no vulvar lesions, no cervical lesions, physiologic discharge present, normal appearing perineal body and perianal region, cystocele 2nd degree, rectocele 1st degree, cervical prolapse 3rd degree BIMANUAL: uterus normal size, shape and consistency, no adnexal masses, and non-tender RECTOVAGINAL: deferred. NEURO: alert and oriented x3,exam grossly non-focal EXTREMITIES: normal ASSESSMENT/PLAN: 1) Health maintenance: Pap/HPV screening no longer needed Mammogram ordered Mammogram up to date Nutrition, exercise and routine health maintenance exams reviewed. Calcium/Vitamin D supplementation information provided. BMD: up to date 2) Follow up one year or sooner as needed 3) Pessary vs surgical (more content not included)... [facility] 05-20-2022 History of Present illness Narrative Radiology Service Progress Note PATIENT NAME: Jerald Pan DATE OF SERVICE: May 20, 2022 TIME: 12:38 PM PATIENT IDENTITY VERIFICATION COMPLETED USING TWO (2) IDENTIFIERS: Name and Date of confirmed by patient verbally. FALL SCREENING: Has the patient had 2 falls in the last year or 1 fall with injury or currently using an Ambulatory Assistive Device (Walker, Cane, Wheelchair, Crutches, etc.)? No PATIENT GENDER DATA: Female. status: : No status: NO. PATIENT RELEVANT IMPLANT DATA REVIEWED: Not Applicable RADIOLOGY DEPARTMENT: Mammography PERIPHERAL IV DATA: Not applicable SIGNED BY: RT Katt(R) May 20, 2022 12:38 PM documented in this encounter [facility] 05-20-2022 History of Present illness Narrative Jerald is a 87 year old who presents for an annual gynecologic exam with complaints, prolapse . Had previously discussed on 12/09/21. Since then has become more bothersome, with some trouble urinating primarily at the end of the day. Becomes more swollen with increased activity. Denies pain and difficulty with bowel movements. Denies bleeding, abnormal discharge, or odor. Postmenopausal: Yes since early s HRT use: No Last Pap: 11/22/2008 normal HPV: 10/15/2005 negative History of abnormal pap: No Last mammogram: 2022 Awaiting results History of abnormal mammogram: No Sexually active: No History of STDS: None Hot flashes: No Night sweats: No Vaginal dryness: No OB History T2 L2 SAB0 IAB0 Ectopic0 Multiple0 Live Births0 Comment: May have had a miscarriage before her firstborn. 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 Lee Benign neoplasm of colon Carpal tunnel syndrome 11/01/2006 Clostridium difficile diarrhea 09/21/2020 Disorder of bone and cartilage, unspecified Diverticulitis of colon (without mention of hemorrhage)(562.11) Diverticulosis of colon (without mention of hemorrhage) Esophageal reflux Essential hypertension, benign Family history of malignant neoplasm of gastrointestinal tract Foot injury torn tendon right great toe (lateral) causing medial toe deviation Osteoarthrosis, unspecified whether generalized or localized, unspecified site Painful tongue Tongu sensitivity--evaluated by ENT (Kami) and dentist Pure hypercholesterolemia Tinnitus PAST SURGICAL HISTORY Procedure Laterality Date ARTHRP KNE CONDYLE&PLATU MEDIAL&LAT COMPARTMENTS Left 12/03/2019 Knee replacement, total COLONOSCOPY FLX DX W/COLLJ SPEC WHEN PFRMD , , 09/16, 08/18 Colonoscopy COLONOSCOPY FLX DX W/COLLJ SPEC WHEN PFRMD 10/12/2007 COLONOSCOPY FLX DX W/COLLJ SPEC WHEN PFRMD 10/16/2012 Colonoscopy LIG/TRNSXJ FLP TUBE ABDL/VAG APPR UNI/BI 12/11/1975 PAST SURGICAL HISTORY OF 1995 LEFT FOOT SURGERY, ORIF (plate and 6 screws) PAST SURGICAL HISTORY OF 05/26/2012 surgery right ankle (2 screw and 4 katrin) PAST SURGICAL HISTORY OF 04/30/2012 right foot great toe PAST SURGICAL HISTORY OF 03/28/2017 basil cell skin graft off nose REMV CATARACT EXTRACAP,INSERT LENS Right 04/22/2020 REMV CATARACT EXTRACAP,INSERT LENS Left 05/2020 TONSILLECTOMY & ADENOIDECTOMY <AGE 14 TOTAL KNEE REPLACEMENT Right 09/09/2020 FAMILY HISTORY Problem Relation Age of Onset Colon Cancer Father FROM THIS. Hypertension Mother Heart Mother CONGESTIVE HEART FAILURE SOCIAL HISTORY Social History Tobacco Use Smoking status: Never Smokeless tobacco: Never Vaping Use Vaping Use: Never used Substance Use Topics Alcohol use: Yes Comment: occasional Drug use: No REVIEW OF SYSTEMS Abdomen: No abdominal pain, nausea, vomiting, diarrhea, or constipation. No bloating, early satiety, indigestion, or increased flatulence. Bladder: No dysuria, gross hematuria, urinary frequency, urinary urgency, or incontinence Breast: No breast lumps, nipple d/c, overlying skin changes, redness or skin retraction Allergies and current medication updated:Yes EXAM: BP 170/80 Ht 5' 3.386 (1.61m) Wt 141 lb (64.0kg) BMI 24.67 kg/(m^2). GENERAL: pleasant, female in no apparent distress HEENT: Normocephalic, atraumatic, mucus membranes moist, and no lesions NECK: Supple, full range of motion, no adenopathy, and thyroid normal DERMATOLOGY: Normal, without lesions, non-icteric, and non-hirsute BREAST: soft, non-tender, symmetric, no dominant mass, normal nipple-areolar complex, no lymphadenopathy, and no nipple discharge ABDOMEN: soft, non-tender, and no masses PELVIC: external genitalia normal, normal Bartholin's glands, urethra, Courtdale's glands, no vulvar lesions, no cervical lesions, physiologic discharge present, normal appearing perineal body and perianal region, cystocele 2nd degree, rectocele 1st degree, cervical prolapse 3rd degree BIMANUAL: uterus normal size, shape and consistency, no adnexal masses, and non-tender RECTOVAGINAL: deferred. NEURO: alert and oriented x3,exam grossly non-focal EXTREMITIES: normal ASSESSMENT/PLAN: 1) Health maintenance: Pap/HPV screening no longer needed Mammogram ordered Mammogram up to date Nutrition, exercise and routine health maintenance exams reviewed. Calcium/Vitamin D supplementation information provided. 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 documented in this encounter [facility] 05-05-2022 Note HNO ID: [id number] Author: Javi Angeles APRN.DRIP BOX TENDER Service: ? Author Type: Nurse Practitioner Type: Progress Notes Filed: 05/05/2022 11:11 AM Note Text: SUBJECTIVE Jerald Pan is a 87 year old female here today for a check up on her medical problems. Chief Complaint Patient presents with: Blood Pressure: follow up PRIMITIVO Marques is a 87 year old female established patient of Dr. Goldman who presents for follow-up for hypertension. They are here today for a 1 month recheck of blood pressure. Issues with this being high since February with the holidays. Blood pressure appears to be elevated today. At her last visits she had her lisinopril dose increased. Denies any symptoms of headache, chest pain, palpitations, dyspnea and peripheral edema. She does have ringing in the ears. Tolerating medications well. Has been taking the total of 35 mg lisinopril most days. does check BP's away from this office with average BP's in the 160/60 range. she watches her diet for sodium, low fat and low cholesterol. most of the time. Her medications were reviewed today and her list is now up to date. She is compliant on taking her medications: Yes She is tolerating her medication(s) without side effects: Yes She is following an appropriate diet for her medical problems: Yes Medications Current Outpatient Medications Medication Sig alendronate (FOSAMAX) 70 mg tablet Take 1 tablet by mouth one time a week. Take with a full glass of water, on an empty stomach; do NOT lie down for 30minutes. simvastatin (ZOCOR) 20 mg tablet Take 1 tablet by mouth daily at bedtime. vancomycin (VANCOCIN HCL) 125 mg capsule Take 1 capsule by mouth twice daily. 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 (after finished the 1000 IU capsules taking 2 daily) clindamycin (CLEOCIN) 300 mg capsule Take two capsules by mouth one hour prior to dental appointment. TYLENOL EXTRA STRENGTH 500 MG ORAL TAB every 8 hours as needed for pain TUMS ULTRA 1,000 MG ORAL CHEW NEEDED FOR HEARTBURN/INDIGESTION VITAMIN C 500 MG ORAL TAB Take one(1) tablet daily. lisinopril (ZESTRIL, PRINIVIL) 40 mg tablet Take 1 tablet by mouth once daily. metoprolol succinate ER (TOPROL XL) 25 mg 24 hr tablet Take 2 tablets by mouth twice daily. hydroCHLOROthiazide (HYDRODIURIL, ESIDRIX) 25 mg tablet Take 1 tablet by mouth once daily. No current facility-administered medications for this visit. ALLERGIES Allergen Reactions Antibiotic [Neomy-B* Diarrhea unable to take antibiotics due to bout of c-diff Amoxicillin Diarrhea, GI Upset Neomycin Rash Reaction on arm when treated with neosporin and bandaid; resolved after stopped Neosporin and used bacitracin instead Telithromycin Diarrhea, GI Upset ACTIVE PROBLEM LIST Secondary Hyperparathyroidism, Non-Renal (Hcc) - 02/03/2022 Vitamin D Deficiency - 02/03/2022 Age-Related Osteoporosis Without Current Pathological Fracture - 02/03/2022 Cystocele With Prolapse - 02/03/2022 Nocturia - 06/04/2021 Rosacea - 06/04/2021 Osteopenia - 06/04/2021 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/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 - 09/01/2020 Scc (Squamous Cell Carcinoma) - 12/03/2019 Bilateral Carotid Artery Stenosis - 12/03/2019 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/2019 Ocular Migraine - 03/19/2017 Painful Tongue Comment: Angie sensitivity--evaluated by ENT (Kami) and dentist Generalized Osteoarthrosis, Unspecified Site - 04/23/2008 Chronic Rhinitis - 01/11/2006 FAMILY HX COLON CANCER - 01/11/2006 Disorder of Bone and Cartilage - 07/06/2005 Hyperlipidemia - 07/06/2005 Hypertension Goal Bp (Blood Pressure) < 140/90 - 04/02/2005 Personal History of Colonic Polyps - 01/01/2005 Comment: Colonoscopy 12 October 2007 Repeat in five years Social History Tobacco Use Smoking status: Never Smokeless tobacco: Never Vaping Use Vaping Use: Never used Substance Use Topics Alcohol use: Yes Comment: occasional Drug use: No Review of Systems Constitutional: Negative for fatigue. Eyes: Negative for visual disturbance. Respiratory: Negative for cough, chest tightness and shortness of breath. Cardiovascular: Negative for chest pain, palpitations and leg swelling. Musculoskeletal: Negative for back pain. Neurological: Negative for dizziness and headaches. Psychiatric/Behavioral: Negative for confusion. OBJECTIVE BP 180/70 Pulse 68 Wt 141 lb (64.0kg) SpO2 98% Physical Exam Vitals and nursing note reviewed. Constitutional: General: She is awake. She is not in acute distress. Appearance: Normal appearance. She is well-developed and well-groomed. She is not ill-appearing, toxic-appearing or diaphoretic. HENT: Head: Normocephalic. Right Ear: External ear normal. Left Ear: External ear normal. Nose: Nose normal. Eyes: General: Vision g (more content not included)... [facility] 05-05-2022 History of Present illness Narrative SUBJECTIVE Jerald Pan is a 87 year old female here today for a check up on her medical problems. Chief Complaint Patient presents with: Blood Pressure: follow up HPI Jerald is a 87 year old female established patient of Dr. Goldman who presents for follow-up for hypertension. They are here today for a 1 month recheck of blood pressure. Issues with this being high since February with the holidays. Blood pressure appears to be elevated today. At her last visits she had her lisinopril dose increased. Denies any symptoms of headache, chest pain, palpitations, dyspnea and peripheral edema. She does have ringing in the ears. Tolerating medications well. Has been taking the total of 35 mg lisinopril most days. does check BP's away from this office with average BP's in the 160/60 range. she watches her diet for sodium, low fat and low cholesterol. most of the time. Her medications were reviewed today and her list is now up to date. She is compliant on taking her medications: Yes She is tolerating her medication(s) without side effects: Yes She is following an appropriate diet for her medical problems: Yes Medications Current Outpatient Medications Medication Sig alendronate (FOSAMAX) 70 mg tablet Take 1 tablet by mouth one time a week. Take with a full glass of water, on an empty stomach; do NOT lie down for 30minutes. simvastatin (ZOCOR) 20 mg tablet Take 1 tablet by mouth daily at bedtime. vancomycin (VANCOCIN HCL) 125 mg capsule Take 1 capsule by mouth twice daily. 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 (after finished the 1000 IU capsules taking 2 daily) clindamycin (CLEOCIN) 300 mg capsule Take two capsules by mouth one hour prior to dental appointment. TYLENOL EXTRA STRENGTH 500 MG ORAL TAB every 8 hours as needed for pain TUMS ULTRA 1,000 MG ORAL CHEW NEEDED FOR HEARTBURN/INDIGESTION VITAMIN C 500 MG ORAL TAB Take one(1) tablet daily. lisinopril (ZESTRIL, PRINIVIL) 40 mg tablet Take 1 tablet by mouth once daily. metoprolol succinate ER (TOPROL XL) 25 mg 24 hr tablet Take 2 tablets by mouth twice daily. hydroCHLOROthiazide (HYDRODIURIL, ESIDRIX) 25 mg tablet Take 1 tablet by mouth once daily. No current facility-administered medications for this visit. ALLERGIES Allergen Reactions Antibiotic [Neomy-B* Diarrhea unable to take antibiotics due to bout of c-diff Amoxicillin Diarrhea, GI Upset Neomycin Rash Reaction on arm when treated with neosporin and bandaid; resolved after stopped Neosporin and used bacitracin instead Telithromycin Diarrhea, GI Upset ACTIVE PROBLEM LIST Secondary Hyperparathyroidism, Non-Renal (Hcc) - 02/03/2022 Vitamin D Deficiency - 02/03/2022 Age-Related Osteoporosis Without Current Pathological Fracture - 02/03/2022 Cystocele With Prolapse - 02/03/2022 Nocturia - 06/04/2021 Rosacea - 06/04/2021 Osteopenia - 06/04/2021 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/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 - 09/01/2020 Scc (Squamous Cell Carcinoma) - 12/03/2019 Bilateral Carotid Artery Stenosis - 12/03/2019 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/2019 Ocular Migraine - 03/19/2017 Painful Tongue Comment: Tongu sensitivity--evaluated by ENT (Kami) and dentist Generalized Osteoarthrosis, Unspecified Site - 04/23/2008 Chronic Rhinitis - 01/11/2006 FAMILY HX COLON CANCER - 01/11/2006 Disorder of Bone and Cartilage - 07/06/2005 Hyperlipidemia - 07/06/2005 Hypertension Goal Bp (Blood Pressure) < 140/90 - 04/02/2005 Personal History of Colonic Polyps - 01/01/2005 Comment: Colonoscopy 12 October 2007 Repeat in five years Social History Tobacco Use Smoking status: Never Smokeless tobacco: Never Vaping Use Vaping Use: Never used Substance Use Topics Alcohol use: Yes Comment: occasional Drug use: No Review of Systems Constitutional: Negative for fatigue. Eyes: Negative for visual disturbance. Respiratory: Negative for cough, chest tightness and shortness of breath. Cardiovascular: Negative for chest pain, palpitations and leg swelling. Musculoskeletal: Negative for back pain. Neurological: Negative for dizziness and headaches. Psychiatric/Behavioral: Negative for confusion. OBJECTIVE BP 180/70 Pulse 68 Wt 141 lb (64.0kg) SpO2 98% Physical Exam Vitals and nursing note reviewed. Constitutional: General: She is awake. She is not in acute distress. Appearance: Normal appearance. She is well-developed and well-groomed. She is not ill-appearing, toxic-appearing or diaphoretic. HENT: Head: Normocephalic. Right Ear: External ear normal. Left Ear: External ear normal. Nose: Nose normal. Eyes: General: Vision grossly intact. Conjunctiva/sclera: Conjunctivae normal. Pupils: Pupils are equal, round, and reactive to light. Neck: Vascular: No JVD. Trachea: Trachea normal. Cardiovascular: Rate and Rhythm: Normal rate and regular rhythm. Pulses: Normal pulses. Heart sounds: Normal heart sounds. No murmur heard. Pulmonary: Effort: Pulmonary effort is normal. No accessory muscle usage, prolonged expiration or respiratory distress. Breath sounds: Normal breath sounds. Musculoskeletal: Cervical back: Neck supple. Skin: General: Skin is warm and dry. Capillary Refill: Capillary refill takes less than 2 seconds. Neurological: General: No focal deficit present. Mental Status: She is alert and oriented to person, place, and time. Mental status is at baseline. Psychiatric: Attention and Perception: Attention and perception normal. Mood and Affect: Mood and affect normal. Speech: Speech normal. Behavior: Behavior normal. Behavior is cooperative. Thought Content: Thought content normal. Cognition and Memory: Cognition and memory normal. Judgment: Judgment normal. ASSESSMENT/PLAN: 1. Hypertension goal BP (blood pressure) < 140/90 - ICD9: 401.9, ICD10: I10 - poor control - Continue current medication(s) - Increase lisinopril (Zestril/Prinivil) - Encouraged dietary sodium restriction/DASH diet - Recommended regular aerobic exercise. - Recommend home blood pressure monitoring, to bring results in on next visit - Recheck in 3 weeks, sooner should new symptoms or problems arise. - Reviewed risks of HTN and principles of treatment If still elevated plan to increase metoprolol dosing - Goal of BP <140/90 - METOPROLOL SUCCINATE ER 25 MG TABLET,EXTENDED RELEASE 24 HR - HYDROCHLOROTHIAZIDE 25 MG TABLET Portions of this note have been entered by ancillary staff. I have reviewed and when necessary edited, so that they are an adequate record of my encounter with this patient Please note that parts of this document were created using voice recognition software and therefore may contain grammatical errors. Patient verbalizes understanding of instructions from today's visit and in agreement with treatment plan. Questions answered. Agrees to call the office if questions, concerns of issues with acute symptoms not improving or if they worsen. Return in about 3 weeks (around 05/26/2022) for recheck on HTN. Javi Angeles APRN-JAY documented in this encounter [facility] 04-21-2022 Miscellaneous Notes Patient has been identified by name and date of : Yes, Raya Gant RN Date 04/21/2021 Time 11:12 am Patient phones for refill(s): Requested Prescriptions Pending Prescriptions Disp Refills alendronate (FOSAMAX) 70 mg tablet 12 tablet 3 Sig: Take 1 tablet by mouth one time a week. Take with a full glass of water, on an empty stomach; do NOT lie down for 30minutes. Date of last office visit with pcp: 04/05/2022 Future appt: 05/05/2022 Last 2 Encounter Wt Readings: Date: Wt: 04/05/2022 63.5 kg (140 lb) 02/03/2022 63 kg (139 lb) Previous labs/tests for medication: Blood Pressure: BUN (mg/dL) Date Value 01/29/2022 19 08/27/2020 20 Sodium (mmol/L) Date Value 01/29/2022 142 08/27/2020 138 Last 1 Encounter BP Readings: Date: BP: 04/05/2022 168/70 Liver Function: ALT (U/L) Date Value 01/29/2022 19 08/27/2020 14 AST (U/L) Date Value 01/29/2022 25 08/27/2020 18 Please advise. Thank you. Raya Gant RN documented in this encounter [facility] 04-05-2022 History of Present illness Narrative This note was created using [employer]. Subjective Jerald Pan is a 86 year old female. Patient presents with: Hypertension SUBJECTIVE: Jerald Pan is a 86 year old year old lady here today for BP follow up appointment for review of medical conditions. Check BPs in AM. Take BP meds in AM Noted had some BPs 170s that persisted so called in to talk to nurse. Since called in, BP down to 140 to 160s. Noted busy getting ready to go to [place]. Not sleeping well the past few nights. PAST MEDICAL HISTORY Diagnosis Date Benign microscopic hematuria Follows with Dr. Lee Benign neoplasm of colon Carpal tunnel syndrome 11/01/2006 Clostridium difficile diarrhea 09/21/2020 Disorder of bone and cartilage, unspecified Diverticulitis of colon (without mention of hemorrhage)(562.11) Diverticulosis of colon (without mention of hemorrhage) Esophageal reflux Essential hypertension, benign Family history of malignant neoplasm of gastrointestinal tract Foot injury torn tendon right great toe (lateral) causing medial toe deviation Osteoarthrosis, unspecified whether generalized or localized, unspecified site Painful tongue Tongu sensitivity--evaluated by ENT (Kami) and dentist Pure hypercholesterolemia Tinnitus Current Outpatient Medications Medication Sig lisinopril (ZESTRIL,PRINIVIL) 30 mg tablet Take 1 tablet by mouth once daily. hydroCHLOROthiazide (HYDRODIURIL, ESIDRIX) 25 mg tablet Take 1 tablet by mouth once daily. simvastatin (ZOCOR) 20 mg tablet Take 1 tablet by mouth daily at bedtime. vancomycin (VANCOCIN HCL) 125 mg capsule Take 1 capsule by mouth twice daily. Increase as dircted for recurrence of C. Diff infection metoprolol succinate ER (TOPROL XL) 25 mg 24 hr tablet Take 2 tablets by mouth twice daily. Cholecalciferol, Vitamin D3, 50 mcg (2,000 unit) cap Take 2 capsules by mouth once daily. (after finished the 1000 IU capsules taking 2 daily) clindamycin (CLEOCIN) 300 mg capsule Take two capsules by mouth one hour prior to dental appointment. alendronate (FOSAMAX) 70 mg tablet Take 1 tablet by mouth one time a week. Take with a full glass of water, on an empty stomach; do NOT lie down for 30minutes. TYLENOL EXTRA STRENGTH 500 MG ORAL TAB every 8 hours as needed for pain TUMS ULTRA 1,000 MG ORAL CHEW NEEDED FOR HEARTBURN/INDIGESTION VITAMIN C 500 MG ORAL TAB Take one(1) tablet daily. No current facility-administered medications for this visit. Review of Systems Objective BP 160/82 Pulse 65 Wt 63.5 kg (140 lb) SpO2 98% BMI 24.80 kg/m Physical Exam Constitutional: Appearance: Normal appearance. HENT: Head: Normocephalic. Eyes: Conjunctiva/sclera: Conjunctivae normal. Cardiovascular: Rate and Rhythm: Normal rate and regular rhythm. Heart sounds: Normal heart sounds. Pulmonary: Effort: Pulmonary effort is normal. Breath sounds: Normal breath sounds. Skin: General: Skin is warm and dry. Neurological: General: No focal deficit present. Mental Status: She is alert and oriented to person, place, and time. Psychiatric: Attention and Perception: Attention and perception normal. Mood and Affect: Mood and affect normal. Speech: Speech normal. Behavior: Behavior normal. Thought Content: Thought content normal. Cognition and Memory: Cognition and memory normal. Judgment: Judgment normal. Assessment and Plan ASSESSMENT/PLAN: 1. Hypertension goal BP (blood pressure) < 140/90 - ICD9: 401.9, ICD10: I10 (primary diagnosis) Improved control. Parameters of monitoring explained to patient. - Continue current medication(s) - Recommend home blood pressure monitoring, to bring results in on next visit; reviewed her log of BPs checked every morning. - Noted that BPs are improved compared to a month ago when Robert adjusted dose of lisinopril. Reviewed Robert's instructions for taking additional lisinopril 5mg daily as needed for BP >150. Okay to taking on morning when SBP high take 35 mg on this mornings instead of taking additional dose another time of day since does not check later in the day. Further evaluation and treatment as indicated. Reviewed that may see continued improvement in BPs after 1 to 2 moths from a dose adjustment. - Goal of BP <140/90 2. Insomnia, unspecified type - ICD9: 780.52, ICD10: G47.00 Noted trouble sleeping as tries to get ready to travel to [place] for [place] with family; see if improves with getting backing and packing down and gets to relax in [place] with family. Michelle Goldman MD documented in this encounter [facility] 04-04-2022 Miscellaneous Notes Noted Will address BP meds at follow up appointment on Tuesday Protocol recommends see provider in three days. Pt scheduled with Dr Goldman on Tuesday at 1040 am. Care plan reviewed with patient. Patient voices understanding. Advised patient that if symptoms get worse to be evaluated in Urgent Care or ER. Reason for Disposition Systolic BP >= 160 OR Diastolic >= 100 Answer Assessment - Initial Assessment Questions 1. BLOOD PRESSURE: Today's BP 171/66 10 min later 174/66 2. ONSET: Tooke the BP at 907 am then at 917 am. 3. HOW: Took the BP with an automatic home BP monitor,she has brought it in to make sure it was correct. 4. HISTORY: Pt has a history of high blood pressure. 5. MEDICATIONS: Pt is taking Metoprolol 25 mg BID and HCTZ 12.5 mg daily and Lisinopril 30 mg at night and 5 mg if sys >150. Pt reports she missed the Lisinopril on the . 6. OTHER SYMPTOMS: Pt denies headache, chest pain, blurred vision, difficulty breathing, and weakness. 7. : Postmenopausal Protocols used: Blood Pressure - [id number] documented in this encounter [facility] 03-23-2022 Instructions Robert Oleary APRN.ALVIN - 03/23/2022 9:08 AM EST Stop taking lisinopril 20 mg and 5 mg tablets Start taking lisinopril 30 mg once daily. If blood pressure is greater than 150/80, may take 1 additional 5mg lisinopril. Continue with metoprolol succinate and HCTZ unchanged. Let us know if any problems with the change or if any concerning symptoms. documented in this encounter [facility] 03-23-2022 History of Present illness Narrative SUBJECTIVE: There are no preventive care reminders to display for this patient. HPI Jerald Pan is a 86 year old female. 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 She reported elevated home BP readings. Returns to clinic today for follow up blood pressure. Noted home readings elevated. No associated symptoms. Notes may have had sodium indiscretion prior to BP elevation. Without report of headache, chest pain, palpitations, dyspnea, peripheral edema, orthopnea, fatigue, and PND.No noted AEs. Last 14 Encounter BP Readings: Date: BP: 03/23/2022 150/76[average bp[ 02/03/2022 156/78 01/01/2022 150/62 12/09/2021 178/62 11/26/2021 171/63[bp average[ 11/05/2021 155/72[average[ 09/25/2021 153/53 08/10/2021 122/62 07/29/2021 136/62 06/22/2021 142/64 05/15/2021 142/76 03/10/2021 146/64 10/28/2020 184/80 10/02/2020 130/55 Review of Systems Constitutional: Negative. Respiratory: Negative. Cardiovascular: Negative. Objective BP 150/76 Pulse 82 Physical Exam Vitals and nursing note reviewed. Constitutional: Appearance: Normal appearance. HENT: Head: Normocephalic and atraumatic. Eyes: Conjunctiva/sclera: Conjunctivae normal. Cardiovascular: Rate and Rhythm: Normal rate and regular rhythm. Heart sounds: Normal heart sounds. Pulmonary: Breath sounds: Normal breath sounds. Abdominal: General: Bowel sounds are normal. There is no distension. Palpations: Abdomen is soft. Tenderness: There is no abdominal tenderness. Musculoskeletal: Right lower leg: No edema. Left lower leg: No edema. Skin: General: Skin is warm and dry. Neurological: General: No focal deficit present. Mental Status: She is alert and oriented to person, place, and time. ALLERGIES Allergen Reactions Antibiotic [Neomy-B* Diarrhea unable to take antibiotics due to bout of c-diff Amoxicillin Diarrhea, GI Upset Neomycin Rash Reaction on arm when treated with neosporin and bandaid; resolved after stopped Neosporin and used bacitracin instead Telithromycin Diarrhea, GI Upset Medications hydroCHLOROthiazide (HYDRODIURIL, ESIDRIX) 25 mg tablet Take 1 tablet by mouth once daily. simvastatin (ZOCOR) 20 mg tablet Take 1 tablet by mouth daily at bedtime. vancomycin (VANCOCIN HCL) 125 mg capsule Take 1 capsule by mouth twice daily. Increase as dircted for recurrence of C. Diff infection metoprolol succinate ER (TOPROL XL) 25 mg 24 hr tablet Take 2 tablets by mouth twice daily. Cholecalciferol, Vitamin D3, 50 mcg (2,000 unit) cap Take 2 capsules by mouth once daily. (after finished the 1000 IU capsules taking 2 daily) clindamycin (CLEOCIN) 300 mg capsule Take two capsules by mouth one hour prior to dental appointment. alendronate (FOSAMAX) 70 mg tablet Take 1 tablet by mouth one time a week. Take with a full glass of water, on an empty stomach; do NOT lie down for 30minutes. TYLENOL EXTRA STRENGTH 500 MG ORAL TAB every 8 hours as needed for pain TUMS ULTRA 1,000 MG ORAL CHEW NEEDED FOR HEARTBURN/INDIGESTION VITAMIN C 500 MG ORAL TAB Take one(1) tablet daily. lisinopril (ZESTRIL,PRINIVIL) 30 mg tablet Take 1 tablet by mouth once daily. PAST MEDICAL HISTORY Diagnosis Date Benign microscopic hematuria Follows with Dr. Lee Benign neoplasm of colon Carpal tunnel syndrome 11/01/2006 Clostridium difficile diarrhea 09/21/2020 Disorder of bone and cartilage, unspecified Diverticulitis of colon (without mention of hemorrhage)(562.11) Diverticulosis of colon (without mention of hemorrhage) Esophageal reflux Essential hypertension, benign Family history of malignant neoplasm of gastrointestinal tract Foot injury torn tendon right great toe (lateral) causing medial toe deviation Osteoarthrosis, unspecified whether generalized or localized, unspecified site Painful tongue Tongu sensitivity--evaluated by ENT (Kami) and dentist Pure hypercholesterolemia Tinnitus Social History Tobacco Use Smoking status: Never Smokeless tobacco: Never Vaping Use Vaping Use: Never used Substance Use Topics Alcohol use: Yes Comment: occasional Drug use: No Component Latest Ref Rng & Units 07/25/2021 WBC 3.70 - 11.00 k/uL 6.70 RBC 3.90 - 5.20 m/uL 3.98 Hemoglobin 11.5 - 15.5 g/dL 13.4 Hematocrit 36.0 - 46.0 % 41.7 MCV 80.0 - 100.0 fL 104.8 (H) MCH 26.0 - 34.0 pg 33.7 MCHC 30.5 - 36.0 g/dL 32.1 RDW-CV 11.5 - 15.0 % 12.3 Platelet Count 150 - 400 k/uL 340 MPV 9.0 - 12.7 fL 9.0 Neut% % 64.2 Abs Neut (ANC) 1.45 - 7.50 k/uL 4.30 Lymph% % 23.9 Abs Lymph 1.00 - 4.00 k/uL 1.60 [place]% % 9.4 Abs [place] <0.87 k/uL 0.63 Eosin% % 1.8 Abs Eosin <0.46 k/uL 0.12 Baso% % 0.6 Abs Baso <0.11 k/uL 0.04 Immature Gran % % 0.1 IMMATURE GRANS (ABS) <0.10 k/uL <0.03 NRBC /100 WBC 0.0 Absolute nRBC <0.01 k/uL <0.01 DTYPE Auto Protein, Total 6.3 - 8.0 g/dL 7.1 Albumin 3.9 - 4.9 g/dL 4.1 Calcium 8.5 - 10.2 mg/dL 9.4 Bilirubin, Total 0.2 - 1.3 mg/dL 0.2 Alkaline Phosphatase 34 - 123 U/L 77 AST 13 - 35 U/L 24 ALT 7 - 38 U/L 22 Glucose 74 - 99 mg/dL 77 BUN 7 - 21 mg/dL 19 Creatinine 0.58 - 0.96 mg/dL 0.68 Sodium 136 - 144 mmol/L 142 Potassium 3.7 - 5.1 mmol/L 3.6 (L) Chloride 97 - 105 mmol/L 102 CO2 22 - 30 mmol/L 32 (H) Anion Gap 9 - 18 mmol/L 8 (L) eGFR >=60 mL/min/1.73m 86 Cholesterol, Total <200 mg/dL 160 Triglyceride <150 mg/dL 105 HDL Cholesterol >39 mg/dL 59 Non HDL Cholesterol <130 mg/dL 101 Fasting Time hrs 12 VLDL Cholesterol <30 mg/dL 21 TC:HDL Ratio <5.10 2.71 LDL Cholesterol <100 mg/dL 80 LDL:HDL Ratio <2.54 1.36 ASSESSMENT/PLAN: 1. Primary hypertension - ICD9: 401.9, ICD10: I10 Stop taking lisinopril 20 mg and 5 mg tablets Start taking lisinopril 30 mg once daily. If blood pressure is greater than 150/80, may take 1 additional 5mg lisinopril. Continue with metoprolol succinate and HCTZ unchanged. Let us know if any problems with the change or if any concerning symptoms. -Endorse dietary sodium restriction/DASH diet -Endorse regular aerobic exercise. Robert Oleary APRN.CNS Medical Decision Making: Problems: Low: Stable chronic illness Risk: Moderate: Drug management Medical Decision Making Level: 3 - Low documented in this encounter [facility] 03-22-2022 Miscellaneous Notes Pt called and is notified of providersmessage and instructions. Pt voices understanding. Sruthi Brown RN Noted. If BP elevated this evening can take one additional 5mg lisinopril tablet. ER for any severe or concerning symptoms. Patient calling yesterday about 744 pm started with blood pressure readings elevated, her ears were ringing. She uses left arm and arm cuff meter. 03/21 744 pm 188/70 pulse 77 834 pm 186/64 1032 pm 193/83 1055 pm 186/79 03/22 1212 am 187/79 725 am 190/72 807 am 157/65 817 am 126/60 Scheduled appt for 03/23 at 840 am patient will bring in her cuff to appt. documented in this encounter [facility] 02-05-2022 Miscellaneous Notes Pt called and is notified of providers results and instructions. Pt voices understanding. Sruthi Brown RN Note BP readings, appear to be improving. Continue unchanged for now. Let us know if any further problems. ER for any concerning or severe symptoms. Patient had some changes with her medication at [facility] on 02/03. She has started the new dosing but still having higher readings. Yesterday was 175/68 and 162/68. Today she has gotten 171/62, 166/67, and 153/66.She had a sharp pain on the left side of her chest that didn't last long when she got the 153/66. That is the only time she had any concerning symptom. She is going to continue monitoring and taking medication as is unless she hears different. documented in this encounter [facility] 02-03-2022 History of Present illness Narrative This note was created using [employer]. Subjective Jerald Pan is a 86 year old female. Patient presents with: F/U 6 months SUBJECTIVE: Jerald Pan is a 86 year old year old lady here today for 6 month follow up appointment for review of medical conditions. Did not take antibiotic before dental work and was fine. Normal BMs now. Vaginal prolapse with issues with bladder incontinence. Reviewed had appointment November with Dr. Dumont. At the time was not symptomatic. Was not symptomatic in November but noted that does have pain when feels like needs to urinate. Describes as a sharper sensation when when feel needs to urinate. Would be due in April for annual. Sleep still an issue. Bought melatonin 1mg. Has not tried yet. ES Tylenol has helped. Breathing exercises have helped. Sleeps at the longest 4 hours. Then awake every 1.5 to 2 hours prior. Not sure what is waking her up. Mostly nocturia then hard to fall asleep. Might turn on light and read. Sometimes sleeps in. Discussed melatonin timing. Noted was treated with liquid nitrogen right chin by Dr. Mohit Sheppard--told was cancer. Healing. Memory issues noted. Forgets what went to room for. Misplacing things. SBP still like in office. Recently SBPs was in 140s but sometimes 150s. DBP has been fine. Working on getting back to regular exercise. Decreased stamina after knee issues and C diff. Getting better with stamina. Weight is back up. Had added foods when had lost a lot of weight with C diff. Weight was 132 pounds for years. PAST MEDICAL HISTORY Diagnosis Date Benign microscopic hematuria Follows with Dr. Lee Benign neoplasm of colon Carpal tunnel syndrome 11/01/2006 Clostridium difficile diarrhea 09/21/2020 Disorder of bone and cartilage, unspecified Diverticulitis of colon (without mention of hemorrhage)(562.11) Diverticulosis of colon (without mention of hemorrhage) Esophageal reflux Essential hypertension, benign Family history of malignant neoplasm of gastrointestinal tract Foot injury torn tendon right great toe (lateral) causing medial toe deviation Osteoarthrosis, unspecified whether generalized or localized, unspecified site Painful tongue Tongu sensitivity--evaluated by ENT (Kami) and dentist Pure hypercholesterolemia Tinnitus PAST SURGICAL HISTORY Procedure Laterality Date ARTHRP KNE CONDYLE&PLATU MEDIAL&LAT COMPARTMENTS Left 12/03/2019 Knee replacement, total COLONOSCOPY FLX DX W/COLLJ SPEC WHEN PFRMD , , 09/16, 08/18 Colonoscopy COLONOSCOPY FLX DX W/COLLJ SPEC WHEN PFRMD 10/12/2007 COLONOSCOPY FLX DX W/COLLJ SPEC WHEN PFRMD 10/16/2012 Colonoscopy LIG/TRNSXJ FLP TUBE ABDL/VAG APPR UNI/BI 12/11/1975 PAST SURGICAL HISTORY OF 1995 LEFT FOOT SURGERY, ORIF (plate and 6 screws) PAST SURGICAL HISTORY OF 05/26/2012 surgery right ankle (2 screw and 4 katrin) PAST SURGICAL HISTORY OF 04/30/2012 right foot great toe PAST SURGICAL HISTORY OF 03/28/2017 basil cell skin graft off nose REMV CATARACT EXTRACAP,INSERT LENS Right 04/22/2020 REMV CATARACT EXTRACAP,INSERT LENS Left 05/2020 TONSILLECTOMY & ADENOIDECTOMY <AGE 14 TOTAL KNEE REPLACEMENT Right 09/09/2020 Current Outpatient Medications Medication Sig lisinopril (ZESTRIL, PRINIVIL) 5 mg tablet Take 1 tablet by mouth once daily. Take this in addition to 20 mg for a total of 25 mg daily. vancomycin (VANCOCIN HCL) 125 mg capsule Take 1 capsule by mouth twice daily. Increase as dircted for recurrence of C. Diff infection alendronate (FOSAMAX) 70 mg tablet Take 1 tablet by mouth one time a week. Take with a full glass of water, on an empty stomach; do NOT lie down for 30minutes. hydroCHLOROthiazide (HYDRODIURIL, ESIDRIX) 25 mg tablet Take 1 tablet by mouth once daily. lisinopril (ZESTRIL, PRINIVIL) 20 mg tablet Take 1 tablet by mouth once daily. metoprolol succinate ER (TOPROL XL) 50 mg 24 hr tablet Take 1 tablet by mouth once daily. simvastatin (ZOCOR) 20 mg tablet Take 1 tablet by mouth daily at bedtime. Cholecalciferol, Vitamin D3, 2,000 unit cap Take 1 tablet by mouth once daily. (after finished the 1000 IU capsules taking 2 daily) TYLENOL EXTRA STRENGTH 500 MG ORAL TAB every 8 hours as needed for pain TUMS ULTRA 1,000 MG ORAL CHEW NEEDED FOR HEARTBURN/INDIGESTION VITAMIN C 500 MG ORAL TAB Take one(1) tablet daily. clindamycin (CLEOCIN) 300 mg capsule Take two capsules by mouth one hour prior to dental appointment. (Patient not taking: Reported on 02/03/2022) No current facility-administered medications for this visit. Review of Systems Objective BP 156/78 Pulse 65 Wt 63 kg (139 lb) SpO2 99% BMI 24.62 kg/m Last 5 Encounter Wt Readings: Date: Wt: 02/03/2022 63 kg (139 lb) 01/01/2022 62.1 kg (137 lb) 12/09/2021 62.6 kg (138 lb) 11/26/2021 62.1 kg (137 lb) 11/05/2021 61.7 kg (136 lb) No waist measurement recorded Estimated body mass index is 24.62 kg/m as calculated from the following: Height as of 09/25/21: 160 cm (5' 3 ). Weight as of this encounter: 63 kg (139 lb). Last 5 Encounter BP Readings: Date: BP: 02/03/2022 156/78 01/01/2022 150/62 12/09/2021 178/62 11/26/2021 171/63[bp average[ 11/05/2021 155/72[average[ Last 4 Encounter Pulse Readings: Date: Pulse: 02/03/2022 65 01/01/2022 60 11/26/2021 56 11/05/2021 76 Physical Exam Constitutional: Appearance: Normal appearance. HENT: Head: Normocephalic. Eyes: Conjunctiva/sclera: Conjunctivae normal. Cardiovascular: Rate and Rhythm: Normal rate and regular rhythm. Heart sounds: Normal heart sounds. Pulmonary: Effort: Pulmonary effort is normal. Breath sounds: Normal breath sounds. Skin: General: Skin is warm and dry. Neurological: General: No focal deficit present. Mental Status: She is alert and oriented to person, place, and time. Psychiatric: Mood and Affect: Mood normal. Behavior: Behavior normal. Thought Content: Thought content normal. Judgment: Judgment normal. Assessment and Plan Encounter Diagnosis ICD-10-CM 1. Hypertension goal BP (blood pressure) < 140/90 I10 hydroCHLOROthiazide (HYDRODIURIL, ESIDRIX) 25 mg tablet lisinopril (ZESTRIL, PRINIVIL) 20 mg tablet metoprolol succinate ER (TOPROL XL) 25 mg 24 hr tablet DISCONTINUED: metoprolol succinate ER (TOPROL XL) 50 mg 24 hr tablet Fair control. Continue present management 2. Mixed hyperlipidemia E78.2 simvastatin (ZOCOR) 20 mg tablet 3. Age-related osteoporosis without current pathological fracture M81.0 4. Vitamin D deficiency E55.9 5. Secondary hyperparathyroidism, non-renal (HCC) E21.1 6. Cystocele with prolapse N81.4 ASSESSMENT/PLAN: 1. Hypertension goal BP (blood pressure) < 140/90 - ICD9: 401.9, ICD10: I10 (primary diagnosis) - suboptimal control - Continue current medication(s) - Recommended regular aerobic exercise. - Recommend home blood pressure monitoring, to bring results in on next visit - Increase lisinopril - Goal of BP <130/80 - HYDROCHLOROTHIAZIDE 25 MG TABLET - LISINOPRIL 20 MG TABLET - METOPROLOL SUCCINATE ER 50 MG TABLET,EXTENDED RELEASE 24 HR - METOPROLOL SUCCINATE ER 25 MG TABLET,EXTENDED RELEASE 24 HR 2. Mixed hyperlipidemia - ICD9: 272.2, ICD10: E78.2 - to be determined upon return of lab results - Continue current medication. - SIMVASTATIN 20 MG TABLET 3. Age-related osteoporosis without current pathological fracture - ICD9: 733.01, ICD10: M81.0 - continue tx with alendronate (Fosamax) - Reviewed the need for Calcium and Vitamin D supplements and weight bearing exercise as tolerated 4. Vitamin D deficiency - ICD9: 268.9, ICD10: E55.9 Increase dose 5. Secondary hyperparathyroidism, non-renal (HCC) - ICD9: 252.02, ICD10: E21.1 Increase Vitamin D Working on sleep issues too. Follow up with [facility] [employer] for prolapse Michelle Goldman MD documented in this encounter [facility] 01-15-2022 Miscellaneous Notes She can stay on her meds, even if she is to take antibiotics for a dental appt, Thanks Oliver Abdi MD Called and spoke to pt and explained Dr. Abdi's information above. Patient stated she has been doubling her medications (vanco/florastor) since 01/11/22. This nurse explained she needs to stop doubling her medication and just take what has been ordered. Pt verbalized understanding and Dr. Abdi has been advised. Eulalia Noland RN January 15, 2022 2:27 PM Patient has a dental appointment on Thursday 01/18. She is currently taking vanco and florastor 4 tablets each daily for recurring C-Diff. Is there anything she needs to before her denisit appointment ? Pt# [phone] documented in this encounter [facility] 12-18-2021 Miscellaneous Notes Summary: [id number] Study Title: Lynn PI: Fabián Yap MD Coordinator: Ambrose Garay Called Patient to Follow up about screening appointment. Patient was not available so I left a voicemail. Informed patient that last we spoke they were eligible and was wondering if still interested in study. Left call back instructions for patient to schedule appointment if interested. documented in this encounter [facility] 11-26-2021 Instructions Robert Oleary APRN.ALVIN - 11/26/2021 11:20 AM EDT Continue to take lisinopril 20 mg plus 5 mg daily. May take one additional lisinopril 5 mg tablet if systolic blood pressure is greater than 150 when checking at home. documented in this encounter [facility] 11-26-2021 History of Present illness Narrative SUBJECTIVE: There are no preventive care reminders to display for this patient. HPI Jerald Pan is a 86 year old female. 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 She reported diarrhea since Tuesday. Notes loose stools. No vomiting. Crampy intermittent abdominal pain. Notes abdominal pain waking her from sleep, moderately interferes with normal activity. She is s/p TKR 09/08/2020 Dr. Wilcox. Contacted his office yesterday as well with report of diarrhea and palpitations. Took two immodium yesterday. Today reports feeling shaky with activities today and previously. No palpitations, no fluttering or abnormal beats felt in her chest. She has not checked blood pressure heart rate at home. Notes home care has checked blood pressure, notes the top number was in the 120s today. Nausea: no Vomiting: no Diarrhea: She notes more frequent stools since Tuesday, currently decreasing, 3x/day loose stools today Constipation: no Abdominal pain: None now but crampy with BM/gas Fever:no BRBPR: no Black tarry: no Oral intake Fluids: maintained, gtorade Solids:crackers, toast Treatments: immodium 2 yesterday and 1 today, she stopped senokot, colace, miralax Presents today regarding blood pressure. She notes some stress with bad weather affecting her property. She notes blood pressures have been elevated at home intermittently since last here. She is without report of chest pain shortness of breath edema palpitations presyncope syncope. See telephone message yesterday. Last 14 Encounter BP Readings: Date: BP: 11/26/2021 171/63[bp average[ 11/05/2021 155/72[average[ 09/25/2021 153/53 08/10/2021 122/62 07/29/2021 136/62 06/22/2021 142/64 05/15/2021 142/76 03/10/2021 146/64 10/28/2020 184/80 10/02/2020 130/55 09/30/2020 120/66 09/26/2020 128/84 09/22/2020 124/80 09/19/2020 122/50 Review of Systems Respiratory: Negative. Cardiovascular: Negative. Objective BP 171/63 Pulse (!) 56 Resp 16 Wt 62.1 kg (137 lb) SpO2 100% BMI 24.27 kg/m Physical Exam Vitals and nursing note reviewed. Constitutional: Appearance: Normal appearance. HENT: Head: Normocephalic and atraumatic. Eyes: Conjunctiva/sclera: Conjunctivae normal. Cardiovascular: Rate and Rhythm: Normal rate and regular rhythm. Heart sounds: Normal heart sounds. Pulmonary: Breath sounds: Normal breath sounds. Abdominal: General: Bowel sounds are normal. There is no distension. Palpations: Abdomen is soft. Tenderness: There is no abdominal tenderness. Musculoskeletal: Right lower leg: No edema. Left lower leg: No edema. Skin: General: Skin is warm and dry. Neurological: General: No focal deficit present. Mental Status: She is alert and oriented to person, place, and time. ALLERGIES Allergen Reactions Antibiotic [Neomy-B* Diarrhea unable to take antibiotics due to bout of c-diff Amoxicillin Diarrhea, GI Upset Neomycin Rash Reaction on arm when treated with neosporin and bandaid; resolved after stopped Neosporin and used bacitracin instead Telithromycin Diarrhea, GI Upset Medications vancomycin (VANCOCIN HCL) 125 mg capsule Take 1 capsule by mouth twice daily. Increase as dircted for recurrence of C. Diff infection alendronate (FOSAMAX) 70 mg tablet Take 1 tablet by mouth one time a week. Take with a full glass of water, on an empty stomach; do NOT lie down for 30minutes. hydroCHLOROthiazide (HYDRODIURIL, ESIDRIX) 25 mg tablet Take 1 tablet by mouth once daily. lisinopril (ZESTRIL, PRINIVIL) 20 mg tablet Take 1 tablet by mouth once daily. metoprolol succinate ER (TOPROL XL) 50 mg 24 hr tablet Take 1 tablet by mouth once daily. simvastatin (ZOCOR) 20 mg tablet Take 1 tablet by mouth daily at bedtime. Cholecalciferol, Vitamin D3, 2,000 unit cap Take 1 tablet by mouth once daily. (after finished the 1000 IU capsules taking 2 daily) TYLENOL EXTRA STRENGTH 500 MG ORAL TAB every 8 hours as needed for pain TUMS ULTRA 1,000 MG ORAL CHEW NEEDED FOR HEARTBURN/INDIGESTION VITAMIN C 500 MG ORAL TAB Take one(1) tablet daily. lisinopril (ZESTRIL, PRINIVIL) 5 mg tablet Take 1 tablet by mouth once daily. Take this in addition to 20 mg for a total of 25 mg daily. May take one additional 5 mg tablet if systolic blood pressure is greater than 150 when checking at home clindamycin (CLEOCIN) 300 mg capsule Take two capsules by mouth one hour prior to dental appointment. PAST MEDICAL HISTORY Diagnosis Date Benign microscopic hematuria Follows with Dr. Lee Benign neoplasm of colon Carpal tunnel syndrome 11/01/2006 Clostridium difficile diarrhea 09/21/2020 Disorder of bone and cartilage, unspecified Diverticulitis of colon (without mention of hemorrhage)(562.11) Diverticulosis of colon (without mention of hemorrhage) Esophageal reflux Essential hypertension, benign Family history of malignant neoplasm of gastrointestinal tract Foot injury torn tendon right great toe (lateral) causing medial toe deviation Osteoarthrosis, unspecified whether generalized or localized, unspecified site Painful tongue Tongu sensitivity--evaluated by ENT (Kami) and dentist Pure hypercholesterolemia Tinnitus Social History Tobacco Use Smoking status: Never Smokeless tobacco: Never Vaping Use Vaping Use: Never used Substance Use Topics Alcohol use: Yes Comment: occasional Drug use: No Component Latest Ref Rng & Units 07/25/2021 WBC 3.70 - 11.00 k/uL 6.70 RBC 3.90 - 5.20 m/uL 3.98 Hemoglobin 11.5 - 15.5 g/dL 13.4 Hematocrit 36.0 - 46.0 % 41.7 MCV 80.0 - 100.0 fL 104.8 (H) MCH 26.0 - 34.0 pg 33.7 MCHC 30.5 - 36.0 g/dL 32.1 RDW-CV 11.5 - 15.0 % 12.3 Platelet Count 150 - 400 k/uL 340 MPV 9.0 - 12.7 fL 9.0 Neut% % 64.2 Abs Neut (ANC) 1.45 - 7.50 k/uL 4.30 Lymph% % 23.9 Abs Lymph 1.00 - 4.00 k/uL 1.60 [place]% % 9.4 Abs [place] <0.87 k/uL 0.63 Eosin% % 1.8 Abs Eosin <0.46 k/uL 0.12 Baso% % 0.6 Abs Baso <0.11 k/uL 0.04 Immature Gran % % 0.1 IMMATURE GRANS (ABS) <0.10 k/uL <0.03 NRBC /100 WBC 0.0 Absolute nRBC <0.01 k/uL <0.01 DTYPE Auto Protein, Total 6.3 - 8.0 g/dL 7.1 Albumin 3.9 - 4.9 g/dL 4.1 Calcium 8.5 - 10.2 mg/dL 9.4 Bilirubin, Total 0.2 - 1.3 mg/dL 0.2 Alkaline Phosphatase 34 - 123 U/L 77 AST 13 - 35 U/L 24 ALT 7 - 38 U/L 22 Glucose 74 - 99 mg/dL 77 BUN 7 - 21 mg/dL 19 Creatinine 0.58 - 0.96 mg/dL 0.68 Sodium 136 - 144 mmol/L 142 Potassium 3.7 - 5.1 mmol/L 3.6 (L) Chloride 97 - 105 mmol/L 102 CO2 22 - 30 mmol/L 32 (H) Anion Gap 9 - 18 mmol/L 8 (L) eGFR >=60 mL/min/1.73m 86 Cholesterol, Total <200 mg/dL 160 Triglyceride <150 mg/dL 105 HDL Cholesterol >39 mg/dL 59 Non HDL Cholesterol <130 mg/dL 101 Fasting Time hrs 12 VLDL Cholesterol <30 mg/dL 21 TC:HDL Ratio <5.10 2.71 LDL Cholesterol <100 mg/dL 80 LDL:HDL Ratio <2.54 1.36 ASSESSMENT/PLAN: ASSESSMENT/PLAN: 1. Primary hypertension - ICD9: 401.9, ICD10: I10 Continue with all current medications unchanged for now. Suboptimal control May take one additional lisinopril 5 mg tablet if systolic blood pressure is greater than 150 when checking at home. -Endorse dietary sodium restriction/DASH diet -Endorse regular aerobic exercise. If not feeling well with a change return to previous dosing 1 mo recheck BP Robert Oleary APRN.CNS Medical Decision Making: Medical Decision Making Level: 1 - N/A documented in this encounter [facility] 11-16-2021 Miscellaneous Notes Summary: [id number] Study Title: Lynn PI: Fabián Yap MD Coordinator: Ambrose Garay Called patient to check eligibility. The patient was a good candidate but wanted to review the information more. The patient was sent a consent form to review and will call back if interested to schedule a screening visit. Ambrose Garay, Research Coordinator documented in this encounter [facility] 11-05-2021 Miscellaneous Notes Spoke with patient. Given message from provider's office. Patient verbalizes understanding. Carmela Hess RN Called and left a voicemail for the Patient to call back and ask for a nurse to receive the providers message. Sruthi Brown RN yes and in writing on her AVS Pt had appt today & states she understood she was to increase lisinopril from 20mg to 23mg because provider wanted to start with small increase. Notified pt that instructions are to increase to 25mg, adding a 5mg tab to the 20mg tabs she already has. Pt wanted provider to be asked if this is the correct instructions? Please advise. Olesya Sanchez LPN documented in this encounter [facility] 10-23-2021 History of Present illness Narrative Images from the original note were not included. Ortho Knee Follow Up Note Narrative Referring Provider: Kris Hearn [address] [facility] [address] PCP: Michelle Goldman MD IMPRESSION/PLAN: 86 year old s/p Right Total Knee Replacement completed on 09/08/2020. Orthopaedic Surgeries 09/08/2020 (1yr, 1mo) ARTHROPLASTY REPLACE JOINT TOTAL KNEE (Right) Shankar Wilcox MD; Silver Cantrell MD - Posted 12/03/2019 (1yr, 10mo) ARTHROPLASTY REPLACE JOINT TOTAL KNEE (Left) Shankar Wilcox MD; Amarjit Frances MD - Posted PAIN EVALUATION 10/23/2021 1321 Pain Level: 3 Pain Location: Knee-Right Description: Stiffness Duration Amount of Time: ongoing, DOS 09/08/2020 Frequency: Intermittent Intervention/Comfort measure: Reposition;Relaxation IMPRESSION: Slow post-operative recovery but still improving. PLAN: Continue current conservative treatment. Continue home exercise program Patient Reassurance: Patient reassured and supported. All questions answered. 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 Post-operative recovery was complicated by recurrent C-diff. Readmission(s) since surgery (90 days post)? No ED Visits & Hospitalizations - Last 180 days None Patient rates their condition as improving. Does the patient still experience pain? No Post Op discharge patient location: in home. Functional Assessment is as follows: completed course of therapy and continues home program. Functional difficulties: Stair climbing. Pain Medication: None Currently Ambulating with: no ambulation aides Physical Therapy Data 12/19/2020 12/26/2020 01/02/2021 Surgical procedure R TKA R TKA R TKA Surgical procedure date - - - AROM R comment - - - AROM L comment - - - AROM R knee extension - - 0 AROM R knee flexion 110 108 111 AROM L knee extension - - - AROM L knee flexion - - - PROM L knee extension - - - Therapist that will oversee plan of care Lita Hanks Prognosis - - - Frequency - - Discontinue Therapy Services Duration - - - Total number of visits - - - Planned treatment interventions - - - Plan for next visit continue to progress exercises as tolerated Upright bike with progressive lowering of seat during her time on the bike Pt is discharged from PT today. transfer of care due to - - - patient transferring care to - - - EXAM: POST OP KNEE Right Post-Operative Knee Ambulates with a normal gait shuffling gait. SKIN: Incision well healed. Range of motion is 0 degrees in extension and 120 degrees of flexion. Extension La degrees Pain with ROM: No There is Slight effusion. Mal-alignment: No Tender to the palpation of Medial joint line Neurovascular Status: Sensation Intact, Moves foot and ankle up & down, Moves toes up and down and 2+ dorsalis pedis Stability:Anterior/Posterior- Yes, stable and Varus/Valgus- Yes, stable Quad strength: improving Imagin. None today. Provider: Kris Hearn PA-C Completed by: Kris Hearn PA-C documented in this encounter [facility] 10-05-2021 Miscellaneous Notes Pt called and is notified of providers message and instructions. Pt voices understanding. Sruthi Brown RN Below noted. I did make the RX so that if has a flare up, may increase dose. The following approved medication requests have been transmitted electronically. Signed Prescriptions Disp Refills vancomycin (VANCOCIN HCL) 125 mg capsule 120 capsule 5 Sig: Take 1 capsule by mouth twice daily. Increase as dircted for recurrence of C. Diff infection YADIRA: No Authorizing Provider: MICHELLE GOLDMAN MD Pt calls office to state she was into see Dr. Abdi for the recurrent c-diff. She states that she was advised to continue with vanco and florastor indefinitely. Pt states she was told by PCP would need to continue with vanco refills. (see Dr. Abdi's note- I do not see where PCP was to continue vanco rx. Pt is currently doing vanco 125mc 4x's daily, but is to change to twice daily dosing once current therapy is completed.) Pt asking for refill to be sent to pharmacy today because she will be out of medication on Tuesday. Please advise and notify pt. Jarrett Arcos LPN documented in this encounter [facility] 09-29-2021 Miscellaneous Notes Patient has been scheduled Thank you LVM and sent mychart asking Jerald to call us back and schedule the follow up Thank you! I talked with Jerald, Tuesday she said the knee buckled, she did not fall, she denies trauma. I asked Jerald to restart quad sets and to use a cane for safety. I will also have Jerald set up an appointment in 3-4 weeks incase she is not improving. Medically Jerald states she is again dealing with C-diff. I do not think the knee buckling is related to the C-diff. Kris Hearn PA-C Patient is calling in and is wanting to give David an update on right knee. Jerald recently was going down the stairs and had her knee give out, almost causing her to fall.. She said since that incident she has been feeling that same thing if she is moving.. She said she is scared to move quickly, and is even to the point to where she is wanting to use her cane again because she is very worried she may fall. Jerald is wanting to know what David thinks she should do from here whether it be come into office, or start physical therapy.. She said it is not swollen, and there is no pain. Per Jerald it is an empty feeling.. Please advise. Thank you. # is [phone]. documented in this encounter [facility] 09-28-2021 History of Present illness Narrative Radiology Service Progress Note PATIENT NAME: Jerald Pan DATE OF SERVICE: September 28, 2021 TIME: 2:34 PM PATIENT IDENTITY VERIFICATION COMPLETED USING TWO (2) IDENTIFIERS: Name and Date of confirmed by patient verbally. FALL SCREENING: Has the patient had 2 falls in the last year or 1 fall with injury or currently using an Ambulatory Assistive Device (Walker, Cane, Wheelchair, Crutches, etc.)? No PATIENT GENDER DATA: Female. status: : No status: NO. PATIENT RELEVANT IMPLANT DATA REVIEWED: Not Applicable RADIOLOGY DEPARTMENT: General X-ray: Exam(s) Completed: Lower Extremity X-Ray(s): Foot, Bilateral and Wt. Bearing PERIPHERAL IV DATA: Not applicable SIGNED BY: RT Sheryl(R) September 28, 2021 2:34 PM documented in this encounter [facility] 09-25-2021 History of Present illness Narrative NAME: Jerald Valverde [facility] NO: [id number] PHONE: [phone] (home) REFERRING PHYSICIAN: Reina Goldman PHYSICIAN ADDRESS: [address] [place] [address] Patient is referred by Dr. Oliver Abdi for an opinion regarding recurrent C difficile and my final recommendations will be communicated back to the requesting physician by way of shared Medical Record. PRESENTING COMPLAINT This 86 year old female patient presents with in good health until 1 year ago, following antibiotics for knee replacement surgery. 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 09/07/21 vanco stopped, sx recurrent 11 days later. On vanco for 4 days and improving. On florastor 500mg bid. high fiber diet. BP 153/53 (BP Site: Left Arm, BP Position: Sitting, BP Cuff Size: Regular Adult) Pulse 68 Temp (!) 35.9 C (96.7 F) (Temporal) Ht 160 cm (5' 3 ) Wt 60.6 kg (133 lb 9.6 oz) SpO2 95% BMI 23.67 kg/m Current Medications: Current Outpatient Medications Medication Sig vancomycin (VANCOCIN HCL) 125 mg capsule Take 1 capsule by mouth four times daily for 14 days. As directed for recurrence of C. Diff infection alendronate (FOSAMAX) 70 mg tablet Take 1 tablet by mouth one time a week. Take with a full glass of water, on an empty stomach; do NOT lie down for 30minutes. hydroCHLOROthiazide (HYDRODIURIL, ESIDRIX) 25 mg tablet Take 1 tablet by mouth once daily. lisinopril (ZESTRIL, PRINIVIL) 20 mg tablet Take 1 tablet by mouth once daily. metoprolol succinate ER (TOPROL XL) 50 mg 24 hr tablet Take 1 tablet by mouth once daily. simvastatin (ZOCOR) 20 mg tablet Take 1 tablet by mouth daily at bedtime. Cholecalciferol, Vitamin D3, 2,000 unit cap Take 1 tablet by mouth once daily. (after finished the 1000 IU capsules taking 2 daily) TYLENOL EXTRA STRENGTH 500 MG ORAL TAB every 8 hours as needed for pain TUMS ULTRA 1,000 MG ORAL CHEW NEEDED FOR HEARTBURN/INDIGESTION VITAMIN C 500 MG ORAL TAB Take one(1) tablet daily. clindamycin (CLEOCIN) 300 mg capsule Take two capsules by mouth one hour prior to dental appointment. budesonide (RHINOCORT AQUA) 32 mcg/actuation nasal spray Use 1-2 Sprays in each nostril once daily. as needed (Patient not taking: Reported on 09/07/2021 ) No current facility-administered medications for this visit. Allergies: Amoxicillin, Ketek [Telithromycin], and Neomycin PAST MEDICAL HISTORY: Past surgeries: PAST SURGICAL HISTORY Procedure Laterality Date ARTHRP KNE CONDYLE&PLATU MEDIAL&LAT COMPARTMENTS Left 12/03/2019 Knee replacement, total COLONOSCOPY FLX DX W/COLLJ SPEC WHEN PFRMD , , 09/16, 08/18 Colonoscopy COLONOSCOPY FLX DX W/COLLJ SPEC WHEN PFRMD 10/12/2007 COLONOSCOPY FLX DX W/COLLJ SPEC WHEN PFRMD 10/16/2012 Colonoscopy LIG/TRNSXJ FLP TUBE ABDL/VAG APPR UNI/BI 12/11/1975 PAST SURGICAL HISTORY OF 1995 LEFT FOOT SURGERY, ORIF (plate and 6 screws) PAST SURGICAL HISTORY OF 05/26/2012 surgery right ankle (2 screw and 4 katrin) PAST SURGICAL HISTORY OF 04/30/2012 right foot great toe PAST SURGICAL HISTORY OF 03/28/2017 basil cell skin graft off nose REMV CATARACT EXTRACAP,INSERT LENS Right 04/22/2020 REMV CATARACT EXTRACAP,INSERT LENS Left 05/2020 TONSILLECTOMY & ADENOIDECTOMY <AGE 14 TOTAL KNEE REPLACEMENT Right 09/09/2020 Medical Illnesses: see above Tobacco: No Alcohol: Yes, How Many? none Social and Personal History: Social History Tobacco Use Smoking status: Never Smoker Smokeless tobacco: Never Used Vaping Use Vaping Use: Never used Substance Use Topics Alcohol use: Yes Comment: occasional Drug use: No Family Medical History: FAMILY HISTORY Problem Relation Age of Onset Colon Cancer Father FROM THIS. Hypertension Mother Heart Mother CONGESTIVE HEART FAILURE ROS EyesNegative for vision changes, diplopia or epiphora. Ears, Mouth, nose, throat:no problems Cardiovascular: No Problems Respiratory: Negative for cough, wheezing and shortness of breath Gastrointestinal : See HPI Genitourinary: Negative Musuloskeletal: Denies significant problems Integumentary: No rashes, lesions, or bruising Neurological: No History of Neurological Problems Endocrine: Negative for cold or heat intolerance, polyuria, polydipsia and goiter. Psychiatric: Cooperative and Agreeable Allergic/ Immunologic: Negative All others negative PHYSICAL EXAM General appearance: Well appearing, alert, in no acute distress, well-hydrated, well nourished. Skin: Skin color, texture, turgor normal, no suspicious rashes or lesions Head: Normocephalic, no masses, lesions, tenderness or abnormalities Eyes: Anicteric sclera. Pupils are equally round and reactive to light. Extraocular movements are intact. Ears: External ears normal, canals clear Nose/Sinuses: Nares normal, septum midline, mucosa normal, no drainage or sinus tenderness Oropharynx: Lips, mucosa, and tongue normal, teeth and gums normal, oropharynx normal Neck: Supple, no adenopathy; thyroid symmetric, normal size, no bruits Back: Normal exam Lungs: Lungs clear to auscultation. No wheezing, rhonchi, rales. Heart: RRR without murmur, gallop, or rubs. No ectopy Abdomen: Normal abdominal exam, Abdomen soft, non-tender. Bowel sounds normal. No masses, organomegaly Extremities: No deformities, edema, skin discoloration, clubbing or cyanosis. Good capillary refill. Musculoskeletal: No joint swelling, deformity, or tenderness Peripheral pulses: Normal Neuro: Gait normal. Reflexes normal and symmetric. Sensation grossly intact. CBC: @LASTLABX[WBC:2,HB,MCV,PLT,neut,ly mphp]@ CMP: @lastlabx[ALKPHOS,AST,ALT,TBIL,CBI L,GLUC,BUN,CREAT,NA,K1,CHLOR,CO2,T PROT,ALB,CA]@ TSH: No results found for: TSH Impression & Plan: Recurrent C difficile - will rec: 1. Complete current vanco therapy 2. Stay on vanco 125mg po bid indefinitely 3. Continue florastor 4. For next antibiotic use will rec she increase vanco to qid 2 days before and throughout the antibiotic course. 5. Will put her on the waiting list for [employer] study. I have confirmed and edited as necessary PFSH and ROS obtained by others. Signature: Oliver Abdi MD Date: September 24, 2021 documented in this encounter [facility] 09-23-2021 Miscellaneous Notes Below noted Follow up as needed. Pt called and is notified of providers message and instructions. Pt voices understanding. Stool tests came back positive for C. Diff. Pt reports her buttocks is sore, she reports she is going to get some cream, didn't want provider to order anything at this time. Pt was advised to call back if she needed a stronger cream. Pt also advised to use wet wipes as they are not as abrasive as toilet paper. Sruthi Brown RN Stool test in process Just saw request now The following approved medication requests have been transmitted electronically. Signed Prescriptions Disp Refills vancomycin (VANCOCIN HCL) 125 mg capsule 56 capsule 0 Sig: Take 1 capsule by mouth four times daily for 14 days. As directed for recurrence of C. Diff infection YADIRA: No Authorizing Provider: MICHELLE GOLDMAN MD Patient calls and states that she brought in stool sample today. Patient has appointment with Dr. Abdi on Tuesday. Patient states that she wants to make sure that she is able to go to appointment. Patient asking if antibiotics can be sent to pharmacy? Please review and advise, Vianey Meza RN Patient calls to let provider know that she continues to have diarrhea several times throughout the day (anytime she eats or drinks). Patient to ED yesterday 09/20 and no further tx d/t needing a stool specimen. Patient working on bringing in a stool specimen. Order in place. Patient asking provider to order another antibiotic before 5 pm today. Instructed patient to bring specimen as soon as possible. Patient verbalizes understanding. Raya Gant RN documented in this encounter [facility] 09-19-2021 History of Present illness Narrative This note was created using [employer]. Subjective Jerald Pan is a 86 year old female. Diarrhea is described as nonbloody, soft formed and liquid occuring 3 times in the past 4 hours. She denies blood in stool and fevers, unusual food intake or travel. 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 She had a reunion this weekend, but woke up this AM with initial abdominal pain that resolved, and loose stools. She had just completed a prolonged course of vancomycin a few weeks ago. She thinks she had C. Difficile this spring from clindamycin taken for dental work in June. . Review of Systems Constitutional: Negative for appetite change, chills, fatigue, fever and unexpected weight change. Respiratory: Negative for shortness of breath. Gastrointestinal: Negative for abdominal pain, blood in stool, nausea and vomiting. Genitourinary: Negative. 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 alendronate (FOSAMAX) 70 mg tablet Take 1 tablet by mouth one time a week. Take with a full glass of water, on an empty stomach; do NOT lie down for 30minutes. hydroCHLOROthiazide (HYDRODIURIL, ESIDRIX) 25 mg tablet Take 1 tablet by mouth once daily. lisinopril (ZESTRIL, PRINIVIL) 20 mg tablet Take 1 tablet by mouth once daily. metoprolol succinate ER (TOPROL XL) 50 mg 24 hr tablet Take 1 tablet by mouth once daily. simvastatin (ZOCOR) 20 mg tablet Take 1 tablet by mouth daily at bedtime. metroNIDAZOLE (METROGEL) 0.75 % Topical Gel Apply to affected area twice daily. (Patient not taking: Reported on 07/29/2021 ) budesonide (RHINOCORT AQUA) 32 mcg/actuation nasal spray Use 1-2 Sprays in each nostril once daily. as needed (Patient not taking: Reported on 09/07/2021 ) Cholecalciferol, Vitamin D3, 2,000 unit cap Take 1 tablet by mouth once daily. (after finished the 1000 IU capsules taking 2 daily) TYLENOL EXTRA STRENGTH 500 MG ORAL TAB every 8 hours as needed for pain TUMS ULTRA 1,000 MG ORAL CHEW NEEDED FOR HEARTBURN/INDIGESTION VITAMIN C 500 MG ORAL TAB Take one(1) tablet daily. No current facility-administered medications for this visit. Objective BP (P) 158/70 Pulse (P) 76 Resp (P) 16 Wt (P) 61.2 kg (135 lb) BMI (P) 23.91 kg/m Physical Exam Constitutional: Appearance: She is not ill-appearing. Cardiovascular: Rate and Rhythm: Normal rate and regular rhythm. Pulmonary: Effort: Pulmonary effort is normal. Breath sounds: Normal breath sounds. Abdominal: General: Abdomen is flat. Bowel sounds are normal. There is no distension. Tenderness: There is no abdominal tenderness. Musculoskeletal: Right lower leg: No edema. Left lower leg: No edema. Skin: General: Skin is warm and dry. Neurological: Mental Status: She is alert. Gait: Gait normal. Assessment and Plan ASSESSMENT/PLAN: 1. Diarrhea, unspecified type - ICD9: 787.91, ICD10: R19.7 (primary diagnosis) - Avoid foods that aggravate symptoms. Check stool. - C. DIFFICILE PCR 2. Hypertension goal BP (blood pressure) < 140/90 - ICD9: 401.9, ICD10: I10 - suboptimal control - PCP follow up. Skip Olivares MD documented in this encounter [facility] 09-07-2021 Note HNO ID: [id number] Author: ANA LUISA Arreaga Service: Radiology Author Type: Technologist Type: Progress Notes Filed: 09/07/2021 11:18 AM Note Text: Radiology Service Progress Note PATIENT NAME: Jerald Pan DATE OF SERVICE: September 07, 2021 TIME: 11:18 AM PATIENT IDENTITY VERIFICATION COMPLETED USING TWO (2) IDENTIFIERS: Name and Date of confirmed by patient verbally. FALL SCREENING: Has the patient had 2 falls in the last year or 1 fall with injury or currently using an Ambulatory Assistive Device (Walker, Cane, Wheelchair, Crutches, etc.)? No PATIENT GENDER DATA: Female. status: : No status: NO. PATIENT RELEVANT IMPLANT DATA REVIEWED: Not Applicable RADIOLOGY DEPARTMENT: General X-ray: Exam(s) Completed: Lower Extremity X-Ray(s): Knee, AP / Lat / Merchant Bilateral and Wt. Bearing PERIPHERAL IV DATA: Not applicable SIGNED BY: ANA LUISA Arreaga September 07, 2021 11:18 AM [facility] 09-07-2021 History of Present illness Narrative Images from the original note were not included. Ortho Knee Follow Up Note Narrative Referring Provider: Kris Hearn [address] [facility] [address] PCP: Michelle Goldman MD IMPRESSION/PLAN: 86 year old s/p Right Total Knee Replacement completed on 09/08/2020, and S/P left total knee 11/26/19. Orthopaedic Surgeries 09/08/2020 (11mo) ARTHROPLASTY REPLACE JOINT TOTAL KNEE (Right) Shankar Wilcox MD; Silver Cantrell MD - Posted 12/03/2019 (1yr, 9mo) ARTHROPLASTY REPLACE JOINT TOTAL KNEE (Left) Shankar Wilcox MD; Amarjit Frances MD - Posted PAIN EVALUATION 09/07/2021 1128 Pain Level: 2 Pain Location: Knee-Right Description: Sharp;Stiffness Duration Amount of Time: DOS 09/10/2020 Frequency: Intermittent Intervention/Comfort measure: Reposition;Relaxation IMPRESSION: At normal post-operative stage of recovery. PLAN: No new treatment indicated: Routine follow-up with x-rays and Continue conservative therapy. No more pre-dental antibiotics, she has had multiple episodes of C-diff. Patient Reassurance: Normal post-operative course discussed with patient. Patient reassured and supported. All questions answered. Follow up 2 year X-Rays Needed Jerald Pan presents today for a a long-term follow-up visit. She feels the left knee is more limber Then the right, but the knees do not limit her activity. 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 Post-operative recovery was complicated by C-diff. Readmission(s) since surgery (90 days post)? No ED Visits & Hospitalizations - Last 180 days None Patient rates their condition as improving. Jerald is currently finishing treatment for C-diff after taking pre-dental antibiotics. Does the patient still experience pain? Onset: evenings. Location: Right knee. Frequency: occasionally. Pain scale: 2. Pain character: stiffness. Relieving factors: Rest. Aggravating factors: Increased activity Post Op discharge patient location: in home. Functional Assessment is as follows: completed course of therapy. Functional difficulties: None. Pain Medication: None Currently Ambulating with: no ambulation aides Physical Therapy Data 12/19/2020 12/26/2020 01/02/2021 Surgical procedure R TKA R TKA R TKA Surgical procedure date - - - AROM R comment - - - AROM L comment - - - AROM R knee extension - - 0 AROM R knee flexion 110 108 111 AROM L knee extension - - - AROM L knee flexion - - - PROM L knee extension - - - Therapist that will oversee plan of care Lita Hanks Prognosis - - - Frequency - - Discontinue Therapy Services Duration - - - Total number of visits - - - Planned treatment interventions - - - Plan for next visit continue to progress exercises as tolerated Upright bike with progressive lowering of seat during her time on the bike Pt is discharged from PT today. transfer of care due to - - - patient transferring care to - - - EXAM: POST OP KNEE Bilateral Post-Operative Knee Ambulates with a: normal gait. SKIN: Incision well healed. LEFT KNEE: Range of motion is 0 degrees in extension and 130 degrees of flexion. Extension La degrees Pain with ROM:No There is None effusion. Mal-alignment: No Tender to the palpation of None Neurovascular Status: Sensation Intact, Moves foot and ankle up & down, Moves toes up and down and 2+ dorsalis pedis Stability:Anterior/Posterior- Yes, stable and Varus/Valgus- Yes, stable Quad strength: normal RIGHT KNEE: Range of motion is 0 degrees in extension and 120 degrees of flexion. Extension La degrees Pain with ROM:No There is Slight effusion. Mal-alignment: No Tender to the palpation of None Neurovascular Status: Sensation Intact, Moves foot and ankle up & down, Moves toes up and down and 2+ dorsalis pedis Stability:Anterior/Posterior- Yes, stable and Varus/Valgus- Yes, stable Quad strength: normal Imagin. Implants are well aligned. Implants are well fixed. There is no evidence of loosening. Patella is well positioned. Provider: Kris Hearn PA-C Completed by: Kris Hearn PA-C documented in this encounter [facility] 09-07-2021 History of Present illness Narrative Radiology Service Progress Note PATIENT NAME: Jerald Pan DATE OF SERVICE: September 07, 2021 TIME: 11:18 AM PATIENT IDENTITY VERIFICATION COMPLETED USING TWO (2) IDENTIFIERS: Name and Date of confirmed by patient verbally. FALL SCREENING: Has the patient had 2 falls in the last year or 1 fall with injury or currently using an Ambulatory Assistive Device (Walker, Cane, Wheelchair, Crutches, etc.)? No PATIENT GENDER DATA: Female. status: : No status: NO. PATIENT RELEVANT IMPLANT DATA REVIEWED: Not Applicable RADIOLOGY DEPARTMENT: General X-ray: Exam(s) Completed: Lower Extremity X-Ray(s): Knee, AP / Lat / Merchant Bilateral and Wt. Bearing PERIPHERAL IV DATA: Not applicable SIGNED BY: ANA LUISA Arreaga September 07, 2021 11:18 AM documented in this encounter [facility] 08-24-2021 Miscellaneous Notes Patient calling to check status of message. Aware rx was sent to pharmacy Tuesday, she will call and check with pharmacy since she has not gotten a call from them. The following approved medication requests have been transmitted electronically. Signed Prescriptions Disp Refills vancomycin (VANCOCIN HCL) 125 mg capsule 56 capsule 0 Sig: Take 1 capsule by mouth four times daily for 14 days. As directed for recurrence of C. Diff infection YADIRA: No Authorizing Provider: MICHELLE GOLDMAN MD If has a recurrence, would then taper vancomycin as before, Patient states she would like a prescription of vancomycin sent to the pharmacy just incase she would need it while away next week. She states she is not having diarrhea just very soft stools about 3 times a day. documented in this encounter [facility] 08-21-2021 Miscellaneous Notes Called pt and all reviewed. She will wait to see how she does over the next several days. If she has persistent symptoms, then could extend the course of vancomycin. If symptoms are resolved and she is primarily worried that she might have a recurrence, could send a RX for vancomycin to have on hand. If symptoms not resolving or dose have problems with recurrences, consider newer med for treating C Diff-Dificid. Note that if has not had an episode of C diff in the past two months, even though had prior bouts of C, Diff, this current episodes does not count as a recurrence so does not need to be treated as before for recurrence (when she had tp be tapered off). Patient calling to see if PCP looked at this message. Patient is done with her vancomycin today. Patient concerned that the C-diff is not gone. Pt called back and would like to have Dr. Goldman review last phone encounter and make sure she agrees with this (C-dif medication). She is concerned with just stopping. She has a grandson who will be graduation from [employer] and she wants to make sure she is not having a problems and can attend. She will be staying in [place] while this is all going on. Jaylin Cronin LPN documented in this encounter [facility] 08-18-2021 Miscellaneous Notes Phoned patient and given provider's message below with verbalized understanding. If symptoms have resolved may complete then discontinue. Pt calling and states she has 1 day left of medication for C-dif. She has been on medication x 2 weeks. No diarrhea. Stool is reddish brown and firm. Pt questioning does she need to take any more medication. Please advise pt. Jaylin Cronin LPN documented in this encounter [facility] 08-10-2021 History of Present illness Narrative Reason for Visit Patient presents with: Same Day Appointment: low blood pressure on Tuesday Jerald Pan is a 86 year old female who presents here today for Above Complaints.. Health Maintenance There are no preventive care reminders to display for this patient. HPI. Concerns with bp: She is on the second course of her c diff. On Tuesday she had a reading of 106/58, was asked to call and talk to a physician. Her bp today is wonderful. She does not like drinking water at a baseline, but she willing to drink gatorade and has been drinking it very well. Over the last 2 weeks she has been drinking more gatorade with ice. She is not thirsty right now. Her bp is usually on the higher side but now it is on the lower side. No problem-specific Assessment & Plan notes found for this encounter. PAST MEDICAL HISTORY Diagnosis Date Benign microscopic hematuria Follows with Dr. Lee Benign neoplasm of colon Carpal tunnel syndrome 11/01/2006 Disorder of bone and cartilage, unspecified Diverticulitis of colon (without mention of hemorrhage)(562.11) Diverticulosis of colon (without mention of hemorrhage) Esophageal reflux Essential hypertension, benign Family history of malignant neoplasm of gastrointestinal tract Foot injury torn tendon right great toe (lateral) causing medial toe deviation Osteoarthrosis, unspecified whether generalized or localized, unspecified site Painful tongue Tongu sensitivity--evaluated by ENT (Kami) and dentist Pure hypercholesterolemia Tinnitus PAST SURGICAL HISTORY Procedure Laterality Date ARTHRP KNE CONDYLE&PLATU MEDIAL&LAT COMPARTMENTS Left 12/03/2019 Knee replacement, total COLONOSCOPY FLX DX W/COLLJ SPEC WHEN PFRMD , , 09/16, 08/18 Colonoscopy COLONOSCOPY FLX DX W/COLLJ SPEC WHEN PFRMD 10/12/2007 COLONOSCOPY FLX DX W/COLLJ SPEC WHEN PFRMD 10/16/2012 Colonoscopy LIG/TRNSXJ FLP TUBE ABDL/VAG APPR UNI/BI 12/11/1975 PAST SURGICAL HISTORY OF 1995 LEFT FOOT SURGERY, ORIF (plate and 6 screws) PAST SURGICAL HISTORY OF 05/26/2012 surgery right ankle (2 screw and 4 katrin) PAST SURGICAL HISTORY OF 04/30/2012 right foot great toe PAST SURGICAL HISTORY OF 03/28/2017 basil cell skin graft off nose REMV CATARACT EXTRACAP,INSERT LENS Right 04/22/2020 REMV CATARACT EXTRACAP,INSERT LENS Left 05/2020 TONSILLECTOMY & ADENOIDECTOMY <AGE 14 TOTAL KNEE REPLACEMENT Right 09/09/2020 FAMILY HISTORY Problem Relation Age of Onset Colon Cancer Father FROM THIS. Hypertension Mother Heart Mother CONGESTIVE HEART FAILURE Social History Tobacco Use Smoking status: Never Smoker Smokeless tobacco: Never Used Vaping Use Vaping Use: Never used Substance Use Topics Alcohol use: Yes Comment: occasional Drug use: No Past medical history, appointments, medications, allergies reviewed. Pertinent Lab/Diagnostic Studies are reviewed and discussed today Current Outpatient Medications: vancomycin (VANCOCIN HCL) 125 mg capsule clindamycin (CLEOCIN) 300 mg capsule alendronate (FOSAMAX) 70 mg tablet hydroCHLOROthiazide (HYDRODIURIL, ESIDRIX) 25 mg tablet lisinopril (ZESTRIL, PRINIVIL) 20 mg tablet metoprolol succinate ER (TOPROL XL) 50 mg 24 hr tablet simvastatin (ZOCOR) 20 mg tablet metroNIDAZOLE (METROGEL) 0.75 % Topical Gel budesonide (RHINOCORT AQUA) 32 mcg/actuation nasal spray Cholecalciferol, Vitamin D3, 2,000 unit cap TYLENOL EXTRA STRENGTH 500 MG ORAL TAB TUMS ULTRA 1,000 MG ORAL CHEW VITAMIN C 500 MG ORAL TAB Review of Systems CONSTITUTIONAL: No fevers, chills night sweats, unintended weight loss CARDIOVASCULAR: No chest pain, dyspnea, palpitations, orthopnea, PND, ankle edema. PULM: No dyspnea, unexplained cough. GI: No dysphagia/odynophagia, problematic reflux, constipation, diarrhea, changes in stool habits, hematochezia, melena. : No new urinary complaints, including dysuria, gross hematuria or pyuria. NEURO: No new balance problems, peripheral weakness/paresthesias or numbness of concern. Physical Exam BP 122/62 (BP Site: Left Arm, BP Position: Sitting, BP Cuff Size: Large Adult) Pulse 66 Temp 36.1 C (97 F) Resp 12 Ht 160 cm (5' 3 ) Wt 61.2 kg (135 lb) SpO2 97% BMI 23.91 kg/m General appearance: Well appearing, alert, in no acute distress, well nourished. Skin: Skin color, texture, turgor normal, no suspicious rashes or lesions Head: Normocephalic, no masses, lesions, tenderness or abnormalities Eyes: Anicteric sclera. Pupils are equally round and reactive to light. Extraocular movements are intact. Lungs: Lungs clear to auscultation. No wheezing, rhonchi, rales Heart: RRR without murmur, gallop, or rubs. Extremities: No deformities, edema, skin discoloration, clubbing or cyanosis. Good capillary refill. ASSESSMENT/PLAN: 1. Clostridium difficile infection - ICD9: 041.84, ICD10: A49.8 (primary diagnosis) She is taking the medicine to continue the 2. Hypotension, unspecified hypotension type - ICD9: 458.9, ICD10: I95.9 Emphasized eating and drinking well, especially drinking lots of Gatorade and reassured her that her blood pressure is good Mya Miguel MD documented in this encounter [facility] 08-08-2021 Miscellaneous Notes Patient called to report her blood pressure is running lower than usual. It is 106/53 and she is not dizzy or lightheaded. She has not yet taken her BP meds today. Last OV BP on 07/29 was 136/62 and PCP decreased HCTZ to one half pill daily. Patient had been instructed to call if BP 100 systolic or less and hold HCTZ if systolic BP 100. She has C-diff and diarrhea stopped 3 days ago. She admits she does not drink enough fluid. Has been drinking 3-4 glasses of water or gatorade/day. She says her urine output is normal and urine is clear yellow. Mouth is not dry. Advised to increase fluid intake. Reviewed triage protocol guidelines with patient. She verbalized understanding. Advised to call back if she becomes dizzy or lightheaded. Disposition: See PCP within 24 hours. Scheduled appointment on 08/10. Carmela Hess RN Reason for Disposition [1] Systolic BP 90-110 AND [2] taking blood pressure medications AND [3] NOT dizzy, lightheaded or weak Answer Assessment - Initial Assessment Questions 1. BLOOD PRESSURE: 103/58 Five minutes later 106/53 2. ONSET: Ten minutes ago 3. HOW: Automatic home BP cuff 4. HISTORY: Has had low BP in the past and has been instructed to call with BP less than 100 systolic and hold HCTZ 5. MEDICATIONS: HCTZ, Metoprolol, Lisinopril 6. PULSE RATE: 70 7. OTHER SYMPTOMS: Has C-diff. Diarrhea stopped 3 days ago Patient says she is drinking between 3-4 glasses of gatorade and water a day Denies dizziness and lightheadedness Protocols used: BLOOD PRESSURE - [id number] documented in this encounter [facility] 08-06-2021 Miscellaneous Notes Patient notified of results and provider's instructions. Patient verbalizes understanding. Heather Farrell LPN Please let her know that vancomycin sent to [facility] x 14 days. She should let us know if not feeling improved with this treatment. Patient asking pcp to advise on positive C-Diff results. Omari Velasquez. Please phone patient with reply. documented in this encounter [facility] 08-03-2021 Miscellaneous Notes Spoke to patient, did not take anything for constipation. Has not tried immodium, feels she is improving. Will do C dif test if not. Seen in office on 07/29/2021 by PCP reporting constipation. Check to see if she has been taking a remedy for constipation; if so would hold off on that for now until diarrhea resolves. If still having frequent stools may try Imodium OTC per package directions if not already doing so. Mild diet until feeling improved. We can check her stool for C. difficile if she would like. I will place an order. If she feels like she needs a visit /not improving should come in for recheck. Pt calling and states having diarrhea. ONSET: Tuesday08-01-21 2:00 PM started with string stool (nor normal for pt. 08-02 diarrhea all day not sure number of stools. 08-03-21 today stool is creamy. On 08-01 and 08-02 there was red flake like with stool. SEVERITY: pt not sure how many stools she has had in the last 24 hours, states a lot till this am and only 1 so far today. Having accidents. Has decreased a little since Tuesday PM when this started. VOMITING: none ABDOMINAL PAIN: Yes to day, until gas passed and then it was gone. HYDRATION: trying to get fluid in, Gatorade. EXPOSURE: had chicken noodle soup on or Tuesday and it could of been spoiled, pt not sure. ANTIBIOTIC USE: 07-13-21 had 2 ATB capsules before dental work. OTHER: Pt had doubled up on her probiotics starting 07-11-21 and has been on 3 per day since. Pt had C-dif in August and not sure if this is going on. Pt also states she has not had much of an appetite since last Tuesday07-29-21. Question: Recommendations on what to do or if she needs to be seen per pt. Jaylin Cronin LPN documented in this encounter [facility] 07-29-2021 Instructions Michelle Goldman MD - 07/29/2021 11:20 AM EDT Decrease hydrochlorothiazide back down to half pill daily. Can go back up if BP goes back up over 140s too often. From CT scan of the abdomen: There are degenerative changes with degenerative disk disease at T12-L1. A minimal first degree spondylo-listhesis is seen at L4-L5. IMPRESSION: Punctate calcifications posterior wall of the bladder, question tiny stone fragments versus calcified epithelial tumor. Cystoscopy may be helpful. Degenerative changes T12-L1. First degree spondylo-listhesis L4-L5. Automation Controls Specialist: PSC Transcribe Date/Time: Mar 24 2011 3:53P Dictated by : GERALD CORREIA MD This examination was interpreted and the report reviewed and electronically signed by: GERALD CORREIA MD On Mar 24 2011 3:53PM documented in this encounter [facility] 07-29-2021 History of Present illness Narrative This note was created using [employer]. Subjective Jerald Pan is a 86 year old female. Patient presents with: F/U 6 months SUBJECTIVE: Jerald Pan is a 86 year old year old lady here today for 6 month follow up appointment for review of medical conditions. Reviewed calcium issues Gets milk, yogurt for lunch daily. Sometimes milk with cereal. Gets fruits in daily with lunch. Taking Vitamin D Constipation normal. But last Tuesday: Some pain in lower abdomen recently when moving bowels.Uncomfortable feeling lasting 12 hours (started around 2PM--was in bathroom for about an hour; burning pain lasted till middle of the night). Had been a week since last BM. Had some gas. Sometimes back pain right of center lower back. Plans to resume strength and toning class. Used to do prior to pandemic. Lower BPs lately. Since 07/07 1102 to 130s with occasional 140s and one 107. Eating smaller portions since last Tuesday. Is given antibiotic for dental procedures. Less than a year since TKR. Increased Florastor before and after. Got second Booster 07/20 for COVID. PAST MEDICAL HISTORY Diagnosis Date Benign microscopic hematuria Follows with Dr. Lee Benign neoplasm of colon Carpal tunnel syndrome 11/01/2006 Disorder of bone and cartilage, unspecified Diverticulitis of colon (without mention of hemorrhage)(562.11) Diverticulosis of colon (without mention of hemorrhage) Esophageal reflux Essential hypertension, benign Family history of malignant neoplasm of gastrointestinal tract Foot injury torn tendon right great toe (lateral) causing medial toe deviation Osteoarthrosis, unspecified whether generalized or localized, unspecified site Painful tongue Tongu sensitivity--evaluated by ENT (Kami) and dentist Pure hypercholesterolemia Tinnitus Current Outpatient Medications Medication Sig clindamycin (CLEOCIN) 300 mg capsule Take two capsules by mouth one hour prior to dental appointment. alendronate (FOSAMAX) 70 mg tablet Take 1 tablet by mouth one time a week. Take with a full glass of water, on an empty stomach; do NOT lie down for 30minutes. hydroCHLOROthiazide (HYDRODIURIL, ESIDRIX) 25 mg tablet Take 1 tablet by mouth once daily. lisinopril (ZESTRIL, PRINIVIL) 20 mg tablet Take 1 tablet by mouth once daily. metoprolol succinate ER (TOPROL XL) 50 mg 24 hr tablet Take 1 tablet by mouth once daily. simvastatin (ZOCOR) 20 mg tablet Take 1 tablet by mouth daily at bedtime. budesonide (RHINOCORT AQUA) 32 mcg/actuation nasal spray Use 1-2 Sprays in each nostril once daily. as needed (Patient taking differently: Use 1-2 Sprays in each nostril once daily. as needed Indications: inflammation of the nose due to an allergy) Cholecalciferol, Vitamin D3, 2,000 unit cap Take 1 tablet by mouth once daily. (after finished the 1000 IU capsules taking 2 daily) TYLENOL EXTRA STRENGTH 500 MG ORAL TAB every 8 hours as needed for pain TUMS ULTRA 1,000 MG ORAL CHEW NEEDED FOR HEARTBURN/INDIGESTION VITAMIN C 500 MG ORAL TAB Take one(1) tablet daily. metroNIDAZOLE (METROGEL) 0.75 % Topical Gel Apply to affected area twice daily. (Patient not taking: Reported on 07/29/2021 ) No current facility-administered medications for this visit. Review of Systems Objective BP 136/62 Pulse 62 Wt 62.1 kg (137 lb) SpO2 97% BMI 23.83 kg/m Last 5 Encounter Wt Readings: Date: Wt: 07/29/2021 62.1 kg (137 lb) 06/22/2021 64.4 kg (142 lb) 05/15/2021 61.7 kg (136 lb) 03/10/2021 59.4 kg (131 lb) 02/06/2021 59 kg (130 lb) No waist measurement recorded Estimated body mass index is 23.83 kg/m as calculated from the following: Height as of 05/15/21: 161.5 cm (5' 3.58 ). Weight as of this encounter: 62.1 kg (137 lb). Last 5 Encounter BP Readings: Date: BP: 07/29/2021 136/62 06/22/2021 142/64 05/15/2021 142/76 03/10/2021 146/64 10/28/2020 184/80 Physical Exam Component Latest Ref Rng & Units 12/04/2019 12/25/2019 07/04/2020 08/27/2020 07/25/2021 WBC 3.70 - 11.00 k/uL 13.03 (H) 5.69 5.17 6.69 6.70 RBC 3.90 - 5.20 m/uL 3.34 (L) 3.52 (L) 4.12 4.14 3.98 Hemoglobin 11.5 - 15.5 g/dL 11.5 12.1 13.7 14.2 13.4 Hematocrit 36.0 - 46.0 % 34.8 (L) 38.4 43.7 42.6 41.7 MCV 80.0 - 100.0 fL 104.2 (H) 109.1 (H) 106.1 (H) 102.9 (H) 104.8 (H) MCH 26.0 - 34.0 pg 34.4 (H) 34.4 (H) 33.3 34.3 (H) 33.7 MCHC 30.5 - 36.0 g/dL 33.0 31.5 31.4 33.3 32.1 RDW-CV 11.5 - 15.0 % 11.8 12.8 12.9 12.4 12.3 Platelet Count 150 - 400 k/uL 304 587 (H) 371 322 340 MPV 9.0 - 12.7 fL 9.0 8.7 (L) 8.9 (L) 8.8 (L) 9.0 Neut% % 66.6 64.2 Abs Neut (ANC) 1.45 - 7.50 k/uL 4.43 4.30 Lymph% % 21.8 23.9 Abs Lymph 1.00 - 4.00 k/uL 1.46 1.60 [place]% % 10.5 9.4 Abs [place] <0.87 k/uL 0.70 0.63 Eosin% % 0.7 1.8 Abs Eosin <0.46 k/uL 0.05 0.12 Baso% % 0.4 0.6 Abs Baso <0.11 k/uL 0.03 0.04 Immature Gran % % 0.1 IMMATURE GRANS (ABS) <0.10 k/uL <0.03 NRBC /100 WBC 0.0 Absolute nRBC <0.01 k/uL <0.01 <0.01 <0.01 <0.01 <0.01 DTYPE Auto Nucleated Reds 0 /100 WBC 0.0 Diff Type Auto Diff Protein, Total 6.3 - 8.0 g/dL 6.3 6.7 6.3 7.1 Albumin 3.9 - 4.9 g/dL 4.0 4.4 4.4 4.1 Calcium 8.5 - 10.2 mg/dL 8.9 10.0 9.2 9.7 9.4 Bilirubin, Total 0.2 - 1.3 mg/dL 0.4 0.3 0.4 0.2 Alkaline Phosphatase 34 - 123 U/L 105 84 82 77 AST 13 - 35 U/L 20 22 18 24 Glucose 74 - 99 mg/dL 135 (H) 77 84 93 77 BUN 7 - 21 mg/dL 25 (H) 26 (H) 19 20 19 Creatinine 0.58 - 0.96 mg/dL 0.77 0.71 0.58 0.60 0.68 Sodium 136 - 144 mmol/L 139 140 139 138 142 Potassium 3.7 - 5.1 mmol/L 4.0 4.1 3.7 4.1 3.6 (L) Chloride 97 - 105 mmol/L 98 100 101 99 102 CO2 22 - 30 mmol/L 30 29 28 33 (H) 32 (H) Anion Gap 9 - 18 mmol/L 11 11 10 6 (L) 8 (L) ALT 7 - 38 U/L 19 19 14 22 eGFR- >60 >60 >60 >60 eGFR-All Other Races . >60 >60 >60 >60 eGFR >=60 mL/min/1.73m 86 Cholesterol, Total <200 mg/dL 150 162 160 Triglyceride <150 mg/dL 79 75 105 HDL Cholesterol >39 mg/dL 61 70 59 LDL Cholesterol <100 mg/dL 73 77 80 Non HDL Cholesterol <130 mg/dL 89 92 101 Fasting Time hrs 12 14 12 VLDL Cholesterol <30 mg/dL 16 15 21 TC:HDL Ratio <5.10 2.46 2.31 2.71 LDL:HDL Ratio <2.54 1.20 1.10 1.36 Hemoglobin A1C 4.3 - 5.6 % 4.9 Estimated Average Glucose mg/dL 94 Assessment and Plan Encounter Diagnosis ICD-10-CM 1. Primary hypertension I10 COMP METABOLIC PANEL CBC LIPID PANEL BASIC 2. Age-related osteoporosis without current pathological fracture M81.0 COMP METABOLIC PANEL CBC LIPID PANEL BASIC MAGNESIUM BLD PTH INTACT BLD VITAMIN D 25 HYDROXY CROSS-LINK N-TELO BL 3. Constipation, unspecified constipation type K59.00 Monitor for recurrence of severe episode of pain with BM after a week without BM.Would avoid going more than 2 to 3 days without BM 4. Chronic midline low back pain, unspecified whether sciatica present M54.50 G89.29 5. History of total right knee replacement (TKR) Z96.651 <1 year since TKA. Antibioitic prophylaxis with dental work as discussed appropriate 6. History of Clostridium difficile colitis Z86.19 Disussed Florastor increased to BID when takes antibiotics.No recurrences of C. diff. Okay to keep doing so. 7. Encounter for long-term current use of medication Z79.899 COMP METABOLIC PANEL CBC LIPID PANEL BASIC MAGNESIUM BLD PTH INTACT BLD VITAMIN D 25 HYDROXY ASSESSMENT/PLAN: 1. Primary hypertension - ICD9: 401.9, ICD10: I10 (primary diagnosis) - good control - Continue current medication(s) - Recommended regular aerobic exercise. - Recommend home blood pressure monitoring, to bring results in on next visit - Goal of BP <140/90 - Recommended no refined sugar, low refined starch, healthy oil intake (olive oil), healthy protein (fish) along the lines of the Mediterranean diet. 2. Age-related osteoporosis without current pathological fracture - ICD9: 733.01, ICD10: M81.0 - continue tx with alendronate (Fosamax) - Reviewed the need for Calcium and Vitamin D supplements and weight bearing exercise as tolerated 3. Constipation, unspecified constipation type - ICD9: 564.00, ICD10: K59.00 Take foods that help get bowels moving at least every other day to hep prevent constipation. Cereal seems to help. 4. Chronic midline low back pain, unspecified whether sciatica present - ICD9: 724.2, 338.29, ICD10: M54.50, G89.29 Continue present management. 5. History of total right knee replacement (TKR) - ICD9: V43.65, ICD10: Z96.651 Continue present management. 6. History of Clostridium difficile colitis - ICD9: V12.79, ICD10: Z86.19 Continue present management. Michelle Goldman MD Medical Decision Making: Problems: Moderate: 2+ stable chronic illnesses Data: Unique test(s) ordered: 3+ Risk: Moderate: Drug management Medical Decision Making Level: 4 - Moderate documented in this encounter [facility] 06-02-2021 Miscellaneous Notes The following approved medication requests have been transmitted electronically. Signed Prescriptions Disp Refills alendronate (FOSAMAX) 70 mg tablet 12 tablet 3 Sig: Take 1 tablet by mouth one time a week. Take with a full glass of water, on an empty stomach; do NOT lie down for 30minutes. Authorizing Provider: BRIANNA COLIN APRN.CNP Jerald notified of below results/recommendation. She did not have a problem with Fosamax, did not think she could be on the medication for an extended period. Jerald is wanting to start taking Fosamax again, [facility] Judith Forrester LPN Left message to call office. 06/01/2021 4:27 PM Billy Doty Ma BMD showing worsening osteoporosis, high risk for fracture. It looks like she was on Fosamax and stopped in 2008, did she have any issues with the medication? If not highly recommend resuming treatment with Fosamax Brianna Colin APRN.CNP Patient calls to ask provider to review bone density test results and advise as to what is next step in treatment. Patient reviewed results in and feels they are considerably worse. Please review and advise, Raya Gant RN documented in this encounter [facility] 10-07-2020 Note HNO ID: [id number] Author: RT Merly(R) Service: Radiology Author Type: Manager Completions Type: Progress Notes Filed: 10/07/2020 1:51 PM Note Text: Radiology Service Progress Note PATIENT NAME: Jerald Pan DATE OF SERVICE: October 07, 2020 TIME: 1:51 PM PATIENT IDENTITY VERIFICATION COMPLETED USING TWO (2) IDENTIFIERS: Name and Date of confirmed by patient verbally. FALL SCREENING: Has the patient had 2 falls in the last year or 1 fall with injury or currently using an Ambulatory Assistive Device (Walker, Cane, Wheelchair, Crutches, etc.)? Yes, Patient High Risk for Falls What interventions were put in place to prevent falls during this visit? Instructed Patient to Call for Help if Needed, Offered Assistance with Transfers/Clothing and Increased Observations by Caregivers PATIENT GENDER DATA: Female. status: : No status: NO. PATIENT RELEVANT IMPLANT DATA REVIEWED: Not Applicable RADIOLOGY DEPARTMENT: General X-ray: Exam(s) Completed: Lower Extremity X-Ray(s): Knee, AP / Lat / Merchant Right PERIPHERAL IV DATA: Not applicable SIGNED BY: RT Merly(R) October 07, 2020 1:51 PM [facility] 09-09-2020 Note HNO ID: [id number] Author: Anthony Bolivar MD Service: General Internal Medicine Author Type: Physician Type: Progress Notes Filed: 09/09/2020 9:04 AM Note Text: INPATIENT CONSULT PROGRESS NOTES Patient Name: Jerald Pan DATE of SERVICE: 09/09/20 TIME of SERVICE: 7:42 CONSULTING SERVICE: Medicine Plan of care discussed with: Provider, RN, Patient. INTERVAL HPI: pain is fairly controlled Patient seen and examined: Vitals/Meds/Labs/U/O reviewed Alert Oriented NO nausea, vomiting NOlight headedness NOshortness of breathe Dry oral mucosa CVS ? RRR Lungs ? Clear to auscultation Abdomen ? soft,NT, + BS LLE ? Ankle No edema RLE ? Ankle No edema MEDICATIONS: Current Facility-Administered Medications Medication Dose Route Frequency - simvastatin 20 mg tab(s) (ZOCOR) 20 mg ORAL AT BEDTIME - lisinopril 20 mg tab(s) (ZESTRIL, PRINIVIL) 20 mg ORAL DAILY - metoprolol succinate ER 50 mg tab(s) (TOPROL XL) 50 mg ORAL DAILY - hydroCHLOROthiazide 12.5 mg tab(s) (HYDRODIURIL, ESIDRIX) 12.5 mg ORAL DAILY - enoxaparin 40 mg injection (LOVENOX) 40 mg SUBCUTANEOUS q 12 HR - NaCl 0.9% iv infusion 75 mL/hr INTRAVENOUS CONTINUOUS - HYDROcodone 5 mg - acetaminophen 325 mg tablet (NORCO) 1-2 tablet ORAL q 4 H PRN - morphine 2 mg injection 2 mg INTRAVENOUS q 2 H PRN - keTORolac 15 mg injection (TORADOL) 15 mg INTRAVENOUS q 6 H - ondansetron orally disintegrating 4 mg tab(s) (ZOFRAN ODT) 4 mg ORAL q 6 H PRN Or - ondansetron (PF) 4 mg injection (ZOFRAN) 4 mg INTRAVENOUS q 6 H PRN - magnesium hydroxide 400 mg/5 mL 30 mL (MOM) 30 mL ORAL DAILY PRN - [START ON 09/10/2020] bisacodyl EC 10 mg tab(s) (DULCOLAX) 10 mg ORAL DAILY - aluminum-magnesium hydroxide-simethicone 200-200-20 mg/5 mL 30 mL (MAALOX,MYLANTA,MAG-AL PLUS) 30 mL ORAL q 2 H PRN - ascorbic acid (vitamin C) 500 mg tab(s) (VITAMIN C) 500 mg ORAL BID w MEALS - docusate sodium 100 mg cap(s) (COLACE) 100 mg ORAL BID - senna 17.2 mg tab(s) (SENOKOT) 17.2 mg ORAL AT BEDTIME - scopolamine 1 mg over 3 days 1 Patch (TRANSDERM-SCOP) 1 Patch TRANSDERMAL Pre-Op Once - scopolamine - VERIFY patch OTHER q 8 H - scopolamine - REMOVE PATCH OTHER ONCE PHYSICAL EXAM: Patient Vitals for the past 24 hrs: BP Temp Temp src Pulse Resp SpO2 Height Weight 09/09/20 0811 179/53 36.8 ?C (98.2 ?F) Oral (!) 58 18 99 % ? ? 09/09/20 0357 166/51 36.7 ?C (98.1 ?F) Oral 61 17 100 % ? ? 09/08/20 2313 165/52 36.5 ?C (97.7 ?F) Oral (!) 59 16 97 % ? ? 09/08/20 1929 167/69 36.5 ?C (97.7 ?F) Oral 79 17 100 % ? ? 09/08/20 1714 150/70 ? Oral (!) 57 18 100 % ? ? 09/08/20 1607 159/51 ? Oral (!) 50 16 100 % ? ? 09/08/20 1530 138/63 ? ? (!) 50 22 98 % ? ? 09/08/20 1515 141/65 ? ? (!) 54 21 97 % ? ? 09/08/20 1500 141/63 ? ? 64 14 100 % ? ? 09/08/20 1451 132/61 36.1 ?C (97 ?F) ? 64 20 100 % ? ? 09/08/20 1300 167/71 ? ? 61 17 100 % ? ? 09/08/20 1255 173/72 ? ? 66 15 100 % ? ? 09/08/20 1250 193/81 ? ? 65 15 100 % ? ? 09/08/20 1245 194/85 ? ? 61 19 100 % ? ? 09/08/20 1210 200/86 36.6 ?C (97.9 ?F) ? 79 16 100 % 162.6 cm (5' 4 ) 63 kg (139 lb) Body mass index is 23.86 kg/m?. DATA: CBC: No results for input(s): WBC, RBC, HB, HCT, PLT, MCV, MCH, MPV, RDW in the last 24 hours. Coags: No results for input(s): PT, INR, APTT in the last 24 hours. CMP: No results for input(s): NA, K, CHLOR, CO2, BUN, CREAT, GLUC, TPROT, CA, MG, ALBUMIN, TBILI, ALKPHOS, ALT, AST, ANION in the last 24 hours. ASSESSMENT AND PLAN: A. OA S/P - Total Knee Unilateral: right.DVT prophylaxis with Lovenox P. Continue PT/OT Hypertension, stable Hyperlipidemia continue statin Possible discharge today Meds reviewed SIGNATURE: Anthony Bolivar MD [facility] 09-09-2020 Note HNO ID: [id number] Author: Sherif Saavedra APRN.DRIP BOX TENDER Service: Orthopaedic Surgery Author Type: Nurse Practitioner Type: Progress Notes Filed: 09/09/2020 7:03 AM Note Text: Attestation signed by Shankar Wilcox MD at 09/10/2020 4:36 PM Orthopaedic Staff Note Patient seen and examined, and I agree with the above note. Patient shows no signs or symptoms of a DVT or infection at this time. Shankar Wilcox MD POSTOP NOTE ORTHOPEDIC SERVICE DATE: 09/09/2020 SERVICE TIME: 7:02 AM IMPRESSION/PLAN: S/P Procedure(s) (LRB): ARTHROPLASTY REPLACE JOINT TOTAL KNEE (Right) on 09/08/2020 Physical Therapy, recommending Home PT WBAT RLE DVT prophylaxis: with Lovenox and Intermittent pneumatic compression device (IPCD) Pain control Case Management for discharge planning, await final therapy recommendations Plan of care discussed with: Provider, RN, Patient. Patient Active Hospital Problem List: No active hospital problems. POST OPERATIVE COMPLICATIONS: Complicated by uneventful/none SUBJECTIVE: Patient states that they are comfortable Well Controlled knee(s) pain. Denies incisional pain. OBJECTIVE: VITAL SIGNS: BP 166/51 Pulse 61 Temp 36.7 ?C (98.1 ?F) (Oral) Resp 17 Ht 162.6 cm (5' 4 ) Wt 63 kg (139 lb) SpO2 100% BMI 23.86 kg/m? INTAKE AND OUTPUT: Intake/Output Summary (Last 24 hours) at 09/09/2020 0702 Last data filed at 09/09/2020 0500 Gross per 24 hour Intake 2181 ml Output 1200 ml Net 981 ml LABS: Hemoglobin Date Value Ref Range Status 08/27/2020 14.2 11.5 - 15.5 g/dL Final 07/04/2020 13.7 11.5 - 15.5 g/dL Final Hematocrit Date Value Ref Range Status 08/27/2020 42.6 36.0 - 46.0 % Final 07/04/2020 43.7 36.0 - 46.0 % Final Platelet Count Date Value Ref Range Status 08/27/2020 322 150 - 400 k/uL Final 07/04/2020 371 150 - 400 k/uL Final WBC Date Value Ref Range Status 08/27/2020 6.69 3.70 - 11.00 k/uL Final 07/04/2020 5.17 3.70 - 11.00 k/uL Final Creatinine Date Value Ref Range Status 08/27/2020 0.60 0.58 - 0.96 mg/dL Final 07/04/2020 0.58 0.58 - 0.96 mg/dL Final Potassium Date Value Ref Range Status 08/27/2020 4.1 3.7 - 5.1 mmol/L Final 07/04/2020 3.7 3.7 - 5.1 mmol/L Final VTE Prophylaxis: Active VTE Risk Category Order: 09/08/20 1615 VTE RISK CATEGORY: SURGICAL HIGH RISK ([place], [place]) Active VTE Medication Orders: Anticoagulant AND Antiplatelet Medications (From admission, onward) Comment Start Dose Route Frequency Last Action Ordered Stop 09/09/20 0900 enoxaparin 40 mg injection (LOVENOX) (Surgical Risk Categories) 40 mg SUBCUTANEOUS EVERY 12 HOURS Ordered 09/08/20 1609 -- Active VTE Prophylaxis Orders: 09/08/20 1615 PNEUMATIC COMPRESSION STOCKINGS ([place], [place]) PHYSICAL EXAMINATION: Right Lower Extremity: Dorsalis pedis pulses palpable. Posterior tibial pulses palpable. Dorsi flexion 5/5. Plantar flexion 5/5. Extensor hallucis extension: 5/5. Sensory intact to light touch L1-S1. Dressing clean, dry and intact. Surgical site no drainage and Silverlon intact. Thigh is not swollen, calf is not tender, no signs of DVT or infection Problem Review and Assessment: Skin and Abdominal Wall: Patient monitored, no new events overnight Cardiovascular and Vascular: Patient monitored, no new events overnight Respiratory: Patient monitored, no new events overnight Endocrine and Metabolic: Patient monitored, no new events overnight Gastrointestinal: Patient monitored, no new events overnight Genitourinary and Nephrology: Patient monitored, no new events overnight Behavioral, Cerebrovascular and Nervous: Patient monitored, no new events overnight Infectious: Patient monitored, no new events overnight DATA: Diagnostic tests reviewed for today's visit: Most recent labs and imaging results. SIGNATURE: Sherif Saavedra APRN.CNP PATIENT NAME: Jerald Pan DATE: September 09, 2020 TIME: 7:02 AM PAGER/CONTACT #: [phone] The patient has undergone major orthopedic surgery and participating in therapy. Pain cannot be managed within an average of 30 MED per day. Patient requiring average of higher than 30 MED per day in order to control pain and allow patient to actively and safely participate in therapy and this is the lowest dose consistent with patient's medical condition. Non-narcotic medication options have been discussed. In addition, the patient has been advised of the benefits and risks of the opioid (including the potential for addiction). Patient demonstrated understanding of risks versus benefits. [facility] 09-08-2020 Note HNO ID: [id number] Author: Griselda Gómez RN Service: ? Author Type: Registered Nurse Type: Nursing Progress Note Filed: 09/08/2020 3:52 PM Note Text: Bladder scan completed. 501mls of urine found. RN drained patient's bladder. Patient tolerated well. [facility] 09-08-2020 Note HNO ID: [id number] Author: Jody Mc APRN.CARVER HAND Service: Anesthesiology Author Type: Nurse Unix Manager Type: Anesthesia Procedure Notes Filed: 09/08/2020 1:33 PM Note Text: ANESTHESIOLOGY PROCEDURE NOTE Spinal Block General Information Procedure Start Time/Medication Administration: 09/08/2020 1:10 PM Patient location during procedure: OR Timeout Performed Pre-procedure: timeout performed Consent Obtained: Yes Patient identity confirmed: arm band and patient Reason for Block: primary surgical anesthetic Staffing CARVER HAND: Jody Mc APRN.CARVER HAND Performed by: JACQUELINE Preparation Sterility Preparation: hand hygiene performed prior to procedure, surgical cap used, mask used, sterile drape used during line insertion, skin prep agent completely dried prior to procedure Site Prep: Betadine Procedure Details Patient Position: sitting Ultrasound Guided: No Monitoring: Pulse Ox and NIBP Approach: Midline Location: L3-4 Needle Needle Type: pencil-tip Needle Gauge: 25 G Needle Length: 3.5 in Assessment Events: tolerated well Comments Marcaine 13.5 mg (hyperbaric) given intrathecally SIGNATURE: Jody Mc APRN.CARVER HAND PATIENT NAME: Jerald Pan DATE: September 08, 2020 TIME: 1:32 PM CSN: [id number] [facility] 09-08-2020 Note HNO ID: [id number] Author: Celina Rod MD Service: Anesthesiology Author Type: Anesthesiologist Type: Anesthesia Procedure Notes Filed: 09/08/2020 12:59 PM Note Text: ANESTHESIOLOGY PROCEDURE NOTE Peripheral Nerve Block General Information Procedure Start Time/Medication Administration: 09/08/2020 12:52 PM Procedure End time: 09/08/2020 12:55 PM Patient location during procedure: induction room Timeout Performed Pre-procedure: timeout performed Consent Obtained: Yes Patient identity confirmed: arm band Reason for block: post-op pain management/at surgeon's request Staffing Anesthesiologist: Celina Rod MD Preparation Sterility Preparation: hand hygiene performed prior to procedure, surgical cap used, mask used, sterile drape used during line insertion, skin prep agent completely dried prior to procedure Site Prep: Chloraprep Pre-Procedure Neuro Exam Location: RLE Sensory: intact Motor: intact Procedure Details Patient Position: supine Monitoring: Pulse OX, EKG and NIBP Block Type Lower Extremity: distal femoral (adductor canal) Laterality: right Injection Technique: single-shot Ultrasound Guided: Yes Image in Chart: yes Local Infiltration: Yes Needle Needle Type: echogenic Needle Gauge: 21 G Needle Length: 100 mm Needle Localization: ultrasound Medications Administered Dexamethasone sodium phosphate injection (DECADRON), 4 mg ropivacaine (PF) 5 mg/mL (0.5 %) injection (NAROPIN), 20 mL SIGNATURE: Celina Rod MD PATIENT NAME: Jerald Pan DATE: September 08, 2020 TIME: 12:58 PM CSN: [id number] [facility] documented as of this encounter (statuses as of 09/19/2021) [facility]09[facility]2020 History of Past illness Narrative* Problem Noted Date Resolved Date Postoperative pain of right knee 01/07/2020 09/19/2021 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 03/21/20132013 Melanocytic nevus of trunk 03/21/201302/05 Cheilitis 03/02/2012 02/05/2014 Irritant contact dermatitis 03/02/201201/17 Capillary angioma 03/02/2012 02/05/2014 Cracked skin 11/07/2011 02/05/2014 Fissure in skin 11/07/2011 02/05/2014 Angular cheilitis 09/16/2011 02/05/2014 Solar Lentigines 09/16/2011 02/05/2014 Actinic skin damage 09/16/2011 02/05/2014 Hills angiomas 09/16/2011 02/05/2014 ACTINIC KERATOSES (Premalignant AK's) 09/16/2011 02/05/2014 Contact dermatitis and other eczema, corners of lips 06/11/2011 02/05/2014 Overview: suspect harrison associated Hematuria 04/20/2011 09/19/2021 Overview: Seen By Urologist Bladder wall thickening 04/20/2011 09/20/19 Encounter for long-term (current) use of medicat ions 10/22/2010 02/05/2014 Unspecified tinnitus 04/23/2008 02/05/2014 ACTINIC KERATOSES (Premalignant AK's) 12/19/2007 09/16/2011 Other seborrheic keratosis 12/19/200709/15 SOLAR LENTIGINES///DYSCHROMIA OTHER 12/19/2007 09/16/2011 Other chronic dermatitis due to solar radiation 12/19/2007 09/16/2011 HILLS ANGIOMA///NEVUS, 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 Esophageal reflux 12/03/2019 Tinnitus 02/05/2014 documented as of this encounter (statuses as of 09/23/2021) [facility] History of Past illness Narrative* Problem Noted Date Resolved Date Postoperative pain of right knee 01/07/2020 09/19/2021 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 03/21/20132013 Melanocytic nevus of trunk 03/21/201302/05 Cheilitis 03/02/2012 02/05/2014 Irritant contact dermatitis 03/02/201201/17 Capillary angioma 03/02/2012 02/05/2014 Cracked skin 11/07/2011 02/05/2014 Fissure in skin 11/07/2011 02/05/2014 Angular cheilitis 09/16/2011 02/05/2014 Solar Lentigines 09/16/2011 02/05/2014 Actinic skin damage 09/16/2011 02/05/2014 Hills angiomas 09/16/2011 02/05/2014 ACTINIC KERATOSES (Premalignant AK's) 09/16/2011 02/05/2014 Contact dermatitis and other eczema, corners of lips 06/11/2011 02/05/2014 Overview: suspect harrison associated Hematuria 04/20/2011 09/19/2021 Overview: Seen By Urologist Bladder wall thickening 04/20/2011 09/20/19 Encounter for long-term (current) use of medicat ions 10/22/2010 02/05/2014 Unspecified tinnitus 04/23/2008 02/05/2014 ACTINIC KERATOSES (Premalignant AK's) 12/19/2007 09/16/2011 Other seborrheic keratosis 12/19/200709/15 SOLAR LENTIGINES///DYSCHROMIA OTHER 12/19/2007 09/16/2011 Other chronic dermatitis due to solar radiation 12/19/2007 09/16/2011 HILLS ANGIOMA///NEVUS, 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 Esophageal reflux 12/03/2019 Tinnitus 02/05/2014 documented as of this encounter (statuses as of 09/25/2021) [facility] History of Past illness Narrative* Problem Noted Date Resolved Date Postoperative pain of right knee 01/07/2020 09/19/2021 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 03/21/20132013 Melanocytic nevus of trunk 03/21/201302/05 Cheilitis 03/02/2012 02/05/2014 Irritant contact dermatitis 03/02/201201/17 Capillary angioma 03/02/2012 02/05/2014 Cracked skin 11/07/2011 02/05/2014 Fissure in skin 11/07/2011 02/05/2014 Angular cheilitis 09/16/2011 02/05/2014 Solar Lentigines 09/16/2011 02/05/2014 Actinic skin damage 09/16/2011 02/05/2014 Hills angiomas 09/16/2011 02/05/2014 ACTINIC KERATOSES (Premalignant AK's) 09/16/2011 02/05/2014 Contact dermatitis and other eczema, corners of lips 06/11/2011 02/05/2014 Overview: suspect harrison associated Hematuria 04/20/2011 09/19/2021 Overview: Seen By Urologist Bladder wall thickening 04/20/2011 09/20/19 Encounter for long-term (current) use of medicat ions 10/22/2010 02/05/2014 Unspecified tinnitus 04/23/2008 02/05/2014 ACTINIC KERATOSES (Premalignant AK's) 12/19/2007 09/16/2011 Other seborrheic keratosis 12/19/200709/15 SOLAR LENTIGINES///DYSCHROMIA OTHER 12/19/2007 09/16/2011 Other chronic dermatitis due to solar radiation 12/19/2007 09/16/2011 HILLS ANGIOMA///NEVUS, 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 Esophageal reflux 12/03/2019 Tinnitus 02/05/2014 documented as of this encounter (statuses as of 09/29/2021) [facility] History of Past illness Narrative* Problem Noted Date Resolved Date Postoperative pain of right knee 01/07/2020 09/19/2021 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 03/21/20132013 Melanocytic nevus of trunk 03/21/201302/05 Cheilitis 03/02/2012 02/05/2014 Irritant contact dermatitis 03/02/201201/17 Capillary angioma 03/02/2012 02/05/2014 Cracked skin 11/07/2011 02/05/2014 Fissure in skin 11/07/2011 02/05/2014 Angular cheilitis 09/16/2011 02/05/2014 Solar Lentigines 09/16/2011 02/05/2014 Actinic skin damage 09/16/2011 02/05/2014 Hills angiomas 09/16/2011 02/05/2014 ACTINIC KERATOSES (Premalignant AK's) 09/16/2011 02/05/2014 Contact dermatitis and other eczema, corners of lips 06/11/2011 02/05/2014 Overview: suspect harrison associated Hematuria 04/20/2011 09/19/2021 Overview: Seen By Urologist Bladder wall thickening 04/20/2011 09/20/19 Encounter for long-term (current) use of medicat ions 10/22/2010 02/05/2014 Unspecified tinnitus 04/23/2008 02/05/2014 ACTINIC KERATOSES (Premalignant AK's) 12/19/2007 09/16/2011 Other seborrheic keratosis 12/19/200709/15 SOLAR LENTIGINES///DYSCHROMIA OTHER 12/19/2007 09/16/2011 Other chronic dermatitis due to solar radiation 12/19/2007 09/16/2011 HILLS ANGIOMA///NEVUS, 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 Esophageal reflux 12/03/2019 Tinnitus 02/05/2014 documented as of this encounter (statuses as of 09/29/2021) [facility] History of Past illness Narrative* Problem Noted Date Resolved Date Postoperative pain of right knee 01/07/2020 09/19/2021 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 03/21/20132013 Melanocytic nevus of trunk 03/21/201302/05 Cheilitis 03/02/2012 02/05/2014 Irritant contact dermatitis 03/02/201201/17 Capillary angioma 03/02/2012 02/05/2014 Cracked skin 11/07/2011 02/05/2014 Fissure in skin 11/07/2011 02/05/2014 Angular cheilitis 09/16/2011 02/05/2014 Solar Lentigines 09/16/2011 02/05/2014 Actinic skin damage 09/16/2011 02/05/2014 Hills angiomas 09/16/2011 02/05/2014 ACTINIC KERATOSES (Premalignant AK's) 09/16/2011 02/05/2014 Contact dermatitis and other eczema, corners of lips 06/11/2011 02/05/2014 Overview: suspect harrison associated Hematuria 04/20/2011 09/19/2021 Overview: Seen By Urologist Bladder wall thickening 04/20/2011 09/20/19 Encounter for long-term (current) use of medicat ions 10/22/2010 02/05/2014 Unspecified tinnitus 04/23/2008 02/05/2014 ACTINIC KERATOSES (Premalignant AK's) 12/19/2007 09/16/2011 Other seborrheic keratosis 12/19/200709/15 SOLAR LENTIGINES///DYSCHROMIA OTHER 12/19/2007 09/16/2011 Other chronic dermatitis due to solar radiation 12/19/2007 09/16/2011 HILLS ANGIOMA///NEVUS, 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 Esophageal reflux 12/03/2019 Tinnitus 02/05/2014 documented as of this encounter (statuses as of 10/05/2021) [facility] History of Past illness Narrative* Problem Noted Date Resolved Date Postoperative pain of right knee 01/07/2020 09/19/2021 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 03/21/20132013 Melanocytic nevus of trunk 03/21/201302/05 Cheilitis 03/02/2012 02/05/2014 Irritant contact dermatitis 03/02/201201/17 Capillary angioma 03/02/2012 02/05/2014 Cracked skin 11/07/2011 02/05/2014 Fissure in skin 11/07/2011 02/05/2014 Angular cheilitis 09/16/2011 02/05/2014 Solar Lentigines 09/16/2011 02/05/2014 Actinic skin damage 09/16/2011 02/05/2014 Hills angiomas 09/16/2011 02/05/2014 ACTINIC KERATOSES (Premalignant AK's) 09/16/2011 02/05/2014 Contact dermatitis and other eczema, corners of lips 06/11/2011 02/05/2014 Overview: suspect harrison associated Hematuria 04/20/2011 09/19/2021 Overview: Seen By Urologist Bladder wall thickening 04/20/2011 09/20/19 Encounter for long-term (current) use of medicat ions 10/22/2010 02/05/2014 Unspecified tinnitus 04/23/2008 02/05/2014 ACTINIC KERATOSES (Premalignant AK's) 12/19/2007 09/16/2011 Other seborrheic keratosis 12/19/200709/15 SOLAR LENTIGINES///DYSCHROMIA OTHER 12/19/2007 09/16/2011 Other chronic dermatitis due to solar radiation 12/19/2007 09/16/2011 HILLS ANGIOMA///NEVUS, 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 Esophageal reflux 12/03/2019 Tinnitus 02/05/2014 documented as of this encounter (statuses as of 10/23/2021) [facility] History of Past illness Narrative* Problem Noted Date Resolved Date Postoperative pain of right knee 01/07/2020 09/19/2021 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 03/21/20132013 Melanocytic nevus of trunk 03/21/201302/05 Cheilitis 03/02/2012 02/05/2014 Irritant contact dermatitis 03/02/201201/17 Capillary angioma 03/02/2012 02/05/2014 Cracked skin 11/07/2011 02/05/2014 Fissure in skin 11/07/2011 02/05/2014 Angular cheilitis 09/16/2011 02/05/2014 Solar Lentigines 09/16/2011 02/05/2014 Actinic skin damage 09/16/2011 02/05/2014 Hills angiomas 09/16/2011 02/05/2014 ACTINIC KERATOSES (Premalignant AK's) 09/16/2011 02/05/2014 Contact dermatitis and other eczema, corners of lips 06/11/2011 02/05/2014 Overview: suspect harrison associated Hematuria 04/20/2011 09/19/2021 Overview: Seen By Urologist Bladder wall thickening 04/20/2011 09/20/19 Encounter for long-term (current) use of medicat ions 10/22/2010 02/05/2014 Unspecified tinnitus 04/23/2008 02/05/2014 ACTINIC KERATOSES (Premalignant AK's) 12/19/2007 09/16/2011 Other seborrheic keratosis 12/19/200709/15 SOLAR LENTIGINES///DYSCHROMIA OTHER 12/19/2007 09/16/2011 Other chronic dermatitis due to solar radiation 12/19/2007 09/16/2011 HILLS ANGIOMA///NEVUS, 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 Esophageal reflux 12/03/2019 Tinnitus 02/05/2014 documented as of this encounter (statuses as of 11/05/2021) [facility] History of Past illness Narrative* Problem Noted Date Resolved Date Postoperative pain of right knee 01/07/2020 09/19/2021 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 03/21/20132013 Melanocytic nevus of trunk 03/21/201302/05 Cheilitis 03/02/2012 02/05/2014 Irritant contact dermatitis 03/02/201201/17 Capillary angioma 03/02/2012 02/05/2014 Cracked skin 11/07/2011 02/05/2014 Fissure in skin 11/07/2011 02/05/2014 Angular cheilitis 09/16/2011 02/05/2014 Solar Lentigines 09/16/2011 02/05/2014 Actinic skin damage 09/16/2011 02/05/2014 Hills angiomas 09/16/2011 02/05/2014 ACTINIC KERATOSES (Premalignant AK's) 09/16/2011 02/05/2014 Contact dermatitis and other eczema, corners of lips 06/11/2011 02/05/2014 Overview: suspect harrison associated Hematuria 04/20/2011 09/19/2021 Overview: Seen By Urologist Bladder wall thickening 04/20/2011 09/20/19 22 Encounter for long-term (current) use of medicat ions 10/22/2010 02/05/2014 Unspecified tinnitus 04/23/2008 02/05/2014 ACTINIC KERATOSES (Premalignant AK's) 12/19/2007 09/16/2011 Other seborrheic keratosis 12/19/200709/15 SOLAR LENTIGINES///DYSCHROMIA OTHER 12/19/2007 09/16/2011 Other chronic dermatitis due to solar radiation 12/19/2007 09/16/2011 HILLS ANGIOMA///NEVUS, 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 Esophageal reflux 12/03/2019 Tinnitus 02/05/2014 documented as of this encounter (statuses as of 11/16/2021) [facility] History of Past illness Narrative* Problem Noted Date Resolved Date Postoperative pain of right knee 01/07/2020 09/19/2021 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 03/21/20132013 Melanocytic nevus of trunk 03/21/201302/05 Cheilitis 03/02/2012 02/05/2014 Irritant contact dermatitis 03/02/201201/17 Capillary angioma 03/02/2012 02/05/2014 Cracked skin 11/07/2011 02/05/2014 Fissure in skin 11/07/2011 02/05/2014 Angular cheilitis 09/16/2011 02/05/2014 Solar Lentigines 09/16/2011 02/05/2014 Actinic skin damage 09/16/2011 02/05/2014 [place]hlls angiomas 09/16/2011 02/05/2014 ACTINIC KERATOSES (Premalignant AK's) 09/16/2011 02/05/2014 Contact dermatitis and other eczema, corners of lips 06/11/2011 02/05/2014 Overview: suspect harrison associated Hematuria 04/20/2011 09/19/2021 Overview: Seen By Urologist Bladder wall thickening 04/20/2011 09/20/19 22 Encounter for long-term (current) use of medicat ions 10/22/2010 02/05/2014 Unspecified tinnitus 04/23/2008 02/05/2014 ACTINIC KERATOSES (Premalignant AK's) 12/19/2007 09/16/2011 Other seborrheic keratosis 12/19/200709/15 SOLAR LENTIGINES///DYSCHROMIA OTHER 12/19/2007 09/16/2011 Other chronic dermatitis due to solar radiation 12/19/2007 09/16/2011 HILLS ANGIOMA///NEVUS, 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 Esophageal reflux 12/03/2019 Tinnitus 02/05/2014 documented as of this encounter (statuses as of 11/26/2021) [facility] History of Past illness Narrative* Problem Noted Date Resolved Date Postoperative pain of right knee 01/07/2020 09/19/2021 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 03/21/20132013 Melanocytic nevus of trunk 03/21/201302/05 Cheilitis 03/02/2012 02/05/2014 Irritant contact dermatitis 03/02/201201/17 Capillary angioma 03/02/2012 02/05/2014 Cracked skin 11/07/2011 02/05/2014 Fissure in skin 11/07/2011 02/05/2014 Angular cheilitis 09/16/2011 02/05/2014 Solar Lentigines 09/16/2011 02/05/2014 Actinic skin damage 09/16/2011 02/05/2014 [place] angiomas 09/16/2011 02/05/2014 ACTINIC KERATOSES (Premalignant AK's) 09/16/2011 02/05/2014 Contact dermatitis and other eczema, corners of lips 06/11/2011 02/05/2014 Overview: suspect harrison associated Hematuria 04/20/2011 09/19/2021 Overview: Seen By Urologist Bladder wall thickening 04/20/2011 09/20/19 Encounter for long-term (current) use of medicat ions 10/22/2010 02/05/2014 Unspecified tinnitus 04/23/2008 02/05/2014 ACTINIC KERATOSES (Premalignant AK's) 12/19/2007 09/16/2011 Other seborrheic keratosis 12/19/200709/15 SOLAR LENTIGINES///DYSCHROMIA OTHER 12/19/2007 09/16/2011 Other chronic dermatitis due to solar radiation 12/19/2007 09/16/2011 HILLS ANGIOMA///NEVUS, 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 Esophageal reflux 12/03/2019 Tinnitus 02/05/2014 documented as of this encounter (statuses as of 12/03/2021) [facility] History of Past illness Narrative* Problem Noted Date Resolved Date Postoperative pain of right knee 01/07/2020 09/19/2021 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 03/21/20132013 Melanocytic nevus of trunk 03/21/201302/05 Cheilitis 03/02/2012 02/05/2014 Irritant contact dermatitis 03/02/201201/17 Capillary angioma 03/02/2012 02/05/2014 Cracked skin 11/07/2011 02/05/2014 Fissure in skin 11/07/2011 02/05/2014 Angular cheilitis 09/16/2011 02/05/2014 Solar Lentigines 09/16/2011 02/05/2014 Actinic skin damage 09/16/2011 02/05/2014 [place] angiomas 09/16/2011 02/05/2014 ACTINIC KERATOSES (Premalignant AK's) 09/16/2011 02/05/2014 Contact dermatitis and other eczema, corners of lips 06/11/2011 02/05/2014 Overview: suspect harrison associated Hematuria 04/20/2011 09/19/2021 Overview: Seen By Urologist Bladder wall thickening 04/20/2011 09/20/19 Encounter for long-term (current) use of medicat ions 10/22/2010 02/05/2014 Unspecified tinnitus 04/23/2008 02/05/2014 ACTINIC KERATOSES (Premalignant AK's) 12/19/2007 09/16/2011 Other seborrheic keratosis 12/19/200709/15 SOLAR LENTIGINES///DYSCHROMIA OTHER 12/19/2007 09/16/2011 Other chronic dermatitis due to solar radiation 12/19/2007 09/16/2011 HILLS ANGIOMA///NEVUS, 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 Esophageal reflux 12/03/2019 Tinnitus 02/05/2014 documented as of this encounter (statuses as of 12/18/2021) [facility] History of Past illness Narrative* Problem Noted Date Resolved Date Postoperative pain of right knee 01/07/2020 09/19/2021 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 03/21/20132013 Melanocytic nevus of trunk 03/21/201302/05 Cheilitis 03/02/2012 02/05/2014 Irritant contact dermatitis 03/02/201201/17 Capillary angioma 03/02/2012 02/05/2014 Cracked skin 11/07/2011 02/05/2014 Fissure in skin 11/07/2011 02/05/2014 Angular cheilitis 09/16/2011 02/05/2014 Solar Lentigines 09/16/2011 02/05/2014 Actinic skin damage 09/16/2011 02/05/2014 [place] angiomas 09/16/2011 02/05/2014 ACTINIC KERATOSES (Premalignant AK's) 09/16/2011 02/05/2014 Contact dermatitis and other eczema, corners of lips 06/11/2011 02/05/2014 Overview: suspect harrison associated Hematuria 04/20/2011 09/19/2021 Overview: Seen By Urologist Bladder wall thickening 04/20/2011 09/20/19 22 Encounter for long-term (current) use of medicat ions 10/22/2010 02/05/2014 Unspecified tinnitus 04/23/2008 02/05/2014 ACTINIC KERATOSES (Premalignant AK's) 12/19/2007 09/16/2011 Other seborrheic keratosis 12/19/200709/15 SOLAR LENTIGINES///DYSCHROMIA OTHER 12/19/2007 09/16/2011 Other chronic dermatitis due to solar radiation 12/19/2007 09/16/2011 HILLS ANGIOMA///NEVUS, 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 Esophageal reflux 12/03/2019 Tinnitus 02/05/2014 documented as of this encounter (statuses as of 01/15/2022) [facility] History of Past illness Narrative* Problem Noted Date Resolved Date Postoperative pain of right knee 01/07/2020 09/19/2021 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 03/21/20132013 Melanocytic nevus of trunk 03/21/201302/05 Cheilitis 03/02/2012 02/05/2014 Irritant contact dermatitis 03/02/201201/17 Capillary angioma 03/02/2012 02/05/2014 Cracked skin 11/07/2011 02/05/2014 Fissure in skin 11/07/2011 02/05/2014 Angular cheilitis 09/16/2011 02/05/2014 Solar Lentigines 09/16/2011 02/05/2014 Actinic skin damage 09/16/2011 02/05/2014 [place] angiomas 09/16/2011 02/05/2014 ACTINIC KERATOSES (Premalignant AK's) 09/16/2011 02/05/2014 Contact dermatitis and other eczema, corners of lips 06/11/2011 02/05/2014 Overview: suspect harrison associated Hematuria 04/20/2011 09/19/2021 Overview: Seen By Urologist Bladder wall thickening 04/20/2011 09/20/19 Encounter for long-term (current) use of medicat ions 10/22/2010 02/05/2014 Unspecified tinnitus 04/23/2008 02/05/2014 ACTINIC KERATOSES (Premalignant AK's) 12/19/2007 09/16/2011 Other seborrheic keratosis 12/19/200709/15 SOLAR LENTIGINES///DYSCHROMIA OTHER 12/19/2007 09/16/2011 Other chronic dermatitis due to solar radiation 12/19/2007 09/16/2011 HILLS ANGIOMA///NEVUS, 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 Esophageal reflux 12/03/2019 Tinnitus 02/05/2014 documented as of this encounter (statuses as of 02/03/2022) [facility] of Past illness Narrative* Problem Noted Date Resolved Date Postoperative pain of right knee 01/07/2020 09/19/2021 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 03/21/20132013 Melanocytic nevus of trunk 03/21/201302/05 Cheilitis 03/02/2012 02/05/2014 Irritant contact dermatitis 03/02/201201/17 Capillary angioma 03/02/2012 02/05/2014 Cracked skin 11/07/2011 02/05/2014 Fissure in skin 11/07/2011 02/05/2014 Angular cheilitis 09/16/2011 02/05/2014 Solar Lentigines 09/16/2011 02/05/2014 Actinic skin damage 09/16/2011 02/05/2014 [place] angiomas 09/16/2011 02/05/2014 ACTINIC KERATOSES (Premalignant AK's) 09/16/2011 02/05/2014 Contact dermatitis and other eczema, corners of lips 06/11/2011 02/05/2014 Overview: suspect harrison associated Hematuria 04/20/2011 09/19/2021 Overview: Seen By Urologist Bladder wall thickening 04/20/2011 09/20/19 Encounter for long-term (current) use of medicat ions 10/22/2010 02/05/2014 Unspecified tinnitus 04/23/2008 02/05/2014 ACTINIC KERATOSES (Premalignant AK's) 12/19/2007 09/16/2011 Other seborrheic keratosis 12/19/200709/15 SOLAR LENTIGINES///DYSCHROMIA OTHER 12/19/2007 09/16/2011 Other chronic dermatitis due to solar radiation 12/19/2007 09/16/2011 HILLS ANGIOMA///NEVUS, 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 Esophageal reflux 12/03/2019 Tinnitus 02/05/2014 documented as of this encounter (statuses as of 02/05/2022) [facility] History of Past illness Narrative* Problem Noted Date Resolved Date Postoperative pain of right knee 01/07/2020 09/19/2021 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 03/21/20132013 Melanocytic nevus of trunk 03/21/201302/05 Cheilitis 03/02/2012 02/05/2014 Irritant contact dermatitis 03/02/201201/17 Capillary angioma 03/02/2012 02/05/2014 Cracked skin 11/07/2011 02/05/2014 Fissure in skin 11/07/2011 02/05/2014 Angular cheilitis 09/16/2011 02/05/2014 Solar Lentigines 09/16/2011 02/05/2014 Actinic skin damage 09/16/2011 02/05/2014 [place] angiomas 09/16/2011 02/05/2014 ACTINIC KERATOSES (Premalignant AK's) 09/16/2011 02/05/2014 Contact dermatitis and other eczema, corners of lips 06/11/2011 02/05/2014 Overview: suspect harrison associated Hematuria 04/20/2011 09/19/2021 Overview: Seen By Urologist Bladder wall thickening 04/20/2011 09/20/19 22 Encounter for long-term (current) use of medicat ions 10/22/2010 02/05/2014 Unspecified tinnitus 04/23/2008 02/05/2014 ACTINIC KERATOSES (Premalignant AK's) 12/19/2007 09/16/2011 Other seborrheic keratosis 12/19/200709/15 SOLAR LENTIGINES///DYSCHROMIA OTHER 12/19/2007 09/16/2011 Other chronic dermatitis due to solar radiation 12/19/2007 09/16/2011 HILLS ANGIOMA///NEVUS, 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 Esophageal reflux 12/03/2019 Tinnitus 02/05/2014 documented as of this encounter (statuses as of 03/22/2022) [facility]2020 History of Past illness Narrative* Problem Noted Date Resolved Date Postoperative pain of right knee 01/07/2020 09/19/2021 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 03/21/20132013 Melanocytic nevus of trunk 03/21/201302/05 Cheilitis 03/02/2012 02/05/2014 Irritant contact dermatitis 03/02/201201/17 Capillary angioma 03/02/2012 02/05/2014 Cracked skin 11/07/2011 02/05/2014 Fissure in skin 11/07/2011 02/05/2014 Angular cheilitis 09/16/2011 02/05/2014 Solar Lentigines 09/16/2011 02/05/2014 Actinic skin damage 09/16/2011 02/05/2014 [place] angiomas 09/16/2011 02/05/2014 ACTINIC KERATOSES (Premalignant AK's) 09/16/2011 02/05/2014 Contact dermatitis and other eczema, corners of lips 06/11/2011 02/05/2014 Overview: suspect harrison associated Hematuria 04/20/2011 09/19/2021 Overview: Seen By Urologist Bladder wall thickening 04/20/2011 09/20/19 Encounter for long-term (current) use of medicat ions 10/22/2010 02/05/2014 Unspecified tinnitus 04/23/2008 02/05/2014 ACTINIC KERATOSES (Premalignant AK's) 12/19/2007 09/16/2011 Other seborrheic keratosis 12/19/200709/15 SOLAR LENTIGINES///DYSCHROMIA OTHER 12/19/2007 09/16/2011 Other chronic dermatitis due to solar radiation 12/19/2007 09/16/2011 HILLS ANGIOMA///NEVUS, 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 Esophageal reflux 12/03/2019 Tinnitus 02/05/2014 documented as of this encounter (statuses as of 03/23/2022) [facility] History of Past illness Narrative* Problem Noted Date Resolved Date Postoperative pain of right knee 01/07/2020 09/19/2021 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 03/21/20132013 Melanocytic nevus of trunk 03/21/201302/05 Cheilitis 03/02/2012 02/05/2014 Irritant contact dermatitis 03/02/201201/17 Capillary angioma 03/02/2012 02/05/2014 Cracked skin 11/07/2011 02/05/2014 Fissure in skin 11/07/2011 02/05/2014 Angular cheilitis 09/16/2011 02/05/2014 Solar Lentigines 09/16/2011 02/05/2014 Actinic skin damage 09/16/2011 02/05/2014 [place] angiomas 09/16/2011 02/05/2014 ACTINIC KERATOSES (Premalignant AK's) 09/16/2011 02/05/2014 Contact dermatitis and other eczema, corners of lips 06/11/2011 02/05/2014 Overview: suspect harrison associated Hematuria 04/20/2011 09/19/2021 Overview: Seen By Urologist Bladder wall thickening 04/20/2011 09/20/19 Encounter for long-term (current) use of medicat ions 10/22/2010 02/05/2014 Unspecified tinnitus 04/23/2008 02/05/2014 ACTINIC KERATOSES (Premalignant AK's) 12/19/2007 09/16/2011 Other seborrheic keratosis 12/19/200709/15 SOLAR LENTIGINES///DYSCHROMIA OTHER 12/19/2007 09/16/2011 Other chronic dermatitis due to solar radiation 12/19/2007 09/16/2011 HILLS ANGIOMA///NEVUS, 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 Esophageal reflux 12/03/2019 Tinnitus 02/05/2014 documented as of this encounter (statuses as of 04/05/2022) [facility] History of Past illness Narrative* Problem Noted Date Resolved Date Postoperative pain of right knee 01/07/2020 09/19/2021 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 03/21/20132013 Melanocytic nevus of trunk 03/21/201302/05 Cheilitis 03/02/2012 02/05/2014 Irritant contact dermatitis 03/02/201201/17 Capillary angioma 03/02/2012 02/05/2014 Cracked skin 11/07/2011 02/05/2014 Fissure in skin 11/07/2011 02/05/2014 Angular cheilitis 09/16/2011 02/05/2014 Solar Lentigines 09/16/2011 02/05/2014 Actinic skin damage 09/16/2011 02/05/2014 [place] angiomas 09/16/2011 02/05/2014 ACTINIC KERATOSES (Premalignant AK's) 09/16/2011 02/05/2014 Contact dermatitis and other eczema, corners of lips 06/11/2011 02/05/2014 Overview: suspect harrison associated Hematuria 04/20/2011 09/19/2021 Overview: Seen By Urologist Bladder wall thickening 04/20/2011 09/20/19 Encounter for long-term (current) use of medicat ions 10/22/2010 02/05/2014 Unspecified tinnitus 04/23/2008 02/05/2014 ACTINIC KERATOSES (Premalignant AK's) 12/19/2007 09/16/2011 Other seborrheic keratosis 12/19/200709/15 SOLAR LENTIGINES///DYSCHROMIA OTHER 12/19/2007 09/16/2011 Other chronic dermatitis due to solar radiation 12/19/2007 09/16/2011 HILLS ANGIOMA///NEVUS, 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 Esophageal reflux 12/03/2019 Tinnitus 02/05/2014 documented as of this encounter (statuses as of 04/06/2022) [facility] History of Past illness Narrative* Problem Noted Date Resolved Date Postoperative pain of right knee 01/07/2020 09/19/2021 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 03/21/20132013 Melanocytic nevus of trunk 03/21/201302/05 Cheilitis 03/02/2012 02/05/2014 Irritant contact dermatitis 03/02/201201/17 Capillary angioma 03/02/2012 02/05/2014 Cracked skin 11/07/2011 02/05/2014 Fissure in skin 11/07/2011 02/05/2014 Angular cheilitis 09/16/2011 02/05/2014 Solar Lentigines 09/16/2011 02/05/2014 Actinic skin damage 09/16/2011 02/05/2014 [place] angiomas 09/16/2011 02/05/2014 ACTINIC KERATOSES (Premalignant AK's) 09/16/2011 02/05/2014 Contact dermatitis and other eczema, corners of lips 06/11/2011 02/05/2014 Overview: suspect harrison associated Hematuria 04/20/2011 09/19/2021 Overview: Seen By Urologist Bladder wall thickening 04/20/2011 09/20/19 Encounter for long-term (current) use of medicat ions 10/22/2010 02/05/2014 Unspecified tinnitus 04/23/2008 02/05/2014 ACTINIC KERATOSES (Premalignant AK's) 12/19/2007 09/16/2011 Other seborrheic keratosis 12/19/200709/15 SOLAR LENTIGINES///DYSCHROMIA OTHER 12/19/2007 09/16/2011 Other chronic dermatitis due to solar radiation 12/19/2007 09/16/2011 HILLS ANGIOMA///NEVUS, 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 Esophageal reflux 12/03/2019 Tinnitus 02/05/2014 documented as of this encounter (statuses as of 04/23/2022) [facility] History of Past illness Narrative* Problem Noted Date Resolved Date Postoperative pain of right knee 01/07/2020 09/19/2021 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 03/21/20132013 Melanocytic nevus of trunk 03/21/201302/05 Cheilitis 03/02/2012 02/05/2014 Irritant contact dermatitis 03/02/201201/17 Capillary angioma 03/02/2012 02/05/2014 Cracked skin 11/07/2011 02/05/2014 Fissure in skin 11/07/2011 02/05/2014 Angular cheilitis 09/16/2011 02/05/2014 Solar Lentigines 09/16/2011 02/05/2014 Actinic skin damage 09/16/2011 02/05/2014 [place] angiomas 09/16/2011 02/05/2014 ACTINIC KERATOSES (Premalignant AK's) 09/16/2011 02/05/2014 Contact dermatitis and other eczema, corners of lips 06/11/2011 02/05/2014 Overview: suspect harrison associated Hematuria 04/20/2011 09/19/2021 Overview: Seen By Urologist Bladder wall thickening 04/20/2011 09/20/19 Encounter for long-term (current) use of medicat ions 10/22/2010 02/05/2014 Unspecified tinnitus 04/23/2008 02/05/2014 ACTINIC KERATOSES (Premalignant AK's) 12/19/2007 09/16/2011 Other seborrheic keratosis 12/19/200709/15 SOLAR LENTIGINES///DYSCHROMIA OTHER 12/19/2007 09/16/2011 Other chronic dermatitis due to solar radiation 12/19/2007 09/16/2011 HILLS ANGIOMA///NEVUS, 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 Esophageal reflux 12/03/2019 Tinnitus 02/05/2014 documented as of this encounter (statuses as of 05/05/2022) [facility] History of Past illness Narrative* Problem Noted Date Resolved Date Postoperative pain of right knee 01/07/2020 09/19/2021 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 03/21/20132013 Melanocytic nevus of trunk 03/21/201302/05 Cheilitis 03/02/2012 02/05/2014 Irritant contact dermatitis 03/02/201201/17 Capillary angioma 03/02/2012 02/05/2014 Cracked skin 11/07/2011 02/05/2014 Fissure in skin 11/07/2011 02/05/2014 Angular cheilitis 09/16/2011 02/05/2014 Solar Lentigines 09/16/2011 02/05/2014 Actinic skin damage 09/16/2011 02/05/2014 [place] angiomas 09/16/2011 02/05/2014 ACTINIC KERATOSES (Premalignant AK's) 09/16/2011 02/05/2014 Contact dermatitis and other eczema, corners of lips 06/11/2011 02/05/2014 Overview: suspect harrison associated Hematuria 04/20/2011 09/19/2021 Overview: Seen By Urologist Bladder wall thickening 04/20/2011 09/20/19 22 Encounter for long-term (current) use of medicat ions 10/22/2010 02/05/2014 Unspecified tinnitus 04/23/2008 02/05/2014 ACTINIC KERATOSES (Premalignant AK's) 12/19/2007 09/16/2011 Other seborrheic keratosis 12/19/200709/15 SOLAR LENTIGINES///DYSCHROMIA OTHER 12/19/2007 09/16/2011 Other chronic dermatitis due to solar radiation 12/19/2007 09/16/2011 HILLS ANGIOMA///NEVUS, 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 Esophageal reflux 12/03/2019 Tinnitus 02/05/2014 documented as of this encounter (statuses as of 05/20/2022) [facility] History of Past illness Narrative* Problem Noted Date Resolved Date Postoperative pain of right knee 01/07/2020 09/19/2021 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 03/21/20132013 Melanocytic nevus of trunk 03/21/201302/05 Cheilitis 03/02/2012 02/05/2014 Irritant contact dermatitis 03/02/201201/17 Capillary angioma 03/02/2012 02/05/2014 Cracked skin 11/07/2011 02/05/2014 Fissure in skin 11/07/2011 02/05/2014 Angular cheilitis 09/16/2011 02/05/2014 Solar Lentigines 09/16/2011 02/05/2014 Actinic skin damage 09/16/2011 02/05/2014 [place] angiomas 09/16/2011 02/05/2014 ACTINIC KERATOSES (Premalignant AK's) 09/16/2011 02/05/2014 Contact dermatitis and other eczema, corners of lips 06/11/2011 02/05/2014 Overview: suspect harrison associated Hematuria 04/20/2011 09/19/2021 Overview: Seen By Urologist Bladder wall thickening 04/20/2011 09/20/19 Encounter for long-term (current) use of medicat ions 10/22/2010 02/05/2014 Unspecified tinnitus 04/23/2008 02/05/2014 ACTINIC KERATOSES (Premalignant AK's) 12/19/2007 09/16/2011 Other seborrheic keratosis 12/19/200709/15 SOLAR LENTIGINES///DYSCHROMIA OTHER 12/19/2007 09/16/2011 Other chronic dermatitis due to solar radiation 12/19/2007 09/16/2011 HILLS ANGIOMA///NEVUS, 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 Esophageal reflux 12/03/2019 Tinnitus 02/05/2014 documented as of this encounter (statuses as of 05/21/2022) [facility] History of Past illness Narrative* Problem Noted Date Resolved Date Postoperative pain of right knee 01/07/2020 09/19/2021 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 03/21/20132013 Melanocytic nevus of trunk 03/21/201302/05 Cheilitis 03/02/2012 02/05/2014 Irritant contact dermatitis 03/02/201201/17 Capillary angioma 03/02/2012 02/05/2014 Cracked skin 11/07/2011 02/05/2014 Fissure in skin 11/07/2011 02/05/2014 Angular cheilitis 09/16/2011 02/05/2014 Solar Lentigines 09/16/2011 02/05/2014 Actinic skin damage 09/16/2011 02/05/2014 [place] angiomas 09/16/2011 02/05/2014 ACTINIC KERATOSES (Premalignant AK's) 09/16/2011 02/05/2014 Contact dermatitis and other eczema, corners of lips 06/11/2011 02/05/2014 Overview: suspect harrison associated Hematuria 04/20/2011 09/19/2021 Overview: Seen By Urologist Bladder wall thickening 04/20/2011 09/20/19 Encounter for long-term (current) use of medicat ions 10/22/2010 02/05/2014 Unspecified tinnitus 04/23/2008 02/05/2014 ACTINIC KERATOSES (Premalignant AK's) 12/19/2007 09/16/2011 Other seborrheic keratosis 12/19/200709/15 SOLAR LENTIGINES///DYSCHROMIA OTHER 12/19/2007 09/16/2011 Other chronic dermatitis due to solar radiation 12/19/2007 09/16/2011 HILLS ANGIOMA///NEVUS, 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 Esophageal reflux 12/03/2019 Tinnitus 02/05/2014 documented as of this encounter (statuses as of 05/25/2022) [facility] History of Past illness Narrative* Problem Noted Date Resolved Date Postoperative pain of right knee 01/07/2020 09/19/2021 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 03/21/20132013 Melanocytic nevus of trunk 03/21/201302/05 Cheilitis 03/02/2012 02/05/2014 Irritant contact dermatitis 03/02/201201/17 Capillary angioma 03/02/2012 02/05/2014 Cracked skin 11/07/2011 02/05/2014 Fissure in skin 11/07/2011 02/05/2014 Angular cheilitis 09/16/2011 02/05/2014 Solar Lentigines 09/16/2011 02/05/2014 Actinic skin damage 09/16/2011 02/05/2014 [place] angiomas 09/16/2011 02/05/2014 ACTINIC KERATOSES (Premalignant AK's) 09/16/2011 02/05/2014 Contact dermatitis and other eczema, corners of lips 06/11/2011 02/05/2014 Overview: suspect harrison associated Hematuria 04/20/2011 09/19/2021 Overview: Seen By Urologist Bladder wall thickening 04/20/2011 09/20/19 Encounter for long-term (current) use of medicat ions 10/22/2010 02/05/2014 Unspecified tinnitus 04/23/2008 02/05/2014 ACTINIC KERATOSES (Premalignant AK's) 12/19/2007 09/16/2011 Other seborrheic keratosis 12/19/200709/15 SOLAR LENTIGINES///DYSCHROMIA OTHER 12/19/2007 09/16/2011 Other chronic dermatitis due to solar radiation 12/19/2007 09/16/2011 HILLS ANGIOMA///NEVUS, 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 Esophageal reflux 12/03/2019 Tinnitus 02/05/2014 documented as of this encounter (statuses as of 06/03/2022) [facility] History of Past illness Narrative* Problem Noted Date Resolved Date Postoperative pain of right knee 01/07/2020 09/19/2021 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 03/21/20132013 Melanocytic nevus of trunk 03/21/201302/05 Cheilitis 03/02/2012 02/05/2014 Irritant contact dermatitis 03/02/201201/17 Capillary angioma 03/02/2012 02/05/2014 Cracked skin 11/07/2011 02/05/2014 Fissure in skin 11/07/2011 02/05/2014 Angular cheilitis 09/16/2011 02/05/2014 Solar Lentigines 09/16/2011 02/05/2014 Actinic skin damage 09/16/2011 02/05/2014 [place] angiomas 09/16/2011 02/05/2014 ACTINIC KERATOSES (Premalignant AK's) 09/16/2011 02/05/2014 Contact dermatitis and other eczema, corners of lips 06/11/2011 02/05/2014 Overview: suspect harrison associated Hematuria 04/20/2011 09/19/2021 Overview: Seen By Urologist Bladder wall thickening 04/20/2011 09/20/19 Encounter for long-term (current) use of medicat ions 10/22/2010 02/05/2014 Unspecified tinnitus 04/23/2008 02/05/2014 ACTINIC KERATOSES (Premalignant AK's) 12/19/2007 09/16/2011 Other seborrheic keratosis 12/19/200709/15 SOLAR LENTIGINES///DYSCHROMIA OTHER 12/19/2007 09/16/2011 Other chronic dermatitis due to solar radiation 12/19/2007 09/16/2011 HILLS ANGIOMA///NEVUS, 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 Esophageal reflux 12/03/2019 Tinnitus 02/05/2014 documented as of this encounter (statuses as of 06/07/2022) [facility] of Past illness Narrative* Problem Noted Date Resolved Date Postoperative pain of right knee 01/07/2020 09/19/2021 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 03/21/20132013 Melanocytic nevus of trunk 03/21/201302/05 Cheilitis 03/02/2012 02/05/2014 Irritant contact dermatitis 03/02/201201/17 Capillary angioma 03/02/2012 02/05/2014 Cracked skin 11/07/2011 02/05/2014 Fissure in skin 11/07/2011 02/05/2014 Angular cheilitis 09/16/2011 02/05/2014 Solar Lentigines 09/16/2011 02/05/2014 Actinic skin damage 09/16/2011 02/05/2014 [place] angiomas 09/16/2011 02/05/2014 ACTINIC KERATOSES (Premalignant AK's) 09/16/2011 02/05/2014 Contact dermatitis and other eczema, corners of lips 06/11/2011 02/05/2014 Overview: suspect harrison associated Hematuria 04/20/2011 09/19/2021 Overview: Seen By Urologist Bladder wall thickening 04/20/2011 09/20/19 Encounter for long-term (current) use of medicat ions 10/22/2010 02/05/2014 Unspecified tinnitus 04/23/2008 02/05/2014 ACTINIC KERATOSES (Premalignant AK's) 12/19/2007 09/16/2011 Other seborrheic keratosis 12/19/200709/15 SOLAR LENTIGINES///DYSCHROMIA OTHER 12/19/2007 09/16/2011 Other chronic dermatitis due to solar radiation 12/19/2007 09/16/2011 HILLS ANGIOMA///NEVUS, 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 Esophageal reflux 12/03/2019 Tinnitus 02/05/2014 documented as of this encounter (statuses as of 07/01/2022) [facility] History of Past illness Narrative* Problem Noted Date Resolved Date Postoperative pain of right knee 01/07/2020 09/19/2021 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 03/21/20132013 Melanocytic nevus of trunk 03/21/201302/05 Cheilitis 03/02/2012 02/05/2014 Irritant contact dermatitis 03/02/201201/17 Capillary angioma 03/02/2012 02/05/2014 Cracked skin 11/07/2011 02/05/2014 Fissure in skin 11/07/2011 02/05/2014 Angular cheilitis 09/16/2011 02/05/2014 Solar Lentigines 09/16/2011 02/05/2014 Actinic skin damage 09/16/2011 02/05/2014 [place] angiomas 09/16/2011 02/05/2014 ACTINIC KERATOSES (Premalignant AK's) 09/16/2011 02/05/2014 Contact dermatitis and other eczema, corners of lips 06/11/2011 02/05/2014 Overview: suspect harrison associated Hematuria 04/20/2011 09/19/2021 Overview: Seen By Urologist Bladder wall thickening 04/20/2011 09/20/19 Encounter for long-term (current) use of medicat ions 10/22/2010 02/05/2014 Unspecified tinnitus 04/23/2008 02/05/2014 ACTINIC KERATOSES (Premalignant AK's) 12/19/2007 09/16/2011 Other seborrheic keratosis 12/19/200709/15 SOLAR LENTIGINES///DYSCHROMIA OTHER 12/19/2007 09/16/2011 Other chronic dermatitis due to solar radiation 12/19/2007 09/16/2011 HILLS ANGIOMA///NEVUS, 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 Esophageal reflux 12/03/2019 Tinnitus 02/05/2014 documented as of this encounter (statuses as of 07/02/2022) [facility] of Past illness Narrative* Problem Noted Date Resolved Date Postoperative pain of right knee 01/07/2020 09/19/2021 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 03/21/20132013 Melanocytic nevus of trunk 03/21/201302/05 Cheilitis 03/02/2012 02/05/2014 Irritant contact dermatitis 03/02/201201/17 Capillary angioma 03/02/2012 02/05/2014 Cracked skin 11/07/2011 02/05/2014 Fissure in skin 11/07/2011 02/05/2014 Angular cheilitis 09/16/2011 02/05/2014 Solar Lentigines 09/16/2011 02/05/2014 Actinic skin damage 09/16/2011 02/05/2014 [place] angiomas 09/16/2011 02/05/2014 ACTINIC KERATOSES (Premalignant AK's) 09/16/2011 02/05/2014 Contact dermatitis and other eczema, corners of lips 06/11/2011 02/05/2014 Overview: suspect harrison associated Hematuria 04/20/2011 09/19/2021 Overview: Seen By Urologist Bladder wall thickening 04/20/2011 09/20/19 Encounter for long-term (current) use of medicat ions 10/22/2010 02/05/2014 Unspecified tinnitus 04/23/2008 02/05/2014 ACTINIC KERATOSES (Premalignant AK's) 12/19/2007 09/16/2011 Other seborrheic keratosis 12/19/200709/15 SOLAR LENTIGINES///DYSCHROMIA OTHER 12/19/2007 09/16/2011 Other chronic dermatitis due to solar radiation 12/19/2007 09/16/2011 HILLS ANGIOMA///NEVUS, 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 Esophageal reflux 12/03/2019 Tinnitus 02/05/2014 documented as of this encounter (statuses as of 07/19/2022) [facility] of Past illness Narrative* Problem Noted Date Resolved Date Postoperative pain of right knee 01/07/2020 09/19/2021 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 03/21/20132013 Melanocytic nevus of trunk 03/21/201302/05 Cheilitis 03/02/2012 02/05/2014 Irritant contact dermatitis 03/02/201201/17 Capillary angioma 03/02/2012 02/05/2014 Cracked skin 11/07/2011 02/05/2014 Fissure in skin 11/07/2011 02/05/2014 Angular cheilitis 09/16/2011 02/05/2014 Solar Lentigines 09/16/2011 02/05/2014 Actinic skin damage 09/16/2011 02/05/2014 [place] angiomas 09/16/2011 02/05/2014 ACTINIC KERATOSES (Premalignant AK's) 09/16/2011 02/05/2014 Contact dermatitis and other eczema, corners of lips 06/11/2011 02/05/2014 Overview: suspect harrison associated Hematuria 04/20/2011 09/19/2021 Overview: Seen By Urologist Bladder wall thickening 04/20/2011 09/20/19 Encounter for long-term (current) use of medicat ions 10/22/2010 02/05/2014 Unspecified tinnitus 04/23/2008 02/05/2014 ACTINIC KERATOSES (Premalignant AK's) 12/19/2007 09/16/2011 Other seborrheic keratosis 12/19/200709/15 SOLAR LENTIGINES///DYSCHROMIA OTHER 12/19/2007 09/16/2011 Other chronic dermatitis due to solar radiation 12/19/2007 09/16/2011 HILLS ANGIOMA///NEVUS, 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 Esophageal reflux 12/03/2019 Tinnitus 02/05/2014 documented as of this encounter (statuses as of 07/29/2022) [facility] of Past illness Narrative* Problem Noted Date Resolved Date Postoperative pain of right knee 01/07/2020 09/19/2021 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 03/21/20132013 Melanocytic nevus of trunk 03/21/201302/05 Cheilitis 03/02/2012 02/05/2014 Irritant contact dermatitis 03/02/201201/17 Capillary angioma 03/02/2012 02/05/2014 Cracked skin 11/07/2011 02/05/2014 Fissure in skin 11/07/2011 02/05/2014 Angular cheilitis 09/16/2011 02/05/2014 Solar Lentigines 09/16/2011 02/05/2014 Actinic skin damage 09/16/2011 02/05/2014 [place] angiomas 09/16/2011 02/05/2014 ACTINIC KERATOSES (Premalignant AK's) 09/16/2011 02/05/2014 Contact dermatitis and other eczema, corners of lips 06/11/2011 02/05/2014 Overview: suspect harrison associated Hematuria 04/20/2011 09/19/2021 Overview: Seen By Urologist Bladder wall thickening 04/20/2011 09/20/19 Encounter for long-term (current) use of medicat ions 10/22/2010 02/05/2014 Unspecified tinnitus 04/23/2008 02/05/2014 ACTINIC KERATOSES (Premalignant AK's) 12/19/2007 09/16/2011 Other seborrheic keratosis 12/19/200709/15 SOLAR LENTIGINES///DYSCHROMIA OTHER 12/19/2007 09/16/2011 Other chronic dermatitis due to solar radiation 12/19/2007 09/16/2011 HILLS ANGIOMA///NEVUS, 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 Esophageal reflux 12/03/2019 Tinnitus 02/05/2014 documented as of this encounter (statuses as of 07/30/2022) [facility] of Past illness Narrative* Problem Noted Date Resolved Date Postoperative pain of right knee 01/07/2020 09/19/2021 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 03/21/20132013 Melanocytic nevus of trunk 03/21/201302/05 Cheilitis 03/02/2012 02/05/2014 Irritant contact dermatitis 03/02/201201/17 Capillary angioma 03/02/2012 02/05/2014 Cracked skin 11/07/2011 02/05/2014 Fissure in skin 11/07/2011 02/05/2014 Angular cheilitis 09/16/2011 02/05/2014 Solar Lentigines 09/16/2011 02/05/2014 Actinic skin damage 09/16/2011 02/05/2014 [place] angiomas 09/16/2011 02/05/2014 ACTINIC KERATOSES (Premalignant AK's) 09/16/2011 02/05/2014 Contact dermatitis and other eczema, corners of lips 06/11/2011 02/05/2014 Overview: suspect harrison associated Hematuria 04/20/2011 09/19/2021 Overview: Seen By Urologist Bladder wall thickening 04/20/2011 09/20/19 Encounter for long-term (current) use of medicat ions 10/22/2010 02/05/2014 Unspecified tinnitus 04/23/2008 02/05/2014 ACTINIC KERATOSES (Premalignant AK's) 12/19/2007 09/16/2011 Other seborrheic keratosis 12/19/200709/15 SOLAR LENTIGINES///DYSCHROMIA OTHER 12/19/2007 09/16/2011 Other chronic dermatitis due to solar radiation 12/19/2007 09/16/2011 HILLS ANGIOMA///NEVUS, NON-NEOPLASTIC 09/16/2011 Esophageal reflux 12/03/2019 Tinnitus 02/05/2014 documented as of this encounter (statuses as of 08/02/2022) [facility] of Past illness Narrative* Problem Noted Date Resolved Date Postoperative pain of right knee 01/07/2020 09/19/2021 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 03/21/20132013 Melanocytic nevus of trunk 03/21/201302/05 Cheilitis 03/02/2012 02/05/2014 Irritant contact dermatitis 03/02/201201/17 Capillary angioma 03/02/2012 02/05/2014 Cracked skin 11/07/2011 02/05/2014 Fissure in skin 11/07/2011 02/05/2014 Angular cheilitis 09/16/2011 02/05/2014 Solar Lentigines 09/16/2011 02/05/2014 Actinic skin damage 09/16/2011 02/05/2014 [place] angiomas 09/16/2011 02/05/2014 ACTINIC KERATOSES (Premalignant AK's) 09/16/2011 02/05/2014 Contact dermatitis and other eczema, corners of lips 06/11/2011 02/05/2014 Overview: suspect harrison associated Hematuria 04/20/2011 09/19/2021 Overview: Seen By Urologist Bladder wall thickening 04/20/2011 09/20/19 22 Encounter for long-term (current) use of medicat ions 10/22/2010 02/05/2014 Unspecified tinnitus 04/23/2008 02/05/2014 ACTINIC KERATOSES (Premalignant AK's) 12/19/2007 09/16/2011 Other seborrheic keratosis 12/19/200709/15 SOLAR LENTIGINES///DYSCHROMIA OTHER 12/19/2007 09/16/2011 Other chronic dermatitis due to solar radiation 12/19/2007 09/16/2011 HILLS ANGIOMA///NEVUS, 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 Esophageal reflux 12/03/2019 Tinnitus 02/05/2014 documented as of this encounter (statuses as of 08/30/2022) [facility]2020 History of Past illness Narrative* Problem Noted Date Resolved Date Postoperative pain of right knee 01/07/2020 09/19/2021 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 03/21/20132013 Melanocytic nevus of trunk 03/21/201302/05 Cheilitis 03/02/2012 02/05/2014 Irritant contact dermatitis 03/02/201201/17 Capillary angioma 03/02/2012 02/05/2014 Cracked skin 11/07/2011 02/05/2014 Fissure in skin 11/07/2011 02/05/2014 Angular cheilitis 09/16/2011 02/05/2014 Solar Lentigines 09/16/2011 02/05/2014 Actinic skin damage 09/16/2011 02/05/2014 Hills angiomas 09/16/2011 02/05/2014 ACTINIC KERATOSES (Premalignant AK's) 09/16/2011 02/05/2014 Contact dermatitis and other eczema, corners of lips 06/11/2011 02/05/2014 Overview: suspect harrison associated Hematuria 04/20/2011 09/19/2021 Overview: Seen By Urologist Bladder wall thickening 04/20/2011 09/20/19 22 Encounter for long-term (current) use of medicat ions 10/22/2010 02/05/2014 Unspecified tinnitus 04/23/2008 02/05/2014 ACTINIC KERATOSES (Premalignant AK's) 12/19/2007 09/16/2011 Other seborrheic keratosis 12/19/200709/15 SOLAR LENTIGINES///DYSCHROMIA OTHER 12/19/2007 09/16/2011 Other chronic dermatitis due to solar radiation 12/19/2007 09/16/2011 HILLS ANGIOMA///NEVUS, 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 Esophageal reflux 12/03/2019 Tinnitus 02/05/2014 documented as of this encounter (statuses as of 10/13/2022) [facility] History of Past illness Narrative* Problem Noted Date Resolved Date Postoperative pain of right knee 01/07/2020 09/19/2021 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 03/21/20132013 Melanocytic nevus of trunk 03/21/201302/05 Cheilitis 03/02/2012 02/05/2014 Irritant contact dermatitis 03/02/201201/17 Capillary angioma 03/02/2012 02/05/2014 Cracked skin 11/07/2011 02/05/2014 Fissure in skin 11/07/2011 02/05/2014 Angular cheilitis 09/16/2011 02/05/2014 Solar Lentigines 09/16/2011 02/05/2014 Actinic skin damage 09/16/2011 02/05/2014 [place] angiomas 09/16/2011 02/05/2014 ACTINIC KERATOSES (Premalignant AK's) 09/16/2011 02/05/2014 Contact dermatitis and other eczema, corners of lips 06/11/2011 02/05/2014 Overview: suspect harrison associated Hematuria 04/20/2011 09/19/2021 Overview: Seen By Urologist Bladder wall thickening 04/20/2011 09/20/19 Encounter for long-term (current) use of medicat ions 10/22/2010 02/05/2014 Unspecified tinnitus 04/23/2008 02/05/2014 ACTINIC KERATOSES (Premalignant AK's) 12/19/2007 09/16/2011 Other seborrheic keratosis 12/19/200709/15 SOLAR LENTIGINES///DYSCHROMIA OTHER 12/19/2007 09/16/2011 Other chronic dermatitis due to solar radiation 12/19/2007 09/16/2011 HILLS ANGIOMA///NEVUS, 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 Esophageal reflux 12/03/2019 Tinnitus 02/05/2014 documented as of this encounter (statuses as of 10/21/2022) [facility] History of Past illness Narrative* Problem Noted Date Diagnosed Date Resolved Date Postoperative pain of right knee 01/07/2020 09/19/2021 Seborrheic Keratoses 03/21/2013 014 Melanocytic nevus of face 03/21/2013 Melanocytic nevus of trunk 03/21/2013 1 Cheilitis 03/02/2012 02/05/2014 Irritant contact dermatitis 03/02/2012 02/05/2014 Capillary angioma 03/02/2012 02/05/2014 Cracked skin 11/07/2011 02/05/2014 Fissure in skin 11/07/2011 02/05/2014 Angular cheilitis 09/16/2011 02/05/2014 Solar Lentigines 09/16/2011 02/05/2014 Actinic skin damage 09/16/2011 02/06/20 14 [place] angiomas 09/16/2011 02/05/2014 ACTINIC KERATOSES (Premalignant AK's) 09/16/2011 02/05/2014 Contact dermatitis and other eczema, corners of lips 06/11/2011 02/05/2014 Overview: suspect harrison associated Hematuria 04/20/2011 09/19/2021 Overview: Seen By Urologist Bladder wall thickening 04/20/2011 0607/2021 Encounter for long-term (cur rent) use of medications 10/22/2010 02/05/2014 Unspecified tinnitus 04/23/2008 014 ACTINIC KERATOSES (Premalignant AK's) 12/19/2007 09/16/2011 Other seborrheic keratosis 12/19/2007 0 09/16/2011 SOLAR LENTIGINES///DYSCHROMIA OTHER 12/19/2007 09/16/2011 Other chronic dermatitis due to solar radiation 12/19/2007 09/16/2011 HILLS ANGIOMA///NEVUS, NON-NEOPLASTIC 12/19/2007 09/16/2011 Esophageal reflux 12/03/2019 Tinnitus 02/05/2014 documented as of this encounter (statuses as of 10/25/2022) [facility] History of Past illness Narrative* Problem Noted Date Diagnosed Date Resolved Date Postoperative pain of right knee 01/07/2020 09/19/2021 Seborrheic Keratoses 03/21/2013 014 Melanocytic nevus of face 03/21/2013 Melanocytic nevus of trunk 03/21/2013 1 Cheilitis 03/02/2012 02/05/2014 Irritant contact dermatitis 03/02/2012 02/05/2014 Capillary angioma 03/02/2012 02/05/2014 Cracked skin 11/07/2011 02/05/2014 Fissure in skin 11/07/2011 02/05/2014 Angular cheilitis 09/16/2011 02/05/2014 Solar Lentigines 09/16/2011 02/05/2014 Actinic skin damage 09/16/2011 02/06/20 14 [place] angiomas 09/16/2011 02/05/2014 ACTINIC KERATOSES (Premalignant AK's) 09/16/2011 02/05/2014 Contact dermatitis and other eczema, corners of lips 06/11/2011 02/05/2014 Overview: suspect harrison associated Hematuria 04/20/2011 09/19/2021 Overview: Seen By Urologist Bladder wall thickening 04/20/201107/2021 Encounter for long-term (cur rent) use of medications 10/22/2010 02/05/2014 Unspecified tinnitus 04/23/2008 014 ACTINIC KERATOSES (Premalignant AK's) 12/19/2007 09/16/2011 Other seborrheic keratosis 12/19/2007 0 09/16/2011 SOLAR LENTIGINES///DYSCHROMIA OTHER 12/19/2007 09/16/2011 Other chronic dermatitis due to solar radiation 12/19/2007 09/16/2011 HILLS ANGIOMA///NEVUS, NON-NEOPLASTIC 12/19/2007 09/16/2011 Esophageal reflux 12/03/2019 Tinnitus 02/05/2014 documented as of this encounter (statuses as of 11/03/2022) [facility] History of Past illness Narrative* Problem Noted Date Diagnosed Date Resolved Date Postoperative pain of right knee 01/07/2020 09/19/2021 Seborrheic Keratoses 03/21/2013 014 Melanocytic nevus of face 03/21/2013 Melanocytic nevus of trunk 03/21/2013 1 Cheilitis 03/02/2012 02/05/2014 Irritant contact dermatitis 03/02/2012 02/05/2014 Capillary angioma 03/02/2012 02/05/2014 Cracked skin 11/07/2011 02/05/2014 Fissure in skin 11/07/2011 02/05/2014 Angular cheilitis 09/16/2011 02/05/2014 Solar Lentigines 09/16/2011 02/05/2014 Actinic skin damage 09/16/2011 02/06/20 14 [place] angiomas 09/16/2011 02/05/2014 ACTINIC KERATOSES (Premalignant AK's) 09/16/2011 02/05/2014 Contact dermatitis and other eczema, corners of lips 06/11/2011 02/05/2014 Overview: suspect harrison associated Hematuria 04/20/2011 09/19/2021 Overview: Seen By Urologist Bladder wall thickening 04/20/201107/2021 Encounter for long-term (cur rent) use of medications 10/22/2010 02/05/2014 Unspecified tinnitus 04/23/2008 014 ACTINIC KERATOSES (Premalignant AK's) 12/19/2007 09/16/2011 Other seborrheic keratosis 12/19/2007 0 09/16/2011 SOLAR LENTIGINES///DYSCHROMIA OTHER 12/19/2007 09/16/2011 Other chronic dermatitis due to solar radiation 12/19/2007 09/16/2011 HILLS ANGIOMA///NEVUS, NON-NEOPLASTIC 12/19/2007 09/16/2011 Esophageal reflux 12/03/2019 Tinnitus 02/05/2014 documented as of this encounter (statuses as of 11/23/2022) [facility] History of Past illness Narrative* Problem Noted Date Diagnosed Date Resolved Date Postoperative pain of right knee 01/07/2020 09/19/2021 Seborrheic Keratoses 03/21/2013 014 Melanocytic nevus of face 03/21/2013 Melanocytic nevus of trunk 03/21/2013 1 Cheilitis 03/02/2012 02/05/2014 Irritant contact dermatitis 03/02/2012 02/05/2014 Capillary angioma 03/02/2012 02/05/2014 Cracked skin 11/07/2011 02/05/2014 Fissure in skin 11/07/2011 02/05/2014 Angular cheilitis 09/16/2011 02/05/2014 Solar Lentigines 09/16/2011 02/05/2014 Actinic skin damage 09/16/2011 02/06/20 14 [place] angiomas 09/16/2011 02/05/2014 ACTINIC KERATOSES (Premalignant AK's) 09/16/2011 02/05/2014 Contact dermatitis and other eczema, corners of lips 06/11/2011 02/05/2014 Overview: suspect harrison associated Hematuria 04/20/2011 09/19/2021 Overview: Seen By Urologist Bladder wall thickening 04/20/201107/2021 Encounter for long-term (cur rent) use of medications 10/22/2010 02/05/2014 Unspecified tinnitus 04/23/2008 014 ACTINIC KERATOSES (Premalignant AK's) 12/19/2007 09/16/2011 Other seborrheic keratosis 12/19/2007 0 09/16/2011 SOLAR LENTIGINES///DYSCHROMIA OTHER 12/19/2007 09/16/2011 Other chronic dermatitis due to solar radiation 12/19/2007 09/16/2011 HILLS ANGIOMA///NEVUS, NON-NEOPLASTIC 12/19/2007 09/16/2011 Esophageal reflux 12/03/2019 Tinnitus 02/05/2014 documented as of this encounter (statuses as of 11/25/2022) [facility] History of Past illness Narrative* Problem Noted Date Diagnosed Date Resolved Date Postoperative pain of right knee 01/07/2020 09/19/2021 Seborrheic Keratoses 03/21/2013 014 Melanocytic nevus of face 03/21/2013 Melanocytic nevus of trunk 03/21/2013 1 Cheilitis 03/02/2012 02/05/2014 Irritant contact dermatitis 03/02/2012 02/05/2014 Capillary angioma 03/02/2012 02/05/2014 Cracked skin 11/07/2011 02/05/2014 Fissure in skin 11/07/2011 02/05/2014 Angular cheilitis 09/16/2011 02/05/2014 Solar Lentigines 09/16/2011 02/05/2014 Actinic skin damage 09/16/2011 02/06/20 14 [place] angiomas 09/16/2011 02/05/2014 ACTINIC KERATOSES (Premalignant AK's) 09/16/2011 02/05/2014 Contact dermatitis and other eczema, corners of lips 06/11/2011 02/05/2014 Overview: suspect harrison associated Hematuria 04/20/2011 09/19/2021 Overview: Seen By Urologist Bladder wall thickening 04/20/2011 0607/2021 Encounter for long-term (cur rent) use of medications 10/22/2010 02/05/2014 Unspecified tinnitus 04/23/2008 014 ACTINIC KERATOSES (Premalignant AK's) 12/19/2007 09/16/2011 Other seborrheic keratosis 12/19/2007 0 09/16/2011 SOLAR LENTIGINES///DYSCHROMIA OTHER 12/19/2007 09/16/2011 Other chronic dermatitis due to solar radiation 12/19/2007 09/16/2011 HILLS ANGIOMA///NEVUS, NON-NEOPLASTIC 12/19/2007 09/16/2011 Esophageal reflux 12/03/2019 Tinnitus 02/05/2014 documented as of this encounter (statuses as of 11/30/2022) [facility] History of Past illness Narrative* Problem Noted Date Diagnosed Date Resolved Date Postoperative pain of right knee 01/07/2020 09/19/2021 Seborrheic Keratoses 03/21/2013 014 Melanocytic nevus of face 03/21/2013 Melanocytic nevus of trunk 03/21/2013 1 Cheilitis 03/02/2012 02/05/2014 Irritant contact dermatitis 03/02/2012 02/05/2014 Capillary angioma 03/02/2012 02/05/2014 Cracked skin 11/07/2011 02/05/2014 Fissure in skin 11/07/2011 02/05/2014 Angular cheilitis 09/16/2011 02/05/2014 Solar Lentigines 09/16/2011 02/05/2014 Actinic skin damage 09/16/2011 02/06/20 14 [place] angiomas 09/16/2011 02/05/2014 ACTINIC KERATOSES (Premalignant AK's) 09/16/2011 02/05/2014 Contact dermatitis and other eczema, corners of lips 06/11/2011 02/05/2014 Overview: suspect harrison associated Hematuria 04/20/2011 09/19/2021 Overview: Seen By Urologist Bladder wall thickening 04/20/201107/2021 Encounter for long-term (cur rent) use of medications 10/22/2010 02/05/2014 Unspecified tinnitus 04/23/2008 014 ACTINIC KERATOSES (Premalignant AK's) 12/19/2007 09/16/2011 Other seborrheic keratosis 12/19/2007 0 09/16/2011 SOLAR LENTIGINES///DYSCHROMIA OTHER 12/19/2007 09/16/2011 Other chronic dermatitis due to solar radiation 12/19/2007 09/16/2011 HILLS ANGIOMA///NEVUS, NON-NEOPLASTIC 12/19/2007 09/16/2011 Esophageal reflux 12/03/2019 Tinnitus 02/05/2014 documented as of this encounter (statuses as of 12/13/2022) [facility] History of Past illness Narrative* Problem Noted Date Diagnosed Date Resolved Date Postoperative pain of right knee 01/07/2020 09/19/2021 Seborrheic Keratoses 03/21/2013 014 Melanocytic nevus of face 03/21/2013 Melanocytic nevus of trunk 03/21/2013 1 Cheilitis 03/02/2012 02/05/2014 Irritant contact dermatitis 03/02/2012 02/05/2014 Capillary angioma 03/02/2012 02/05/2014 Cracked skin 11/07/2011 02/05/2014 Fissure in skin 11/07/2011 02/05/2014 Angular cheilitis 09/16/2011 02/05/2014 Solar Lentigines 09/16/2011 02/05/2014 Actinic skin damage 09/16/2011 02/06/20 14 [place] angiomas 09/16/2011 02/05/2014 ACTINIC KERATOSES (Premalignant AK's) 09/16/2011 02/05/2014 Contact dermatitis and other eczema, corners of lips 06/11/2011 02/05/2014 Overview: suspect harrison associated Hematuria 04/20/2011 09/19/2021 Overview: Seen By Urologist Bladder wall thickening 04/20/201107/2021 Encounter for long-term (cur rent) use of medications 10/22/2010 02/05/2014 Unspecified tinnitus 04/23/2008 014 ACTINIC KERATOSES (Premalignant AK's) 12/19/2007 09/16/2011 Other seborrheic keratosis 12/19/2007 0 09/16/2011 SOLAR LENTIGINES///DYSCHROMIA OTHER 12/19/2007 09/16/2011 Other chronic dermatitis due to solar radiation 12/19/2007 09/16/2011 HILLS ANGIOMA///NEVUS, NON-NEOPLASTIC 12/19/2007 09/16/2011 Esophageal reflux 12/03/2019 Tinnitus 02/05/2014 documented as of this encounter (statuses as of 02/08/2023) [facility] History of Past illness Narrative* Problem Noted Date Diagnosed Date Resolved Date Postoperative pain of right knee 01/07/2020 09/19/2021 Seborrheic Keratoses 03/21/2013 014 Melanocytic nevus of face 03/21/2013 Melanocytic nevus of trunk 03/21/2013 1 Cheilitis 03/02/2012 02/05/2014 Irritant contact dermatitis 03/02/2012 02/05/2014 Capillary angioma 03/02/2012 02/05/2014 Cracked skin 11/07/2011 02/05/2014 Fissure in skin 11/07/2011 02/05/2014 Angular cheilitis 09/16/2011 02/05/2014 Solar Lentigines 09/16/2011 02/05/2014 Actinic skin damage 09/16/2011 02/06/20 14 [place] angiomas 09/16/2011 02/05/2014 ACTINIC KERATOSES (Premalignant AK's) 09/16/2011 02/05/2014 Contact dermatitis and other eczema, corners of lips 06/11/2011 02/05/2014 Overview: suspect harrison associated Hematuria 04/20/2011 09/19/2021 Overview: Seen By Urologist Bladder wall thickening 04/20/2011 0607/2021 Encounter for long-term (cur rent) use of medications 10/22/2010 02/05/2014 Unspecified tinnitus 04/23/2008 014 ACTINIC KERATOSES (Premalignant AK's) 12/19/2007 09/16/2011 Other seborrheic keratosis 12/19/2007 0 09/16/2011 SOLAR LENTIGINES///DYSCHROMIA OTHER 12/19/2007 09/16/2011 Other chronic dermatitis due to solar radiation 12/19/2007 09/16/2011 HILLS ANGIOMA///NEVUS, NON-NEOPLASTIC 12/19/2007 09/16/2011 Esophageal reflux 12/03/2019 Tinnitus 02/05/2014 documented as of this encounter (statuses as of 02/20/2023) [facility] of Past illness Narrative* Problem Noted Date Diagnosed Date Resolved Date Postoperative pain of right knee 01/07/2020 09/19/2021 Seborrheic Keratoses 03/21/2013 014 Melanocytic nevus of face 03/21/2013 Melanocytic nevus of trunk 03/21/2013 1 Cheilitis 03/02/2012 02/05/2014 Irritant contact dermatitis 03/02/2012 02/05/2014 Capillary angioma 03/02/2012 02/05/2014 Cracked skin 11/07/2011 02/05/2014 Fissure in skin 11/07/2011 02/05/2014 Angular cheilitis 09/16/2011 02/05/2014 Solar Lentigines 09/16/2011 02/05/2014 Actinic skin damage 09/16/2011 02/06/20 14 [place] angiomas 09/16/2011 02/05/2014 ACTINIC KERATOSES (Premalignant AK's) 09/16/2011 02/05/2014 Contact dermatitis and other eczema, corners of lips 06/11/2011 02/05/2014 Overview: suspect harrison associated Hematuria 04/20/2011 09/19/2021 Overview: Seen By Urologist Bladder wall thickening 04/20/2011 0607/2021 Encounter for long-term (cur rent) use of medications 10/22/2010 02/05/2014 Unspecified tinnitus 04/23/2008 014 ACTINIC KERATOSES (Premalignant AK's) 12/19/2007 09/16/2011 Other seborrheic keratosis 12/19/2007 0 09/16/2011 SOLAR LENTIGINES///DYSCHROMIA OTHER 12/19/2007 09/16/2011 Other chronic dermatitis due to solar radiation 12/19/2007 09/16/2011 HILLS ANGIOMA///NEVUS, NON-NEOPLASTIC 12/19/2007 09/16/2011 Esophageal reflux 12/03/2019 Tinnitus 02/05/2014 documented as of this encounter (statuses as of 03/02/2023) [facility] of Past illness Narrative* Problem Noted Date Diagnosed Date Resolved Date Postoperative pain of right knee 01/07/2020 09/19/2021 Seborrheic Keratoses 03/21/2013 014 Melanocytic nevus of face 03/21/2013 Melanocytic nevus of trunk 03/21/2013 1 Cheilitis 03/02/2012 02/05/2014 Irritant contact dermatitis 03/02/2012 02/05/2014 Capillary angioma 03/02/2012 02/05/2014 Cracked skin 11/07/2011 02/05/2014 Fissure in skin 11/07/2011 02/05/2014 Angular cheilitis 09/16/2011 02/05/2014 Solar Lentigines 09/16/2011 02/05/2014 Actinic skin damage 09/16/2011 02/06/20 14 [place] angiomas 09/16/2011 02/05/2014 ACTINIC KERATOSES (Premalignant AK's) 09/16/2011 02/05/2014 Contact dermatitis and other eczema, corners of lips 06/11/2011 02/05/2014 Overview: suspect harrison associated Hematuria 04/20/2011 09/19/2021 Overview: Seen By Urologist Bladder wall thickening 04/20/201107/2021 Encounter for long-term (cur rent) use of medications 10/22/2010 02/05/2014 Unspecified tinnitus 04/23/2008 014 ACTINIC KERATOSES (Premalignant AK's) 12/19/2007 09/16/2011 Other seborrheic keratosis 12/19/2007 0 09/16/2011 SOLAR LENTIGINES///DYSCHROMIA OTHER 12/19/2007 09/16/2011 Other chronic dermatitis due to solar radiation 12/19/2007 09/16/2011 HILLS ANGIOMA///NEVUS, NON-NEOPLASTIC 12/19/2007 09/16/2011 Esophageal reflux 12/03/2019 Tinnitus 02/05/2014 documented as of this encounter (statuses as of 03/28/2023) [facility] of Past illness Narrative* Problem Noted Date Diagnosed Date Resolved Date Postoperative pain of right knee 01/07/2020 09/19/2021 Seborrheic Keratoses 03/21/2013 014 Melanocytic nevus of face 03/21/2013 Melanocytic nevus of trunk 03/21/2013 1 Cheilitis 03/02/2012 02/05/2014 Irritant contact dermatitis 03/02/2012 02/05/2014 Capillary angioma 03/02/2012 02/05/2014 Cracked skin 11/07/2011 02/05/2014 Fissure in skin 11/07/2011 02/05/2014 Angular cheilitis 09/16/2011 02/05/2014 Solar Lentigines 09/16/2011 02/05/2014 Actinic skin damage 09/16/2011 02/06/20 14 [place] angiomas 09/16/2011 02/05/2014 ACTINIC KERATOSES (Premalignant AK's) 09/16/2011 02/05/2014 Contact dermatitis and other eczema, corners of lips 06/11/2011 02/05/2014 Overview: suspect harrison associated Hematuria 04/20/2011 09/19/2021 Overview: Seen By Urologist Bladder wall thickening 04/20/201107/2021 Encounter for long-term (cur rent) use of medications 10/22/2010 02/05/2014 Unspecified tinnitus 04/23/2008 014 ACTINIC KERATOSES (Premalignant AK's) 12/19/2007 09/16/2011 Other seborrheic keratosis 12/19/2007 0 09/16/2011 SOLAR LENTIGINES///DYSCHROMIA OTHER 12/19/2007 09/16/2011 Other chronic dermatitis due to solar radiation 12/19/2007 09/16/2011 HILLS ANGIOMA///NEVUS, NON-NEOPLASTIC 12/19/2007 09/16/2011 Esophageal reflux 12/03/2019 Tinnitus 02/05/2014 documented as of this encounter (statuses as of 04/08/2023) [facility] History of Past illness Narrative* Problem Noted Date Resolved Date 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 03/21/20132013 Melanocytic nevus of trunk 03/21/201302/05 Cheilitis 03/02/2012 02/05/2014 Irritant contact dermatitis 03/02/201201/17 Capillary angioma 03/02/2012 02/05/2014 Cracked skin 11/07/2011 02/05/2014 Fissure in skin 11/07/2011 02/05/2014 Angular cheilitis 09/16/2011 02/05/2014 Solar Lentigines 09/16/2011 02/05/2014 Actinic skin damage 09/16/2011 02/05/2014 [place] angiomas 09/16/2011 02/05/2014 ACTINIC KERATOSES (Premalignant AK's) 09/16/2011 02/05/2014 Contact dermatitis and other eczema, corners of lips 06/11/2011 02/05/2014 Overview: suspect harrison associated Encounter for long-term (current) use of medicat ions 10/22/2010 02/05/2014 Unspecified tinnitus 04/23/2008 02/05/2014 ACTINIC KERATOSES (Premalignant AK's) 12/19/2007 09/16/2011 Other seborrheic keratosis 12/19/200709/15 SOLAR LENTIGINES///DYSCHROMIA OTHER 12/19/2007 09/16/2011 Other chronic dermatitis due to solar radiation 12/19/2007 09/16/2011 HILLS ANGIOMA///NEVUS, 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 Esophageal reflux 12/03/2019 Tinnitus 02/05/2014 documented as of this encounter (statuses as of 07/31/2021) [facility] History of Past illness Narrative* Problem Noted Date Resolved Date 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 03/21/20132013 Melanocytic nevus of trunk 03/21/201302/05 Cheilitis 03/02/2012 02/05/2014 Irritant contact dermatitis 03/02/201201/17 Capillary angioma 03/02/2012 02/05/2014 Cracked skin 11/07/2011 02/05/2014 Fissure in skin 11/07/2011 02/05/2014 Angular cheilitis 09/16/2011 02/05/2014 Solar Lentigines 09/16/2011 02/05/2014 Actinic skin damage 09/16/2011 02/05/2014 [place] angiomas 09/16/2011 02/05/2014 ACTINIC KERATOSES (Premalignant AK's) 09/16/2011 02/05/2014 Contact dermatitis and other eczema, corners of lips 06/11/2011 02/05/2014 Overview: suspect harrison associated Encounter for long-term (current) use of medicat ions 10/22/2010 02/05/2014 Unspecified tinnitus 04/23/2008 02/05/2014 ACTINIC KERATOSES (Premalignant AK's) 12/19/2007 09/16/2011 Other seborrheic keratosis 12/19/200709/15 SOLAR LENTIGINES///DYSCHROMIA OTHER 12/19/2007 09/16/2011 Other chronic dermatitis due to solar radiation 12/19/2007 09/16/2011 HILLS ANGIOMA///NEVUS, 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 Esophageal reflux 12/03/2019 Tinnitus 02/05/2014 documented as of this encounter (statuses as of 08/03/2021) [facility] History of Past illness Narrative* Problem Noted Date Resolved Date 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 03/21/20132013 Melanocytic nevus of trunk 03/21/201302/05 Cheilitis 03/02/2012 02/05/2014 Irritant contact dermatitis 03/02/201201/17 Capillary angioma 03/02/2012 02/05/2014 Cracked skin 11/07/2011 02/05/2014 Fissure in skin 11/07/2011 02/05/2014 Angular cheilitis 09/16/2011 02/05/2014 Solar Lentigines 09/16/2011 02/05/2014 Actinic skin damage 09/16/2011 02/05/2014 [place] angiomas 09/16/2011 02/05/2014 ACTINIC KERATOSES (Premalignant AK's) 09/16/2011 02/05/2014 Contact dermatitis and other eczema, corners of lips 06/11/2011 02/05/2014 Overview: suspect harrison associated Encounter for long-term (current) use of medicat ions 10/22/2010 02/05/2014 Unspecified tinnitus 04/23/2008 02/05/2014 ACTINIC KERATOSES (Premalignant AK's) 12/19/2007 09/16/2011 Other seborrheic keratosis 12/19/200709/15 SOLAR LENTIGINES///DYSCHROMIA OTHER 12/19/2007 09/16/2011 Other chronic dermatitis due to solar radiation 12/19/2007 09/16/2011 HILLS ANGIOMA///NEVUS, 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 Esophageal reflux 12/03/2019 Tinnitus 02/05/2014 documented as of this encounter (statuses as of 08/06/2021) [facility] History of Past illness Narrative* Problem Noted Date Resolved Date 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 03/21/20132013 Melanocytic nevus of trunk 03/21/201302/05 Cheilitis 03/02/2012 02/05/2014 Irritant contact dermatitis 03/02/201201/17 Capillary angioma 03/02/2012 02/05/2014 Cracked skin 11/07/2011 02/05/2014 Fissure in skin 11/07/2011 02/05/2014 Angular cheilitis 09/16/2011 02/05/2014 Solar Lentigines 09/16/2011 02/05/2014 Actinic skin damage 09/16/2011 02/05/2014 [place] angiomas 09/16/2011 02/05/2014 ACTINIC KERATOSES (Premalignant AK's) 09/16/2011 02/05/2014 Contact dermatitis and other eczema, corners of lips 06/11/2011 02/05/2014 Overview: suspect harrison associated Encounter for long-term (current) use of medicat ions 10/22/2010 02/05/2014 Unspecified tinnitus 04/23/2008 02/05/2014 ACTINIC KERATOSES (Premalignant AK's) 12/19/2007 09/16/2011 Other seborrheic keratosis 12/19/200709/15 SOLAR LENTIGINES///DYSCHROMIA OTHER 12/19/2007 09/16/2011 Other chronic dermatitis due to solar radiation 12/19/2007 09/16/2011 HILLS ANGIOMA///NEVUS, 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 Esophageal reflux 12/03/2019 Tinnitus 02/05/2014 documented as of this encounter (statuses as of 08/08/2021) [facility]12-[facility] History of Past illness Narrative* Problem Noted Date Resolved Date 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 03/21/20132013 Melanocytic nevus of trunk 03/21/201302/05 Cheilitis 03/02/2012 02/05/2014 Irritant contact dermatitis 03/02/201201/17 Capillary angioma 03/02/2012 02/05/2014 Cracked skin 11/07/2011 02/05/2014 Fissure in skin 11/07/2011 02/05/2014 Angular cheilitis 09/16/2011 02/05/2014 Solar Lentigines 09/16/2011 02/05/2014 Actinic skin damage 09/16/2011 02/05/2014 Hills angiomas 09/16/2011 02/05/2014 ACTINIC KERATOSES (Premalignant AK's) 09/16/2011 02/05/2014 Contact dermatitis and other eczema, corners of lips 06/11/2011 02/05/2014 Overview: suspect harrison associated Encounter for long-term (current) use of medicat ions 10/22/2010 02/05/2014 Unspecified tinnitus 04/23/2008 02/05/2014 ACTINIC KERATOSES (Premalignant AK's) 12/19/2007 09/16/2011 Other seborrheic keratosis 12/19/200709/15 SOLAR LENTIGINES///DYSCHROMIA OTHER 12/19/2007 09/16/2011 Other chronic dermatitis due to solar radiation 12/19/2007 09/16/2011 HILLS ANGIOMA///NEVUS, 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 Esophageal reflux 12/03/2019 Tinnitus 02/05/2014 documented as of this encounter (statuses as of 08/10/2021) [facility] History of Past illness Narrative* Problem Noted Date Resolved Date 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 03/21/20132013 Melanocytic nevus of trunk 03/21/201302/05 Cheilitis 03/02/2012 02/05/2014 Irritant contact dermatitis 03/02/201201/17 Capillary angioma 03/02/2012 02/05/2014 Cracked skin 11/07/2011 02/05/2014 Fissure in skin 11/07/2011 02/05/2014 Angular cheilitis 09/16/2011 02/05/2014 Solar Lentigines 09/16/2011 02/05/2014 Actinic skin damage 09/16/2011 02/05/2014 Hills angiomas 09/16/2011 02/05/2014 ACTINIC KERATOSES (Premalignant AK's) 09/16/2011 02/05/2014 Contact dermatitis and other eczema, corners of lips 06/11/2011 02/05/2014 Overview: suspect harrison associated Encounter for long-term (current) use of medicat ions 10/22/2010 02/05/2014 Unspecified tinnitus 04/23/2008 02/05/2014 ACTINIC KERATOSES (Premalignant AK's) 12/19/2007 09/16/2011 Other seborrheic keratosis 12/19/200709/15 SOLAR LENTIGINES///DYSCHROMIA OTHER 12/19/2007 09/16/2011 Other chronic dermatitis due to solar radiation 12/19/2007 09/16/2011 HILLS ANGIOMA///NEVUS, 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 Esophageal reflux 12/03/2019 Tinnitus 02/05/2014 documented as of this encounter (statuses as of 08/13/2021) [facility] History of Past illness Narrative* Problem Noted Date Resolved Date 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 03/21/20132013 Melanocytic nevus of trunk 03/21/201302/05 Cheilitis 03/02/2012 02/05/2014 Irritant contact dermatitis 03/02/201201/17 Capillary angioma 03/02/2012 02/05/2014 Cracked skin 11/07/2011 02/05/2014 Fissure in skin 11/07/2011 02/05/2014 Angular cheilitis 09/16/2011 02/05/2014 Solar Lentigines 09/16/2011 02/05/2014 Actinic skin damage 09/16/2011 02/05/2014 Hills angiomas 09/16/2011 02/05/2014 ACTINIC KERATOSES (Premalignant AK's) 09/16/2011 02/05/2014 Contact dermatitis and other eczema, corners of lips 06/11/2011 02/05/2014 Overview: suspect harrison associated Encounter for long-term (current) use of medicat ions 10/22/2010 02/05/2014 Unspecified tinnitus 04/23/2008 02/05/2014 ACTINIC KERATOSES (Premalignant AK's) 12/19/2007 09/16/2011 Other seborrheic keratosis 12/19/200709/15 SOLAR LENTIGINES///DYSCHROMIA OTHER 12/19/2007 09/16/2011 Other chronic dermatitis due to solar radiation 12/19/2007 09/16/2011 HILLS ANGIOMA///NEVUS, 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 Esophageal reflux 12/03/2019 Tinnitus 02/05/2014 documented as of this encounter (statuses as of 08/18/2021) [facility]12[facility] History of Past illness Narrative* Problem Noted Date Resolved Date 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 03/21/20132013 Melanocytic nevus of trunk 03/21/201302/05 Cheilitis 03/02/2012 02/05/2014 Irritant contact dermatitis 03/02/201201/17 Capillary angioma 03/02/2012 02/05/2014 Cracked skin 11/07/2011 02/05/2014 Fissure in skin 11/07/2011 02/05/2014 Angular cheilitis 09/16/2011 02/05/2014 Solar Lentigines 09/16/2011 02/05/2014 Actinic skin damage 09/16/2011 02/05/2014 Hills angiomas 09/16/2011 02/05/2014 ACTINIC KERATOSES (Premalignant AK's) 09/16/2011 02/05/2014 Contact dermatitis and other eczema, corners of lips 06/11/2011 02/05/2014 Overview: suspect harrison associated Encounter for long-term (current) use of medicat ions 10/22/2010 02/05/2014 Unspecified tinnitus 04/23/2008 02/05/2014 ACTINIC KERATOSES (Premalignant AK's) 12/19/2007 09/16/2011 Other seborrheic keratosis 12/19/200709/15 SOLAR LENTIGINES///DYSCHROMIA OTHER 12/19/2007 09/16/2011 Other chronic dermatitis due to solar radiation 12/19/2007 09/16/2011 HILLS ANGIOMA///NEVUS, 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 Esophageal reflux 12/03/2019 Tinnitus 02/05/2014 documented as of this encounter (statuses as of 08/21/2021) [facility]12[facility] History of Past illness Narrative* Problem Noted Date Resolved Date 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 03/21/20132013 Melanocytic nevus of trunk 03/21/201302/05 Cheilitis 03/02/2012 02/05/2014 Irritant contact dermatitis 03/02/201201/17 Capillary angioma 03/02/2012 02/05/2014 Cracked skin 11/07/2011 02/05/2014 Fissure in skin 11/07/2011 02/05/2014 Angular cheilitis 09/16/2011 02/05/2014 Solar Lentigines 09/16/2011 02/05/2014 Actinic skin damage 09/16/2011 02/05/2014 Hills angiomas 09/16/2011 02/05/2014 ACTINIC KERATOSES (Premalignant AK's) 09/16/2011 02/05/2014 Contact dermatitis and other eczema, corners of lips 06/11/2011 02/05/2014 Overview: suspect harrison associated Encounter for long-term (current) use of medicat ions 10/22/2010 02/05/2014 Unspecified tinnitus 04/23/2008 02/05/2014 ACTINIC KERATOSES (Premalignant AK's) 12/19/2007 09/16/2011 Other seborrheic keratosis 12/19/200709/15 SOLAR LENTIGINES///DYSCHROMIA OTHER 12/19/2007 09/16/2011 Other chronic dermatitis due to solar radiation 12/19/2007 09/16/2011 HILLS ANGIOMA///NEVUS, 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 Esophageal reflux 12/03/2019 Tinnitus 02/05/2014 documented as of this encounter (statuses as of 08/24/2021) [facility] History of Past illness Narrative* Problem Noted Date Resolved Date 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 03/21/20132013 Melanocytic nevus of trunk 03/21/201302/05 Cheilitis 03/02/2012 02/05/2014 Irritant contact dermatitis 03/02/201201/17 Capillary angioma 03/02/2012 02/05/2014 Cracked skin 11/07/2011 02/05/2014 Fissure in skin 11/07/2011 02/05/2014 Angular cheilitis 09/16/2011 02/05/2014 Solar Lentigines 09/16/2011 02/05/2014 Actinic skin damage 09/16/2011 02/05/2014 Hills angiomas 09/16/2011 02/05/2014 ACTINIC KERATOSES (Premalignant AK's) 09/16/2011 02/05/2014 Contact dermatitis and other eczema, corners of lips 06/11/2011 02/05/2014 Overview: suspect harrison associated Encounter for long-term (current) use of medicat ions 10/22/2010 02/05/2014 Unspecified tinnitus 04/23/2008 02/05/2014 ACTINIC KERATOSES (Premalignant AK's) 12/19/2007 09/16/2011 Other seborrheic keratosis 12/19/200709/15 SOLAR LENTIGINES///DYSCHROMIA OTHER 12/19/2007 09/16/2011 Other chronic dermatitis due to solar radiation 12/19/2007 09/16/2011 HILLS ANGIOMA///NEVUS, 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 Esophageal reflux 12/03/2019 Tinnitus 02/05/2014 documented as of this encounter (statuses as of 09/07/2021) [facility] History of Past illness Narrative* Problem Noted Date Resolved Date 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 03/21/20132013 Melanocytic nevus of trunk 03/21/201302/05 Cheilitis 03/02/2012 02/05/2014 Irritant contact dermatitis 03/02/201201/17 Capillary angioma 03/02/2012 02/05/2014 Cracked skin 11/07/2011 02/05/2014 Fissure in skin 11/07/2011 02/05/2014 Angular cheilitis 09/16/2011 02/05/2014 Solar Lentigines 09/16/2011 02/05/2014 Actinic skin damage 09/16/2011 02/05/2014 Hills angiomas 09/16/2011 02/05/2014 ACTINIC KERATOSES (Premalignant AK's) 09/16/2011 02/05/2014 Contact dermatitis and other eczema, corners of lips 06/11/2011 02/05/2014 Overview: suspect harrison associated Encounter for long-term (current) use of medicat ions 10/22/2010 02/05/2014 Unspecified tinnitus 04/23/2008 02/05/2014 ACTINIC KERATOSES (Premalignant AK's) 12/19/2007 09/16/2011 Other seborrheic keratosis 12/19/200709/15 SOLAR LENTIGINES///DYSCHROMIA OTHER 12/19/2007 09/16/2011 Other chronic dermatitis due to solar radiation 12/19/2007 09/16/2011 HILLS ANGIOMA///NEVUS, NON-NEOPLASTIC 09/16/2011 Esophageal reflux 12/03/2019 Tinnitus 02/05/2014 documented as of this encounter (statuses as of 09/08/2021) [facility] Diagnosis Primary hypertension- Primary Unspecified essential hypertension Age-related osteoporosis without current pathological fracture Senile osteoporosis Constipation, unspecified constipation type Chronic midline low back pain, unspecified whether sciatica present History of total right knee replacement (TKR) History of Clostridium difficile colitis Personal history of other diseases of digestive system Encounter for long-term current use of medication [facility] Diagnosis Clostridium difficile diarrhea- Primary Intestinal infection due to clostridium difficile [facility] Diagnosis Clostridium difficile infection- Primary Infection due to other anaerobes in conditions classified elsewhere and of unspecified site Hypotension, unspecified hypotension type [facility] Diagnosis Pain in both knees, unspecified chronicity- Primary [facility] Diagnosis Status post total knee replacement using cement, right- Primary Status post total left knee replacement [facility] Diagnosis Pain in both knees, unspecified chronicity [facility] Diarrhea, unspecified type- Primary Hypertension goal BP (blood pressure) < 140/90 Unspecified essential hypertension [facility] Diagnosis C. difficile colitis Intestinal infection due to clostridium difficile [facility] Diagnosis Bilateral foot pain Pain in limb [facility] Diagnosis Status post total knee replacement using cement, right- Primary [facility] Diagnosis Primary hypertension- Primary Unspecified essential hypertension [facility] Diagnosis Hypertension goal BP (blood pressure) < 140/90- Primary Unspecified essential hypertension Mixed hyperlipidemia Age-related osteoporosis without current pathological fracture Senile osteoporosis Vitamin D deficiency Unspecified vitamin D deficiency Secondary hyperparathyroidism, non-renal (HCC) Secondary hyperparathyroidism, non-renal Cystocele with prolapse [facility] Diagnosis Hypertension goal BP (blood pressure) < 140/90- Primary Unspecified essential hypertension [facility] Diagnosis Hypertension goal BP (blood pressure) < 140/90- Primary Unspecified essential hypertension Insomnia, unspecified type [facility] Diagnosis Hypertension goal BP (blood pressure) < 140/90- Primary Unspecified essential hypertension [facility] Diagnosis Encounter for gynecological examination (general) (routine) without abnormal findings- Primary Encounter for screening mammogram for malignant neoplasm of breast Other screening mammogram Complete uterovaginal prolapse Uterovaginal prolapse, complete [facility] Diagnosis Complete uterovaginal prolapse- Primary Uterovaginal prolapse, complete Encounter for fitting and adjustment of pessary Fitting and adjustment of other device [facility] Diagnosis Hypertension goal BP (blood pressure) < 140/90- Primary Unspecified essential hypertension [facility] Diagnosis Female genital prolapse, unspecified type- Primary Pessary maintenance Fitting and adjustment of other device [facility] Diagnosis Cystocele, midline- Primary Prolapse of anterior vaginal wall Unspecified prolapse of vaginal lombardi Urge urinary incontinence Urge incontinence Vaginal atrophy Postmenopausal atrophic vaginitis [facility] Diagnosis Pessary maintenance- Primary Fitting and adjustment of other device Cystocele, midline Vaginal atrophy Postmenopausal atrophic vaginitis Urethral caruncle [facility] Diagnosis Hypertension goal BP (blood pressure) < 140/90- Primary Unspecified essential hypertension [facility] Diagnosis Hypertension goal BP (blood pressure) < 140/90- Primary Unspecified essential hypertension Ankle edema, bilateral Unintended weight gain Abnormal weight gain Parathyroid disorder (HCC) Unspecified disorder of parathyroid gland Screening for thyroid disorder Encounter for therapeutic drug monitoring [facility] Diagnosis Vaginal atrophy Postmenopausal atrophic vaginitis [facility] Diagnosis Hypertension goal BP (blood pressure) < 140/90 Unspecified essential hypertension [facility] Diagnosis Mixed hyperlipidemia- Primary Onychomycosis of toenail Dermatophytosis of nail Vitamin D deficiency Unspecified vitamin D deficiency Secondary hyperparathyroidism, non-renal (HCC) Secondary hyperparathyroidism, non-renal Anemia, macrocytic Unspecified deficiency anemia Chronic fatigue Other malaise and fatigue Persistent disorder of initiating or maintaining sleep Nocturia documented in this encounter [facility]* Diagnosis Harrison glabrata infection- Primary Candidiasis of unspecified site Vaginal inflammation from pessary, subsequent encounter documented in this encounter [facility]* Diagnosis Pessary maintenance- Primary Fitting and adjustment of other device Vaginal inflammation from pessary, subsequent encounter Harrison glabrata infection Candidiasis of unspecified site documented in this encounter [facility] note* Diagnosis Encounter for screening mammogram for malignant neoplasm of breast Other screening mammogram documented in this encounter [facility] note* Diagnosis Hypertension goal BP (blood pressure) < 140/90- Primary Unspecified essential hypertension Mixed hyperlipidemia Secondary hyperparathyroidism, non-renal (HCC) Secondary hyperparathyroidism, non-renal Age-related osteoporosis without current pathological fracture Senile osteoporosis Vitamin D deficiency Unspecified vitamin D deficiency Decreased hearing of right ear Onychomycosis of toenail Dermatophytosis of nail Ocular migraine Other forms of migraine, without mention of intractable migraine without mention of status migrainosus Encounter for therapeutic drug monitoring Weight increase Abnormal weight gain documented in this encounter [facility] note* Diagnosis Hypertension goal BP (blood pressure) < 140/90- Primary Unspecified essential hypertension [facility] Diagnostic Procedure Only (Routine) - Pending Review Specialty Diagnoses / Procedures Referred By Sandra abraham Referred To Contact XR IMAGING Diagnoses Pain in both knees, unspecified chronicity Procedures XR KNEE POST OP 3V AP/LAT/MERCHANT BILATERAL RADIOLOGIC EXAMINATION KNEE 3 VIEWS Lashaun Esparza PA-C [address] [id number] Xr Imaging Referral ID Status Reason Start Date Expiration Date Visits Requested Visits Authorized [id number] Pending Review Auto-Generat ed Referral 08/13/2021 09/12/2022 1 1 [facility] Diagnostic Procedure Only (Routine) - Closed Specialty Diagnoses / Procedures Referred By Sandra abraham Referred To Contact XR IMAGING Diagnoses Pain in both knees, unspecified chronicity Procedures XR KNEE POST OP 3V AP/LAT/MERCHANT BILATERAL RADIOLOGIC EXAMINATION KNEE 3 VIEWS Lashaun Esparza PA-C [address] [place] [address] Xr Imaging Referral ID Status Reason Start Date Expiration Date V isits Requested Visits Authorized [id number] Closed Auto-Generate d Referral 08/13/2021 09/12/2022 1 1 [facility] for referral (narrative)* Diagnostic Procedure Only (Routine) - Closed Specialty Diagnoses / Procedures Referred By Contac t Referred To Contact XR IMAGING Diagnoses Bilateral foot pain Procedures XR FOOT GENERAL 3V AP/LAT/OBL BILATERAL RADEX FOOT COMPLETE MINIMUM 3 VIEWS Christopher Ray [address] [place] [address] Xr Imaging Referral ID Status Reason Start Date Expiration Date V isits Requested Visits Authorized [id number] Closed Auto-Generate d Referral 09/25/2021 10/25/2022 1 1 [facility] for referral (narrative)* Diagnostic Procedure Only (Routine) - Closed Specialty Diagnoses / Procedures Referred By Sandra abraham Referred To Contact BR IMAGING Diagnoses Encounter for screening mammogram for malignant neoplasm of breast Procedures KIARA SCREENING W AIDAN SCREENING DIGITAL BREAST TOMOSYNTHESIS BI SCREENING MAMMOGRAPHY BI 2-VIEW BREAST INC CAD Petra Sierra MD [address] [place] [address] [facility] [address] [place] [address] Referral ID Status Reason Start Date Expiration Date V isits Requested Visits Authorized [id number] Closed Auto-Generate d Referral 05/15/2021 06/14/2022 1 1 [facility] for visit Narrative* Diagnostic Procedure Only (Routine) - Closed Specialty Diagnoses / Procedures Referred By Contac t Referred To Contact XR IMAGING Diagnoses Pain in both knees, unspecified chronicity Procedures XR KNEE POST OP 3V AP/LAT/MERCHANT BILATERAL RADIOLOGIC EXAMINATION KNEE 3 VIEWS Lashaun Esparza PA-C [address] [place] [address] Xr Imaging Referral ID Status Reason Start Date Expiration Date V isits Requested Visits Authorized [id number] Closed Auto-Generate d Referral 08/13/2021 09/12/2022 1 1 [facility] for visit Narrative* Diagnostic Procedure Only (Routine) - Closed Specialty Diagnoses / Procedures Referred By Contac t Referred To Contact XR IMAGING Diagnoses Bilateral foot pain Procedures XR FOOT GENERAL 3V AP/LAT/OBL BILATERAL RADEX FOOT COMPLETE MINIMUM 3 VIEWS Christopher Ray [address] [place] [address] Xr Imaging Referral ID Status Reason Start Date Expiration Date V isits Requested Visits Authorized [id number] Closed Auto-Generate d Referral 09/25/2021 10/25/2022 1 1 [facility] for visit Narrative* Diagnostic Procedure Only (Routine) - Closed Specialty Diagnoses / Procedures Referred By Contac t Referred To Contact BR IMAGING Diagnoses Encounter for screening mammogram for malignant neoplasm of breast Procedures KIARA SCREENING W AIDAN SCREENING DIGITAL BREAST TOMOSYNTHESIS BI SCREENING MAMMOGRAPHY BI 2-VIEW BREAST INC CAD Petra Sierra MD [address] [place] [address] [facility] [address] [place] [address] Referral ID Status Reason Start Date Expiration Date V isits Requested Visits Authorized [id number] Closed Auto-Generate d Referral 05/15/2021 06/14/2022 1 1 [facility] Advance Directives No Advanced Directives Records FoundDocuments on File Type Date Recorded Patient Box 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 Expl 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 Advance Directive(s) 12/13/2019 7:22 AM Latest Code Status on File Code Status Date Activated Date Inactivated Comments Full Code 09/11/2020 8:27 AM Full Code 12/05/2019 5:14 PM 09/08/2020 11:19 AM Documents on File Type Date Recorded Patient Box 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 Cementer Expl 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 Advance Directive(s) 09/08/2020 11:13 AM Advance Directive(s) 08/20/2020 6:27 PM Advance Directive(s) 12/13/2019 7:22 AM Advance Directive(s) 12/03/2019 9:33 AM Advance Directive(s) 11/20/2019 5:20 PM Advance Directive(s) 07/05/2019 2:55 PM Documents on File Type Date Recorded Patient 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 Cementer Expl 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 Advance Directive(s) 09/08/2020 11:13 AM Advance Directive(s) 08/20/2020 6:27 PM Advance Directive(s) 12/13/2019 7:22 AM Advance Directive(s) 12/03/2019 9:33 AM Advance Directive(s) 11/20/2019 5:20 PM Advance Directive(s) 07/05/2019 2:55 PM Latest Code Status on File Code Status Date Activated Date Inactivated Comments Full Code 09/11/2020 8:27 AM Full Code 12/05/2019 5:14 PM 09/08/2020 11:19 AM Documents on File Type Date Recorded Patient Box Toe Cementer Expl anation Advance Directive(s) 12/13/2019 7:22 AM Latest Code Status on File Code Status Date Activated Date Inactivated Comments Full Code 09/11/2020 8:27 AM Code Status History Code Status Date Activated Date Inactivated Comments Full Code 12/05/2019 5:14 PM 09/08/2020 11:19 AM Latest Code Status on File Code Status Date Activated Date Inactivated Comments Full Code 09/11/2020 8:27 AM Code Status History Code Status Date Activated Date Inactivated Comments Full Code 12/05/2019 5:14 PM 09/08/2020 11:19 AM Summary Purpose Family History No Family History Records FoundNo Family History Records FoundNo Family History Records Found Reason for Referral Specialty Diagnoses / Procedures Referred By Sandra t Referred To Contact Diagnoses Complete uterovaginal prolapse Procedures CONSULT TO FEMALE UROLOGY/URO GYNECOLOGY OFFICE/OUTPATIENT [facility] MDM 60-74 MINUTES Petra Sierra MD [address] [place] [address] Referral ID Status Reason Start Date Expiration Date Visits Requested Visits Authorized [id number] Authorized PCP Requested Referral 05/20/2022 05/20/2023 1 1 Specialty Diagnoses / Procedures Referred By Contac t Referred To Contact BR IMAGING Diagnoses Encounter for screening mammogram for malignant neoplasm of breast Procedures KIARA SCREENING W AIDAN SCREENING DIGITAL BREAST TOMOSYNTHESIS BI SCREENING MAMMOGRAPHY BI 2-VIEW BREAST INC CAD Petra Sierra MD [address] [place] [address] [facility] [address] [place] [address] Referral ID Status Reason Start Date Expiration Date Visits Requested Visits Authorized [id number] Pending Review Auto-Generat ed Referral 05/20/2022 06/19/2023 1 1 Specialty Diagnoses / Procedures Referred By Sandra abraham Referred To Contact [facility] Diagnoses Urge urinary incontinence Procedures CONSULT TO PHYSICAL THERAPY PHYSICAL THERAPY EVALUATION HIGH COMPLEX 45 MINS Edita Platt MD [address] [place] [id number] [facility] [address] [place] [id number] Referral ID Status Reason Start Date Expiration Date Visits Requested Visits Authorized [id number] Authorized PCP Requested Referral Auto-Generate d Referral 07/02/2022 07/02/2023 99 99 Additional Source Comments Source Comments (unrecognize d section and content) In the event this informatio n is protected by the Federal Confidentiality of Alcohol and Drug Abuse Patient Records regulations: The Federal rules restrict any use of the information to criminally investigate or prosecute any alcohol or drug abuse patient.[facility] HospitalIn the event this information is protected by the Federal Confidentiality of Alcohol and Drug Abuse Patient Records regulations: The Federal rules restrict any use of the information to criminally investigate or prosecute any alcohol or drug abuse patient.[facility] HospitalIn the event this information is protected by the Federal Confidentiality of Alcohol and Drug Abuse Patient Records regulations: The Federal rules restrict any use of the information to criminally investigate or prosecute any alcohol or drug abuse patient.[facility] HospitalIn the event this information is protected by the Federal Confidentiality of Alcohol and Drug Abuse Patient Records regulations: The Federal rules restrict any use of the information to criminally investigate or prosecute any alcohol or drug abuse patient.[facility] HospitalIn the event this information is protected by the Federal Confidentiality of Alcohol and Drug Abuse Patient Records regulations: The Federal rules restrict any use of the information to criminally investigate or prosecute any alcohol or drug abuse patient.[facility] HospitalIn the event this information is protected by the Federal Confidentiality of Alcohol and Drug Abuse Patient Records regulations: The Federal rules restrict any use of the information to criminally investigate or prosecute any alcohol or drug abuse patient.[facility] HospitalIn the event this information is protected by the Federal Confidentiality of Alcohol and Drug Abuse Patient Records regulations: The Federal rules restrict any use of the information to criminally investigate or prosecute any alcohol or drug abuse patient.[facility] HospitalIn the event this information is protected by the Federal Confidentiality of Alcohol and Drug Abuse Patient Records regulations: The Federal rules restrict any use of the information to criminally investigate or prosecute any alcohol or drug abuse patient.[facility] HospitalIn the event this information is protected by the Federal Confidentiality of Alcohol and Drug Abuse Patient Records regulations: The Federal rules restrict any use of the information to criminally investigate or prosecute any alcohol or drug abuse patient.[facility] HospitalIn the event this information is protected by the Federal Confidentiality of Alcohol and Drug Abuse Patient Records regulations: The Federal rules restrict any use of the information to criminally investigate or prosecute any alcohol or drug abuse patient.[facility] HospitalIn the event this information is protected by the Federal Confidentiality of Alcohol and Drug Abuse Patient Records regulations: The Federal rules restrict any use of the information to criminally investigate or prosecute any alcohol or drug abuse patient.[facility] HospitalIn the event this information is protected by the Federal Confidentiality of Alcohol and Drug Abuse Patient Records regulations: The Federal rules restrict any use of the information to criminally investigate or prosecute any alcohol or drug abuse patient.[facility] HospitalIn the event this information is protected by the Federal Confidentiality of Alcohol and Drug Abuse Patient Records regulations: The Federal rules restrict any use of the information to criminally investigate or prosecute any alcohol or drug abuse patient.[facility] HospitalIn the event this information is protected by the Federal Confidentiality of Alcohol and Drug Abuse Patient Records regulations: The Federal rules restrict any use of the information to criminally investigate or prosecute any alcohol or drug abuse patient.[facility] HospitalIn the event this information is protected by the Federal Confidentiality of Alcohol and Drug Abuse Patient Records regulations: The Federal rules restrict any use of the information to criminally investigate or prosecute any alcohol or drug abuse patient.[facility] HospitalIn the event this information is protected by the Federal Confidentiality of Alcohol and Drug Abuse Patient Records regulations: The Federal rules restrict any use of the information to criminally investigate or prosecute any alcohol or drug abuse patient.[facility] HospitalIn the event this information is protected by the Federal Confidentiality of Alcohol and Drug Abuse Patient Records regulations: The Federal rules restrict any use of the information to criminally investigate or prosecute any alcohol or drug abuse patient.[facility] HospitalIn the event this information is protected by the Federal Confidentiality of Alcohol and Drug Abuse Patient Records regulations: The Federal rules restrict any use of the information to criminally investigate or prosecute any alcohol or drug abuse patient.[facility] HospitalIn the event this information is protected by the Federal Confidentiality of Alcohol and Drug Abuse Patient Records regulations: The Federal rules restrict any use of the information to criminally investigate or prosecute any alcohol or drug abuse patient.[facility] HospitalIn the event this information is protected by the Federal Confidentiality of Alcohol and Drug Abuse Patient Records regulations: The Federal rules restrict any use of the information to criminally investigate or prosecute any alcohol or drug abuse patient.[facility] HospitalIn the event this information is protected by the Federal Confidentiality of Alcohol and Drug Abuse Patient Records regulations: The Federal rules restrict any use of the information to criminally investigate or prosecute any alcohol or drug abuse patient.[facility] HospitalIn the event this information is protected by the Federal Confidentiality of Alcohol and Drug Abuse Patient Records regulations: The Federal rules restrict any use of the information to criminally investigate or prosecute any alcohol or drug abuse patient.[facility] HospitalIn the event this information is protected by the Federal Confidentiality of Alcohol and Drug Abuse Patient Records regulations: The Federal rules restrict any use of the information to criminally investigate or prosecute any alcohol or drug abuse patient.[facility] HospitalIn the event this information is protected by the Federal Confidentiality of Alcohol and Drug Abuse Patient Records regulations: The Federal rules restrict any use of the information to criminally investigate or prosecute any alcohol or drug abuse patient.[facility] HospitalIn the event this information is protected by the Federal Confidentiality of Alcohol and Drug Abuse Patient Records regulations: The Federal rules restrict any use of the information to criminally investigate or prosecute any alcohol or drug abuse patient.[facility] HospitalIn the event this information is protected by the Federal Confidentiality of Alcohol and Drug Abuse Patient Records regulations: The Federal rules restrict any use of the information to criminally investigate or prosecute any alcohol or drug abuse patient.[facility] HospitalIn the event this information is protected by the Federal Confidentiality of Alcohol and Drug Abuse Patient Records regulations: The Federal rules restrict any use of the information to criminally investigate or prosecute any alcohol or drug abuse patient.[facility] HospitalIn the event this information is protected by the Federal Confidentiality of Alcohol and Drug Abuse Patient Records regulations: The Federal rules restrict any use of the information to criminally investigate or prosecute any alcohol or drug abuse patient.[facility] HospitalIn the event this information is protected by the Federal Confidentiality of Alcohol and Drug Abuse Patient Records regulations: The Federal rules restrict any use of the information to criminally investigate or prosecute any alcohol or drug abuse patient.[facility] HospitalIn the event this information is protected by the Federal Confidentiality of Alcohol and Drug Abuse Patient Records regulations: The Federal rules restrict any use of the information to criminally investigate or prosecute any alcohol or drug abuse patient.[facility] HospitalIn the event this information is protected by the Federal Confidentiality of Alcohol and Drug Abuse Patient Records regulations: The Federal rules restrict any use of the information to criminally investigate or prosecute any alcohol or drug abuse patient.[facility] HospitalIn the event this information is protected by the Federal Confidentiality of Alcohol and Drug Abuse Patient Records regulations: The Federal rules restrict any use of the information to criminally investigate or prosecute any alcohol or drug abuse patient.[facility] HospitalIn the event this information is protected by the Federal Confidentiality of Alcohol and Drug Abuse Patient Records regulations: The Federal rules restrict any use of the information to criminally investigate or prosecute any alcohol or drug abuse patient.[facility] HospitalIn the event this information is protected by the Federal Confidentiality of Alcohol and Drug Abuse Patient Records regulations: The Federal rules restrict any use of the information to criminally investigate or prosecute any alcohol or drug abuse patient.[facility] HospitalIn the event this information is protected by the Federal Confidentiality of Alcohol and Drug Abuse Patient Records regulations: The Federal rules restrict any use of the information to criminally investigate or prosecute any alcohol or drug abuse patient.[facility] HospitalIn the event this information is protected by the Federal Confidentiality of Alcohol and Drug Abuse Patient Records regulations: The Federal rules restrict any use of the information to criminally investigate or prosecute any alcohol or drug abuse patient.[facility] HospitalIn the event this information is protected by the Federal Confidentiality of Alcohol and Drug Abuse Patient Records regulations: The Federal rules restrict any use of the information to criminally investigate or prosecute any alcohol or drug abuse patient.[facility] HospitalIn the event this information is protected by the Federal Confidentiality of Alcohol and Drug Abuse Patient Records regulations: The Federal rules restrict any use of the information to criminally investigate or prosecute any alcohol or drug abuse patient.[facility] HospitalIn the event this information is protected by the Federal Confidentiality of Alcohol and Drug Abuse Patient Records regulations: The Federal rules restrict any use of the information to criminally investigate or prosecute any alcohol or drug abuse patient.[facility] HospitalIn the event this information is protected by the Federal Confidentiality of Alcohol and Drug Abuse Patient Records regulations: The Federal rules restrict any use of the information to criminally investigate or prosecute any alcohol or drug abuse patient.[facility] HospitalIn the event this information is protected by the Federal Confidentiality of Alcohol and Drug Abuse Patient Records regulations: The Federal rules restrict any use of the information to criminally investigate or prosecute any alcohol or drug abuse patient.[facility] HospitalIn the event this information is protected by the Federal Confidentiality of Alcohol and Drug Abuse Patient Records regulations: The Federal rules restrict any use of the information to criminally investigate or prosecute any alcohol or drug abuse patient.[facility] HospitalIn the event this information is protected by the Federal Confidentiality of Alcohol and Drug Abuse Patient Records regulations: The Federal rules restrict any use of the information to criminally investigate or prosecute any alcohol or drug abuse patient.[facility] HospitalIn the event this information is protected by the Federal Confidentiality of Alcohol and Drug Abuse Patient Records regulations: The Federal rules restrict any use of the information to criminally investigate or prosecute any alcohol or drug abuse patient.[facility] HospitalIn the event this information is protected by the Federal Confidentiality of Alcohol and Drug Abuse Patient Records regulations: The Federal rules restrict any use of the information to criminally investigate or prosecute any alcohol or drug abuse patient.[facility] HospitalIn the event this information is protected by the Federal Confidentiality of Alcohol and Drug Abuse Patient Records regulations: The Federal rules restrict any use of the information to criminally investigate or prosecute any alcohol or drug abuse patient.[facility] HospitalIn the event this information is protected by the Federal Confidentiality of Alcohol and Drug Abuse Patient Records regulations: The Federal rules restrict any use of the information to criminally investigate or prosecute any alcohol or drug abuse patient.[facility] HospitalIn the event this information is protected by the Federal Confidentiality of Alcohol and Drug Abuse Patient Records regulations: The Federal rules restrict any use of the information to criminally investigate or prosecute any alcohol or drug abuse patient.[facility] HospitalIn the event this information is protected by the Federal Confidentiality of Alcohol and Drug Abuse Patient Records regulations: The Federal rules restrict any use of the information to criminally investigate or prosecute any alcohol or drug abuse patient.[facility] HospitalIn the event this information is protected by the Federal Confidentiality of Alcohol and Drug Abuse Patient Records regulations: The Federal rules restrict any use of the information to criminally investigate or prosecute any alcohol or drug abuse patient.[facility] HospitalIn the event this information is protected by the Federal Confidentiality of Alcohol and Drug Abuse Patient Records regulations: The Federal rules restrict any use of the information to criminally investigate or prosecute any alcohol or drug abuse patient.[facility] HospitalIn the event this information is protected by the Federal Confidentiality of Alcohol and Drug Abuse Patient Records regulations: The Federal rules restrict any use of the information to criminally investigate or prosecute any alcohol or drug abuse patient.[facility] HospitalIn the event this information is protected by the Federal Confidentiality of Alcohol and Drug Abuse Patient Records regulations: The Federal rules restrict any use of the information to criminally investigate or prosecute any alcohol or drug abuse patient.[facility] HospitalIn the event this information is protected by the Federal Confidentiality of Alcohol and Drug Abuse Patient Records regulations: The Federal rules restrict any use of the information to criminally investigate or prosecute any alcohol or drug abuse patient.[facility] HospitalIn the event this information is protected by the Federal Confidentiality of Alcohol and Drug Abuse Patient Records regulations: The Federal rules restrict any use of the information to criminally investigate or prosecute any alcohol or drug abuse patient.[facility] HospitalIn the event this information is protected by the Federal Confidentiality of Alcohol and Drug Abuse Patient Records regulations: The Federal rules restrict any use of the information to criminally investigate or prosecute any alcohol or drug abuse patient.[facility] HospitalIn the event this information is protected by the Federal Confidentiality of Alcohol and Drug Abuse Patient Records regulations: The Federal rules restrict any use of the information to criminally investigate or prosecute any alcohol or drug abuse patient.[facility] HospitalIn the event this information is protected by the Federal Confidentiality of Alcohol and Drug Abuse Patient Records regulations: The Federal rules restrict any use of the information to criminally investigate or prosecute any alcohol or drug abuse patient.[facility] HospitalIn the event this information is protected by the Federal Confidentiality of Alcohol and Drug Abuse Patient Records regulations: The Federal rules restrict any use of the information to criminally investigate or prosecute any alcohol or drug abuse patient.[facility] HospitalIn the event this information is protected by the Federal Confidentiality of Alcohol and Drug Abuse Patient Records regulations: The Federal rules restrict any use of the information to criminally investigate or prosecute any alcohol or drug abuse patient.[facility] Reason for Visit (unrecogniz ed section and content) Reason Comments Diarrhea Reason Comments C- Diff results Reason Comments Opened In Error Reason Comments low blood pressure Reason Comments Same Day Appointment low blood pressure on Tuesday Reason Comments Medication Question Reason Comments Question/Concern for Dr. Goldman Reason Comments Patient Update Reason Comments Established Patient Follow Up Knee Pain Knee Replacement Reason Comments Recheck Cdiff follow up Reason Comments New Patient c diff Reason Comments Patient Question Reason Comments Established Patient Knee Replacement Knee Pain Reason Comments Research IRB 80-750 Reason Comments Blood Pressure Reason Comments Results Reason Comments Research Pre-screening (IRB 2 1-355) Reason Comments Patient Question Returning Patient's Call Reason Comments blood pressure readings elevated Reason Comments Hypertension Reason Onset Date Comments Refill Request 04/21/2022 Reason Comments Blood Pressure follow up Reason Comments Yearly Exam Reason Comments Appointment 1st attempt, no answ er, left voicemail to R/S for [facility] on for 11:30am. Reason Comments Pessary Reason Comments Follow Up Pessary check Reason Comments Bladder Problem Possible bladder pro lapse Reason Comments Follow Up Per Dr. Platt Pessary Reason Comments Refill Request Reason Onset Date Comments Refill Request 07/30/2022 Reason Comments Orders Reason Comments Pessary Reason Comments Medication Problem Reason Comments Follow Up Pessary Reason Onset Date Comments Population Health Navigation Outreach 02/08/2023 ACO C[facility] GAP Reason Onset Date Comments Refill Request 03/02/2023 Care Teams (unrecognized sec tion and content) Physical Sciences Instructor Relationship Specialty Start Date End Date Michelle Goldman MD [address] [place], [place] [id number] PCP - General Internal Medicine 12/16/10 Shankar Wilcox MD [address] [place] [address] Home Care Physician Orthopedics 09/09/20 Marisabel Caban, PT [address] [place] [address] Product Distribution Specialist Post Acute Care 12/04/19 Sherif Saavedra, FOREST.DRIP BOX TENDER [address] [place] [address] Referring Orthopedics 09/09/20 Physical Sciences Instructor Relationship Specialty Start Date End Date Michelle Goldman MD [address] [place] [address] PCP - General Internal Medicine 12/16/10 Shankar Wilcox MD [address] [place] [address] Home Care Physician Orthopedics 09/09/20 Marisabel Caban, PT [address] [place] [address] Product Distribution Specialist Post Acute Care 12/04/19 Sherif Saavedra, TEST ENGINEERING TECHNICIAN.DRIP BOX TENDER [address] [place] [address] Referring Orthopedics 09/09/20 Physical Sciences Instructor Relationship Specialty Start Date End Date Michelle Goldman MD [address] [place] [address] PCP - General Internal Medicine 12/16/10 Shankar Wilcox MD [address] [place] [address] Home Care Physician Orthopedics 09/09/20 Marisabel Caban, PT [address] [place] [address] Product Distribution Specialist Post Acute Care 12/04/19 Sherif Saavedra, FOREST.DRIP BOX TENDER [address] [place] [address] Referring Orthopedics 09/09/20 Physical Sciences Instructor Relationship Specialty Start Date End Date Michelle Goldman MD [address] [place] [address] PCP - General Internal Medicine 12/16/10 Shankar Wilcox MD [address] [place] [address] Home Care Physician Orthopedics 09/09/20 Marisabel Caban, PT [address] [place] [address] Product Distribution Specialist Post Acute Care 12/04/19 Sheirf Saavedra, TEST ENGINEERING TECHNICIAN.DRIP BOX TENDER [address] [place] [address] Referring Orthopedics 09/09/20 Physical Sciences Instructor Relationship Specialty Start Date End Date Michelle Goldman MD [address] [place] [address] PCP - General Internal Medicine 12/16/10 Shankar Wilcox MD [address] [place] [address] Home Care Physician Orthopedics 09/09/20 Marisabel Caban, PT [address] [place] [address] Product Distribution Specialist Post Acute Care 12/04/19 Sheirf Saavedra, TEST ENGINEERING TECHNICIAN.DRIP BOX TENDER [address] [place] [address] Referring Orthopedics 09/09/20 Physical Sciences Instructor Relationship Specialty Start Date End Date Michelle Goldman MD [address] [place] [address] PCP - General Internal Medicine 12/16/10 Shankar Wilcox MD [address] [place] [address] Home Care Physician Orthopedics 09/09/20 Marisabel Caban, PT [address] [place] [address] Product Distribution Specialist Post Acute Care 12/04/19 Sherif Saavedra, FOREST.DRIP BOX TENDER [address] [place] [address] Referring Orthopedics 09/09/20 Physical Sciences Instructor Relationship Specialty Start Date End Date Michelle Goldman MD [address] [place] [address] PCP - General Internal Medicine 12/16/10 Shankar Wilcox MD [address] [place] [address] Home Care Physician Orthopedics 09/09/20 Marisabel Caban, PT [address] [place] [address] Product Distribution Specialist Post Acute Care 12/04/19 Sherif Saavedra, TEST ENGINEERING TECHNICIAN.[address] [address] Referring Orthopedics 09/09/20 Physical Sciences Instructor Relationship Specialty Start Date End Date Michelle Goldman MD [address] [place] [address] PCP - General Internal Medicine 12/16/10 Shankar Wilcox MD [address] [place] [address] Home Care Physician Orthopedics 09/09/20 Marisabel Caban, PT [address] [place] [address] Product Distribution Specialist Post Acute Care 12/04/19 Sherif Saavedra, TEST ENGINEERING TECHNICIAN.DRIP BOX TENDER [address] [place] [address] Referring Orthopedics 09/09/20 Physical Sciences Instructor Relationship Specialty Start Date End Date Michelle Goldman MD [address] [place] [address] PCP - General Internal Medicine 12/16/10 Shankar Wilcox MD [address] [place] [address] Home Care Physician Orthopedics 09/09/20 Marisabel Caban, PT [address] [place] [address] Product Distribution Specialist Post Acute Care 12/04/19 Sherif Saavedra, FOREST.[address] [address] Referring Orthopedics 09/09/20 Physical Sciences Instructor Relationship Specialty Start Date End Date Michelle Goldman MD [address] [place] [address] PCP - General Internal Medicine 12/16/10 Shankar Wilcox MD [address] [facility] [place] [address] Home Care Provider Orthopedics 09/09/20 Marisabel Caban, PT [address] [place] [address] Product Distribution Specialist Post Acute Care 12/04/19 Sherif Saavedra, TEST ENGINEERING TECHNICIAN.DRIP BOX TENDER [address] [place] [address] [id number] Referring Orthopedics 09/09/20 Physical Sciences Instructor Relationship Specialty Start Date End Date Michelle Goldman MD [address] [place] [address] PCP - General Internal Medicine 12/16/10 Shankar Wilcox MD [address] [facility] [place] [address] Home Care Provider Orthopedics 09/09/20 Marisabel Caban, PT [address] [place] [address] Product Distribution Specialist Post Acute Care 12/04/19 Sherif Saavedra, FOREST.DRIP BOX TENDER [address] [place] [address] Referring Orthopedics 09/09/20 Physical Sciences Instructor Relationship Specialty Start Date End Date Michelle Goldman MD [address] [place] [address] PCP - General Internal Medicine 12/16/10 Shankar Wilcox MD [address] [place] [address] Home Care Provider Orthopedics 09/09/20 Marisabel Caban, PT [address] [place] [address] Product Distribution Specialist Post Acute Care 12/04/19 Sherif Saavedra, TEST ENGINEERING TECHNICIAN.[address] [address] Referring Orthopedics 09/09/20 Physical Sciences Instructor Relationship Specialty Start Date End Date Michelle Goldman MD [address] [place], [place] [id number] PCP - General Internal Medicine 12/16/10 Shankar Wilcox MD [address] [place] [address] Home Care Provider Orthopedics 09/09/20 Marisabel Caban, PT [address] [place] [address] Product Distribution Specialist Post Acute Care 12/04/19 Sherif Saavedra, TEST ENGINEERING TECHNICIAN.[address] [address] Referring Orthopedics 09/09/20 Physical Sciences Instructor Relationship Specialty Start Date End Date Michelle Goldman MD [address] [place], [place] [id number] PCP - General Internal Medicine 12/16/10 Shankar Wilcox MD [address] [place] [address] Home Care Provider Orthopedics 09/09/20 Marisabel Caban, PT [address] [place] [address] Product Distribution Specialist Post Acute Care 12/04/19 Sherif Saavedra, TEST ENGINEERING TECHNICIAN.DRIP BOX TENDER [address] [place] [address] Referring Orthopedics 09/09/20 Physical Sciences Instructor Relationship Specialty Start Date End Date Michelle Goldman MD [address] [place] [address] PCP - General Internal Medicine 12/16/10 Shankar Wilcox MD [address] [facility] [place] [place] [address] Home Care Provider Orthopedics 09/09/20 Marisabel Caban, PT [address] [place] [address] Product Distribution Specialist Post Acute Care 12/04/19 Sherif Saavedra APRN.DRIP BOX TENDER [address] [place] [address] Referring Orthopedics 09/09/20 Physical Sciences Instructor Relationship Specialty Start Date End Date Michelle Goldman MD [address] [place], [place] [address]151 PCP - General Internal Medicine 12/16/10 Shankra Wilcox MD [address] [place] [address] Home Care Provider Orthopedics 09/09/20 Marisabel Caban, PT [address] [place] [address] Product Distribution Specialist Post Acute Care 12/04/19 Sherif Saavedra, TEST ENGINEERING TECHNICIAN.DRIP BOX TENDER [address] [place] [address] Referring Orthopedics 09/09/20 Physical Sciences Instructor Relationship Specialty Start Date End Date Michelle Goldman MD [address] [place] [address] PCP - General Internal Medicine 12/16/10 Shankar Wilcox MD [address] [place] [address] Home Care Provider Orthopedics 09/09/20 Marisabel Caban, PT [address] [place] [address] Product Distribution Specialist Post Acute Care 12/04/19 Sherif Saavedra, TEST ENGINEERING TECHNICIAN.DRIP BOX TENDER [address] [place] [address] Referring Orthopedics 09/09/20 Physical Sciences Instructor Relationship Specialty Start Date End Date Michelle Goldman MD [address] [place] [address] PCP - General Internal Medicine 12/16/10 Shankar Wilcox MD [address] [place] [address] Home Care Provider Orthopedics 09/09/20 Marisabel Caban, PT [address] [place] [address] Product Distribution Specialist Post Acute Care 12/04/19 Sherif Saavedra, TEST ENGINEERING TECHNICIAN.DRIP BOX TENDER [address] [place] [address] Referring Orthopedics 09/09/20 Physical Sciences Instructor Relationship Specialty Start Date End Date Michelle Goldman MD [address] [place] [address] PCP - General Internal Medicine 12/16/10 Shankar Wilcox MD [address] [place] [address] Home Care Provider Orthopedics 09/09/20 Marisabel Caban, PT [address] [place] [address] Product Distribution Specialist Post Acute Care 12/04/19 Sherif Saavedra, TEST ENGINEERING TECHNICIAN.DRIP BOX TENDER [address] [place] [address] Referring Orthopedics 09/09/20 Physical Sciences Instructor Relationship Specialty Start Date End Date Michelle Goldman MD [address] [place] [address] PCP - General Internal Medicine 12/16/10 Shankar Wilcox MD [address] [place] [address] Home Care Provider Orthopedics 09/09/20 Marisabel Caban, PT [address] [place] [address] Product Distribution Specialist Post Acute Care 12/04/19 Sherif Saavedra APRN.DRIP BOX TENDER [address] [place] [address] Referring Orthopedics 09/09/20 Physical Sciences Instructor Relationship Specialty Start Date End Date Michelle Goldman MD [address] [place], [place] [address] PCP - General Internal Medicine 12/16/10 Shankar Wilcox MD [address] [place] [address] Home Care Provider Orthopedics 09/09/20 Marisabel Caban, PT [address] [place], [place] [id number] Product Distribution Specialist Post Acute Care 12/04/19 Sherif Saavedra APRN.DRIP BOX TENDER [address] [place] [address] Referring Orthopedics 09/09/20 Physical Sciences Instructor Relationship Specialty Start Date End Date Michelle Goldman MD [address] [place], [place] [address]49371 PCP - General Internal Medicine 12/16/10 Shankar Wilcox MD [address] [facility] [place] [place] [address] Home Care Provider Orthopedics 09/09/20 Marisabel Caban, PT [address] [place], [place] [id number] Product Distribution Specialist Post Acute Care 12/04/19 Sherif Saavedra APRN.DRIP BOX TENDER [address] [place] [phone] Referring Orthopedics 09/09/20 Physical Sciences Instructor Relationship Specialty Start Date End Date Michelle Goldman MD [address] [place], [place] [address] PCP - General Internal Medicine 12/16/10 Shankar Wilcox MD [address] [place] [address] Home Care Provider Orthopedics 09/09/20 Marisabel Caban, PT [address] [place] [address] Product Distribution Specialist Post Acute Care 12/04/19 Sherif Saavedra APRN.DRIP BOX TENDER [address] [place] [address] Referring Orthopedics 09/09/20 Physical Sciences Instructor Relationship Specialty Start Date End Date Michelle Goldman MD [address] [place] [address] PCP - General Internal Medicine 12/16/10 Shankar Wilcox MD [address] [place] [address] Home Care Provider Orthopedics 09/09/20 Marisabel Caban, PT [address] [place] [address] Product Distribution Specialist Post Acute Care 12/04/19 Sherif Saavedra, TEST ENGINEERING TECHNICIAN.DRIP BOX TENDER [address] [place] [address] Referring Orthopedics 09/09/20 Physical Sciences Instructor Relationship Specialty Start Date End Date Michelle Goldman MD [address] [place], [place] [address] PCP - General Internal Medicine 12/16/10 Shankar Wilcox MD [address] [place] [address] Home Care Provider Orthopedics 09/09/20 Marisabel Caban, PT [address] [place] [address] Product Distribution Specialist Post Acute Care 12/04/19 Sherif Saavedra APRN.DRIP BOX TENDER [address] [place] [address] Referring Orthopedics 09/09/20 Physical Sciences Instructor Relationship Specialty Start Date End Date Michelle Goldman MD [address] [place] [address] PCP - General Internal Medicine 12/16/10 Shankar Wilcox MD [address] [facility] [place] [address] Home Care Provider Orthopedics 09/09/20 Marisabel Caban, PT [address] [place] [address] Product Distribution Specialist Post Acute Care 12/04/19 Sherif Saavedra APRN.DRIP BOX TENDER [address] [place] [address] Referring Orthopedics 09/09/20 Physical Sciences Instructor Relationship Specialty Start Date End Date Michelle Goldman MD [address] [place] [address] PCP - General Internal Medicine 12/16/10 Shankar Wilcox MD [address] [place] [address] Home Care Provider Orthopedics 09/09/20 Marisabel Caban, PT [address] [facility] [place] [address] Product Distribution Specialist Post Acute Care 12/04/19 Sherif Saavedra APRN.DRIP BOX TENDER [address] [place] [address] Referring Orthopedics 09/09/20 Physical Sciences Instructor Relationship Specialty Start Date End Date Michelle Goldman MD [address] [place] [id number] PCP - General Internal Medicine 12/16/10 Shankar Wilcox MD [address] [facility] [place] [place] [address] Home Care Provider Orthopedics 09/09/20 Marisabel Caban, PT [address] [place] [address] Product Distribution Specialist Post Acute Care 12/04/19 Sherif Saavedra APRN.DRIP BOX TENDER [address] [place] [address] Referring Orthopedics 09/09/20 Physical Sciences Instructor Relationship Specialty Start Date End Date Michelle Goldman MD [address] [place] [address] PCP - General Internal Medicine 12/16/10 Shankar Wilcox MD [address] [place] [address] Home Care Provider Orthopedics 09/09/20 Marisabel Caban, PT [address] [place] [address] Product Distribution Specialist Post Acute Care 12/04/19 Sherif Saavedra APRN.DRIP BOX TENDER [address] [place] [address] Referring Orthopedics 09/09/20 Physical Sciences Instructor Relationship Specialty Start Date End Date Michelle Goldman MD [address] [place] [address] PCP - General Internal Medicine 12/16/10 Shankar Wilcox MD [address] [place] [address] Home Care Provider Orthopedics 09/09/20 Sherif Saavedra APRN.DRIP BOX TENDER [address] [place] [address] [phone] Referring Orthopedics 09/09/20 Physical Sciences Instructor Relationship Specialty Start Date End Date Michelle Goldman MD [address] [place], [place] [address] PCP - General Internal Medicine 12/16/10 Shankar Wilcox MD [address] [place] [address] Home Care Provider Orthopedics 09/09/20 Sherif Saavedra APRN.DRIP BOX TENDER [address] [place] [phone] Referring Orthopedics 09/09/20 INFORMATION SOURCE (unrecogn ized section and content) DATE CREATED AUTHOR AUTHOR'S ORGANIZ ATION 01/22/2023 [facility] DATE CREATED AUTHOR AUTHOR'S ORGANIZ ATION 04/08/2023 [facility] FOR RECORDS PERTAINING TO PATIENTS WHO ARE OR HAVE BEEN ENROLLED IN A CHEMICAL DEPENDENCY/SUBSTANCEABUSE PROGRAM, SOME INFORMATION MAY BE OMITTED. This clinical summary was aggregated from multiple sources. Caution should be exercised in using it in the provision of clinical care. This summary normalizes information from multiple sources, and as a consequence, information in this document may materially change the coding, format and clinical context of patient data. In addition, data may be omitted in some cases. CLINICAL DECISIONS SHOULD BE BASED ON THE PRIMARY CLINICAL RECORDS. [facility]. provides no warranty or guarantee of the accuracy or completeness of information in this document.
--- NOTE | 2023-06-02 08:04 | MRI_ITS ---
STUDY: MRI BRAIN WITH AND WITHOUT CONTRAST (ATTENTION INTERNAL AUDITORY CANALS - I.A.C.''s) REASON FOR EXAM: Female, 88 years old. SENSORINEURAL HEARING LOSS TECHNIQUE: Standardized multiplanar fat and water weighted pulse sequences were obtained. ml of 14ml clariscan contrast material was administered intravenously for the contrast portion of the examination. COMPARISON: None. FINDINGS: Normal bilateral temporal bones. Normal bilateral internal auditory canals. There is no demonstrated intracanalicular or cisternal vestibular schwannoma ( acoustic neuroma ). There is no enhancement of the bilateral VIIth or VIIIth cranial nerves. Normal bilateral cochlea, vestibules and semicircular canals. The bilateral mastoid air cells are clear. No cerebellar pontine angle mass or cyst is present. No hydrocephalus or midline shift is present. There are no enhancing lesion or abnormal thickening or enhancement of the meninges or dura. There is mild cerebral atrophy with widening of the extra-axial spaces and ventricular dilatation. There are multiple white matter hyperintensities, distributed throughout the deep white matter tracts of the cerebral hemispheres, consistent with moderate chronic white matter ischemic changes. There is no evidence for recent intracranial ischemia or other cause of cytotoxic edema on diffusion weighted imaging (DWI). Normal bilateral basal ganglia. Normal thalami. Normal flow voids within the major intracranial circulation suggesting patency by spin echo criteria. Normal venous enhancement. There is no enhancing intra-axial or extra-axial abnormality. There is no extra-axial fluid accumulation. Normal sella turcica, pituitary gland, infundibular stalk, optic chiasm and hypothalamus. Normal tectal plate and pineal gland. There are chronic white matter ischemic changes of the justino. The midbrain and medulla are otherwise normal. Normal cerebellum. Normal basal cisterns. No demonstrated orbital abnormality, within the constraints of a routine brain study. Normal visualized paranasal sinuses. Normal calvarium and skull base. Normal visualized soft tissue structures. Normal visualized upper cervical spine. MRI/Brain W/WO Contrast IMPRESSION: 1. Normal unenhanced and enhanced MRI of the bilateral internal auditory canals (I.A.C''s). 2. Involutional and chronic ischemic changes of the brain, as described above. Electronically Signed: Nuno Barrios MD at 14:05 EST ,
[2023-06-02 08:50] LABS: CREATININE FINGERSTICK < 1.0 mg/dL (0.55-1.02); EGFR FINGERSTICK > 60.0000 mL/min (>60)
== END | disposition home or self-care (01) ==
PROVIDERS: PCP Internal Medicine; Referring Provider Otolaryngology; Visit Provider Otolaryngology
DX: H90.3 Sensorineural hearing loss, bilateral (principal)
CPT/HCPCS: 70553; A9575

== ENCOUNTER 2023-07-23 13:38 | Emergency (ER) | payer MEDICARE, OTHER, SELFPAY ==
[2023-07-23 13:39] VITALS: BP 123/99; PULSE 90; RESP 16; TEMP 36.6; O2SAT 96
--- NOTE | 2023-07-23 13:57 | EDS_ITS ---
HPI <LISA Hope - Last Filed: 07/23/23 15:35> History of Present Illness Chief Complaint: GI Bleed Narrative Narrative: 88-year-old female with past medical history of hypertension, diverticulosis, hemorrhoids presents with rectal bleeding. Yesterday she had a small amount of bright red rectal bleeding in her underwear about the size of a $0.50 piece. There were no clots. Today she had continued rectal bleeding that look like long stringy clots. She has not had a bowel movement in several days. She typically goes 2-3 times per week. She has chronic constipation but states lately it has been better and she has not had to strain or push. She did not feel like eating much today but has no overt abdominal pain and no nausea or vomiting. She is not on aspirin or blood thinners. Her last colonoscopy was at age 82. [facility] <LISA Hope - Last Filed: 07/23/23 15:35> [facility] Medical History (Updated 07/23/23 @ 15:03 by LISA Hope) Benign microscopic hematuria Benign neoplasm of colon Carpal tunnel syndrome Disorder of bone and cartilage, unspecified Diverticulitis of colon Diverticulosis of colon Esophageal reflux Family hx of colon cancer Hypertension Osteoarthritis Painful tongue Pure hypercholesterolemia Home Medications acetaminophen 500 mg capsule 500 mg PO PRN PRN Pain 08/18/17 [History Last Taken Unknown] ascorbic acid (vitamin C) 500 mg capsule 500 mg PO DAILY 08/18/17 [History Last Taken Unknown] hydrochlorothiazide 25 mg tablet 12.5 mg PO QDAY 08/18/17 [History Last Taken Unknown] metoprolol succinate 50 mg tablet,extended release 24 hr 50 mg PO QDAY 08/18/17 [History Last Taken Unknown] multivitamin 1 tab PO QDAY 08/18/17 [History Last Taken Unknown] simvastatin 20 mg tablet 20 mg PO QPM 08/18/17 [History Last Taken Unknown] ondansetron 4 mg disintegrating tablet 4 mg PO Q8H PRN nausea and vomiting #10 tabs 09/20/21 [Rx Last Taken Unknown] alendronate 70 mg tablet 70 mg PO QWEEK 07/23/23 [History Last Taken Unknown] amlodipine 5 mg tablet 5 mg PO DAILY 07/23/23 [History Last Taken Unknown] citalopram 10 mg tablet 10 mg PO DAILY 07/23/23 [History Last Taken Unknown] lisinopril 40 mg tablet 40 mg PO DAILY 07/23/23 [History Last Taken Unknown] metoprolol succinate 25 mg tablet,extended release 24 hr PO 07/23/23 [History Last Taken Unknown] vancomycin 125 mg capsule 125 mg PO BID 07/23/23 [History Last Taken Unknown] Allergy/AdvReac Type Severity Reaction Status Date / Time amoxicillin Allergy Mild GI Upset Verified 07/23/23 13:39 neomycin Allergy Mild Rash Verified 07/23/23 13:39 telithromycin [From Ketek] Allergy Mild GI Upset Verified 07/23/23 13:39 Family History Father Colon cancer Cancer Skin cancer Mother Hypertension Surgical History S/P surgical manipulation of ankle joint Social History Smoking Status: Never smoker second hand exposure: No alcohol intake: never substance use type: does not use caffeine: No what type of physical activity do you participate in: walking and aerobics frequency: 1-2 times per week seatbelt use: always ROS <LISA Hope - Last Filed: 07/23/23 15:35> ROS ED ROS Narrative Constitutional: Negative for fever, chills, malaise. GI: Negative for abdominal pain, nausea, vomiting. EXAM <LISA Hope - Last Filed: 07/23/23 15:35> Physical Exam Narrative Exam Narrative: CONST: Patient sitting in no acute distress. EYES: Normal inspection. NECK: Normal inspection. RESP: No respiratory distress, CTAB. CVS: Regular rate and rhythm, no murmur, no gallop. ABD: Soft and nontender, no guarding or rebound, nondistended. ZOE: Several small external hemorrhoids with tiny amount of dried red blood but no active bleeding, nonthrombosed. No stool in rectal vault but there is maroon/dark brown blood. SKIN: Color normal, no rash, warm, dry, intact. EXTREMITIES: Normal appearance, no pedal edema. NEURO: Alert and answering questions appropriately. PSYCH: Normal affect. Const Vital Signs: 07/23/23 13:39 07/23/23 15:11 Temperature 98 F Temperature Source Temporal Pulse Rate 90 Pulse Rate [Lying] 82 Pulse Rate [Sitting (for 1 minute prior to obtaining)] 85 Pulse Rate [Standing (for 1 minute prior to obtaining)] 96 Respiratory Rate 16 Blood Pressure 123/99 H Blood Pressure [Lying] 117/47 L Blood Pressure [Sitting (for 1 minute prior to obtaining)] 119/54 L Blood Pressure [Standing (for 1 minute prior to obtaining)] 116/53 L Blood Pressure Mean 107 Blood Pressure Mean [Lying] 70 Blood Pressure Mean [Sitting (for 1 minute prior to obtaining)] 75 Blood Pressure Mean [Standing (for 1 minute prior to obtaining)] 74 Pulse Ox 96 Oxygen Delivery Method Room Air <Dr. Tc Chilel DO - Last Filed: 07/23/23 15:30> Physical Exam Const Vital Signs: 07/23/23 13:39 07/23/23 15:11 Temperature 98 F Temperature Source Temporal Pulse Rate 90 Pulse Rate [Lying] 82 Pulse Rate [Sitting (for 1 minute prior to obtaining)] 85 Pulse Rate [Standing (for 1 minute prior to obtaining)] 96 Respiratory Rate 16 Blood Pressure 123/99 H Blood Pressure [Lying] 117/47 L Blood Pressure [Sitting (for 1 minute prior to obtaining)] 119/54 L Blood Pressure [Standing (for 1 minute prior to obtaining)] 116/53 L Blood Pressure Mean 107 Blood Pressure Mean [Lying] 70 Blood Pressure Mean [Sitting (for 1 minute prior to obtaining)] 75 Blood Pressure Mean [Standing (for 1 minute prior to obtaining)] 74 Pulse Ox 96 Oxygen Delivery Method Room Air [facility] <LISA Hope - Last Filed: 07/23/23 15:35> [facility] Narrative Medical decision making narrative: External records reviewed: Colonoscopy with Dr. Palafox on 09/09/17 Sigmoid and descending colon diverticulosis, no other abnormalities. Consults: general surgery Patient seen and evaluated with YAMILETH. I personally interviewed and examined the patient. I was involved in all aspects of patient's orders, interpretation of results, and treatment. Patient presents with blood in her underwear that she initially noticed yesterday and was light pink. She has not had a bowel movement in several days. Today she noticed more bright red blood. She denies any abdominal pain. She denies any black tarry stool. Last colonoscopy was about 6 years ago and she had diverticulosis. Denies feeling lightheaded or dizzy. She is not on blood thinners. HEENT-PERRLA, EOMI, atraumatic Cardiovascular-regular rate and rhythm without murmurs. Lungs-clear to auscultation. No rales or wheezes. No tachypnea. Abdomen-normoactive bowel sounds. No rebound, rigidity, perianal signs. No mass palpated. Rectal exam performed and she had small external hemorrhoids but no thrombosed hemorrhoids noted. There was small amount of blood around the anus and on digital rectal exam. No fissures noted. Extremities-intact x 4. No significant edema. No cellulitic changes. Patient presents with rectal bleeding without pain. Few small hemorrhoids on exam but no evidence of thrombosis or fissures. Abdomen is benign. The differential would be internal hemorrhoid or diverticular hemorrhage. Patient had basic labs obtained CBC with differential count 11.7 with hemoglobin 14 and platelet count of 263. Chemistries show a slightly depressed potassium of 3.1 for which we did order potassium chloride p.o. BUN was 32 and creatinine 1.26. Orthostatic vital signs were negative. At this point discussed results with patient and also her nephew who apparently is a urology resident. Patient wanted me to give him the information as well. We discussed case with general surgeon on-call Dr. Carson who recommended patient follow-up with Dr. Palafox to schedule repeat colonoscopy. Will give discharge instructions to return if persistent heavy bleeding, passing clots, severe abdominal pain, lightheadedness, or condition worsen anyway. Lab Data Labs: Laboratory Results - last 24 hr 07/23/23 14:05 WBC 11.7 H RBC 4.39 Hgb 14.2 Hct 43.0 MCV 97.9 MCH 32.3 H MCHC 33.0 RDW Std Deviation 47.5 H RDW Coeff of Jose 13.1 Plt Count 263 MPV 8.9 Immature Gran % (Auto) 0.500 Neut % (Auto) 84.7 H Lymph % (Auto) 9.2 L [place] % (Auto) 5.4 Eos % (Auto) 0.0 Baso % (Auto) 0.2 Absolute Neuts (auto) 9.9 H Absolute Lymphs (auto) 1.08 Nucleated RBC % 0 Sodium 136 Potassium 3.1 L Chloride 101 Carbon Dioxide 27.0 Anion Gap 8 BUN 32 H Creatinine 1.26 H Estim Creat Clear Calc 27.68 Est GFR (MDRD) Af Amer 52 L Est GFR (MDRD) Non-Af 43 L BUN/Creatinine Ratio 25.4 H Glucose 143 H Calcium 8.7 <Dr. Tc Chilel, DO - Last Filed: 07/23/23 15:30> [facility] Narrative Medical decision making narrative: External records reviewed: Colonoscopy with Dr. Palafox on 09/09/17 Sigmoid and descending colon diverticulosis, no other abnormalities. Patient seen and evaluated with YAMILETH. I personally interviewed and examined the patient. I was involved in all aspects of patient's orders, interpretation of results, and treatment. Patient presents with blood in her underwear that she initially noticed yesterday and was light pink. She has not had a bowel movement in several days. Today she noticed more bright red blood. She denies any abdominal pain. She denies any black tarry stool. Last colonoscopy was about 6 years ago and she had diverticulosis. Denies feeling lightheaded or dizzy. She is not on blood thinners. HEENT-PERRLA, EOMI, atraumatic Cardiovascular-regular rate and rhythm without murmurs. Lungs-clear to auscultation. No rales or wheezes. No tachypnea. Abdomen-normoactive bowel sounds. No rebound, rigidity, perianal signs. No mass palpated. Rectal exam performed and she had small external hemorrhoids but no thrombosed hemorrhoids noted. There was small amount of blood around the anus and on digital rectal exam. No fissures noted. Extremities-intact x 4. No significant edema. No cellulitic changes. Patient presents with rectal bleeding without pain. Few small hemorrhoids on exam but no evidence of thrombosis or fissures. Abdomen is benign. The differential would be internal hemorrhoid or diverticular hemorrhage. Patient had basic labs obtained CBC with differential count 11.7 with hemoglobin 14 and platelet count of 263. Chemistries show a slightly depressed potassium of 3.1 for which we did order potassium chloride p.o. BUN was 32 and creatinine 1.26. Orthostatic vital signs were negative. At this point discussed results with patient and also her nephew who apparently is a urology resident. Patient wanted me to give him the information as well. We discussed case with general surgeon on-call Dr. Carson who recommended patient follow-up with Dr. Palafox to schedule repeat colonoscopy. Will give discharge instructions to return if persistent heavy bleeding, passing clots, severe abdominal pain, lightheadedness, or condition worsen anyway. Lab Data Attestation: I reviewed the patient's lab results. Labs: Laboratory Results - last 24 hr 07/23/23 14:05 WBC 11.7 H RBC 4.39 Hgb 14.2 Hct 43.0 MCV 97.9 MCH 32.3 H MCHC 33.0 RDW Std Deviation 47.5 H RDW Coeff of Jose 13.1 Plt Count 263 MPV 8.9 Immature Gran % (Auto) 0.500 Neut % (Auto) 84.7 H Lymph % (Auto) 9.2 L [place] % (Auto) 5.4 Eos % (Auto) 0.0 Baso % (Auto) 0.2 Absolute Neuts (auto) 9.9 H Absolute Lymphs (auto) 1.08 Nucleated RBC % 0 Sodium 136 Potassium 3.1 L Chloride 101 Carbon Dioxide 27.0 Anion Gap 8 BUN 32 H Creatinine 1.26 H Estim Creat Clear Calc 27.68 Est GFR (MDRD) Af Amer 52 L Est GFR (MDRD) Non-Af 43 L BUN/Creatinine Ratio 25.4 H Glucose 143 H Calcium 8.7 Discharge Plan Triage Chief Complaint: GI Bleed ED Midlevel Provider: Caryn Castañeda ED Provider: Tc Chilel Dx/Rx/DC Orders Clinical Impression: Rectal bleeding, Acute hypokalemia Instructions: ED Hemorrhoids, ED Lower GI Bleeding (Stable) Prescriptions: No Action simvastatin 20 mg tablet 20 mg PO QPM metoprolol succinate 50 mg tablet extended release 24 hr 50 mg PO QDAY hydrochlorothiazide 25 mg tablet 12.5 mg PO QDAY multivitamin tablet 1 tab PO QDAY acetaminophen 500 mg capsule 500 mg PO PRN PRN (Reason: Pain) ascorbic acid (vitamin C) 500 mg capsule 500 mg PO DAILY ondansetron 4 mg tablet,disintegrating 4 mg PO Q8H PRN (Reason: nausea and vomiting) Qty: 10 0RF citalopram 10 mg tablet 10 mg PO DAILY alendronate 70 mg tablet 70 mg PO QWEEK amlodipine 5 mg tablet 5 mg PO DAILY vancomycin 125 mg capsule 125 mg PO BID metoprolol succinate 25 mg tablet extended release 24 hr PO lisinopril 40 mg tablet 40 mg PO DAILY Primary Care Provider: Abbi Cruz Referrals: Abbi Cruz MD [Primary Care Provider] - Kris Palafox MD [Med Staff - Active Staff] - Activity Restrictions/Additional Instructions: Please follow-up with Dr. Palafox's office to discuss getting another colonoscopy. If your bleeding becomes much heavier or you develop worsening abdominal or rectal pain please be reevaluated in the ER.
[2023-07-23 14:01] VITALS: BMI 24.1
[2023-07-23 14:25] LABS: Absolute Lymphocyte Count 1.08 X10^3/uL (0.83-4.51); Absolute Neutrophil Count 9.9 X10^3/uL (2.0-7.7); Basophil# 0.02 X10^3/uL; Basophil% 0.2 % (0-1); Hemoglobin 14.2 g/dL (12.0-15.0); Lymphocyte # 1.08 X10^3/ul (0.83-4.51); Lymphocyte % 9.2 % (19-41); Mean Corpuscular Hgb 32.3 pg (27.0-32.0); Mean Corpuscular Volume 97.9 fL (81-99); Mean Platelet Vol. 8.9 fl (6.2-12.0); Monocyte# 0.63 X10^3/uL; Monocyte% 5.4 % (0-10); NRBC Flagged by Analyzer 0 % (0-5); Neutrophil # 9.91 X10^3/uL (2.7-7.7); Neutrophil % 84.7 % (47-70); Platelet Count 263 K/mm3 (150-450); RBC Distribution Width CV 13.1 % (11.6-14.6); RBC Distribution Width SD 47.5 fl (35.1-43.9); Red Blood Count 4.39 M/mm3 (4.2-5.4); White Blood Count 11.7 K/mm3 (4.4-11.0)
[2023-07-23 14:37] LABS: Anion Gap 8 (5-15); BUN 32 mg/dL (7-18); BUN/Creat Ratio 25.4 RATIO (10-20); Calcium,Total 8.7 mg/dL (8.5-10.1); Chloride 101 mmol/L (98-107); Creatinine, Serum 1.26 mg/dL (0.55-1.02); EST Glomerular Filtration Rate 43 mL/min (>60); Est Glom Filt Rate - Afr Amer 52 mL/min (>60); Estimated Creatinine Clearance 27.68 ml/min; Glucose 143 mg/dL (74-106); Potassium 3.1 mmol/L (3.5-5.1); Sodium Level 136 mmol/L (136-145)
[2023-07-23] MEDS: Potassium Chloride Oral Tablet 20 MEQ 40 MEQ PO (15:10)
[2023-07-23 15:11] VITALS: BP 116/53; BP 117/47; BP 119/54; PULSE 82; PULSE 85; PULSE 96
[2023-07-23 15:39] VITALS: BP 116/53; PULSE 74; RESP 16; O2SAT 96
== END 2023-07-23 16:05 | disposition home or self-care (01) ==
PROVIDERS: Physician Assistant; Emergency Provider Emergency Medicine; PCP Internal Medicine; Visit Provider Emergency Medicine
DX: K62.5 Hemorrhage of anus and rectum (principal); E87.6 Hypokalemia
CPT/HCPCS: 80048; 85025; 99283; A4216

== ENCOUNTER 2023-08-30 05:59 | Day surgery (SDC) | payer MEDICARE, OTHER, SELFPAY ==
--- NOTE | 2023-08-29 | COLBX_PTH ---
PATIENT: FREDRICK VERMA LOC: EN U#:[id number] AGE/SX: 88/F ROOM: RE08/30/[address]: Dr. Kris Palafox MD : [id number] BED: DIS: 08/30/2023 SPEC #: [id number] RECD: 08/30/23 11:04 STATUS: AUTUMN KUMAR #: [id number] HEATHER: 08/29/23 00:[address]: Kris Palafox DEPT: SURGICAL PATHOLOGY RECD BY: Marcello Merchant ENTERED: 08/30/23 11:05 SP TYPE: COLON BX OTHR DR: Dr. Abbi Cruz MD Tissues: Ascending colon Procedures: Surgery Specimen Level IV HEADER OPERATION: Colonoscopy biopsy PRE-OP DIAGNOSIS: Family history of colon cancer, diverticulitis of colon, rectal bleeding TISSUE SUBMITTED: Proximal ascending polyp biopsy MICROSCOPIC DIAGNOSIS Proximal ascending colon polyp, biopsy: Tubular adenoma. AM/mr 08/31/2023 MICROSCOPIC DESCRIPTION Slides are reviewed. GROSS DESCRIPTION Received in fixative is one container labeled with the patient's name and designated Proximal ascending polyp biopsy. The specimen consists of one irregular fragment of light quijano soft tissue that measures 0.2 x 0.2 x 0.1 cm. The specimen is totally submitted in one cassette. BRANDY/mr 08/30/23 TC:5 CPT:78982
[2023-08-30 06:37] VITALS: BP 110/52; PULSE 70; RESP 16; TEMP 36.5; O2SAT 100; BMI 23.7
[2023-08-30] MEDS: Lactated Ringers 1,000 ML 15 ML IV (06:40)
--- NOTE | 2023-08-30 06:59 | PCM.HP.BLA ---
History and Physical Date of Admission: 08/30/23 Visit Reasons: RECTAL BLEEDING Chief Complaint: rectal bleeding Accompanied by: Son Is patient in pain?: No Allergies amoxicillin Allergy (Mild, Verified 08/18/23 07:57) GI Upsetneomycin Allergy (Mild, Verified 08/18/23 07:57) Rashtelithromycin [From Ketek] Allergy (Mild, Verified 08/18/23 07:57) GI Upset Medications acetaminophen 500 mg capsule 500 mg PO PRN PRN Pain 08/18/17 [History Confirmed 08/18/23] ascorbic acid (vitamin C) 500 mg capsule 500 mg PO DAILY 08/18/17 [History Confirmed 08/18/23] hydrochlorothiazide 25 mg tablet 12.5 mg PO QDAY 08/18/17 [History Confirmed 08/18/23] metoprolol succinate 50 mg tablet,extended release 24 hr 50 mg PO QDAY 08/18/17 [History Confirmed 08/18/23] multivitamin 1 tab PO QDAY 08/18/17 [History Confirmed 08/18/23] simvastatin 20 mg tablet 20 mg PO QPM 08/18/17 [History Confirmed 08/18/23] ondansetron 4 mg disintegrating tablet 4 mg PO Q8H PRN nausea and vomiting #10 tabs 09/20/21 [Rx Confirmed 08/18/23] alendronate 70 mg tablet 70 mg PO QWEEK 07/23/23 [History Confirmed 08/18/23] amlodipine 5 mg tablet 5 mg PO DAILY 07/23/23 [History Confirmed 08/18/23] citalopram 10 mg tablet 10 mg PO DAILY 07/23/23 [History Confirmed 08/18/23] lisinopril 40 mg tablet 40 mg PO DAILY 07/23/23 [History Confirmed 08/18/23] metoprolol succinate 25 mg tablet,extended release 24 hr PO 07/23/23 [History Confirmed 08/18/23] vancomycin 125 mg capsule 125 mg PO BID 07/23/23 [History Confirmed 08/18/23] [facility] Medical History (Updated 08/18/23 @ 05:[address] Kris Palafox MD) Benign microscopic hematuria Benign neoplasm of colon Carpal tunnel syndrome Disorder of bone and cartilage, unspecified Diverticulitis of colon Diverticulosis of colon Esophageal reflux Family hx of colon cancer Hypertension Osteoarthritis Painful tongue Pure hypercholesterolemia Rectal bleeding Surgical History (Updated 08/18/23 @ 07:56 by Ann Gutierrez LPN) S/P cataract extraction S/P surgical manipulation of ankle joint Family History (Updated 08/18/23 @ 07:56 by Ann Gutierrez LPN) Father Colon cancer Cancer Skin cancerMother HypertensionGrandfather Colon cancer Social History Smoking Status: Never smoker second hand exposure: No alcohol intake: never substance use type: does not use caffeine: No what type of physical activity do you participate in: walking and aerobics frequency: 1-2 times per week seatbelt use: always HPI HPI HPI: 88-year-old female was referred by SUE Merlos for surgical consultation regarding rectal bleeding and written compromise surgical consult recommendations will return to her. On referral the patient is noted to have an external hemorrhoid. The patient complained of acute onset of bright red blood on the toilet paper and in the commode. She is not on any anticoagulants. I have assisted the patient most recently on September 09, 2017 with a colonoscopy. The patient had extensive sigmoid and descending diverticulosis and an extraordinarily tortuous colon. This was performed because of a family history of colon cancer in her father. On retroflexed view hemorrhoidal changes were noted. There is no acute bleeding at that time. Chart review notes that July 23, 2023 the patient presented to the [facility] emergency room. There was concern over rectal bleeding. She was noted to have a white blood cell count of 11.7 with a hemoglobin 14.2 hematocrit 43 platelet count 263,000. She was felt stable for discharge. She did contact our office and we offered her a much sooner appointment but she declined. The patient's only had 1 episode. There is been no recurrence. She had no abdominal pain with the episode. No antecedent constipation. No fever. No nausea or vomiting. She is not on any anticoagulant. For headache she takes acetaminophen. Only rarely does she use ibuprofen. Her family history is notable that her father and paternal grandfather both had colon cancer. She is not aware of the age at which that happen. She does enjoy good health. She does have hypertension. She does admit however to liking significant naldo of salt with her food. She is aware of recommendations to significantly diminish that. ROS General General: Yes fatigue; No weight change, appetite, colon cancer, breast cancer or weakness HEENT HEENT: Yes eye surgery; No difficulty swallowing, eye injury, swollen glands or hoarseness Additional Details: cataracts Endo Endocrine: No thyroid disease, diabetes mellitus, thyroid cancer, Hair loss, heat intolerance or cold intolerance Skin Skin: No rash or changing moles Musc Musculoskeletal: Yes arthritis; No back problems, rheumatoid arthritis, gout or joint pain Cardio Cardiovascular: Yes high blood pressure; No murmur, pacemaker, heart disease, atrial fibrillation, heart attack, heart stent, palpitations, shortness of breat with exertion or chest pain Psych Psychiatric: No depression, anxiety or hearing voices Resp Respiratory: No shortness of breath, No sleep apnea, No cough, No COPD, No asthma, No emphysema and No wheezing Gastro Gastrointestinal: No abdominal pain, No nausea or vomiting, Yes diarrhea, No constipation, Yes blood in stool, No acid reflux, Yes hemorrhoids, No ulcers, No gallbladder problem and No black,tarry stools Lew Hematologic: No blood thinners, No blood disorders, No bleeding, No anemia and No blood clots Neuro Neurologic: No numbness, No tingling and No weakness Exam Const General: cooperative, healthy appearing, comfortable and no acute distress Nutritional Appearance: average body habitus Orientation: alert and awake [facility] Head: normal to inspection Eyes General: appearance normal, both eyes and all related structures Neck Neck: normal visual inspection Resp Effort & Inspection: normal respiratory effort Auscultation: clear to auscultation bilaterally Cardio Rate: regular rate Rhythm: regular rhythm GI Inspection: normal to inspection Palpation: soft and no hepatosplenomegaly Musc Cervical Spine: normal cervical lordosis Skin General: no rashes or lesions noted Neuro General: patient alert, patient awake and patient oriented x3 Extrem General: no calf tenderness Psych Appearance: grossly normal Assessment and Plan Assessment and Plan (1) Family hx of colon cancer: Status: Acute (2) Diverticulosis of colon: Status: Acute (3) Rectal bleeding: Status: Acute Plan: The patient's presentation suggest likely hemorrhoidal bleed. Less likely due to diverticular disease. She is enjoying a very high quality of life. I propose for her a colonoscopy with possible biopsy or polypectomy as indicated. She is known to have a very tortuous colon. I anticipate likely utilizing an adult scope. She presents with her son today. She has had an opportunity to ask and have questions answered. She is interested in pursuing an attempt to obtain a definitive diagnosis. As noted her previous colonoscopy was August 2017. I appreciate the ongoing opportunity of assisting with her surgical care. Copy: Ranjana Marsh NP-C Kris Palafox M.D., F.A.C.S I have examined the patient and the H&P has been reviewed. There are no clinical changes since date of exam. Kris Palafox M.D., F.A.C.S.
[2023-08-30 07:30] VITALS: BP 110/52; BP 94/37; PULSE 65; RESP 16; TEMP 36.3; O2SAT 98
--- NOTE | 2023-08-30 07:30 | OP.COLON_ITS ---
Patient Name: Jerald Pan Procedure Date: 08/30/2023 6:57 AM Date of : 1935 Age: 88 Procedure: Colonoscopy Indications: Rectal bleeding Providers: Kris Palafox MD Referring MD: Abbi Cruz Medicines: See the Anesthesia note for documentation of the administered medications Patient Profile: Last Colonoscopy: August 2017. Complications: No immediate complications. Procedure: Pre-Anesthesia Assessment: - Prior to the procedure, a History and Physical was performed, and patient medications and allergies were reviewed. The patient's tolerance of previous anesthesia was also reviewed. The risks and benefits of the procedure and the sedation options and risks were discussed with the patient. All questions were answered, and informed consent was obtained. Prior Anticoagulants: The patient has taken no anticoagulant or antiplatelet agents. ASA Grade Assessment: II - A patient with mild systemic disease. After reviewing the risks and benefits, the patient was deemed in satisfactory condition to undergo the procedure. After I obtained informed consent, the scope was passed under direct vision. Throughout the procedure, the patient's blood pressure, pulse, and oxygen saturations were monitored continuously. The adult colonoscope was introduced through the anus and advanced to the cecum, identified by appendiceal orifice and ileocecal valve. The colonoscopy was somewhat difficult due to a tortuous colon. The patient tolerated the procedure well. The quality of the bowel preparation was good. The ileocecal valve and the appendiceal orifice were photographed. Scope In: 7:09:42 AM Scope Withdrawal Time 0 hours 7 minutes 13 seconds Scope Out: 7:24:17 AM Total Procedure Duration Time 0 hours 14 minutes 35 seconds Findings: The digital rectal exam findings include non-thrombosed external hemorrhoids, non-thrombosed internal hemorrhoids and internal hemorrhoids that prolapse with straining, but require manual replacement into the anal canal (Grade III). Multiple diverticula were found in the sigmoid colon and descending colon. The left colon was significantly tortuous. A 3 mm polyp was found in the proximal ascending colon. The polyp was sessile. The polyp was removed with a cold biopsy forceps. Resection and retrieval were complete. Impression: - Non-thrombosed external hemorrhoids, non-thrombosed internal hemorrhoids and internal hemorrhoids that prolapse with straining, but require manual replacement into the anal canal (Grade III) found on digital rectal exam. - Diverticulosis in the sigmoid colon and in the descending colon. - Tortuous colon. - One 3 mm polyp in the proximal ascending colon, removed with a cold biopsy forceps. Resected and retrieved. Recommendation: - Repeat colonoscopy in 5 years for surveillance based on pathology results. - Telephone my office for pathology results in 1 week I suspect that the episode of rectal bleeding was secondary to internal hemorrhoidal disease. No active bleeding at this time. Conservative measures would appear to be appropriate.. - Continue present medications. Procedure Code(s): --- Professional --- 52100, Colonoscopy, flexible; with biopsy, single or multiple Diagnosis Code(s): --- Professional --- K64.2, Third degree hemorrhoids K64.4, Residual hemorrhoidal skin tags D12.2, Benign neoplasm of ascending colon K62.5, Hemorrhage of anus and rectum K57.30, Diverticulosis of large intestine without perforation or abscess without bleeding Q43.8, Other specified congenital malformations of intestine CPT copyright 2021 [employer]. All rights reserved. The codes documented in this report are preliminary and upon fisher oyster review may be revised to meet current compliance requirements. Kris Palafox MD 08/30/2023 7:29:34 AM This report has been signed electronically. Number of Addenda: 0 Note Initiated On: 08/30/2023 6:57 AM
--- NOTE | 2023-08-30 07:30 | OP.CCLET_ITS ---
08/30/2023 Abbi Cruz [address] [place] [address] Re : Colonoscopy procedure for Jerald Pan Dear Dr. Cruz This procedure was performed on Wednesday, August 30, 2023. My impressions and recommendations are as follows: Impressions : - Non-thrombosed external hemorrhoids, non-thrombosed internal hemorrhoids and internal hemorrhoids that prolapse with straining, but require manual replacement into the anal canal (Grade III) found on digital rectal exam. - Diverticulosis in the sigmoid colon and in the descending colon. - Tortuous colon. - One 3 mm polyp in the proximal ascending colon, removed with a cold biopsy forceps. Resected and retrieved. Recommendations : - Repeat colonoscopy in 5 years for surveillance based on pathology results. - Telephone my office for pathology results in 1 week I suspect that the episode of rectal bleeding was secondary to internal hemorrhoidal disease. No active bleeding at this time. Conservative measures would appear to be appropriate.. - Continue present medications. My findings are described in the full procedure note, which is enclosed. If I can be of further assistance, please feel free to contact me at Doctor phone number(s): Work: . Sincerely, Kris Palafox MD 08/30/2023 7:29:34 AM This report has been signed electronically.
[2023-08-30 07:35] VITALS: BP 110/52; BP 99/37; PULSE 64; RESP 16; O2SAT 99
[2023-08-30 07:40] VITALS: BP 110/47; BP 110/52; PULSE 74; RESP 16; TEMP 36.3; O2SAT 100
[2023-08-30 07:55] VITALS: BP 110/52
== END 2023-08-30 08:59 | disposition home or self-care (01) ==
LOC: EN 05:59 → AC 06:27
PROVIDERS: PCP Internal Medicine; Referring Provider Internal Medicine; Visit Provider Surgery
PROC: 0DJD8ZZ Inspection of Lower Intestinal Tract, Via Natural or Artificial Opening Endoscopic (ICD-10-PCS; CPT 45378; principal; 2023-08-30 06:55)
DX: D12.2 Benign neoplasm of ascending colon (principal); K64.2 Third degree hemorrhoids; E78.00 Pure hypercholesterolemia, unspecified; K64.4 Residual hemorrhoidal skin tags; I10 Essential (primary) hypertension; Z80.0 Family history of malignant neoplasm of digestive organs; K57.30 Diverticulosis of large intestine without perforation or abscess without bleeding; K21.9 Gastro-esophageal reflux disease without esophagitis; Z79.899 Other long term (current) drug therapy
CPT/HCPCS: 45380; 88305; J7120; J2405